=== PATIENT | male | born 1945 | race Caucasian/White ===

== ENCOUNTER 2018-01-09 12:17 | Inpatient (IN) | payer MEDICARE, SELFPAY ==
[2018-01-09] VITALS (16 sets, daily range): BP systolic 97–132; BP diastolic 62–94; PULSE 77–121; RESP 8–27; TEMP 36.7–36.9; O2SAT 95–99; BMI 28.8; BMI 26.9
--- NOTE | 2018-01-09 12:19 | EKG12_ITS ---
Test Reason : SOB Blood Pressure : / mmHG Vent. Rate : 093 BPM Atrial Rate : 075 BPM P-R Int : 000 ms QRS Dur : 164 ms QT Int : 420 ms P-R-T Axes : 000 008 166 degrees QTc Int : 522 ms Atrial fibrillation with premature ventricular or aberrantly conducted complexes Non-specific intra-ventricular conduction block Inferior infarct , age undetermined T wave abnormality, consider anterolateral ischemia Abnormal ECG Confirmed by JADE ALICEA, FARIBA ([id number]), editor managing newspaper LIZY FLORES ([id number]) on 01/13/2018 2:32:11 PM Referred By: RAYMUNDO Confirmed By:FARIBA HANSEN MD
--- NOTE | 2018-01-09 12:43 | EKG12_ITS ---
Test Reason : SOB Blood Pressure : / mmHG Vent. Rate : 090 BPM Atrial Rate : 090 BPM P-R Int : 000 ms QRS Dur : 148 ms QT Int : 432 ms P-R-T Axes : 000 058 030 degrees QTc Int : 528 ms Suspect unspecified pacemaker failure Wide QRS rhythm with frequent ventricular-paced complexes and with frequent Premature ventricular com plexes Left bundle branch block Abnormal ECG Confirmed by JADE ALICEA, FARIBA ([id number]), primer expeditor and drier LIZY FLORES ([id number]) on 01/13/2018 1:51:11 PM Referred By: RAYMUNDO Confirmed By:FARIBA HASNEN MD
--- NOTE | 2018-01-09 12:44 | ECHOCS_ITS ---
Reason For Study: CHF Procedure This was a 2D Doppler, Color Flow transthoracic echocardiogram. Exam performed portable in ED. Left Ventricle Moderately dilated left ventricle. The estimated ejection fraction is 20 %. Unable to assess diastolic dysfunction. There are regional wall motion abnormalities as specified. Right Ventricle Normal size and thickness. ICD or pacer leads identified within the right ventricle. Normal systolic function. Atria The left atrium is severely enlarged. Normal right atrium. Mitral Valve Mild diffuse mitral valve thickening. Moderate (2+) eccentric mitral valve insufficiency. Tricuspid Valve Normal tricuspid valve. Mild (1+) tricuspid valve insufficiency. Right ventricular systolic pressure estimated to be 60 mmHg. Severe pulmonary hypertension. Aortic Valve Trisinus/trileaflet aortic valve. Mild diffuse aortic valve thickening. Pulmonic Valve The pulmonic valve is not well visualized. Great Vessels Normal aortic root. Normal arch. The inferior vena cava is dilated. No collapse of the inferior vena cava. Pericardium/Pleural No pericardial effusion. MMode/2D Measurements & Calculations LVIDd: 5.5 cm IVSd: 0.88 cm Ao root diam: 2.7 cm LVIDs: 5.0 cm LVPWd: 0.75 cm LA dimension: 4.9 cm FS: 10.1 % LAV(MOD-bp): 87.9 ml LA A4 area: 26.2 cm2 RA A4 area: 17.3 cm2 LAV(MOD-bp) Indexed: 46.2 ml/m2 LAV(MOD-sp2): 88.4 ml LAV(MOD-sp4): 85.1 ml Doppler Measurements & Calculations MV E max selena: 84.1 cm/sec Ao V2 max: 102.7 cm/sec LV V1 max: 88.7 cm/sec Ao max P.2 mmHg LV V1 max P.2 mmHg PA V2 max: 112.3 cm/sec TR max selena: 322.8 cm/sec TR max P.1 mmHg Interpretation Summary Moderately dilated left ventricle. The estimated ejection fraction is 20 %. There are regional wall motion abnormalities as specified. Unable to assess diastolic dysfunction. The left atrium is severely enlarged. Moderate (2+) eccentric mitral valve insufficiency. Mild (1+) tricuspid valve insufficiency. Right ventricular systolic pressure estimated to be 60 mmHg. Severe pulmonary hypertension. Pt appears to be in atrial fibrillation. There is no comparison study available. Ordering Physician: Doyle Evans Referring Physician: Lorenzo Thibodeaux Performed By: Glo Dawn RDCS
[2018-01-09 12:54] LABS: Absolute Lymphocyte Count 1.49 X10^3/ul (0.83-4.51); Absolute Neutrophil Count 8.6 X10^3/uL (2.0-7.7); Basophil# 0.03 X10^3/uL; Basophil% 0.3 % (0-1); Eosinophil# 0.07 X10^3/uL; Eosinophils% 0.6 % (0-5); Hematocrit 34.2 % (40-54); Hemoglobin 11.1 g/dl (13.0-16.5); Lymphocyte # 1.49 X10^3/ul (4.0); Lymphocyte % 12.8 % (19-41); Mean Corp Hgb Conc 32.5 g/gl (32-36); Mean Corpuscular Hgb 26.6 pg (27.0-32.0); Mean Corpuscular Volume 81.8 fL (80-94); Mean Platelet Vol. 10.7 fl (6.2-12.0); Monocyte# 1.52 X10^3/uL; Neutrophil # 8.55 X10^3/uL (2.7-7.7); Neutrophil % 73.1 % (47-70); Platelet Count 263 K/mm3 (150-450); RBC Distribution Width CV 14.3 % (11.6-14.6); RBC Distribution Width SD 42.6 fl (35.1-43.9); Red Blood Count 4.18 M/mm3 (4.6-6.2); White Blood Count 11.7 K/mm3 (4.4-11.0)
--- NOTE | 2018-01-09 12:55 | RAD_ITS ---
STUDY: X-RAY CHEST REASON FOR EXAM: Male, 72 years old. Chest pain. Shortness of breath and palpitations. TECHNIQUE: Single AP portable view of the chest. COMPARISON: None. FINDINGS: EKG electrodes are seen. There is a 6.7 cm x 5.6 cm consolidation and/or mass in the right upper lobe. Radiographic follow-up is recommended. Increased markings are seen at the lung bases suggestive of either atelectasis and/or scarring. Hyperinflation. There is no demonstrated pleural abnormality. Sternal cerclage wires and vascular clips are present from a prior sternotomy and coronary artery bypass graft procedure (CABG). A left-sided ICD is seen. Normal mediastinum and mundo. Normal visualized pulmonary arteries. Normal visualized aortic arch and descending thoracic aorta. Normal visualized thoracic spine. Normal visualized ribs, clavicles, and shoulders. There is no demonstrated abnormality of the visualized soft tissue structures of the upper abdomen. RAD/Chest 1 View (Portable) IMPRESSION: Infiltration and/or mass lesion in the right upper lobe as described. Radiographic follow-up is recommended. Increased markings at the lung bases suggestive of atelectasis and/or scarring. Electronically Signed: Juanito Arevalo MD at 13:19 EDT Tel [phone], Service support ,
[2018-01-09 12:56] LABS: Differential Indicated SCAN CRITERIA MET; POSITIVE COUNT NO; POSITIVE DIFFERENTIAL YES; POSITIVE MORPHOLOGY NO
--- NOTE | 2018-01-09 12:56 | PCA ---
NO OLD EKG
[2018-01-09 12:58] LABS: International Normalized Ratio 1.9; Prothrombin Time (Protime)PT. 22.1 SECONDS (11.7-14.9)
[2018-01-09 12:59] LABS: Partial Thromboplast Time 44.6 Seconds (24.1-36.2)
[2018-01-09] MEDS: Enoxaparin 100 MG/ML Syringe 80 MG SC (13:01)
[2018-01-09 13:06] LABS: AST(SGOT) 18 U/L (15-37); Alanine Aminotransfer ALT/SGPT 19 U/L (16-61); Albumin, Serum 3.4 g/dL (3.2-5.0); Alkaline Phosphatase 93 U/L (45-117); Anion Gap 9 (5-15); BUN 17 mg/dL (7-18); BUN/Creat Ratio 12.4 RATIO (10-20); Bilirubin, Direct 0.33 mg/dL (0.00-0.30); Calcium,Total 8.5 mg/dL (8.5-10.1); Chloride 97 mmol/L (98-107); Creatinine, Serum 1.37 mg/dL (0.70-1.30); EST Glomerular Filtration Rate 54 mL/min (>60); Est Glom Filt Rate - Afr Amer 65 mL/min (>60); Estimated Creatinine Clearance 42.69 ml/min; Glucose 97 mg/dL (74-106); Potassium 4.5 mmol/L (3.5-5.1); Protein, Total 7.4 g/dL (6.4-8.2); Sodium Level 130 mmol/L (136-145)
--- NOTE | 2018-01-09 13:18 | CT_ITS ---
STUDY: CT CHEST WITHOUT CONTRAST REASON FOR EXAM: Male, 72 years old. Cough. COPD. Shortness of breath. RADIATION DOSAGE (If Supplied By Facility): CTDIvol = ( 13.25 ) mGy, DLP = ( 539.7 ) mGycm TECHNIQUE: Transaxial imaging was performed without the administration of intravenous contrast material. Multiplanar coronal and sagittal images were reformatted. Individualized dose optimization techniques were used for this CT. COMPARISON: Comparison is made with prior chest radiograph done earlier today. FINDINGS: There is evidence of a 6.6 cm x 4.8 cm mass in the lateral peripheral aspect of the right upper lobe. Increased markings are seen in the surrounding pulmonary parenchyma. This is superimposed on emphysematous changes. A neoplastic process should be ruled out. There is also evidence of bronchiectasis and atelectasis along the posterior aspect of the right upper lobe. Small right pleural effusion. Mild increased markings at the left lung base suggestive of a left basilar atelectasis. A dual-chamber pacemaker is seen. There are calcifications of the coronary arteries. Normal mediastinum. Normal hilar regions. Normal unenhanced pulmonary arteries. Normal aorta arch and descending thoracic aorta. There are multi-level degenerative changes of the thoracic spine. Small hiatal hernia. CT/Chest without Contrast IMPRESSION: Large mass in the peripheral anterior lateral aspect of the right upper lobe with surrounding bronchiectasis and mild increased markings in the right upper lobe suggestive of a neoplastic process. Histologic diagnosis is recommended. Electronically Signed: Juanito Arevalo MD at 14:55 EDT Tel [phone], Service support ,
[2018-01-09 13:21] LABS: BNP,B-Type NATRIURETIC PEPTIDE 617.4 pg/mL (0-100)
--- NOTE | 2018-01-09 13:37 | CPS ---
Patient not in room, bipap on standby.
[2018-01-09] MEDS: Furosemide 100 MG/10 ML Vial 80 MG IV (14:52)
--- NOTE | 2018-01-09 15:44 | ED.VISSUMM ---
- ER Visit Summary Date of Service: 01/09/18 Chief Complaint: Shortness of breath History of Present Illness: The patient is a 72 M who presents via his primary care physician. Patient went to his primary care physician following 2 weeks of progressive dyspnea. There the office he was found to be extremely short of breath, and atrial fibrillation. She notes a cough that is nonproductive. He states that he can walk about 6-8 steps before he needs to rest. He denies a prior history of atrial fibrillation. He states that he used to go to [facility] for most of his medical care including cardiology. He has a history of coronary artery bypass grafting. Last year he received 4 stents. He states he sees pulmonology Dr. Keane here in [place]. I was able to obtain meds from primary care and Dr. Keane's office. It appear the patient has in fact had atrial fibrillation before as he is on sotalol Xarelto and Plavix. Patient states his legs are a little bit more swollen than normal. Physical Examination: 109/81 temperature 98.2 heart rate of 95 respirations are 32 socks is 95% on room air Gen: Well-nourished well-developed Head: Normocephalic atraumatic Eyes: Perrl EOMI ENT: TMs clear no rhinorrhea moist mucous membranes Neck: Supple no lymphadenopathy no JVD nontender CVS: Irregularly irregular regular rate rhythm no murmurs normal S1-S2 Respiratory: Shunt is tachypneic. He has audible rales. Chest nontender Abdomen: Soft nontender nondistended normal bowel sounds no masses Back: Nontender Extremity: Nontender 3+ lower extremity pitting edema Skin: Normal color no rash Neuro: alert orientated ?3 CN II-XII intact normal strength sensation reflexes gait cerebellar Psych: Normal affect normal mood Test Results: Chest x-ray shows a large mass in the right upper lobe. EKG shows appears to be atrial fibrillation. There are PVCs. White count is 11.7 with a hemoglobin 11.1. Natruretic peptide is 617. Creatinine 1.37. INR at 1.9 PTT 44.6. Troponin less than 0.02. CT of the chest was obtained without contrast. Emergency Department Course and Treatment: Patient initially received a dose of Lovenox as he told me that he did not have any history of atrial fibrillation and this was the report that I had received from primary care. He also was placed on BiPAP which is greatly improved his breathing. Patient appears and states he is more comfortable. He also received a dose of Lasix 80 mg. I spoke with Dr. Baer and we performed an echocardiogram. Our plan is admission into the hospital. I did speak with Dr. Mckeon regarding the lung mass. Notes from Dr. Keane's office does not demonstrate prior knowledge of right lung mass. Impression: 1. Congestive heart failure exacerbation 2. New diagnosis lung cancer This note was generated with [employer] dictation software. It may contain incorrect words, spelling, and punctuation that were not noted in review of the chart prior to signing ED Disposition - Plan for ED Patient: Chief Complaint: Palpitations Referrals: Lorenzo Thibodeaux [Primary Care Provider] -
--- NOTE | 2018-01-09 16:18 | PCM.HP.STD ---
Problem List (1) CHF exacerbation Status: Acute Qualifiers: Heart failure type: combined systolic and diastolic Qualified Code(s): I50.43 - Acute on chronic combined systolic (congestive) and diastolic (congestive) heart failure (2) Lung mass Status: Acute Comment: new RUL mass suspicious for malignancy (3) COPD exacerbation Status: Acute (4) Acute hypoxemic respiratory failure Status: Acute (5) Atrial fibrillation Status: Chronic Qualifiers: Atrial fibrillation type: persistent Qualified Code(s): I48.1 - Persistent atrial fibrillation (6) Chronic anticoagulation Status: Chronic Comment: Xarelto (7) CAD (coronary artery disease), jena coronary artery Status: Chronic Qualifiers: [facility] [place] vs. transplanted heart: jena heart Associated angina: angina presence unspecified Qualified Code(s): I25.10 - Atherosclerotic heart disease of jena coronary artery without angina pectoris (8) Moderate COPD (chronic obstructive pulmonary disease) Status: Chronic (9) GERD (gastroesophageal reflux disease) Status: Chronic Qualifiers: Esophagitis presence: without esophagitis Qualified Code(s): K21.9 - Gastro-esophageal reflux disease without esophagitis (10) Hx of CABG Status: Chronic (11) ICD (implantable cardioverter-defibrillator) in place Status: Chronic (12) EAN (obstructive sleep apnea) Status: Chronic Comment: mild EAN (13) Nicotine dependence Status: Chronic Qualifiers: Substance use status: uncomplicated History of Present Illness Date of Admission: 01/09/18 Chief Complaint: dyspnea The patient is a 72 year old M with past history of complex coronary artery disease, CABG, stents, CHF last EF 45 - 50, chronic atrial fibrillation on chronic anticoagulation, moderate COPD, tobacco dependency, hypothyroidism, ICD, sent to the ED with shortness of breath wheezing, and edema. He reports his weight has been stable. In the emergency department, he was tachypneic at 23, heart rate 95, and required BiPAP for symptoms, with improvement. Blood pressure was stable. LAB indicated mild leukocytosis 11.7, hemoglobin 11.1, MCV 82, normal platelet count, INR 1.9, sodium 130, chloride 97, creatinine 1.37, LFTs acceptable, troponin negative, BNP 17.4, albumin 3.4. Portable chest x-ray revealed a large mass in the right upper lobe, hyperinflation, COPD changes, ICD and status post CABG CT chest without contrast confirmed its 0.6 x 4.8 cm mass right upper lobe laterally, underlying emphysema, bronchiectasis, small right pleural effusion, dual-chamber pacer ICD He received Lasix 80 mg IV ?1 and was referred for admission. He underwent echocardiogram stat in emergency department. [] Past Medical History Past Medical History (Chronic Problems): Chronic Problems Moderate COPD (chronic obstructive pulmonary disease) (Chronic) GERD (gastroesophageal reflux disease) (Chronic) CAD (coronary artery disease), jena coronary artery (Chronic) Hx of CABG (Chronic) ICD (implantable cardioverter-defibrillator) in place (Chronic) EAN (obstructive sleep apnea) (Chronic) mild EAN Nicotine dependence (Chronic) Atrial fibrillation (Chronic) Chronic anticoagulation (Chronic) Xarelto Allergies cefdinir [From Omnicef] Allergy (Verified 01/09/18 16:18) Rash niacin Allergy (Verified 01/09/18 16:18) FLUSHING/REDNESS IN FACE ANTIHYPERLIPEMIC Allergy (Uncoded 01/09/18 12:22) Unknown Home Medications: Ambulatory Orders Medication Instructions Recorded Albuterol IH (ProAir) [Proair Hfa] 2 puff INHALATION Q4H PRN 01/09/18 Clopidogrel Bisulfate [Plavix] 75 mg PO DAILY 01/09/18 Co Q10 200 [Co Q-10] 100 mg PO DAILY 01/09/18 Fluticasone 44 Mcg [Flovent 44 Mcg] 1 - 2 puff IH BID 01/09/18 Furosemide [Lasix] 40 mg PO DAILY 01/09/18 Levothyroxine [Synthroid] 50 mcg PO DAILY 01/09/18 Lisinopril 20 mg PO DAILY 01/09/18 Loratadine [Claritin] 10 mg PO DAILY 01/09/18 Metoprolol Tartrate [Lopressor 100 mg PO BID 01/09/18 (Beta Honey)] Pantoprazole Sodium [Protonix] 40 mg PO DAILY 01/09/18 Potassium Chloride [K-Dur] 10 meq PO DAILY 01/09/18 Pravastatin Sodium 40 mg PO DAILY 01/09/18 Rivaroxaban [Xarelto] 20 mg PO QHS 01/09/18 Sotalol HCl [Betapace (Beta 160 mg PO BID 01/09/18 Honey)] Umeclidinium Brm/Vilanterol Tr 1 puff IH DAILY 04/05/18 [Anoro Ellipta 62.5-25 Mcg INH] Surgical History: coronary bypass surgery, - - stents Psychiatric History: No pertinent psych hx Smoking Status: Current every day smoker Drugs: None - *Family History Maternal History Items: No pertinent history Paternal History Items: No pertinent history Review of Systems Respiratory: Reports: Shortness of Breath, Wheezing VTE Information - Inpt Only VTE Present on Admission: No VTE Mechan Device Prophylaxis: SCD's VTE Pharm Prophylaxis ordered?: No Reason prophylaxis not ordered:: Medical Contraindication - Xarelto Subjective: Reports feeling improved after BiPAP Objective: pleasant, in NAD - Physical Exam General: Alert, Oriented x3, Cooperative, No apparent distress HEENT: Atraumatic, PERRLA, EOMI Oral: Moist Mucosa Neck: Supple, Negative Carotid Bruits, Thyroid Normal Size and Texture, JVD, Bilateral Lungs: Wheezes - COPD changes throughout Cardiovascular: Irregular Rate - irreg irreg s1s2 soft m base; device present L chest wall Abdomen: Bowel Sounds Present, Soft, Non Tender, Non-Distended, No Hepato-splenomegaly Extremities: Edema Skin: No rashes, No breakdown Neurological: - - non focal Psych/Mental Status: Normal Affect, Appropriate Vital Signs Temp Pulse Resp BP Pulse Ox 98.5 F 95 21 H 132/94 H 96 01/09/18 15:45 01/09/18 16:00 01/09/18 16:00 01/09/18 16:00 01/09/18 16:00 Oxygen Flow Rate (L/min) 2 Oxygen Delivery Method Room Air Weight: 178 lb 5.663 oz Body Mass Index (BMI) 28.8 Laboratory Tests Past 24 Hrs 01/09/18 01/09/18 01/09/18 12:25 12:25 12:25 WBC 11.7 H RBC 4.18 L Hgb 11.1 L Hct 34.2 L MCV 81.8 MCH 26.6 L MCHC 32.5 RDW 14.3 RDW Differential 42.6 Plt Count 263 MPV 10.7 Immature Gran % (Auto) 0.200 Neut % (Auto) 73.1 H Lymph % (Auto) 12.8 L Winn % (Auto) 13.0 H Eos % (Auto) 0.6 Baso % (Auto) 0.3 Absolute Neuts (auto) 8.6 H Absolute Lymphs (auto) 1.49 Total Counted Not Reportable Differential Comment COMMENT PT 22.1 H INR 1.9 APTT 44.6 H Sodium 130 L Potassium 4.5 Chloride 97 L Carbon Dioxide 24.0 Anion Gap 9 BUN 17 Creatinine 1.37 H Estim Creat Clear Calc 42.69 Est GFR (MDRD) Af Amer 65 Est GFR (MDRD) Non-Af 54 L BUN/Creatinine Ratio 12.4 Glucose 97 Calcium 8.5 Total Bilirubin 1.20 H Direct Bilirubin 0.33 H AST 18 ALT 19 Alkaline Phosphatase 93 Troponin I < 0.02 B-Natriuretic Peptide Total Protein 7.4 Albumin 3.4 Globulin 4.0 01/09/18 12:25 WBC RBC Hgb Hct MCV MCH MCHC RDW RDW Differential Plt Count MPV Immature Gran % (Auto) Neut % (Auto) Lymph % (Auto) Winn % (Auto) Eos % (Auto) Baso % (Auto) Absolute Neuts (auto) Absolute Lymphs (auto) Total Counted Differential Comment PT INR APTT Sodium Potassium Chloride Carbon Dioxide Anion Gap BUN Creatinine Estim Creat Clear Calc Est GFR (MDRD) Af Amer Est GFR (MDRD) Non-Af BUN/Creatinine Ratio Glucose Calcium Total Bilirubin Direct Bilirubin AST ALT Alkaline Phosphatase Troponin I B-Natriuretic Peptide 617.4 H Total Protein Albumin Globulin Assessment/Plan 73-year-old male with past medical history of complex coronary artery disease, status post CABG/stents, ICD, hypertension, hyperlipidemia, chronic atrial fibrillation on sotalol and anticoagulation, hypothyroidism, moderate COPD, moderate EAN, hypothyroidism, who is admitted with dyspnea/hypoxemia secondary to CHF exacerbation, COPD exacerbation , and is found to have new right upper lobe lung mass. He required BiPAP in emergency department with good relief. He received 80 mg of Lasix in ED. His last echocardiogram per records was performed 2016 with EF 45-50%, PA pressure 34. He underwent repeat echocardiogram in ED. His Xarelto will be held in anticipation of possible biopsy of lung mass. Current INR 1.9; would follow daily --> may require institution of Lovenox bridge pending time/date of lung bx 1. CHF exacerbation, presumed mixed diastolic systolic Plan: Admit PCU Telemetry monitoring, serial cardiac biomarkers Diuresis Lasix 40 mg IV q. 8 hour Potassium 40 mEq daily, hold K greater than 4.2 Daily electrolyte with magnesium and potassium Oxygen support as needed BiPAP support as needed Continue lisinopril, metoprolol Repeat ECHO pending Cardiology opinion 2. 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 Acute hypoxemic respiratory failure, secondary to #1 and chronic moderate COPD O2 titration protocol, BiPAP as needed 4. Right upper lobe lung mass New compared with x-ray 2017 Suspicious for malignancy Patient asymptomatic Consideration to biopsy this admission Hold Xarelto pulmonary opinion 5. Chronic atrial fibrillation, chronic anticoagulation Holding Xarelto, continue metoprolol, sotalol Cardiology opinion Current INR 1.9, will follow daily Consideration to Lovenox bridging if required heavenly-procedure 6. Complex CAD, status post CABG, stents Continue Plavix, lisinopril, metoprolol, statin, sublingual nitro as needed 7. Moderate COPD 8. GERD continue PPI 9. Hypothyroidism Continue levothyroxine, check TSH 10. Presence of ICD 11. Hyperlipidemia - lipid panel, continue statin 12 . Hypertension - controlled ACEI, beta honey 13. EAN mild 14. Nicotine dependence - nicoderm patch prn 15. CKD3, mild anemia CKD DVT prophy -- already on Xarelto (held), SCDs Code Visit Inpatient E&M: 37412 Init Hosp L3
--- NOTE | 2018-01-09 16:25 | HP.PCM_ITS ---
Problem List (1) CHF exacerbation Status: Acute Qualifiers: Heart failure type: combined systolic and diastolic Qualified Code(s): I50.43 - Acute on chronic combined systolic (congestive) and diastolic ( congestive) heart failure (2) Lung mass Status: Acute Comment: new RUL mass suspicious for malignancy (3) COPD exacerbation Status: Acute (4) Acute hypoxemic respiratory failure Status: Acute (5) Atrial fibrillation Status: Chronic Qualifiers: Atrial fibrillation type: persistent Qualified Code(s): I48.1 - Persistent atrial fibrillation (6) Chronic anticoagulation Status: Chronic Comment: Xarelto (7) CAD (coronary artery disease), [place] coronary artery Status: Chronic Qualifiers: [place] vs. transplanted heart: [place] heart Associated angina: angina presence unspecified Qualified Code(s): I25.10 - Atherosclerotic heart disease of [place] coronary artery without angina pectoris (8) Moderate COPD (chronic obstructive pulmonary disease) Status: Chronic (9) GERD (gastroesophageal reflux disease) Status: Chronic Qualifiers: Esophagitis presence: without esophagitis Qualified Code(s): K21.9 - Gastro -esophageal reflux disease without esophagitis (10) Hx of CABG Status: Chronic (11) ICD (implantable cardioverter-defibrillator) in place Status: Chronic (12) EAN (obstructive sleep apnea) Status: Chronic Comment: mild EAN (13) Nicotine dependence Status: Chronic Qualifiers: Substance use status: uncomplicated History of Present Illness Date of Admission: 01/09/18 Chief Complaint: dyspnea The patient is a 72 year old M with past history of complex coronary artery disease, CABG, stents, CHF last EF 45 - 50, chronic atrial fibrillation on chronic anticoagulation, moderate COPD, tobacco dependency, hypothyroidism, ICD , sent to the ED with shortness of breath wheezing, and edema. He reports his weight has been stable. In the emergency department, he was tachypneic at 23, heart rate 95, and required BiPAP for symptoms, with improvement. Blood pressure was stable. LAB indicated mild leukocytosis 11.7, hemoglobin 11.1, MCV 82, normal platelet count, INR 1.9, sodium 130, chloride 97, creatinine 1.37, LFTs acceptable, troponin negative, BNP 17.4, albumin 3.4. Portable chest x-ray revealed a large mass in the right upper lobe, hyperinflation, COPD changes, ICD and status post CABG CT chest without contrast confirmed its 0.6 x 4.8 cm mass right upper lobe laterally, underlying emphysema, bronchiectasis, small right pleural effusion, dual-chamber pacer ICD He received Lasix 80 mg IV ?1 and was referred for admission. He underwent echocardiogram stat in emergency department. [] Past Medical History Past Medical History (Chronic Problems): Chronic Problems Moderate COPD (chronic obstructive pulmonary disease) (Chronic) GERD (gastroesophageal reflux disease) (Chronic) CAD (coronary artery disease), [place] coronary artery (Chronic) Hx of CABG (Chronic) ICD (implantable cardioverter-defibrillator) in place (Chronic) EAN (obstructive sleep apnea) (Chronic) mild EAN Nicotine dependence (Chronic) Atrial fibrillation (Chronic) Chronic anticoagulation (Chronic) Xarelto Allergies cefdinir [From Omnicef] Allergy (Verified 01/09/18 16:18) Rash niacin Allergy (Verified 01/09/18 16:18) FLUSHING/REDNESS IN FACE ANTIHYPERLIPEMIC Allergy (Uncoded 01/09/18 12:22) Unknown Home Medications: Ambulatory Orders Medication Instructions Recorded Albuterol IH (ProAir) [Proair Hfa] 2 puff INHALATION Q4H PRN 01/09/18 Clopidogrel Bisulfate [Plavix] 75 mg PO DAILY 01/09/18 Co Q10 200 [Co Q-10] 100 mg PO DAILY 01/09/18 Fluticasone 44 Mcg [Flovent 44 Mcg] 1 - 2 puff IH BID 01/09/18 Furosemide [Lasix] 40 mg PO DAILY 01/09/18 Levothyroxine [Synthroid] 50 mcg PO DAILY 01/09/18 Lisinopril 20 mg PO DAILY 01/09/18 Loratadine [Claritin] 10 mg PO DAILY 01/09/18 Metoprolol Tartrate [Lopressor 100 mg PO BID 01/09/18 (Beta Honey)] Pantoprazole Sodium [Protonix] 40 mg PO DAILY 01/09/18 Potassium Chloride [K-Dur] 10 meq PO DAILY 01/09/18 Pravastatin Sodium 40 mg PO DAILY 01/09/18 Rivaroxaban [Xarelto] 20 mg PO QHS 01/09/18 Sotalol HCl [Betapace (Beta 160 mg PO BID 01/09/18 Honey)] Umeclidinium Brm/Vilanterol Tr 1 puff IH DAILY 04/05/18 [Anoro Ellipta 62.5-25 Mcg INH] Surgical History: coronary bypass surgery, - - stents Psychiatric History: No pertinent psych hx Smoking Status: Current every day smoker Drugs: None - *Family History Maternal History Items: No pertinent history Paternal History Items: No pertinent history Review of Systems Respiratory: Reports: Shortness of Breath, Wheezing VTE Information - Inpt Only VTE Present on Admission: No VTE Mechan Device Prophylaxis: SCD's VTE Pharm Prophylaxis ordered?: No Reason prophylaxis not ordered:: Medical Contraindication - Xarelto Subjective: Reports feeling improved after BiPAP Objective: pleasant, in NAD - Physical Exam General: Alert, Oriented x3, Cooperative, No apparent distress HEENT: Atraumatic, PERRLA, EOMI Oral: Moist Mucosa Neck: Supple, Negative Carotid Bruits, Thyroid Normal Size and Texture, JVD, Bilateral Lungs: Wheezes - COPD changes throughout Cardiovascular: Irregular Rate - irreg irreg s1s2 soft m base; device present L chest wall Abdomen: Bowel Sounds Present, Soft, Non Tender, Non-Distended, No Hepato- splenomegaly Extremities: Edema Skin: No rashes, No breakdown Neurological: - - non focal Psych/Mental Status: Normal Affect, Appropriate Vital Signs Temp Pulse Resp BP Pulse Ox 98.5 F 95 21 H 132/94 H 96 01/09/18 15:45 01/09/18 16:00 01/09/18 16:00 01/09/18 16:00 01/09/18 16:00 Oxygen Flow Rate (L/min) 2 Oxygen Delivery Method Room Air Weight: 178 lb 5.663 oz Body Mass Index (BMI) 28.8 Laboratory Tests Past 24 Hrs 01/09/18 01/09/18 01/09/18 12:25 12:25 12:25 WBC 11.7 H RBC 4.18 L Hgb 11.1 L Hct 34.2 L MCV 81.8 MCH 26.6 L MCHC 32.5 RDW 14.3 RDW Differential 42.6 Plt Count 263 MPV 10.7 Immature Gran % (Auto) 0.200 Neut % (Auto) 73.1 H Lymph % (Auto) 12.8 L [place] % (Auto) 13.0 H Eos % (Auto) 0.6 Baso % (Auto) 0.3 Absolute Neuts (auto) 8.6 H Absolute Lymphs (auto) 1.49 Total Counted Not Reportable Differential Comment COMMENT PT 22.1 H INR 1.9 APTT 44.6 H Sodium 130 L Potassium 4.5 Chloride 97 L Carbon Dioxide 24.0 Anion Gap 9 BUN 17 Creatinine 1.37 H Estim Creat Clear Calc 42.69 Est GFR (MDRD) Af Amer 65 Est GFR (MDRD) Non-Af 54 L BUN/Creatinine Ratio 12.4 Glucose 97 Calcium 8.5 Total Bilirubin 1.20 H Direct Bilirubin 0.33 H AST 18 ALT 19 Alkaline Phosphatase 93 Troponin I < 0.02 B-Natriuretic Peptide Total Protein 7.4 Albumin 3.4 Globulin 4.0 01/09/18 12:25 WBC RBC Hgb Hct MCV MCH MCHC RDW RDW Differential Plt Count MPV Immature Gran % (Auto) Neut % (Auto) Lymph % (Auto) [place] % (Auto) Eos % (Auto) Baso % (Auto) Absolute Neuts (auto) Absolute Lymphs (auto) Total Counted Differential Comment PT INR APTT Sodium Potassium Chloride Carbon Dioxide Anion Gap BUN Creatinine Estim Creat Clear Calc Est GFR (MDRD) Af Amer Est GFR (MDRD) Non-Af BUN/Creatinine Ratio Glucose Calcium Total Bilirubin Direct Bilirubin AST ALT Alkaline Phosphatase Troponin I B-Natriuretic Peptide 617.4 H Total Protein Albumin Globulin Assessment/Plan 73-year-old male with past medical history of complex coronary artery disease, status post CABG/stents, ICD, hypertension, hyperlipidemia, chronic atrial fibrillation on sotalol and anticoagulation, hypothyroidism, moderate COPD, moderate EAN, hypothyroidism, who is admitted with dyspnea/hypoxemia secondary to CHF exacerbation, COPD exacerbation , and is found to have new right upper lobe lung mass. He required BiPAP in emergency department with good relief. He received 80 mg of Lasix in ED. His last echocardiogram per records was performed 2016 with EF 45-50%, PA pressure 34. He underwent repeat echocardiogram in ED. His Xarelto will be held in anticipation of possible biopsy of lung mass. Current INR 1.9; would follow daily --> may require institution of Lovenox bridge pending time/date of lung bx 1. CHF exacerbation, presumed mixed diastolic systolic Plan: Admit PCU Telemetry monitoring, serial cardiac biomarkers Diuresis Lasix 40 mg IV q. 8 hour Potassium 40 mEq daily, hold K greater than 4.2 Daily electrolyte with magnesium and potassium Oxygen support as needed BiPAP support as needed Continue lisinopril, metoprolol Repeat ECHO pending Cardiology opinion 2. 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 Acute hypoxemic respiratory failure, secondary to #1 and chronic moderate COPD O2 titration protocol, BiPAP as needed 4. Right upper lobe lung mass New compared with x-ray 2017 Suspicious for malignancy Patient asymptomatic Consideration to biopsy this admission Hold Xarelto pulmonary opinion 5. Chronic atrial fibrillation, chronic anticoagulation Holding Xarelto, continue metoprolol, sotalol Cardiology opinion Current INR 1.9, will follow daily Consideration to Lovenox bridging if required heavenly-procedure 6. Complex CAD, status post CABG, stents Continue Plavix, lisinopril, metoprolol, statin, sublingual nitro as needed 7. Moderate COPD 8. GERD continue PPI 9. Hypothyroidism Continue levothyroxine, check TSH 10. Presence of ICD 11. Hyperlipidemia - lipid panel, continue statin 12 . Hypertension - controlled ACEI, beta honey 13. EAN mild 14. Nicotine dependence - nicoderm patch prn 15. CKD3, mild anemia CKD DVT prophy -- already on Xarelto (held), SCDs Code Visit Inpatient E&M: 27261 Init Hosp L3
[2018-01-09 17:35] LABS: Bedside Glucose 88 mg/dL (70-110)
--- NOTE | 2018-01-09 17:51 | CPS ---
Patient taken off bipap at this time. Returned from the restroom and was 97% on room air. Left off bipap at this time.
[2018-01-09] MEDS: predniSONE 20 MG Tablet 40 MG PO (18:31)
[2018-01-09] MEDS: Ipratropium/Albuterol Sulfate 3 ML AMPUL.NEB INHALATION ×2 (20:05→23:05)
[2018-01-09 22:41] LABS: Bedside Glucose 147 mg/dL (70-110)
[2018-01-09] MEDS: Metoprolol Tartrate 100 MG Tablet PO (22:50)
[2018-01-09] MEDS: 0.9% NaCl Peripheral Flush Adult/Peds IV (22:50)
--- NOTE | 2018-01-09 23:40 | CPS ---
pt requested not to wear Bipap tonight. wanted to wear oxygen instead
[2018-01-10] VITALS (17 sets, daily range): BP systolic 102–119; BP diastolic 58–70; PULSE 72–102; RESP 14–20; TEMP 36.8–36.9; O2SAT 95–99
[2018-01-10] MEDS: Ipratropium/Albuterol Sulfate 3 ML AMPUL.NEB INHALATION ×4 (03:15→19:00)
[2018-01-10 03:16] LABS: Absolute Lymphocyte Count 0.89 X10^3/ul (0.83-4.51); Absolute Neutrophil Count 4.4 X10^3/uL (2.0-7.7); Basophil# 0.01 X10^3/uL; Basophil% 0.2 % (0-1); Hematocrit 32.1 % (40-54); Hemoglobin 10.6 g/dl (13.0-16.5); Lymphocyte # 0.89 X10^3/ul (4.0); Lymphocyte % 15.9 % (19-41); Mean Corpuscular Hgb 26.8 pg (27.0-32.0); Mean Corpuscular Volume 81.3 fL (80-94); Mean Platelet Vol. 10.3 fl (6.2-12.0); Monocyte# 0.28 X10^3/uL; Neutrophil # 4.41 X10^3/uL (2.7-7.7); Neutrophil % 78.9 % (47-70); POSITIVE COUNT NO; POSITIVE DIFFERENTIAL NO; POSITIVE MORPHOLOGY NO; Platelet Count 238 K/mm3 (150-450); RBC Distribution Width CV 14.2 % (11.6-14.6); RBC Distribution Width SD 41.9 fl (35.1-43.9); Red Blood Count 3.95 M/mm3 (4.6-6.2); White Blood Count 5.6 K/mm3 (4.4-11.0)
[2018-01-10 03:20] LABS: International Normalized Ratio 1.5; Prothrombin Time (Protime)PT. 17.9 SECONDS (11.7-14.9)
[2018-01-10 03:39] LABS: ALB/GLOB Ratio 0.8 RATIO (0.9-2.4); AST(SGOT) 17 U/L (15-37); Alanine Aminotransfer ALT/SGPT 19 U/L (16-61); Albumin, Serum 2.8 g/dL (3.2-5.0); Alkaline Phosphatase 80 U/L (45-117); Anion Gap 11 (5-15); BUN 22 mg/dL (7-18); BUN/Creat Ratio 18.2 RATIO (10-20); Calcium,Total 8.3 mg/dL (8.5-10.1); Chloride 97 mmol/L (98-107); Cholesterol 102 mg/dL (200); Creatinine, Serum 1.21 mg/dL (0.70-1.30); EST Glomerular Filtration Rate 62 mL/min (>60); Est Glom Filt Rate - Afr Amer 75 mL/min (>60); Estimated Creatinine Clearance 48.33 ml/min; Globulin 3.5 g/dL (2.2-4.2); Glucose 116 mg/dL (74-106); High Density Lipoprotein 28 mg/dL; Potassium 4.2 mmol/L (3.5-5.1); Protein, Total 6.3 g/dL (6.4-8.2); Sodium Level 131 mmol/L (136-145); Thyroid Stim Hormone (TSH) 1.32 uIU/mL (0.358-3.74); Triglycerides 55 mg/dL; Very Low Density Lipoprotein 11 mg/dL (5-40)
[2018-01-10 03:43] LABS: BNP,B-Type NATRIURETIC PEPTIDE 590.2 pg/mL (0-100)
[2018-01-10] MEDS: Furosemide 40 MG/4 ML Vial IV ×3 (05:29→22:20)
[2018-01-10] MEDS: Levothyroxine 50 MCG Tablet PO (05:29)
[2018-01-10 07:01] LABS: Bedside Glucose 124 mg/dL (70-110)
--- NOTE | 2018-01-10 09:29 | PCM.CONS.GEN ---
Problem List (1) CHF exacerbation Status: Acute Qualifiers: Heart failure type: combined systolic and diastolic Qualified Code(s): I50.43 - Acute on chronic combined systolic (congestive) and diastolic (congestive) heart failure (2) GERD (gastroesophageal reflux disease) Status: Chronic Qualifiers: Esophagitis presence: without esophagitis Qualified Code(s): K21.9 - Gastro-esophageal reflux disease without esophagitis (3) CAD (coronary artery disease), [place] coronary artery Status: Chronic Qualifiers: [place] vs. transplanted heart: [place] heart Associated angina: angina presence unspecified Qualified Code(s): I25.10 - Atherosclerotic heart disease of [place] coronary artery without angina pectoris (4) Hx of CABG Status: Chronic (5) ICD (implantable cardioverter-defibrillator) in place Status: Chronic (6) EAN (obstructive sleep apnea) Status: Chronic Comment: mild EAN (7) Lung mass Status: Acute Comment: new RUL mass suspicious for malignancy (8) Nicotine dependence Status: Chronic Qualifiers: Substance use status: uncomplicated (9) Atrial fibrillation Status: Chronic Qualifiers: Atrial fibrillation type: persistent Qualified Code(s): I48.1 - Persistent atrial fibrillation (10) Chronic anticoagulation Status: Chronic Comment: Xarelto (11) Acute hypoxemic respiratory failure Status: Acute (12) COPD exacerbation Status: Acute Reason for Consult Date of Consultation: 01/10/18 Reason for Consultation: RUL mass, severe COPD History of Present Illness: The patient is a 72 year old M with a past medical history as below, presented to the ED from his PCP office with progressive shortness of breath, respiratory distress, and atrial fibrillation. Patient states of the last 2 weeks, he has been more short of breath with wheezing and lower extremity edema. He is unable to complete his daily activities with significant dyspnea. He is only able to walk a couple steps without having to take a break. He complains of orthopnea. Patient has a mild cough at baseline with white sputum production, mainly in the mornings. He has had somewhat of an increase in sputum production over the last 2 weeks. He denies any hemoptysis. He is current on his flu shot and denies any recent sick contacts. Patient admits he [place] to [place] twice a day to eat breakfast and dinner. He lives alone. He does not always watch what he eats, but tries to be cognizant of his salt intake. Evaluation in the ED included a chest x-ray which showed infiltration and/or mass lesion in the right upper lobe, increased markings at the lung bases suggestive of atelectasis or scarring. A chest CT was then obtained and showed evidence of a 6.6 x 4.8 cm mass in the lateral peripheral aspect of the right upper lobe, evidence of emphysematous changes as well as bronchiectasis/atelectasis. There was a small right pleural effusion. Dual-chamber pacemaker in the left upper chest, and small hiatal hernia. EKG showed atrial fibrillation with a rate of 90 bpm. Echocardiogram showed evidence of significant drop in ejection fraction from 45-50% to 20%, likely diastolic dysfunction with a dilated left ventricle, severely enlarged left atrium, severe pulmonary hypertension with RVSP estimated at 60 mmHg, moderate eccentric MVI and mild TVI. Blood work showed a mild leukocytosis of 11,700, hemoglobin 11.1. Coags showed a PTT of 44.6 and INR 1.9. Chemistry remarkable for sodium of 130, creatinine of 1.37. No prior labs to compare to. Total bili was elevated at 1.2. Troponins have been negative ?4. BNP elevated at 617. Initial vitals BP 109/81, pulse 121, RR 23, 98.2?F, 95% on room air. He was significantly dyspneic at rest. The patient was placed on BiPAP in the ED and given 80 mg of IV Lasix and bronchodilators. He noted significant improvement in his breathing. He has now been weaned to 2 L of oxygen supplementation and denies any shortness of breath at rest. He does have shortness of breath with conversation and with minimal exertion. He denies any nasal congestion, however feels congested in his chest and is unable to expectorate much sputum. He denies any recent fever or chills, dizziness, or palpitations. Patient has a history of a heart catheterization with stent placement about a year ago at [facility]. He previously followed with Dr. Sorto in [place]. His group exercise instructor is Dr. Keane, who he has reportedly seen only once with his initial visit this past July. He has an upcoming appointment at the end of this month. He was placed on Anoro and also utilizes Flovent, Claritin, and ranitidine as an outpatient. He reports mild subjective improvement with his overall breathing and shortness of breath. Patient reportedly had pulmonary function tests at that time as well, data sheet is unavailable but office visit from Dr. Keane reports moderate obstructive ventilatory defect with significant reversibility. FEV1 was not listed. Patient does have a reported history of obstructive sleep apnea, at which time he is noncompliant with PAP therapy. 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 Patient also has significant smoking history, he smoked cigarettes for 30 years at about 1 P[employer], then he transitioned to a pipe for the next 30 years, approximately 1 pound of tobacco per month. He has not smoked his pipe in about a week secondary to his dyspnea. He had a colonoscopy several years ago, unable to recall where or when it was done but did have a fecal test last year with his PCP office. Denies history of cancer or previous lung nodules. Past Medical History Past Medical History (Chronic Problems): Chronic Problems Moderate COPD (chronic obstructive pulmonary disease) (Chronic) GERD (gastroesophageal reflux disease) (Chronic) CAD (coronary artery disease), [place] coronary artery (Chronic) Hx of CABG (Chronic) ICD (implantable cardioverter-defibrillator) in place (Chronic) EAN (obstructive sleep apnea) (Chronic) mild EAN Nicotine dependence (Chronic) Atrial fibrillation (Chronic) Chronic anticoagulation (Chronic) Xarelto Allergies cefdinir [From Omnicef] Allergy (Verified 01/09/18 16:18) Rash niacin Allergy (Verified 01/09/18 16:18) FLUSHING/REDNESS IN FACE ANTIHYPERLIPEMIC Allergy (Uncoded 01/09/18 12:22) Unknown Home Medications: Ambulatory Orders Medication Instructions Recorded Albuterol IH (ProAir) [Proair Hfa] 2 puff INHALATION Q4H PRN 01/09/18 Clopidogrel Bisulfate [Plavix] 75 mg PO DAILY 01/09/18 Co Q10 200 [Co Q-10] 100 mg PO DAILY 01/09/18 Fluticasone 44 Mcg [Flovent 44 Mcg] 1 - 2 puff IH BID 01/09/18 Furosemide [Lasix] 40 mg PO DAILY 01/09/18 Levothyroxine [Synthroid] 50 mcg PO DAILY 01/09/18 Lisinopril 20 mg PO DAILY 01/09/18 Loratadine [Claritin] 10 mg PO DAILY 01/09/18 Metoprolol Tartrate [Lopressor 100 mg PO BID 01/09/18 (Beta Jerri)] Pantoprazole Sodium [Protonix] 40 mg PO DAILY 01/09/18 Potassium Chloride [K-Dur] 10 meq PO DAILY 01/09/18 Pravastatin Sodium 40 mg PO DAILY 01/09/18 Rivaroxaban [Xarelto] 20 mg PO QHS 01/09/18 Sotalol HCl [Betapace (Beta 160 mg PO BID 01/09/18 Jerri)] Umeclidinium Brm/Vilanterol Tr 1 puff IH DAILY 01/09/18 [Anoro Ellipta 62.5-25 Mcg INH] Surgical History: coronary bypass surgery, - - stents 2017 Psychiatric History: No pertinent psych hx Lives: Alone Smoking Status: Current every day smoker Tobacco Use: Cigarettes - 30 pack years, Pipe - For the last 30 years, approximately 1# of tobacco per month Alcohol: Rare Drugs: None - *Family History Maternal History Items: No pertinent history Paternal History Items: No pertinent history Review of Systems Constitutional: Reports: Fatigue. Denies: Anorexia, Chills, Fever, Night Sweats, Malaise, Weakness, Weight Change Eyes: Denies: Vision Change HEENT: Reports: Post Nasal Drip. Denies: Difficulty Swallowing, Dysphasia, Nasal bleeding, Nasal Congestion, Sinus Congestion, Sinus Drainage, Sore Throat Cardiovascular: Reports: Edema, Orthopnea, Paroxysmal Noc. Dyspnea. Denies: Chest Pain, Claudication, Chest Tightness, Heaviness, Light Headedness, Palpitations, Syncope Respiratory: Reports: Cough, Shortness of breath at rest, Shortness of breath upon exertion, Sputum production, Wheezing. Denies: Hemoptysis Gastrointestinal: Denies: Abdominal Pain, Constipation, Diarrhea, Dyspepsia, Hematemesis, Hematochezia, Nausea, Melena, Vomiting Genitourinary: Reports: Nocturia. Denies: Dysuria, Frequency, Hematuria, Retention Musculoskeletal: Reports: Back Pain - chronic. Denies: Neck Pain, Shoulder Pain Skin: Denies: Rash, Wounds Neurological: Denies: Balance problems, Change in Speech, Confusion, Difficulty swallowing, Focal weakness, Numbness, Tingling, Tremor, Seizures Psychiatric: Denies: Anxiety, Depression Endocrine: Denies: Change in Body Habitus, Polydipsia, Polyuria Hematologic/ Lymphatic: Reports: Easy Bruising, Easy Bleeding, - - on Plavix and Xarelto. Denies: Adenopathy, Anemia, Hx of blood clot Subjective: The patient was seen and examined. He is sitting up in bed in no acute distress. Reports he gets significantly dyspneic with minimal exertion. Denies current cough, however taking deep breaths does exacerbate his cough. He has occasional white to yellow sputum production. Denies any chest pain. Complains of some wheezing but this has improved since he was admitted. He is no longer requiring BiPAP and maintaining appropriate saturations on 2 L of oxygen. Objective: Clinical Impression(s) from Imaging Studies Chest X-Ray 01/09/18 12:55 IMPRESSION: Infiltration and/or mass lesion in the right upper lobe as described. Radiographic follow-up is recommended. Increased markings at the lung bases suggestive of atelectasis and/or scarring. Electronically Signed: Juanito Arevalo MD at 13:19 EDT Tel [phone], Service support , Chest CT 01/09/18 13:18 IMPRESSION: Large mass in the peripheral anterior lateral aspect of the right upper lobe with surrounding bronchiectasis and mild increased markings in the right upper lobe suggestive of a neoplastic process. Histologic diagnosis is recommended. Electronically Signed: Juanito Arevalo MD at 14:55 EDT Tel [phone], Service support , - Physical Exam General: Alert, Oriented x3, Cooperative, No apparent distress, Well developed, Well nourished, - - Mild conversational dyspnea HEENT: Atraumatic, Normocephalic Oral: Moist Mucosa, No Gingival or Mucosal Lesions/ Ulcerations, - - Dentures Neck: Supple, No Nodes, Trachea Midline Lungs: No rales, Diminished, Rhonchi, Wheezes, - - Symmetrical expansion, no dullness to percussion. No accessory muscle use. Cardiovascular: Normal S1, Normal S2, Irregular Rate, Murmur Abdomen: Bowel Sounds Present, Soft, Non Tender, Non-Distended Extremities: No clubbing, No cyanosis, Capillary Refill Less than 3 Seconds, No Calf Tenderness, Edema - Lower extremities, mild, Peripheral Pulses Normal Skin: No rashes, No breakdown Musculoskeletal: No Tenderness to Palpation of Joints or Extremities Lymphatic: No Cervical, Supraclavicular, or Inguinal Adenopathy Neurological: Cranial nerves II-XII grossly intact, Neuro grossly intact, Motor Exam 5/5 strength throughout Psych/Mental Status: Alert and oriented to time, place, person, mood and affect Vital Signs Temp Pulse Resp BP Pulse Ox 98.3 F 86 18 119/65 95 01/10/18 04:21 01/10/18 07:09 01/10/18 06:30 01/10/18 04:21 01/10/18 06:40 Oxygen Flow Rate (L/min) 2 Oxygen Delivery Method Nasal Cannula Weight: 166 lb 7.184 oz Body Mass Index (BMI) 26.9 Intake and Output for Last 24 Hours 01/08/18 01/09/18 01/10/18 23:59 23:59 23:59 Intake Total 180 / 180 120 / 120 Output Total 400 / 400 625 / 625 Balance -220 / -220 -505 / -505 Laboratory Tests Past 24 Hrs 01/09/18 01/09/18 01/10/18 17:10 20:58 03:05 WBC 5.6 RBC 3.95 L Hgb 10.6 L Hct 32.1 L MCV 81.3 MCH 26.8 L MCHC 33.0 RDW 14.2 RDW Differential 41.9 Plt Count 238 MPV 10.3 Immature Gran % (Auto) 0.000 Neut % (Auto) 78.9 H Lymph % (Auto) 15.9 L Logan % (Auto) 5.0 Eos % (Auto) 0.0 Baso % (Auto) 0.2 Absolute Neuts (auto) 4.4 Absolute Lymphs (auto) 0.89 Total Counted Not Reportable PT INR Sodium Potassium Chloride Carbon Dioxide Anion Gap BUN Creatinine Estim Creat Clear Calc Est GFR (MDRD) Af Amer Est GFR (MDRD) Non-Af BUN/Creatinine Ratio Glucose Calcium Magnesium Total Bilirubin AST ALT Alkaline Phosphatase Troponin I < 0.02 < 0.02 B-Natriuretic Peptide Total Protein Albumin Globulin Albumin/Globulin Ratio Triglycerides Cholesterol LDL Cholesterol VLDL Cholesterol HDL Cholesterol TSH 01/10/18 01/10/18 01/10/18 03:05 03:05 03:05 WBC RBC Hgb Hct MCV MCH MCHC RDW RDW Differential Plt Count MPV Immature Gran % (Auto) Neut % (Auto) Lymph % (Auto) Logan % (Auto) Eos % (Auto) Baso % (Auto) Absolute Neuts (auto) Absolute Lymphs (auto) Total Counted PT 17.9 H INR 1.5 Sodium 131 L Potassium 4.2 Chloride 97 L Carbon Dioxide 23.0 Anion Gap 11 BUN 22 H Creatinine 1.21 Estim Creat Clear Calc 48.33 Est GFR (MDRD) Af Amer 75 Est GFR (MDRD) Non-Af 62 BUN/Creatinine Ratio 18.2 Glucose 116 H Calcium 8.3 L Magnesium 2.0 Total Bilirubin 0.60 AST 17 ALT 19 Alkaline Phosphatase 80 Troponin I B-Natriuretic Peptide 590.2 H Total Protein 6.3 L Albumin 2.8 L Globulin 3.5 Albumin/Globulin Ratio 0.8 L Triglycerides 55 Cholesterol 102 LDL Cholesterol 63 VLDL Cholesterol 11 HDL Cholesterol 28 L TSH 1.32 01/10/18 03:05 WBC RBC Hgb Hct MCV MCH MCHC RDW RDW Differential Plt Count MPV Immature Gran % (Auto) Neut % (Auto) Lymph % (Auto) Logan % (Auto) Eos % (Auto) Baso % (Auto) Absolute Neuts (auto) Absolute Lymphs (auto) Total Counted PT INR Sodium Potassium Chloride Carbon Dioxide Anion Gap BUN Creatinine Estim Creat Clear Calc Est GFR (MDRD) Af Amer Est GFR (MDRD) Non-Af BUN/Creatinine Ratio Glucose Calcium Magnesium Total Bilirubin AST ALT Alkaline Phosphatase Troponin I < 0.02 B-Natriuretic Peptide Total Protein Albumin Globulin Albumin/Globulin Ratio Triglycerides Cholesterol LDL Cholesterol VLDL Cholesterol HDL Cholesterol TSH POC Glucose 01/10/18 01/09/18 01/09/18 06:55 22:27 17:25 POC Glucose 124 H 147 H 88 Assessment/Plan RECOMMENDATIONS 1. Wean oxygen supplementation to keep saturations greater than 89%, given pulmonary hypertension 2. Encourage incentive spirometer and Acapella 3. BiPAP at night and with naps, use as rescue during day 4. Increase activity as tolerated 5. Continue bronchodilators, steroids 6. Obtain respiratory viral panel 7. Await cardiology recommendations 8. Depending upon #6, would plan for potential bronchoscopy, patient will need to be off anticoagulation x5 days. 9. Ambulatory pulse oximetry prior to discharge IMPRESSIONS 1. Acute hypoxic respiratory failure/congestive heart failure Unclear etiology, however suspect multifactorial including congestive heart failure as patient's EF went from 45-50% to 20%. BNP is elevated. Patient is in atrial fibrillation with rate in the 90s. Also with significant pulmonary hypertension. Cardiology following, plans for nuclear stress test tomorrow. Possible cardioversion if remains in A. fib. Unclear if there is a viral component, will check respiratory panel. Patient does have reported COPD. Continued scheduled bronchodilators, initiate Acapella and incentive spirometer. There was evidence of bronchiectasis and atelectasis on CT. Goal to keep oximetry greater than 89% given his pulmonary hypertension. Suspect patient has chronic hypoxemia with exertion, as his baseline activity tolerance is very low. 2. Large new right upper lobe lung mass Chest CT with 6.67 m x 4.8 cm mass in the right upper lobe. Patient has significant risk factors, smoked for the past 60 years. Reportedly not seen on previous imaging, however no prior testing/imaging done here at [facility]. Patient would benefit from bronchoscopy as mass is suspicious for malignancy. Patient transition from Xarelto to Lovenox for now in anticipation of potential bronchoscopy. Also needs to be off Plavix for several days prior to bronch/EBUS. 3. Reported moderate COPD with exacerbation Pulmonary function tests not available, completed with Dr. Keane. Patient currently on Anoro home. Continue his DuoNeb scheduled aerosols while in the hospital. He is on oral prednisone, which is reasonable at this time given his significant wheezing and sputum production. 4. Reported obstructive sleep apnea, noncompliant Patient has reportedly been resistant to noninvasive positive pressure therapy in the past. He is not interested in revisiting this despite improvement in his breathing after using BiPAP in the ER. Patient states he will wear in the hospital as needed. 5. GERD/tobacco abuse/chronic atrial fibrillation on Xarelto/CAD s/p stents and CABG Complicates care, management, recovery, and prognosis. Thank you for the opportunity to participate in this patient's care, please do not hesitate to contact us with any further questions or concerns. This note was generated with [employer] software. It may contain incorrect words, spelling, and punctuation that were not noted in checking the note before signing.
[2018-01-10] MEDS: predniSONE 20 MG Tablet 40 MG PO (09:35)
[2018-01-10] MEDS: Pravastatin 40 MG Tablet PO (09:35)
[2018-01-10] MEDS: Clopidogrel Bisulfate 75 MG Tablet PO (09:36)
[2018-01-10] MEDS: Sotalol Hydrochloride 80 MG Tablet 160 MG PO (09:36)
[2018-01-10] MEDS: Metoprolol Tartrate 100 MG Tablet PO (09:36)
[2018-01-10] MEDS: Lisinopril 20 MG Tablet PO (09:36)
[2018-01-10] MEDS: Loratadine 10 MG Tablet PO (09:36)
[2018-01-10] MEDS: Pantoprazole Sodium 40 MG Tablet PO (09:37)
--- NOTE | 2018-01-10 09:43 | CON.PCM_ITS ---
Problem List (1) CHF exacerbation Status: Acute Qualifiers: Heart failure type: combined systolic and diastolic Qualified Code(s): I50.43 - Acute on chronic combined systolic (congestive) and diastolic ( congestive) heart failure (2) GERD (gastroesophageal reflux disease) Status: Chronic Qualifiers: Esophagitis presence: without esophagitis Qualified Code(s): K21.9 - Gastro -esophageal reflux disease without esophagitis (3) CAD (coronary artery disease), ruby coronary artery Status: Chronic Qualifiers: [place] vs. transplanted heart: ruby heart Associated angina: angina presence unspecified Qualified Code(s): I25.10 - Atherosclerotic heart disease of ruby coronary artery without angina pectoris (4) Hx of CABG Status: Chronic (5) ICD (implantable cardioverter-defibrillator) in place Status: Chronic (6) EAN (obstructive sleep apnea) Status: Chronic Comment: mild EAN (7) Lung mass Status: Acute Comment: new RUL mass suspicious for malignancy (8) Nicotine dependence Status: Chronic Qualifiers: Substance use status: uncomplicated (9) Atrial fibrillation Status: Chronic Qualifiers: Atrial fibrillation type: persistent Qualified Code(s): I48.1 - Persistent atrial fibrillation (10) Chronic anticoagulation Status: Chronic Comment: Xarelto (11) Acute hypoxemic respiratory failure Status: Acute (12) COPD exacerbation Status: Acute Reason for Consult Date of Consultation: 01/10/18 Reason for Consultation: RUL mass, severe COPD History of Present Illness: The patient is a 72 year old M with a past medical history as below, presented to the ED from his PCP office with progressive shortness of breath, respiratory distress, and atrial fibrillation. Patient states of the last 2 weeks, he has been more short of breath with wheezing and lower extremity edema. He is unable to complete his daily activities with significant dyspnea. He is only able to walk a couple steps without having to take a break. He complains of orthopnea. Patient has a mild cough at baseline with white sputum production, mainly in the mornings. He has had somewhat of an increase in sputum production over the last 2 weeks. He denies any hemoptysis. He is current on his flu shot and denies any recent sick contacts. Patient admits he drives to [employer] twice a day to eat breakfast and dinner. He lives alone. He does not always watch what he eats, but tries to be cognizant of his salt intake. Evaluation in the ED included a chest x-ray which showed infiltration and/or mass lesion in the right upper lobe, increased markings at the lung bases suggestive of atelectasis or scarring. A chest CT was then obtained and showed evidence of a 6.6 x 4.8 cm mass in the lateral peripheral aspect of the right upper lobe, evidence of emphysematous changes as well as bronchiectasis/ atelectasis. There was a small right pleural effusion. Dual-chamber pacemaker in the left upper chest, and small hiatal hernia. EKG showed atrial fibrillation with a rate of 90 bpm. Echocardiogram showed evidence of significant drop in ejection fraction from 45-50% to 20%, likely diastolic dysfunction with a dilated left ventricle, severely enlarged left atrium, severe pulmonary hypertension with RVSP estimated at 60 mmHg, moderate eccentric MVI and mild TVI. Blood work showed a mild leukocytosis of 11,700, hemoglobin 11.1. Coags showed a PTT of 44.6 and INR 1.9. Chemistry remarkable for sodium of 130, creatinine of 1.37. No prior labs to compare to. Total bili was elevated at 1.2. Troponins have been negative ?4. BNP elevated at 617. Initial vitals BP 109/81, pulse 121, RR 23, 98.2?F, 95% on room air. He was significantly dyspneic at rest. The patient was placed on BiPAP in the ED and given 80 mg of IV Lasix and bronchodilators. He noted significant improvement in his breathing. He has now been weaned to 2 L of oxygen supplementation and denies any shortness of breath at rest. He does have shortness of breath with conversation and with minimal exertion. He denies any nasal congestion, however feels congested in his chest and is unable to expectorate much sputum. He denies any recent fever or chills, dizziness, or palpitations. Patient has a history of a heart catheterization with stent placement about a year ago at [facility]. He previously followed with Dr. Sorto in [place]. His [employer] is Dr. Keane, who he has reportedly seen only once with his initial visit this past July. He has an upcoming appointment at the end of this month. He was placed on Anoro and also utilizes Flovent, Claritin, and ranitidine as an outpatient. He reports mild subjective improvement with his overall breathing and shortness of breath. Patient reportedly had pulmonary function tests at that time as well, data sheet is unavailable but office visit from Dr. Keane reports moderate obstructive ventilatory defect with significant reversibility. FEV1 was not listed. Patient does have a reported history of obstructive sleep apnea, at which time he is noncompliant with PAP therapy. 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 Patient also has significant smoking history, he smoked cigarettes for 30 years at about 1 [employer], then he transitioned to a pipe for the next 30 years, approximately 1 pound of tobacco per month. He has not smoked his pipe in about a week secondary to his dyspnea. He had a colonoscopy several years ago, unable to recall where or when it was done but did have a fecal test last year with his PCP office. Denies history of cancer or previous lung nodules. Past Medical History Past Medical History (Chronic Problems): Chronic Problems Moderate COPD (chronic obstructive pulmonary disease) (Chronic) GERD (gastroesophageal reflux disease) (Chronic) CAD (coronary artery disease), ruby coronary artery (Chronic) Hx of CABG (Chronic) ICD (implantable cardioverter-defibrillator) in place (Chronic) EAN (obstructive sleep apnea) (Chronic) mild EAN Nicotine dependence (Chronic) Atrial fibrillation (Chronic) Chronic anticoagulation (Chronic) Xarelto Allergies cefdinir [From Omnicef] Allergy (Verified 01/09/18 16:18) Rash niacin Allergy (Verified 01/09/18 16:18) FLUSHING/REDNESS IN FACE ANTIHYPERLIPEMIC Allergy (Uncoded 01/09/18 12:22) Unknown Home Medications: Ambulatory Orders Medication Instructions Recorded Albuterol IH (ProAir) [Proair Hfa] 2 puff INHALATION Q4H PRN 01/09/18 Clopidogrel Bisulfate [Plavix] 75 mg PO DAILY 01/09/18 Co Q10 200 [Co Q-10] 100 mg PO DAILY 01/09/18 Fluticasone 44 Mcg [Flovent 44 Mcg] 1 - 2 puff IH BID 01/09/18 Furosemide [Lasix] 40 mg PO DAILY 01/09/18 Levothyroxine [Synthroid] 50 mcg PO DAILY 01/09/18 Lisinopril 20 mg PO DAILY 01/09/18 Loratadine [Claritin] 10 mg PO DAILY 01/09/18 Metoprolol Tartrate [Lopressor 100 mg PO BID 01/09/18 (Beta Jerri)] Pantoprazole Sodium [Protonix] 40 mg PO DAILY 01/09/18 Potassium Chloride [K-Dur] 10 meq PO DAILY 01/09/18 Pravastatin Sodium 40 mg PO DAILY 01/09/18 Rivaroxaban [Xarelto] 20 mg PO QHS 01/09/18 Sotalol HCl [Betapace (Beta 160 mg PO BID 01/09/18 Jerri)] Umeclidinium Brm/Vilanterol Tr 1 puff IH DAILY 01/09/18 [Anoro Ellipta 62.5-25 Mcg INH] Surgical History: coronary bypass surgery, - - stents 2017 Psychiatric History: No pertinent psych hx Lives: Alone Smoking Status: Current every day smoker Tobacco Use: Cigarettes - 30 pack years, Pipe - For the last 30 years, approximately 1# of tobacco per month Alcohol: Rare Drugs: None - *Family History Maternal History Items: No pertinent history Paternal History Items: No pertinent history Review of Systems Constitutional: Reports: Fatigue. Denies: Anorexia, Chills, Fever, Night Sweats , Malaise, Weakness, Weight Change Eyes: Denies: Vision Change HEENT: Reports: Post Nasal Drip. Denies: Difficulty Swallowing, Dysphasia, Nasal bleeding, Nasal Congestion, Sinus Congestion, Sinus Drainage, Sore Throat Cardiovascular: Reports: Edema, Orthopnea, Paroxysmal Noc. Dyspnea. Denies: Chest Pain, Claudication, Chest Tightness, Heaviness, Light Headedness, Palpitations, Syncope Respiratory: Reports: Cough, Shortness of breath at rest, Shortness of breath upon exertion, Sputum production, Wheezing. Denies: Hemoptysis Gastrointestinal: Denies: Abdominal Pain, Constipation, Diarrhea, Dyspepsia, Hematemesis, Hematochezia, Nausea, Melena, Vomiting Genitourinary: Reports: Nocturia. Denies: Dysuria, Frequency, Hematuria, Retention Musculoskeletal: Reports: Back Pain - chronic. Denies: Neck Pain, Shoulder Pain Skin: Denies: Rash, Wounds Neurological: Denies: Balance problems, Change in Speech, Confusion, Difficulty swallowing, Focal weakness, Numbness, Tingling, Tremor, Seizures Psychiatric: Denies: Anxiety, Depression Endocrine: Denies: Change in Body Habitus, Polydipsia, Polyuria Hematologic/ Lymphatic: Reports: Easy Bruising, Easy Bleeding, - - on Plavix and Xarelto. Denies: Adenopathy, Anemia, Hx of blood clot Subjective: The patient was seen and examined. He is sitting up in bed in no acute distress. Reports he gets significantly dyspneic with minimal exertion. Denies current cough, however taking deep breaths does exacerbate his cough. He has occasional white to yellow sputum production. Denies any chest pain. Complains of some wheezing but this has improved since he was admitted. He is no longer requiring BiPAP and maintaining appropriate saturations on 2 L of oxygen. Objective: Clinical Impression(s) from Imaging Studies Chest X-Ray 01/09/18 12:55 IMPRESSION: Infiltration and/or mass lesion in the right upper lobe as described. Radiographic follow-up is recommended. Increased markings at the lung bases suggestive of atelectasis and/or scarring. Electronically Signed: Juanito Arevalo MD at 13:19 EDT Tel [phone], Service support , Chest CT 01/09/18 13:18 IMPRESSION: Large mass in the peripheral anterior lateral aspect of the right upper lobe with surrounding bronchiectasis and mild increased markings in the right upper lobe suggestive of a neoplastic process. Histologic diagnosis is recommended. Electronically Signed: Juanito Arevalo MD at 14:55 EDT Tel [phone], Service support , - Physical Exam General: Alert, Oriented x3, Cooperative, No apparent distress, Well developed, Well nourished, - - Mild conversational dyspnea HEENT: Atraumatic, Normocephalic Oral: Moist Mucosa, No Gingival or Mucosal Lesions/ Ulcerations, - - Dentures Neck: Supple, No Nodes, Trachea Midline Lungs: No rales, Diminished, Rhonchi, Wheezes, - - Symmetrical expansion, no dullness to percussion. No accessory muscle use. Cardiovascular: Normal S1, Normal S2, Irregular Rate, Murmur Abdomen: Bowel Sounds Present, Soft, Non Tender, Non-Distended Extremities: No clubbing, No cyanosis, Capillary Refill Less than 3 Seconds, No Calf Tenderness, Edema - Lower extremities, mild, Peripheral Pulses Normal Skin: No rashes, No breakdown Musculoskeletal: No Tenderness to Palpation of Joints or Extremities Lymphatic: No Cervical, Supraclavicular, or Inguinal Adenopathy Neurological: Cranial nerves II-XII grossly intact, Neuro grossly intact, Motor Exam 5/5 strength throughout Psych/Mental Status: Alert and oriented to time, place, person, mood and affect Vital Signs Temp Pulse Resp BP Pulse Ox 98.3 F 86 18 119/65 95 01/10/18 04:21 01/10/18 07:09 01/10/18 06:30 01/10/18 04:21 01/10/18 06:40 Oxygen Flow Rate (L/min) 2 Oxygen Delivery Method Nasal Cannula Weight: 166 lb 7.184 oz Body Mass Index (BMI) 26.9 Intake and Output for Last 24 Hours 01/08/18 01/09/18 01/10/18 23:59 23:59 23:59 Intake Total 180 / 180 120 / 120 Output Total 400 / 400 625 / 625 Balance -220 / -220 -505 / -505 Laboratory Tests Past 24 Hrs 01/09/18 01/09/18 01/10/18 17:10 20:58 03:05 WBC 5.6 RBC 3.95 L Hgb 10.6 L Hct 32.1 L MCV 81.3 MCH 26.8 L MCHC 33.0 RDW 14.2 RDW Differential 41.9 Plt Count 238 MPV 10.3 Immature Gran % (Auto) 0.000 Neut % (Auto) 78.9 H Lymph % (Auto) 15.9 L [place] % (Auto) 5.0 Eos % (Auto) 0.0 Baso % (Auto) 0.2 Absolute Neuts (auto) 4.4 Absolute Lymphs (auto) 0.89 Total Counted Not Reportable PT INR Sodium Potassium Chloride Carbon Dioxide Anion Gap BUN Creatinine Estim Creat Clear Calc Est GFR (MDRD) Af Amer Est GFR (MDRD) Non-Af BUN/Creatinine Ratio Glucose Calcium Magnesium Total Bilirubin AST ALT Alkaline Phosphatase Troponin I < 0.02 < 0.02 B-Natriuretic Peptide Total Protein Albumin Globulin Albumin/Globulin Ratio Triglycerides Cholesterol LDL Cholesterol VLDL Cholesterol HDL Cholesterol TSH 01/10/18 01/10/18 01/10/18 03:05 03:05 03:05 WBC RBC Hgb Hct MCV MCH MCHC RDW RDW Differential Plt Count MPV Immature Gran % (Auto) Neut % (Auto) Lymph % (Auto) [place] % (Auto) Eos % (Auto) Baso % (Auto) Absolute Neuts (auto) Absolute Lymphs (auto) Total Counted PT 17.9 H INR 1.5 Sodium 131 L Potassium 4.2 Chloride 97 L Carbon Dioxide 23.0 Anion Gap 11 BUN 22 H Creatinine 1.21 Estim Creat Clear Calc 48.33 Est GFR (MDRD) Af Amer 75 Est GFR (MDRD) Non-Af 62 BUN/Creatinine Ratio 18.2 Glucose 116 H Calcium 8.3 L Magnesium 2.0 Total Bilirubin 0.60 AST 17 ALT 19 Alkaline Phosphatase 80 Troponin I B-Natriuretic Peptide 590.2 H Total Protein 6.3 L Albumin 2.8 L Globulin 3.5 Albumin/Globulin Ratio 0.8 L Triglycerides 55 Cholesterol 102 LDL Cholesterol 63 VLDL Cholesterol 11 HDL Cholesterol 28 L TSH 1.32 01/10/18 03:05 WBC RBC Hgb Hct MCV MCH MCHC RDW RDW Differential Plt Count MPV Immature Gran % (Auto) Neut % (Auto) Lymph % (Auto) [place] % (Auto) Eos % (Auto) Baso % (Auto) Absolute Neuts (auto) Absolute Lymphs (auto) Total Counted PT INR Sodium Potassium Chloride Carbon Dioxide Anion Gap BUN Creatinine Estim Creat Clear Calc Est GFR (MDRD) Af Amer Est GFR (MDRD) Non-Af BUN/Creatinine Ratio Glucose Calcium Magnesium Total Bilirubin AST ALT Alkaline Phosphatase Troponin I < 0.02 B-Natriuretic Peptide Total Protein Albumin Globulin Albumin/Globulin Ratio Triglycerides Cholesterol LDL Cholesterol VLDL Cholesterol HDL Cholesterol TSH POC Glucose 01/10/18 01/09/18 01/09/18 06:55 22:27 17:25 POC Glucose 124 H 147 H 88 Assessment/Plan RECOMMENDATIONS 1. Wean oxygen supplementation to keep saturations greater than 89%, given pulmonary hypertension 2. Encourage incentive spirometer and Acapella 3. BiPAP at night and with naps, use as rescue during day 4. Increase activity as tolerated 5. Continue bronchodilators, steroids 6. Obtain respiratory viral panel 7. Await cardiology recommendations 8. Depending upon #6, would plan for potential bronchoscopy, patient will need to be off anticoagulation x5 days. 9. Ambulatory pulse oximetry prior to discharge IMPRESSIONS 1. Acute hypoxic respiratory failure/congestive heart failure Unclear etiology, however suspect multifactorial including congestive heart failure as patient's EF went from 45-50% to 20%. BNP is elevated. Patient is in atrial fibrillation with rate in the 90s. Also with significant pulmonary hypertension. Cardiology following, plans for nuclear stress test tomorrow. Possible cardioversion if remains in A. fib. Unclear if there is a viral component, will check respiratory panel. Patient does have reported COPD. Continued scheduled bronchodilators, initiate Acapella and incentive spirometer. There was evidence of bronchiectasis and atelectasis on CT. Goal to keep oximetry greater than 89% given his pulmonary hypertension. Suspect patient has chronic hypoxemia with exertion, as his baseline activity tolerance is very low. 2. Large new right upper lobe lung mass Chest CT with 6.67 m x 4.8 cm mass in the right upper lobe. Patient has significant risk factors, smoked for the past 60 years. Reportedly not seen on previous imaging, however no prior testing/imaging done here at [facility]. Patient would benefit from bronchoscopy as mass is suspicious for malignancy. Patient transition from Xarelto to Lovenox for now in anticipation of potential bronchoscopy. Also needs to be off Plavix for several days prior to bronch/ EBUS. 3. Reported moderate COPD with exacerbation Pulmonary function tests not available, completed with Dr. Keane. Patient currently on Anoro home. Continue his DuoNeb scheduled aerosols while in the hospital. He is on oral prednisone, which is reasonable at this time given his significant wheezing and sputum production. 4. Reported obstructive sleep apnea, noncompliant Patient has reportedly been resistant to noninvasive positive pressure therapy in the past. He is not interested in revisiting this despite improvement in his breathing after using BiPAP in the ER. Patient states he will wear in the hospital as needed. 5. GERD/tobacco abuse/chronic atrial fibrillation on Xarelto/CAD s/p stents and CABG Complicates care, management, recovery, and prognosis. Thank you for the opportunity to participate in this patient's care, please do not hesitate to contact us with any further questions or concerns. This note was generated with [employer] software. It may contain incorrect words, spelling, and punctuation that were not noted in checking the note before signing.
--- NOTE | 2018-01-10 09:46 | PCM.CONS.C ---
Problem List (1) CHF exacerbation Status: Acute Qualifiers: Heart failure type: combined systolic and diastolic Qualified Code(s): I50.43 - Acute on chronic combined systolic (congestive) and diastolic (congestive) heart failure (2) Atrial fibrillation Status: Chronic Qualifiers: Atrial fibrillation type: persistent Qualified Code(s): I48.1 - Persistent atrial fibrillation (3) CAD (coronary artery disease), [place] coronary artery Status: Chronic Qualifiers: [place] vs. transplanted heart: [place] heart Associated angina: angina presence unspecified Qualified Code(s): I25.10 - Atherosclerotic heart disease of [place] coronary artery without angina pectoris (4) Chronic anticoagulation Status: Chronic Comment: Xarelto (5) Hx of CABG Status: Chronic (6) ICD (implantable cardioverter-defibrillator) in place Status: Chronic (7) Nicotine dependence Status: Chronic Qualifiers: Substance use status: uncomplicated Reason for Consult Date of Consultation: 01/10/18 Reason for Consultation: Ischemic heart myopathy, coronary artery disease, status post CABG, status post stents, chronic atrial fibrillation, status post AICD placement History of Present Illness: The patient is a 72 year old M, nondiabetic, previous cigarette tobacco user 1 pack per day for about 30 years, quit around 30 years ago and transition to a pipe, coronary artery disease status post acute inferior wall myocardial infarction in 1987 treated with TPA with subsequent three-vessel bypass surgery at [facility]. At that time received a GARCIA to the LAD, saphenous vein graft to the circumflex, and a saphenous vein graft to the PDA. According to the patient approximately 1 year ago he had repeat catheterization at [facility] by Dr. cheema in 2017. At that time he reports that he received 4 stents into his vein graft area although he does not remember the specifics. He also is status post pacemaker/AICD, and chronic atrial fibrillation. His last DC cardioversion was 3-4 years ago. Despite his chronic A. fib he remains on sotalol. Patient eats all of his meals out, and has noted over the last 1-2 weeks progressively worsening shortness of breath, dyspnea on exertion, lower extremity edema, orthopnea and PND. Patient shortness of breath got so bad he reported to [facility] ER yesterday was found to be tachypneic requiring high-dose oxygen and ultimately BiPAP. Chest x-ray demonstrated a new large spiculated mass in the right upper lobe not previously appreciated, and the patient received IV diuretic therapy. In urgent echocardiogram done in the emergency room demonstrated severe inferior posterior akinesis, with an LVEF around 20%, RVSP of 60 mmHg, 2+ mitral regurgitation. His initial EKG showed atrial fibrillation with old inferior/posterior wall myocardial infarction, PVCs, no acute changes. Overnight the patient has done fairly well, and is breathing much better. He is BiPAP, and is on O2 nasal cannula. His troponins were negative. Patient denied any chest pain or anginal symptoms. Patient did admit to dietary indiscretion as he eats all of his meals out at restaurants, but tries to watch his salt and fluid as best he can. His initial presentation prior to his stents was dyspnea on exertion similar to this today. [] Past Medical History Allergies/Adverse Reactions: Allergies cefdinir [From Omnicef] Allergy (Verified 01/09/18 16:18) Rash niacin Allergy (Verified 01/09/18 16:18) FLUSHING/REDNESS IN FACE ANTIHYPERLIPEMIC Allergy (Uncoded 01/09/18 12:22) Unknown Home Medications: Ambulatory Orders Medication Instructions Recorded Albuterol IH (ProAir) [Proair Hfa] 2 puff INHALATION Q4H PRN 01/09/18 Clopidogrel Bisulfate [Plavix] 75 mg PO DAILY 01/09/18 Co Q10 200 [Co Q-10] 100 mg PO DAILY 01/09/18 Fluticasone 44 Mcg [Flovent 44 Mcg] 1 - 2 puff IH BID 01/09/18 Furosemide [Lasix] 40 mg PO DAILY 01/09/18 Levothyroxine [Synthroid] 50 mcg PO DAILY 01/09/18 Lisinopril 20 mg PO DAILY 01/09/18 Loratadine [Claritin] 10 mg PO DAILY 01/09/18 Metoprolol Tartrate [Lopressor 100 mg PO BID 01/09/18 (Beta Jerri)] Pantoprazole Sodium [Protonix] 40 mg PO DAILY 01/09/18 Potassium Chloride [K-Dur] 10 meq PO DAILY 01/09/18 Pravastatin Sodium 40 mg PO DAILY 01/09/18 Rivaroxaban [Xarelto] 20 mg PO QHS 01/09/18 Sotalol HCl [Betapace (Beta 160 mg PO BID 01/09/18 Jerri)] Umeclidinium Brm/Vilanterol Tr 1 puff IH DAILY 01/09/18 [Anoro Ellipta 62.5-25 Mcg INH] Past Medical History (Chronic Problems): Chronic Problems Moderate COPD (chronic obstructive pulmonary disease) (Chronic) GERD (gastroesophageal reflux disease) (Chronic) CAD (coronary artery disease), [place] coronary artery (Chronic) Hx of CABG (Chronic) ICD (implantable cardioverter-defibrillator) in place (Chronic) EAN (obstructive sleep apnea) (Chronic) mild EAN Nicotine dependence (Chronic) Atrial fibrillation (Chronic) Chronic anticoagulation (Chronic) Xarelto Surgical History: coronary bypass surgery, - - stents Psychiatric History: No pertinent psych hx - *Family History Maternal History Items: No pertinent history Paternal History Items: No pertinent history Smoking Status: Former smoker Drugs: None Review of Systems - Review of Systems General: Denies: Fever, Night Sweats, Fatigue Cardiovascular: Reports: Shortness of Breath at Rest, Shortness of Breath with Exertion, Orthopnea, PND, Peripheral Edema. Denies: Chest Discomfort, Palpitations, Lightheadedness, Dizziness, Near Syncope, Syncope Respiratory: Denies: Cough, Sputum Production, Hemoptysis Gastrointestinal: Denies: Hematemesis, Hematochezia, Melena Genitourinary: Denies: Dysuria, Hematuria Skin: Denies: Rash Subjectve: Patient sitting up in bed, no acute distress. Objective: Vital Signs Temp Pulse Resp BP Pulse Ox 98.2 F 94 18 108/58 L 96 01/10/18 09:28 01/10/18 09:36 01/10/18 09:28 01/10/18 09:28 01/10/18 09:28 Oxygen Flow Rate (L/min) 2 Oxygen Delivery Method Nasal Cannula Weight: 166 lb 7.184 oz Body Mass Index (BMI) 26.9 Intake and Output for Last 24 Hours 01/08/18 01/09/18 01/10/18 23:59 23:59 23:59 Intake Total 180 / 180 120 / 120 Output Total 400 / 400 625 / 625 Balance -220 / -220 -505 / -505 01/09/18 17:10: Troponin I < 0.02 01/09/18 20:58: Troponin I < 0.02 01/10/18 03:05: WBC 5.6, RBC 3.95 L, Hgb 10.6 L, Hct 32.1 L, MCV 81.3, MCH 26.8 L, MCHC 33.0, RDW 14.2, RDW Differential 41.9, Plt Count 238, MPV 10.3, Immature Gran % (Auto) 0.000, Neut % (Auto) 78.9 H, Lymph % (Auto) 15.9 L, [place] % (Auto) 5.0, Eos % (Auto) 0.0, Baso % (Auto) 0.2, Absolute Neuts (auto) 4.4, Total Counted Not Reportable 01/10/18 03:05: Sodium 131 L, Potassium 4.2, Chloride 97 L, Carbon Dioxide 23.0, Anion Gap 11, BUN 22 H, Creatinine 1.21, Est GFR (MDRD) Af Amer 75, Est GFR (MDRD) Non-Af 62, BUN/Creatinine Ratio 18.2, Glucose 116 H, Calcium 8.3 L, Magnesium 2.0, Total Bilirubin 0.60, Triglycerides 55, Cholesterol 102, LDL Cholesterol 63, VLDL Cholesterol 11, HDL Cholesterol 28 L 01/10/18 03:05: B-Natriuretic Peptide 590.2 H 01/10/18 03:05: PT 17.9 H, INR 1.5 01/10/18 03:05: Troponin I < 0.02 Rhythm: EKG: ECHO: As above Stress Test: Cardiac Cath: PCI: CT Surgery: Holter monitor: EPS: PPM: CXR: Chest CT Scan: Assessment/Plan 1. Ischemic cardiomyopathy: The patient presents with progressively worsening shortness of breath and dyspnea on exertion as well as orthopnea and PND with associated dietary indiscretion responding well to IV diuretic therapy. His echocardiogram showed an EF of 20% with old inferior posterior wall myocardial infarction. He is undergone recent angioplasty and 4 stents at [facility] approximately 1 year ago. Patient states that he had a repeat catheterization and to the best of his knowledge which demonstrated all of his stents being open. His troponins were negative on this admission despite his stress. In addition he was found to have a new large spiculated mass suspicious for malignancy in his right upper lobe confirmed by CT scan. I recommended that he undergo a non-walking nuclear stress test tomorrow morning to determine if the patient has any significant overt ischemia in the territory of his previous angioplasty to explain his symptoms. If this is abnormal for ischemia, he may require a repeat catheterization and graft angiography. This would be to risk stratify the patient for possible lung surgery or chemotherapy should this be invoked for his newly found lung mass. Despite the patient's severe cardiomyopathy it does not appear he was on diuretic therapy at home. I recommended we start the patient on Lasix 40 mg p.o. twice daily, with associated potassium replacement if indicated. Would recommend continuing Lasix 40 mill grams IV every 8 hours until the patient has achieved his dry weight. I had a long and thorough discussion regarding dietary indiscretion, salt intake, restaurant foods, and fluid restriction. Recommend 1500 cc fluid restriction if not already invoked. Despite a possible negative stress test, the patient is most likely high risk for any kind of surgery given his ischemic cardiomyopathy, severe pulmonary disease, and pulmonary hypertension. Would recommend switching the patient from metoprolol to carvedilol 3.125 mg p.o. twice daily for additional afterload reduction. We can titrate this up from there with respect to his heart rate and blood pressure. 2. Atrial fibrillation: The patient is on sotalol therapy and his last cardioversion was approximately 3 years ago. It is uncertain how long the patient has been in atrial fibrillation although he has been anticoagulated. Should the patient deteriorate he may require urgent DC synchronized cardioversion. Would recommend DC cardioversion once the patient has completed his pulmonary evaluation and treatment. I believe it is reasonable to continue sotalol for now. Recommend holding his anticoagulation and substituting it with subcu Lovenox should he require lung biopsy going forward. We are recommending waiting at least 3 days time after his oral anticoagulation is stopped before any biopsies or surgical procedures. 3. Hyperlipidemia: Patient's LDL is 63 and HDL 28. Continue Pravachol. 4. Thank you very much for the opportunity to put dissipate in the cardiac care of your patient. Consultation time took place between 930 and 10:15 AM. Code Visit Inpatient E&M: 52669 Init Hosp L2
--- NOTE | 2018-01-10 10:05 | CON.PCM_ITS ---
Problem List (1) CHF exacerbation Status: Acute Qualifiers: Heart failure type: combined systolic and diastolic Qualified Code(s): I50.43 - Acute on chronic combined systolic (congestive) and diastolic ( congestive) heart failure (2) Atrial fibrillation Status: Chronic Qualifiers: Atrial fibrillation type: persistent Qualified Code(s): I48.1 - Persistent atrial fibrillation (3) CAD (coronary artery disease), [place] coronary artery Status: Chronic Qualifiers: [place] vs. transplanted heart: [place] heart Associated angina: angina presence unspecified Qualified Code(s): I25.10 - Atherosclerotic heart disease of [place] coronary artery without angina pectoris (4) Chronic anticoagulation Status: Chronic Comment: Xarelto (5) Hx of CABG Status: Chronic (6) ICD (implantable cardioverter-defibrillator) in place Status: Chronic (7) Nicotine dependence Status: Chronic Qualifiers: Substance use status: uncomplicated Reason for Consult Date of Consultation: 01/10/18 Reason for Consultation: Ischemic heart myopathy, coronary artery disease, status post CABG, status post stents, chronic atrial fibrillation, status post AICD placement History of Present Illness: The patient is a 72 year old M, nondiabetic, previous cigarette tobacco user 1 pack per day for about 30 years, quit around 30 years ago and transition to a pipe, coronary artery disease status post acute inferior wall myocardial infarction in 1987 treated with TPA with subsequent three-vessel bypass surgery at [facility]. At that time received a GARCIA to the LAD, saphenous vein graft to the circumflex, and a saphenous vein graft to the PDA. According to the patient approximately 1 year ago he had repeat catheterization at [facility] by Dr. cheema in 2017. At that time he reports that he received 4 stents into his vein graft area although he does not remember the specifics. He also is status post pacemaker/AICD, and chronic atrial fibrillation. His last DC cardioversion was 3-4 years ago. Despite his chronic A. fib he remains on sotalol. Patient eats all of his meals out, and has noted over the last 1-2 weeks progressively worsening shortness of breath, dyspnea on exertion, lower extremity edema, orthopnea and PND. Patient shortness of breath got so bad he reported to [facility] ER yesterday was found to be tachypneic requiring high-dose oxygen and ultimately BiPAP. Chest x-ray demonstrated a new large spiculated mass in the right upper lobe not previously appreciated, and the patient received IV diuretic therapy. In urgent echocardiogram done in the emergency room demonstrated severe inferior posterior akinesis, with an LVEF around 20%, RVSP of 60 mmHg, 2+ mitral regurgitation. His initial EKG showed atrial fibrillation with old inferior/posterior wall myocardial infarction, PVCs, no acute changes. Overnight the patient has done fairly well, and is breathing much better. He is BiPAP, and is on O2 nasal cannula. His troponins were negative. Patient denied any chest pain or anginal symptoms. Patient did admit to dietary indiscretion as he eats all of his meals out at restaurants, but tries to watch his salt and fluid as best he can. His initial presentation prior to his stents was dyspnea on exertion similar to this today. [] Past Medical History Allergies/Adverse Reactions: Allergies cefdinir [From Omnicef] Allergy (Verified 01/09/18 16:18) Rash niacin Allergy (Verified 01/09/18 16:18) FLUSHING/REDNESS IN FACE ANTIHYPERLIPEMIC Allergy (Uncoded 01/09/18 12:22) Unknown Home Medications: Ambulatory Orders Medication Instructions Recorded Albuterol IH (ProAir) [Proair Hfa] 2 puff INHALATION Q4H PRN 01/09/18 Clopidogrel Bisulfate [Plavix] 75 mg PO DAILY 01/09/18 Co Q10 200 [Co Q-10] 100 mg PO DAILY 01/09/18 Fluticasone 44 Mcg [Flovent 44 Mcg] 1 - 2 puff IH BID 01/09/18 Furosemide [Lasix] 40 mg PO DAILY 01/09/18 Levothyroxine [Synthroid] 50 mcg PO DAILY 01/09/18 Lisinopril 20 mg PO DAILY 01/09/18 Loratadine [Claritin] 10 mg PO DAILY 01/09/18 Metoprolol Tartrate [Lopressor 100 mg PO BID 01/09/18 (Beta Jerri)] Pantoprazole Sodium [Protonix] 40 mg PO DAILY 01/09/18 Potassium Chloride [K-Dur] 10 meq PO DAILY 01/09/18 Pravastatin Sodium 40 mg PO DAILY 01/09/18 Rivaroxaban [Xarelto] 20 mg PO QHS 01/09/18 Sotalol HCl [Betapace (Beta 160 mg PO BID 01/09/18 Jerri)] Umeclidinium Brm/Vilanterol Tr 1 puff IH DAILY 01/09/18 [Anoro Ellipta 62.5-25 Mcg INH] Past Medical History (Chronic Problems): Chronic Problems Moderate COPD (chronic obstructive pulmonary disease) (Chronic) GERD (gastroesophageal reflux disease) (Chronic) CAD (coronary artery disease), [place] coronary artery (Chronic) Hx of CABG (Chronic) ICD (implantable cardioverter-defibrillator) in place (Chronic) EAN (obstructive sleep apnea) (Chronic) mild EAN Nicotine dependence (Chronic) Atrial fibrillation (Chronic) Chronic anticoagulation (Chronic) Xarelto Surgical History: coronary bypass surgery, - - stents Psychiatric History: No pertinent psych hx - *Family History Maternal History Items: No pertinent history Paternal History Items: No pertinent history Smoking Status: Former smoker Drugs: None Review of Systems - Review of Systems General: Denies: Fever, Night Sweats, Fatigue Cardiovascular: Reports: Shortness of Breath at Rest, Shortness of Breath with Exertion, Orthopnea, PND, Peripheral Edema. Denies: Chest Discomfort, Palpitations, Lightheadedness, Dizziness, Near Syncope, Syncope Respiratory: Denies: Cough, Sputum Production, Hemoptysis Gastrointestinal: Denies: Hematemesis, Hematochezia, Melena Genitourinary: Denies: Dysuria, Hematuria Skin: Denies: Rash Subjectve: Patient sitting up in bed, no acute distress. Objective: Vital Signs Temp Pulse Resp BP Pulse Ox 98.2 F 94 18 108/58 L 96 01/10/18 09:28 01/10/18 09:36 01/10/18 09:28 01/10/18 09:28 01/10/18 09:28 Oxygen Flow Rate (L/min) 2 Oxygen Delivery Method Nasal Cannula Weight: 166 lb 7.184 oz Body Mass Index (BMI) 26.9 Intake and Output for Last 24 Hours 01/08/18 01/09/18 01/10/18 23:59 23:59 23:59 Intake Total 180 / 180 120 / 120 Output Total 400 / 400 625 / 625 Balance -220 / -220 -505 / -505 01/09/18 17:10: Troponin I < 0.02 01/09/18 20:58: Troponin I < 0.02 01/10/18 03:05: WBC 5.6, RBC 3.95 L, Hgb 10.6 L, Hct 32.1 L, MCV 81.3, MCH 26.8 L, MCHC 33.0, RDW 14.2, RDW Differential 41.9, Plt Count 238, MPV 10.3, Immature Gran % (Auto) 0.000, Neut % (Auto) 78.9 H, Lymph % (Auto) 15.9 L, [place] % (Auto) 5.0, Eos % (Auto) 0.0, Baso % (Auto) 0.2, Absolute Neuts (auto) 4.4, Total Counted Not Reportable 01/10/18 03:05: Sodium 131 L, Potassium 4.2, Chloride 97 L, Carbon Dioxide 23.0 , Anion Gap 11, BUN 22 H, Creatinine 1.21, Est GFR (MDRD) Af Amer 75, Est GFR ( MDRD) Non-Af 62, BUN/Creatinine Ratio 18.2, Glucose 116 H, Calcium 8.3 L, Magnesium 2.0, Total Bilirubin 0.60, Triglycerides 55, Cholesterol 102, LDL Cholesterol 63, VLDL Cholesterol 11, HDL Cholesterol 28 L 01/10/18 03:05: B-Natriuretic Peptide 590.2 H 01/10/18 03:05: PT 17.9 H, INR 1.5 01/10/18 03:05: Troponin I < 0.02 Rhythm: EKG: ECHO: As above Stress Test: Cardiac Cath: PCI: CT Surgery: Holter monitor: EPS: PPM: CXR: Chest CT Scan: Assessment/Plan 1. Ischemic cardiomyopathy: The patient presents with progressively worsening shortness of breath and dyspnea on exertion as well as orthopnea and PND with associated dietary indiscretion responding well to IV diuretic therapy. His echocardiogram showed an EF of 20% with old inferior posterior wall myocardial infarction. He is undergone recent angioplasty and 4 stents at [facility] approximately 1 year ago. Patient states that he had a repeat catheterization and to the best of his knowledge which demonstrated all of his stents being open. His troponins were negative on this admission despite his stress. In addition he was found to have a new large spiculated mass suspicious for malignancy in his right upper lobe confirmed by CT scan. I recommended that he undergo a non-walking nuclear stress test tomorrow morning to determine if the patient has any significant overt ischemia in the territory of his previous angioplasty to explain his symptoms. If this is abnormal for ischemia, he may require a repeat catheterization and graft angiography. This would be to risk stratify the patient for possible lung surgery or chemotherapy should this be invoked for his newly found lung mass. Despite the patient's severe cardiomyopathy it does not appear he was on diuretic therapy at home. I recommended we start the patient on Lasix 40 mg p.o. twice daily, with associated potassium replacement if indicated. Would recommend continuing Lasix 40 mill grams IV every 8 hours until the patient has achieved his dry weight. I had a long and thorough discussion regarding dietary indiscretion, salt intake, restaurant foods, and fluid restriction. Recommend 1500 cc fluid restriction if not already invoked. Despite a possible negative stress test, the patient is most likely high risk for any kind of surgery given his ischemic cardiomyopathy, severe pulmonary disease, and pulmonary hypertension. Would recommend switching the patient from metoprolol to carvedilol 3.125 mg p.o. twice daily for additional afterload reduction. We can titrate this up from there with respect to his heart rate and blood pressure. 2. Atrial fibrillation: The patient is on sotalol therapy and his last cardioversion was approximately 3 years ago. It is uncertain how long the patient has been in atrial fibrillation although he has been anticoagulated. Should the patient deteriorate he may require urgent DC synchronized cardioversion. Would recommend DC cardioversion once the patient has completed his pulmonary evaluation and treatment. I believe it is reasonable to continue sotalol for now. Recommend holding his anticoagulation and substituting it with subcu Lovenox should he require lung biopsy going forward. We are recommending waiting at least 3 days time after his oral anticoagulation is stopped before any biopsies or surgical procedures. 3. Hyperlipidemia: Patient's LDL is 63 and HDL 28. Continue Pravachol. 4. Thank you very much for the opportunity to put dissipate in the cardiac care of your patient. Consultation time took place between 930 and 10:15 AM. Code Visit Inpatient E&M: 03959 Init Hosp L2
[2018-01-10 12:45] LABS: Bedside Glucose 157 mg/dL (70-110)
--- NOTE | 2018-01-10 12:58 | PCM.PN.HOSP ---
Subjective: Patient was seen and examined. He was sitting up in a chair, on 2 L of oxygen, denies any worsening chest pain or short of breath or dizziness or palpitation. Objective: Physical Exam General: Alert, Oriented x3, Cooperative, No apparent distress HEENT: Atraumatic, PERRLA, EOMI Oral: Moist Mucosa Neck: Supple, Negative Carotid Bruits, Thyroid Normal Size and Texture, JVD, Bilateral Lungs: Wheezes - COPD changes throughout Cardiovascular: Irregular Rate - irreg irreg , ICD present L chest wall Abdomen: Bowel Sounds Present, Soft, Non Tender, Non-Distended, No Hepato-splenomegaly Extremities: Edema Skin: No rashes, No breakdown Neurological: - - non focal Psych/Mental Status: Normal Affect, Appropriate Vitals/I&O's: Vital Signs Temp Pulse Resp BP Pulse Ox 98.2 F 102 H 18 108/58 L 96 01/10/18 09:28 01/10/18 11:00 01/10/18 09:28 01/10/18 09:28 01/10/18 09:28 Oxygen Flow Rate (L/min) 2 Oxygen Delivery Method Nasal Cannula Weight: 75.5 kg Body Mass Index (BMI) 26.9 Intake and Output for Last 24 Hours 01/08/18 01/09/18 01/10/18 23:59 23:59 23:59 Intake Total 180 / 180 720 / 720 Output Total 400 / 400 625 / 625 Balance -220 / -220 95 / 95 Laboratory Results 01/09/18 17:10: Troponin I < 0.02 01/09/18 17:25: POC Glucose 88 01/09/18 20:58: Troponin I < 0.02 01/09/18 22:27: POC Glucose 147 H 01/10/18 03:05: WBC 5.6, RBC 3.95 L, Hgb 10.6 L, Hct 32.1 L, MCV 81.3, MCH 26.8 L, MCHC 33.0, RDW 14.2, RDW Differential 41.9, Plt Count 238, MPV 10.3, Immature Gran % (Auto) 0.000, Neut % (Auto) 78.9 H, Lymph % (Auto) 15.9 L, [place] % (Auto) 5.0, Eos % (Auto) 0.0, Baso % (Auto) 0.2, Absolute Neuts (auto) 4.4, Absolute Lymphs (auto) 0.89, Total Counted Not Reportable 01/10/18 03:05: Sodium 131 L, Potassium 4.2, Chloride 97 L, Carbon Dioxide 23.0, Anion Gap 11, BUN 22 H, Creatinine 1.21, Estim Creat Clear Calc 48.33, Est GFR (MDRD) Af Amer 75, Est GFR (MDRD) Non-Af 62, BUN/Creatinine Ratio 18.2, Glucose 116 H, Calcium 8.3 L, Magnesium 2.0, Total Bilirubin 0.60, AST 17, ALT 19, Alkaline Phosphatase 80, Total Protein 6.3 L, Albumin 2.8 L, Globulin 3.5, Albumin/Globulin Ratio 0.8 L, Triglycerides 55, Cholesterol 102, LDL Cholesterol 63, VLDL Cholesterol 11, HDL Cholesterol 28 L, TSH 1.32 01/10/18 03:05: B-Natriuretic Peptide 590.2 H 01/10/18 03:05: PT 17.9 H, INR 1.5 01/10/18 03:05: Troponin I < 0.02 01/10/18 06:55: POC Glucose 124 H 01/10/18 12:12: POC Glucose 157 H Current Medications Acetaminophen (Tylenol) 650 mg PO Q6H PRN PRN PRN Reason: Mild Pain (scale 0-3)/T>100.7 Albuterol/Ipratropium (Duoneb) 3 ml INHALATION Q6HWA.RT [facility] Last Admin: 01/10/18 06:30 Dose: 3 ml Bisacodyl (Dulcolax) 10 mg PO DAILY PRN PRN PRN Reason: Constipation Carvedilol (Coreg) 3.125 mg PO BID [facility] Clopidogrel Bisulfate (Plavix) 75 mg PO DAILY [facility] Last Admin: 01/10/18 09:36 Dose: 75 mg Dextrose (D50w Syringe) 0 gm IV X1 PRN; Protocol PRN Reason: Hypoglycemia Docusate Sodium (Colace) 200 mg PO BID PRN PRN PRN Reason: Constipation Enoxaparin Sodium (Lovenox) 80 mg 1 mg/kg (80 mg) SC 0600,1800 [facility] Furosemide (Lasix) 80 mg IV X1 [facility] Last Admin: 01/09/18 14:52 Dose: 80 mg Furosemide (Lasix) 40 mg IV Q8 [facility] Last Admin: 01/10/18 05:29 Dose: 40 mg Glucagon () 1 mg IM .X1 PRN PRN Reason: Hypoglycemia Insulin Aspart (Novolog Flexpen (Bkc)) 0 units SC ACHS [facility] PRN Reason: Protocol Last Admin: 01/10/18 12:16 Dose: 1 units Levothyroxine Sodium (Synthroid) 50 mcg PO DAILY@0600 [facility] Last Admin: 01/10/18 05:29 Dose: 50 mcg Lisinopril (Zestril) 20 mg PO DAILY [facility] Last Admin: 01/10/18 09:36 Dose: 20 mg Loratadine (Claritin) 10 mg PO DAILY [facility] Last Admin: 01/10/18 09:36 Dose: 10 mg Magnesium Hydroxide (Milk Of Magnesia) 30 ml PO DAILY PRN PRN Reason: Constipation Melatonin (Melatonin) 3 mg PO QHS PRN PRN Reason: SLEEP Nicotine (Nicoderm Cq (Pbkc)) 21 mg TRANSDERM. DAILY PRN PRN Reason: nicotine cravings Nitroglycerin (Nitrostat) 0.4 mg SUBLINGUAL PRN PRN PRN Reason: chest pain Ondansetron HCl (Zofran) 4 mg IV Q8H PRN PRN PRN Reason: Nausea Oxycodone HCl (Oxyir) 5 mg PO Q4H PRN PRN PRN Reason: Moderate Pain (pain scale 4-5) Pantoprazole Sodium (Protonix) 40 mg PO DAILY [facility] Last Admin: 01/10/18 09:37 Dose: 40 mg Potassium Chloride (K-Dur) 40 meq PO DAILY [facility] Last Admin: 01/10/18 09:35 Dose: 40 meq Pravastatin Sodium (Pravachol) 40 mg PO DAILY [facility] Last Admin: 01/10/18 09:35 Dose: 40 [facility] Admin: 01/10/18 09:35 Dose: 40 mg Senna/Docusate Sodium (Senokot-S, Joyce-Colace) 2 tablet PO BID PRN PRN Reason: Constipation Sodium Chloride () 5 - 30 ml IV UD PRN PRN Reason: SALINE FLUSH Last Admin: 01/09/18 22:50 Dose: 10 ml Sotalol HCl (Betapace (G)) 160 mg PO BID [facility] Last Admin: 01/10/18 09:36 Dose: 160 mg Medical Necessity - Tobacco Use Smoking Status: Current every day smoker Tobacco Use: Cigarettes - 30 pack years, Pipe - For the last 30 years, approximately 1# of tobacco per month Assessment/Plan 72-year-old male with past medical history of complex coronary artery disease, status post CABG/stents, ICD, hypertension, hyperlipidemia, chronic atrial fibrillation, hypothyroidism, moderate COPD, moderate EAN, hypothyroidism, admitted with dyspnea/hypoxemia secondary to CHF exacerbation, COPD exacerbation and is found to have new right upper lobe lung mass. 1. Acute hypoxemic respiratory failure, secondary to #1 and #2, continue to wean off oxygen, encourage use of incentive spirometer 2. Acute on chronic systolic CHF exacerbation, EF 20%, RVSP 60, +2 mitral regurgitation, daily Lasix 40 IV q. 8, carvedilol, Plavix, lisinopril, stress test planned for tomorrow. 3. Acute COPD exacerbation, History of moderate COPD, still smokes, not on oxygen at home, will continue on steroids, breathing treatments, prednisone, Spiriva, pro-air, Breo, Flovent 4. Right upper lobe lung mass, suspcious for malignancy, xarelto on hold for now for possiblity of lung biopsy in this admission, on Lovenox SC BID 5. Chronic atrial fibrillation, rate controlled, on Lovenox SC BID, carvedilol, sotalol, xarelto on hold 6. Ischemic cardiomyopathy, complex CAD, status post CABG, stents, on Plavix, lisinopril, metoprolol, statin, sublingual nitro as needed 7. GERD, on PPI 8. Hypothyroidism, on levothyroxine 11. Hyperlipidemia - lipid panel, continue statin 12. Hypertension - controlled, on lisinopril, beta-honey 13. EAN mild 14. Nicotine use disorder, on nicoderm patch prn 15. CKD stage 3 16. DVT prophylaxis - on Lovenox SC Code Visit Inpatient E&M: 47738 Subs Hosp L2
--- NOTE | 2018-01-10 13:43 | CASEMGMT ---
See RN CM Assessment Link. DC Plan: Home. If home oxygen is needed, pt agreeable to use [facility]. Green sheet is on chart. Will need Home oxygen qualification testing prior to dc. Claribel MARTINN RN ACM
[2018-01-10] MEDS: 0.9% NaCl Peripheral Flush Adult/Peds IV ×2 (15:46→22:24)
[2018-01-10] MEDS: Enoxaparin 80 MG/0.8 ML Syringe SC (17:19)
[2018-01-10 17:36] LABS: Bedside Glucose 133 mg/dL (70-110)
[2018-01-10 22:46] LABS: Bedside Glucose 153 mg/dL (70-110)
--- NOTE | 2018-01-10 23:49 | CPS ---
PT DOES NOT WANT TO WEAR BIPAP
[2018-01-11] VITALS (8 sets, daily range): BP systolic 92–127; BP diastolic 57–69; PULSE 71–97; RESP 16–18; TEMP 36.2–36.7; O2SAT 95–100
[2018-01-11 04:26] LABS: Absolute Lymphocyte Count 1.69 X10^3/ul (0.83-4.51); Absolute Neutrophil Count 9.5 X10^3/uL (2.0-7.7); Basophil# 0.01 X10^3/uL; Basophil% 0.1 % (0-1); Eosinophil# 0.01 X10^3/uL; Eosinophils% 0.1 % (0-5); Hematocrit 33.9 % (40-54); Hemoglobin 11.2 g/dl (13.0-16.5); Lymphocyte # 1.69 X10^3/ul (4.0); Lymphocyte % 13.8 % (19-41); Mean Corpuscular Hgb 26.8 pg (27.0-32.0); Mean Corpuscular Volume 81.1 fL (80-94); Mean Platelet Vol. 10.5 fl (6.2-12.0); Monocyte# 1.01 X10^3/uL; Monocyte% 8.2 % (0-10); Neutrophil # 9.54 X10^3/uL (2.7-7.7); Neutrophil % 77.7 % (47-70); POSITIVE COUNT NO; POSITIVE DIFFERENTIAL NO; POSITIVE MORPHOLOGY NO; Platelet Count 250 K/mm3 (150-450); RBC Distribution Width CV 14.3 % (11.6-14.6); RBC Distribution Width SD 42.1 fl (35.1-43.9); Red Blood Count 4.18 M/mm3 (4.6-6.2); White Blood Count 12.3 K/mm3 (4.4-11.0)
[2018-01-11 04:34] LABS: International Normalized Ratio 1.3; Prothrombin Time (Protime)PT. 15.7 SECONDS (11.7-14.9)
[2018-01-11 04:35] LABS: Partial Thromboplast Time 37.1 Seconds (24.1-36.2)
[2018-01-11 05:12] LABS: Anion Gap 11 (5-15); BUN 28 mg/dL (7-18); BUN/Creat Ratio 20.6 RATIO (10-20); Calcium,Total 8.7 mg/dL (8.5-10.1); Chloride 98 mmol/L (98-107); Creatinine, Serum 1.36 mg/dL (0.70-1.30); EST Glomerular Filtration Rate 54 mL/min (>60); Est Glom Filt Rate - Afr Amer 66 mL/min (>60); Glucose 109 mg/dL (74-106); Potassium 4.2 mmol/L (3.5-5.1); Sodium Level 134 mmol/L (136-145)
[2018-01-11] MEDS: Clopidogrel Bisulfate 75 MG Tablet PO (05:31)
[2018-01-11] MEDS: Levothyroxine 50 MCG Tablet PO (05:31)
[2018-01-11] MEDS: 0.9% NaCl Peripheral Flush Adult/Peds IV ×2 (05:31→10:18)
--- NOTE | 2018-01-11 05:55 | EKG12_ITS ---
Test Reason : AM EKG Blood Pressure : / mmHG Vent. Rate : 075 BPM Atrial Rate : 037 BPM P-R Int : 000 ms QRS Dur : 188 ms QT Int : 492 ms P-R-T Axes : 000 091 -66 degrees QTc Int : 549 ms Ventricular-paced rhythm Abnormal ECG When compared with ECG of 09-JAN-2018 12:21, MANUAL COMPARISON REQUIRED, DATA IS UNCONFIRMED Confirmed by JADE ALICEA, FARIBA ([id number]), editorial manager LIZY FLORES ([id number]) on 01/16/2018 2:19:25 PM Referred By: DR CEJA Confirmed By:FARIBA HANSEN MD
[2018-01-11] MEDS: Ipratropium/Albuterol Sulfate 3 ML AMPUL.NEB INHALATION (06:46)
[2018-01-11] MEDS: Lisinopril 20 MG Tablet PO (06:48)
[2018-01-11 07:01] LABS: Bedside Glucose 100 mg/dL (70-110)
--- NOTE | 2018-01-11 09:46 | PN_ITS ---
Subjective: Patient was seen and examined, no acute events, off oxygen, at 97% on room air, stress test done this a.m. was negative. Feels well. Denies chest pain, palpitations, SOB. Objective: Physical Exam: General: Alert, Oriented x3, Cooperative, No apparent distress HEENT: Atraumatic, PERRLA, EOMI Oral: Moist Mucosa Neck: Supple, Negative Carotid Bruits, Thyroid Normal Size and Texture, JVD, Bilateral Lungs: Wheezes - COPD changes throughout Cardiovascular: Irregular Rate - irregular, irregular, ICD present left chest wall Abdomen: Bowel Sounds Present, Soft, Non Tender, Non-Distended, No Hepato- splenomegaly Extremities: Edema Skin: No rashes, No breakdown Neurological: - - non focal Psych/Mental Status: Normal Affect, Appropriate Vitals/I&O's: Vital Signs Temp Pulse Resp BP Pulse Ox 97.2 F L 80 16 127/69 H 100 01/11/18 06:43 01/11/18 07:17 01/11/18 06:46 01/11/18 06:43 01/11/18 06:46 Oxygen Flow Rate (L/min) 2 Oxygen Delivery Method Nasal Cannula Weight: 74.4 kg Body Mass Index (BMI) 26.9 Intake and Output for Last 24 Hours 01/09/18 01/10/18 01/11/18 23:59 23:59 23:59 Intake Total 180 / 180 980 / 980 840 / 840 Output Total 400 / 400 625 / 625 1500 / 1500 Balance -220 / -220 355 / 355 -660 / -660 Laboratory Results 01/10/18 12:12: POC Glucose 157 H 01/10/18 17:14: POC Glucose 133 H 01/10/18 22:16: POC Glucose 153 H 01/11/18 04:15: WBC 12.3 H, RBC 4.18 L, Hgb 11.2 L, Hct 33.9 L, MCV 81.1, MCH 26.8 L, MCHC 33.0, RDW 14.3, RDW Differential 42.1, Plt Count 250, MPV 10.5, Immature Gran % (Auto) 0.100, Neut % (Auto) 77.7 H, Lymph % (Auto) 13.8 L, [place] % (Auto) 8.2, Eos % (Auto) 0.1, Baso % (Auto) 0.1, Absolute Neuts (auto) 9.5 H, Absolute Lymphs (auto) 1.69, Total Counted Not Reportable 01/11/18 04:15: PT 15.7 H, INR 1.3, APTT 37.1 H 01/11/18 04:15: Sodium 134 L, Potassium 4.2, Chloride 98, Carbon Dioxide 25.0, Anion Gap 11, BUN 28 H, Creatinine 1.36 H, Estim Creat Clear Calc 43.00, Est GFR (MDRD) Af Amer 66, Est GFR (MDRD) Non-Af 54 L, BUN/Creatinine Ratio 20.6 H, Glucose 109 H, Calcium 8.7 01/11/18 06:44: POC Glucose 100 Current Medications Acetaminophen (Tylenol) 650 mg PO Q6H PRN PRN PRN Reason: Mild Pain (scale 0-3)/T>100.7 Albuterol/Ipratropium (Duoneb) 3 ml INHALATION Q6HWA.RT [facility] Last Admin: 01/11/18 06:46 Dose: 3 ml Bisacodyl (Dulcolax) 10 mg PO DAILY PRN PRN PRN Reason: Constipation Carvedilol (Coreg) 3.125 mg PO BID [facility] Last Admin: 01/10/18 22:33 Dose: Not Given Clopidogrel Bisulfate (Plavix) 75 mg PO DAILY [facility] Last Admin: 01/11/18 05:31 Dose: 75 mg Dextrose (D50w Syringe) 0 gm IV X1 PRN; Protocol PRN Reason: Hypoglycemia Docusate Sodium (Colace) 200 mg PO BID PRN PRN PRN Reason: Constipation Enoxaparin Sodium (Lovenox) 80 mg 1 mg/kg (80 mg) SC 0600,1800 [facility] Last Admin: 01/11/18 05:43 Dose: Not Given Furosemide (Lasix) 80 mg IV X1 [facility] Last Admin: 01/10/18 15:36 Dose: Not Given Furosemide (Lasix) 40 mg IV BID [facility] Glucagon () 1 mg IM .X1 PRN PRN Reason: Hypoglycemia Insulin Aspart (Novolog Flexpen (Bkc)) 0 units SC ACHS [facility] PRN Reason: Protocol Last Admin: 01/11/18 08:20 Dose: Not Given Levothyroxine Sodium (Synthroid) 50 mcg PO DAILY@0600 [facility] Last Admin: 01/11/18 05:31 Dose: 50 mcg Lisinopril (Zestril) 20 mg PO DAILY [facility] Last Admin: 01/11/18 06:48 Dose: 20 mg Loratadine (Claritin) 10 mg PO DAILY [facility] Last Admin: 01/10/18 09:36 Dose: 10 mg Magnesium Hydroxide (Milk Of Magnesia) 30 ml PO DAILY PRN PRN Reason: Constipation Melatonin (Melatonin) 3 mg PO QHS PRN PRN Reason: SLEEP Nicotine (Nicoderm Cq (Pbkc)) 21 mg TRANSDERM. DAILY PRN PRN Reason: nicotine cravings Nitroglycerin (Nitrostat) 0.4 mg SUBLINGUAL PRN PRN PRN Reason: chest pain Ondansetron HCl (Zofran) 4 mg IV Q8H PRN PRN PRN Reason: Nausea Oxycodone HCl (Oxyir) 5 mg PO Q4H PRN PRN PRN Reason: Moderate Pain (pain scale 4-5) Pantoprazole Sodium (Protonix) 40 mg PO DAILY [facility] Last Admin: 01/10/18 09:37 Dose: 40 mg Potassium Chloride (K-Dur) 40 meq PO DAILY [facility] Last Admin: 01/11/18 05:31 Dose: 40 meq Pravastatin Sodium (Pravachol) 40 mg PO DAILY [facility] Last Admin: 01/10/18 09:35 Dose: [facility] () [facility] Last Admin: 01/10/18 09:35 Dose: 40 mg Senna/Docusate Sodium (Senokot-S, Joyce-Colace) 2 tablet PO BID PRN PRN Reason: Constipation Sodium Chloride () 5 - 30 ml IV UD PRN PRN Reason: SALINE FLUSH Last Admin: 01/11/18 05:31 Dose: 10 ml Sotalol HCl (Betapace (G)) 160 mg PO BID [facility] Last Admin: 01/10/18 22:33 Dose: Not Given Medical Necessity - Tobacco Use Smoking Status: Current every day smoker Tobacco Use: Cigarettes - 30 pack years, Pipe - For the last 30 years, approximately 1# of tobacco per month Assessment/Plan 72-year-old male with past medical history of complex coronary artery disease, status post CABG/stents, ICD, hypertension, hyperlipidemia, chronic atrial fibrillation, hypothyroidism, moderate COPD, moderate EAN, hypothyroidism, admitted with dyspnea/hypoxemia secondary to CHF exacerbation, COPD exacerbation and is found to have new right upper lobe lung mass. 1. Acute hypoxemic respiratory failure, secondary to #1 and #2, resolved. 2. Acute on chronic systolic CHF exacerbation, EF 20%, RVSP 60, +2 mitral regurgitation, improved with IV lasix, off oxygen, on carvedilol, Plavix, lisinopril, stress test negative. Will be discharged on Lasix 40mg PO BID. 3. Acute COPD exacerbation, History of moderate COPD, not on oxygen at home, improved, does not qualify for oxygen, on breathing treatments, prednisone taper Spiriva, pro-air, Breo, Flovent 4. Right upper lobe lung mass, suspicious for malignancy, lung biopsy planned for outpatient, will resume Xarelto 5. Chronic atrial fibrillation, rate controlled, on Lovenox SC BID, carvedilol, sotalol, xarelto 6. Ischemic cardiomyopathy, complex CAD, status post CABG, stents, on Plavix, lisinopril, metoprolol, statin, sublingual nitro as needed 7. GERD, on PPI 8. Hypothyroidism, on levothyroxine 11. Hyperlipidemia, on statin 12. Hypertension, on lisinopril, beta-honey 13. EAN, mild 14. Nicotine use disorder, on NicoDerm patch prn 15. CKD stage 3, slight elevation in CR Code Visit Inpatient E&M: 45693 Subs Hosp L2
[2018-01-11] MEDS: predniSONE 20 MG Tablet 40 MG PO (10:11)
[2018-01-11] MEDS: Sotalol Hydrochloride 80 MG Tablet 160 MG PO (10:12)
[2018-01-11] MEDS: Pantoprazole Sodium 40 MG Tablet PO (10:18)
[2018-01-11] MEDS: Pravastatin 40 MG Tablet PO (10:18)
[2018-01-11] MEDS: Carvedilol 3.125 MG TABLET PO (10:18)
[2018-01-11] MEDS: Loratadine 10 MG Tablet PO (10:18)
[2018-01-11] MEDS: Furosemide 40 MG/4 ML Vial IV (10:26)
--- NOTE | 2018-01-11 10:29 | PCM.PROGNOTE ---
Subjective: Patient did well overnight. No acute issues were noted. Patient did have a stress test this morning and tolerated this well. Patient's oxygenation has greatly improved and he has been weaned to room air. Patient continues to report some dyspnea on exertion, but endorses no cough, hemoptysis or chest pain. - Physical Exam General: Alert, Oriented x3, Cooperative, No apparent distress, - - Speaks in full sentences. HEENT: Atraumatic, PERRLA, EOMI, Normocephalic, - - No scleral icterus or injection noted. Oral: Moist Mucosa, No Gingival or Mucosal Lesions/ Ulcerations Neck: Supple, No JVD, No Nodes, Trachea Midline Lungs: No rhonchi, No wheeze, No rales, Diminished, - - Symmetric expansion. No dullness to percussion. Cardiovascular: Normal S1, Normal S2, Irregular Rate, Murmur, No rub noted, No Gallop Abdomen: Bowel Sounds Present, Soft, Non Tender, Non-Distended Extremities: No clubbing, No cyanosis, Capillary Refill Less than 3 Seconds, Edema - Trace lower extremity Skin: - - Significant change compared to previous Musculoskeletal: No Tenderness to Palpation of Joints or Extremities Lymphatic: No Cervical, Supraclavicular, or Inguinal Adenopathy Neurological: Cranial nerves II-XII grossly intact, Neuro grossly intact, Motor Exam 5/5 strength throughout Psych/Mental Status: Alert and oriented to time, place, person, mood and affect Vital Signs Temp Pulse Resp BP Pulse Ox 36.2 C L 80 16 127/69 H 100 01/11/18 06:43 01/11/18 07:17 01/11/18 06:46 01/11/18 06:43 01/11/18 06:46 Oxygen Flow Rate (L/min) 2 Oxygen Delivery Method Nasal Cannula Weight: 74.4 kg Body Mass Index (BMI) 26.9 Intake and Output for Last 24 Hours 01/09/18 01/10/18 01/11/18 23:59 23:59 23:59 Intake Total 180 / 180 980 / 980 840 / 840 Output Total 400 / 400 625 / 625 1500 / 1500 Balance -220 / -220 355 / 355 -660 / -660 Laboratory Tests Past 24 Hrs 01/11/18 01/11/18 01/11/18 04:15 04:15 04:15 WBC 12.3 H RBC 4.18 L Hgb 11.2 L Hct 33.9 L MCV 81.1 MCH 26.8 L MCHC 33.0 RDW 14.3 RDW Differential 42.1 Plt Count 250 MPV 10.5 Immature Gran % (Auto) 0.100 Neut % (Auto) 77.7 H Lymph % (Auto) 13.8 L [place] % (Auto) 8.2 Eos % (Auto) 0.1 Baso % (Auto) 0.1 Absolute Neuts (auto) 9.5 H Absolute Lymphs (auto) 1.69 Total Counted Not Reportable PT 15.7 H INR 1.3 APTT 37.1 H Sodium 134 L Potassium 4.2 Chloride 98 Carbon Dioxide 25.0 Anion Gap 11 BUN 28 H Creatinine 1.36 H Estim Creat Clear Calc 43.00 Est GFR (MDRD) Af Amer 66 Est GFR (MDRD) Non-Af 54 L BUN/Creatinine Ratio 20.6 H Glucose 109 H Calcium 8.7 POC Glucose 01/11/18 01/10/18 01/10/18 06:44 22:16 17:14 POC Glucose 100 153 H 133 H 01/10/18 12:12 POC Glucose 157 H Medical Necessity - Tobacco Use Smoking Status: Current every day smoker Tobacco Use: Cigarettes - 30 pack years, Pipe - For the last 30 years, approximately 1# of tobacco per month Assessment/Plan RECOMMENDATIONS 1. Wean oxygen supplementation to keep saturations greater than 89%, given pulmonary hypertension 2. Encourage incentive spirometer and Acapella 3. BiPAP at night and with naps 4. Okay to reinitiate baseline anticoagulation 5. Bronchoscopy would be completed as an outpatient 6. Walking oximetry prior to discharge. 7. 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 Acute hypoxic respiratory failure/congestive heart failure Patient was significant improvement in oxygen tensions today compared to yesterday. This would suggest congestive heart failure as the etiology of his hypoxic respiratory failure. Patient does have a reported history of COPD, but steroids would not be this affected this quickly. Would continue with bronchodilator therapy. Consider discontinuation of prednisone and initiation of Pulmicort twice daily while in the hospital. 2. Large new right upper lobe lung mass Chest CT with 6.67 m x 4.8 cm mass in the right upper lobe. Patient has significant risk factors, smoked for the past 60 years. Reportedly not seen on previous imaging, however no prior testing/imaging done here at [facility]. Patient does have some mediastinal lymphadenopathy and would likely benefit from endobronchial ultrasound. However, this would be completed as an outpatient. Patient can be placed back on his baseline anticoagulant therapy until a date is set. 3. Reported moderate COPD with exacerbation Pulmonary function tests not available, completed with Dr. Keane. Patient currently on Anoro home. Continue his DuoNeb scheduled aerosols while in the hospital. Given rapidity of convalescence, COPD exacerbation is unlikely at this time. Viral panel is still pending, but would expect steroids to take more than 24 hours have such a profound effect on saturations. 4. Reported obstructive sleep apnea, noncompliant Patient has reportedly been resistant to noninvasive positive pressure therapy in the past. He is not interested in revisiting this despite improvement in his breathing after using BiPAP in the ER. Patient states he will wear in the hospital as needed. 5. GERD/tobacco abuse/chronic atrial fibrillation on Xarelto/CAD s/p stents and CABG Complicates care, management, recovery, and prognosis. Thank you for the opportunity to participate in this patient's care, please do not hesitate to contact us with any further questions or concerns. This note was generated with [employer] dictation software. It may contain incorrect words, spelling, and punctuation that were not noted in checking the note before signing. Code Visit Inpatient E&M: 58024 Subs Hosp L2
--- NOTE | 2018-01-11 10:30 | STRESSREP ---
Stress Test Report Pharmacologic myocardial perfusion stress test. 72-year-old man with a history of coronary artery disease ischemic cardiomyopathy. Medications metoprolol sotalol Xarelto Plavix. Stress protocol: Resting EKG demonstrates atrial for ablation with rate of 84 bpm resting blood pressure 732/70 mmHg. 0.4 mg regadenoson was infused per usual protocol followed by rapid intravenous saline flush injection continuous EKG monitoring was performed. The patient maintained atrial fibrillation throughout the recording. The maximum heart rate attained was 101 bpm which was 69% of maximum predicted heart rate the maximum workload attained was 1 metabolic equivalent. At rest there were no ST or T-wave changes noted suggest abnormal flow reserve repolarization changes of incomplete left bundle branch block and LVH were present. The peak blood pressure was 132/72. Myocardial perfusion protocol. 12.0 mCi of technetium 99m sestamibi was injected at rest. 0.4 mg of regadenoson was infused per usual protocol peak infusion 35.8 mCi of technetium 99m sestamibi was injected stress images were obtained stress and rest images were reconstructed and compared in the short axis vertical long and horizontal long axis. Gated images were also obtained. Perfusion SPECT analysis: Review of the stress images demonstrate a dilated cardiac silhouette size. The septum appears to be well perfused in the anterior wall and lateral wall. There is a large defect involving the entire inferior wall and the inferior apical wall. The inferior lateral wall is also affected with reduced perfusion. The resting images demonstrate a similar patent with no significant improvement to suggest ischemia. A small amount of heavenly-infarct ischemia however cannot be completely excluded. Gated SPECT analysis: The gated ejection fraction is noted to be 23% with akinesis of the mid inferior wall. Inferoapical dyskinesis is noted. Conclusion: Ischemic cardiomyopathy. Extensive previous inferior infarct extending to the inferolateral and inferior apical jaimes with no significant ischemia present.
[2018-01-11 11:31] LABS: Bedside Glucose 98 mg/dL (70-110)
--- NOTE | 2018-01-11 12:53 | PCM.DC ---
- Discharge Diagnoses Reason(s) for Visit for Discharge Instructions: Shortness of breath You will use the following diet at home:: Cardiac, Fluid restricted (specify 2000 mls, 1500 mls) - 1500 Your food should be the consistency of: Regular Your liquids should be the consistency of: Regular/Thin Discharge Activity: Return to Normal Activity Additional Instructions: Note changes to your medications. Continue on fluid restrictions. You are advised to be on a low-salt diet. Follow-up with pulmonology for work-up of your lung mass. Continue to use the incentive spirometer. Allergies/Adverse Reactions: Allergies cefdinir [From Omnicef] Allergy (Verified 01/09/18 16:18) Rash niacin Allergy (Verified 01/09/18 16:18) FLUSHING/REDNESS IN FACE ANTIHYPERLIPEMIC Allergy (Uncoded 01/09/18 12:22) Unknown Medications to take at Discharge Albuterol IH (ProAir) [Proair Hfa] 2 puff INHALATION Q4H PRN 01/09/18 Clopidogrel Bisulfate [Plavix] 75 mg PO DAILY 01/09/18 Co Q10 200 [Co Q-10] 100 mg PO DAILY 01/09/18 Fluticasone 44 Mcg [Flovent 44 Mcg] 1 - 2 puff IH BID 01/09/18 Levothyroxine [Synthroid] 50 mcg PO DAILY 01/09/18 Lisinopril 20 mg PO DAILY 01/09/18 Loratadine [Claritin] 10 mg PO DAILY 01/09/18 Pantoprazole Sodium [Protonix] 40 mg PO DAILY 01/09/18 Pravastatin Sodium 40 mg PO DAILY 01/09/18 Rivaroxaban [Xarelto] 20 mg PO QHS 01/09/18 Sotalol HCl [Betapace (Beta Jerri)] 160 mg PO BID 01/09/18 Umeclidinium Brm/Vilanterol Tr [Anoro Ellipta 62.5-25 Mcg INH] 1 puff IH DAILY 01/09/18 Carvedilol [Coreg (Beta Jerri)] 3.125 mg PO BID #60 tab 01/11/18 Furosemide [Lasix] 40 mg PO BID@1000,1800 #60 tab 01/11/18 Prednisone See Taper PO DAILY #16 tab 01/11/18 The following prescriptions were given: Furosemide [Lasix] 40 mg PO BID@1000,1800 #60 tab Prednisone See Taper PO DAILY #16 tab Carvedilol [Coreg (Beta Jerri)] 3.125 mg PO BID #60 tab Primary Care Physician: Lorenzo Thibodeaux [Primary Care Provider] - Please follow up with your Primary Care Physician in: within 2 weeks Please Follow Up With: Romulo Mckeon MD When: within 2 weeks Please Follow Up With: Doyle Baer MD When: within 2 weeks Proposed Discharge Date: 01/11/18
--- NOTE | 2018-01-11 12:59 | DS.PCM_ITS ---
Discharge Date and Diagnosis Date of Admission: 01/09/18 Date of Discharge: 01/11/18 - Primary Discharge Diagnosis Acute hypoxic respiratory failure Acute CHF exacerbation Acute COPD exacerbation RUL lung mass, suspicious for malignancy - Secondary Discharge Diagnosis Chronic Problems Moderate COPD (chronic obstructive pulmonary disease) (Chronic) GERD (gastroesophageal reflux disease) (Chronic) CAD (coronary artery disease), [employer] coronary artery (Chronic) Hx of CABG (Chronic) ICD (implantable cardioverter-defibrillator) in place (Chronic) EAN (obstructive sleep apnea) (Chronic) mild EAN Nicotine dependence (Chronic) Atrial fibrillation (Chronic) Chronic anticoagulation (Chronic) Xarelto Hospital Course and Treatment Imaging Results: 01/11/18 07:00 Nuclear Stress Test - Chemical [NM] Routine Cardiology Pulmonology Operations: None Procedures: 2-D Echocardiogram Summary of Care Provided: 72-year-old male with past medical history of complex coronary artery disease, status post CABG/stents, ICD, hypertension, hyperlipidemia, chronic atrial fibrillation, hypothyroidism, moderate COPD, moderate EAN, hypothyroidism, admitted with dyspnea/hypoxemia secondary to CHF exacerbation, COPD exacerbation and is found to have new right upper lobe lung mass. 1. Acute hypoxemic respiratory failure, secondary to #1 and #2, resolved. 2. Acute on chronic systolic CHF exacerbation, EF 20%, RVSP 60, +2 mitral regurgitation, improved with IV lasix, off oxygen, on carvedilol, Plavix, lisinopril, stress test negative. Will be discharged on Lasix 40mg PO BID. 3. Acute COPD exacerbation, history of moderate COPD, not on oxygen at home, improved, does not qualify for oxygen, on breathing treatments, prednisone taper Spiriva, pro-air, Breo, Flovent 4. Right upper lobe lung mass, suspicious for malignancy, lung biopsy planned for outpatient, will resume Xarelto 5. Chronic atrial fibrillation, rate controlled, on Lovenox SC BID, carvedilol, sotalol, xarelto 6. Ischemic cardiomyopathy, complex CAD, status post CABG, stents, on Plavix, lisinopril, metoprolol, statin, sublingual nitro as needed 7. GERD, on PPI 8. Hypothyroidism, on levothyroxine 11. Hyperlipidemia, on statin 12. Hypertension, on lisinopril, beta-jerri 13. EAN, mild 14. Nicotine use disorder, on NicoDerm patch prn 15. CKD stage 3, slight elevation in CR, will get repeat BMP in 1 week. Discharge Diet: Low fat/ Low Cholesterol, 6 Cup Fluid Restriction, 2000 mg Sodium Diet Discharge Activity: Return to Normal Activity Home Medications: Medications to take at Discharge Albuterol IH (ProAir) [Proair Hfa] 2 puff INHALATION Q4H PRN 01/09/18 Clopidogrel Bisulfate [Plavix] 75 mg PO DAILY 01/09/18 Co Q10 200 [Co Q-10] 100 mg PO DAILY 01/09/18 Fluticasone 44 Mcg [Flovent 44 Mcg] 1 - 2 puff IH BID 01/09/18 Levothyroxine [Synthroid] 50 mcg PO DAILY 01/09/18 Lisinopril 20 mg PO DAILY 01/09/18 Loratadine [Claritin] 10 mg PO DAILY 01/09/18 Pantoprazole Sodium [Protonix] 40 mg PO DAILY 01/09/18 Pravastatin Sodium 40 mg PO DAILY 01/09/18 Rivaroxaban [Xarelto] 20 mg PO QHS 01/09/18 Sotalol HCl [Betapace (Beta Jerri)] 160 mg PO BID 01/09/18 Umeclidinium Brm/Vilanterol Tr [Anoro Ellipta 62.5-25 Mcg INH] 1 puff IH DAILY 01/09/18 Carvedilol [Coreg (Beta Jerri)] 3.125 mg PO BID #60 tab 01/11/18 Furosemide [Lasix] 40 mg PO BID@1000,1800 #60 tab 01/11/18 Prednisone See Taper PO DAILY #16 tab 01/11/18 Following Prescrptions Were Given to Patient: Furosemide [Lasix] 40 mg PO BID@1000,1800 #60 tab Prednisone See Taper PO DAILY #16 tab Carvedilol [Coreg (Beta Jerri)] 3.125 mg PO BID #60 tab Primary Care Physician: Lorenzo Thibodeaux [Primary Care Provider] - Please follow up with your Primary Care Physician in: within 2 weeks Please Follow Up With: Romulo Mckeon MD When: within 2 weeks Please Follow Up With: Doyle Baer MD When: within 2 weeks Disposition: Home Minutes spent on discharge:: 25 Patient Condition:: Stable Medical Necessity - Tobacco Use Smoking Status: Current every day smoker Tobacco Use: Cigarettes - 30 pack years, Pipe - For the last 30 years, approximately 1# of tobacco per month Meaningful Use Info Meaningful Use Diagnoses (Choose all that apply): CHF - CHF CANDACE/ARB ordered at discharge?: Yes Documented LVEF (%): 20 Code Visit Inpatient E&M: 91635 Disch Hosp
== END 2018-01-11 14:55 | disposition home or self-care (01) | DRG 291 ==
LOC: ED 14:18 → PCU 16:51
PROVIDERS: Internal Medicine Cardiovascular Disease; Admitting Provider Internal Medicine; Emergency Provider Emergency Medicine; Family Provider Nurse Practitioner Family; PCP Nurse Practitioner Family; Visit Provider Internal Medicine
DX: I13.0 Hypertensive heart and chronic kidney disease with heart failure and stage 1 through stage 4 chronic kidney disease, or unspecified chronic kidney disease (principal); I50.43 Acute on chronic combined systolic (congestive) and diastolic (congestive) heart failure; J96.01 Acute respiratory failure with hypoxia; J44.1 Chronic obstructive pulmonary disease with (acute) exacerbation; J98.11 Atelectasis; R91.8 Other nonspecific abnormal finding of lung field; I27.20 Pulmonary hypertension, unspecified; I25.5 Ischemic cardiomyopathy; N18.3 Chronic kidney disease, stage 3 (moderate); I25.10 Atherosclerotic heart disease of native coronary artery without angina pectoris; I34.0 Nonrheumatic mitral (valve) insufficiency; K21.9 Gastro-esophageal reflux disease without esophagitis; G47.33 Obstructive sleep apnea (adult) (pediatric); I48.2 Chronic atrial fibrillation; E03.9 Hypothyroidism, unspecified; F17.200 Nicotine dependence, unspecified, uncomplicated; E78.5 Hyperlipidemia, unspecified; Z79.01 Long term (current) use of anticoagulants; Z95.1 Presence of aortocoronary bypass graft; Z95.810 Presence of automatic (implantable) cardiac defibrillator; I25.2 Old myocardial infarction
CPT/HCPCS: 36415; 71045; 71250; 78452; 80048; 80053; 80061; 80076; 82962; 83735; 83880; 84443; 84484; 85025; 85610; 85730; 87633; 93005; 93017; 93306; 94002; 94640; 94667; 94668; 97110; 97116; 97162; 97166; 97802; 99251; 99283; 99406; A9500; A4216; C8929; G0463; J1940; J2785

== ENCOUNTER 2018-01-22 08:39 | Day surgery (SDC) | payer MEDICARE, SELFPAY ==
[2018-01-22] VITALS (10 sets, daily range): BP systolic 82–113; BP diastolic 52–71; PULSE 79–87; RESP 16–20; TEMP 36–36.6; O2SAT 97–100; BMI 26.6
--- NOTE | 2018-01-22 | FLU_PTH ---
PATIENT: YANELY GORDON LOC: EN U#:[id number] AGE/SX: 72/M ROOM: RE01/22/[address]: Dr. Kamar Keane MD : 1945 BED: DIS: 01/22/2018 SPEC #: [id number] RECD: 01/22/18 14:20 STATUS: MIKKIElizabeth ORANTES #: [id number] JOSÉ: 01/22/18 00:[address]: Kamar Keane V DEPT: CYTOLOGY RECD BY: Saúl Finnegan ENTERED: 01/22/18 14:21 SP TYPE: Fluid OTHR DR: Lorenzo Thibodeaux Tissues: A - Bronchus of right upper lobe B - Bronchus of right upper lobe C - Bronchus of right upper lobe Procedures: Pap Stain (control) Special Stain Group II Surgery Specimen Level IV Cell Block Cytospin Fluid HEADER OPERATION: Bronchoscopy, endobronchial biopsy PRE-OP DIAGNOSIS: RUL mass TISSUE SUBMITTED: A ? BAL, B ? [place], C ? Slides (3) DIAGNOSIS CYTOLOGY A. BAL (cytospin and cell block): Negative for malignant cells. B. [place] and fluid (cytospin and cell block): Negative for malignant cells. C. Lung mass brushings (smears): Negative for malignant cells. SJ:rg 01/23/18 COMMENT Please make reference to corresponding surgical specimen ([id number]), RUL, lung mass, endobronchial biopsy with diagnosis of fragments of bronchial mucosa with mild chronic inflammation and negative for malignancy. CYTOLOGY STUDY Slides are reviewed. A. The specimen consists of respiratory epithelial cells and macrophages. B. The specimen consists of red blood cells and a few respiratory epithelial cells. C. The specimen consists of respiratory epithelial cells. CYTOLOGY GROSS A - Received is 50 ml of red, turbid fluid labeled with the patient's name and and designated per the requisition as BAL. Submitted for B - Received is metallic endoscopic cytobrush with adherent minute fragments of tamayo-red tissue brush in 2 ml of clear red fluid and labeled with the patient's name and and designated per the requisition as brush. The material is dislodged from the brush and submitted for cytology preparation including cell block. C - Received are three smears labeled with the patient's name and designated per the requisition as lung mass. Submitted for staining. 01/22/18 TC:5 CPT: 24089 x2, 80798 x2, 05139
--- NOTE | 2018-01-22 | LUNG_PTH ---
PATIENT: YANELY GORDON LOC: EN U#:[id number] AGE/SX: 72/M ROOM: RE01/22/[address]: Dr. Kamar Keane MD : 1945 BED: DIS: 01/22/2018 SPEC #: [id number] RECD: 01/22/18 14:23 STATUS: ALAN ROLANDA #: [id number] JOSÉ: 01/22/18 00:[address]: Kamar Keane V DEPT: SURGICAL PATHOLOGY RECD BY: Saúl Finnegan ENTERED: 01/22/18 14:24 SP TYPE: LUNG BX OTHR DR: Lorenzo Thibodeaux Tissues: Bronchus of right upper lobe Procedures: Surgery Specimen Level IV HEADER OPERATION: Bronchoscopy, endobronchial biopsy PRE-OP DIAGNOSIS: RUL lung mass TISSUE SUBMITTED: RUL lung mass MICROSCOPIC DIAGNOSIS RUL, lung mass, endobronchial biopsy: Fragments of bronchial mucosa with mild chronic inflammation. Negative for malignancy. SJ:perri 01/23/18 COMMENT If there is a high suspicion of malignancy, re-biopsy is suggested if clinically indicated. MICROSCOPIC DESCRIPTION Slides are reviewed. GROSS DESCRIPTION Received in fixative is one container labeled with the patient's name and designated RUL biopsy. The specimen consists of multiple irregular fragments of light tamayo soft tissue that in aggregate measure 0.5 x 0.2 x 0.1 cm. The specimen is totally submitted in one cassette. / SJ:rg 01/22/18 TC:3 CPT: 90277
--- NOTE | 2018-01-22 09:24 | RAD_ITS ---
STUDY: X-RAY CHEST REASON FOR EXAM: Male, 72 years old. Shortness of breath and dyspnea. TECHNIQUE: PA and lateral views of the chest. COMPARISON: Comparison is made with prior study dated January 09, 2018. FINDINGS: Hyperinflation. There is a 5.6 cm x 6.3 cm rounded mass in the right upper lobe. There is no demonstrated pleural abnormality. Sternal cerclage wires and vascular clips are present from a prior sternotomy and coronary artery bypass graft procedure (CABG). A left-sided dual-chamber pacemaker is seen. Normal mediastinum and mundo. Normal visualized pulmonary arteries. Normal visualized aortic arch and descending thoracic aorta. There are diffuse degenerative changes of the visualized thoracic spine. Normal visualized ribs, clavicles, and shoulders. There is no demonstrated abnormality of the visualized soft tissue structures of the upper abdomen. RAD/Chest PA and Lateral IMPRESSION: Right upper lobe mass. Hyperinflation. Electronically Signed: Juanito Arevalo MD at 9:48 EDT Tel [phone], Service support ,
[2018-01-22 11:28] LABS: Cytology, Body Fluid / CSF SEE PATHOLOGY REPORT
[2018-01-22 11:30] LABS: Cytology, Body Fluid / CSF SEE PATHOLOGY REPORT
[2018-01-22 12:34] LABS: Appearance/Body Fluid CLOUDY; Color/Body Fluid RED; Source- Body Fluid BRONCHIAL LAVAGE
[2018-01-22 12:48] LABS: Red Cell Count/Body Fluid 2865 /mm3; White Blood Count/Body Fluid 1803 /mm3
[2018-01-22 13:08] LABS: Body Fluid QC Type(s) BF2Q; Lymphocytes 26 %; Mesothelial Cells 4 %; Neutrophil (Segs) 30 %; Other Cell Type/BF 40 %
[2018-01-23 11:58] LABS: Pathologist Comment/Body Fluid Reviewed
== END 2018-01-22 13:30 | disposition home or self-care (01) ==
LOC: EN 08:40 → AC 08:41
PROVIDERS: Family Provider Nurse Practitioner Family; PCP Nurse Practitioner Family; Visit Provider Internal Medicine Pulmonary Disease
PROC: 0BJ08ZZ Inspection of Tracheobronchial Tree, Via Natural or Artificial Opening Endoscopic (ICD-10-PCS; CPT 31622; principal; 2018-01-22 09:45)
DX: R91.8 Other nonspecific abnormal finding of lung field (principal); R06.02 Shortness of breath; G47.33 Obstructive sleep apnea (adult) (pediatric); E11.9 Type 2 diabetes mellitus without complications; I10 Essential (primary) hypertension; I25.5 Ischemic cardiomyopathy; E78.5 Hyperlipidemia, unspecified; I25.10 Atherosclerotic heart disease of native coronary artery without angina pectoris; F17.200 Nicotine dependence, unspecified, uncomplicated; Z95.1 Presence of aortocoronary bypass graft; Z85.038 Personal history of other malignant neoplasm of large intestine; Z95.810 Presence of automatic (implantable) cardiac defibrillator
CPT/HCPCS: 31624; 71046; 76000; 88108; 88305; 88313; 89050; J7120

== ENCOUNTER → 2018-02-17 07:50 | Outpatient (CLI) | payer MEDICARE, SELFPAY ==
[2018-02-17 08:47] LABS: Platelet Count 251 K/mm3 (150-450)
[2018-02-17 09:11] LABS: International Normalized Ratio 1.2; Prothrombin Time (Protime)PT. 14.7 SECONDS (11.7-14.9)
[2018-02-17 09:12] LABS: Partial Thromboplast Time 32.9 Seconds (24.1-36.2)
== END ==
PROVIDERS: Family Provider Nurse Practitioner Family; PCP Nurse Practitioner Family; Visit Provider Internal Medicine Pulmonary Disease
DX: Z79.01 Long term (current) use of anticoagulants (principal)
CPT/HCPCS: 36415; 85049; 85610; 85730

== ENCOUNTER → 2018-02-19 09:03 | Outpatient (CLI) | payer MEDICARE, SELFPAY ==
--- NOTE | 2018-02-19 | IMM_PTH ---
PATIENT: YANELY GORDON LOC: CT U#:[id number] AGE/SX: 80/M ROOM: RE02/19/[address]: Dr. Kamar Keane MD : 1945 BED: DIS: SPEC #: [id number] RECD: 02/20/18 09:49 STATUS: ALAN RECheryl #: [id number] JOSÉ: 02/19/18 00:[address]: Kamar Keane V DEPT: IMMUNOHISTOCHEMISTRY RECD BY: Jannie Noland ENTERED: 02/20/18 09:51 SP TYPE: IMMUNO OTHR DR: Lorenzo Thibodeaux, SALESPERSON [employer] Tissues: Lung, NOS Procedures: RCC (add) NAPSIN A (add) CK20 (add) CK5-6 (add) CK8 (add) HEP PAR (add) PSA (add) TTF1 (add) P40 (add) CK7 (initial) PHYSICIAN & INSTITUTION [place] [id number] SPECIMEN INFORMATION: Tissue Source: Right upper lung mass Clinical Info: Right upper lung mass Specimen Number: [id number] CPT code: 08311, 15645 x9 METHODOLOGY: Deparaffinized sections of prefer/formalin-fixed tissue or PAP/DQ stained slides are incubated with monoclonal/polyclonal antibodies/oligonucleotide probes. Localization is made via biotin free immunoperoxidase method. Appropriate controls are performed and reacted as expected. Results on target cell population are indicated in the following table: RESULTS: ANTIBODY / CLONE RESULT CK7 (OV-TL12/30) negative CK8 (56sapsR74) positive, focal and weak CK20 (KS20.8) negative TTF-1 (8G7G3/1) negative Napsin A (Rabbit Polyclonal) negative HepPar (OCh1E5) negative RCC (PN-15) negative PSA (ER-PR8) negative CK5-6 (D5 & 1684) positive P40 (BC28) positive These tests were developed and their performance characteristics determined by [facility]. They may not have been cleared or approved by the U.S. Food and Drug Administration. The FDA has determined that such clearance or approval is not necessary. INTERPRETATION: Right upper lung mass, CT-guided biopsy: Non-small cell carcinoma, favor squamous cell carcinoma. SJ:perri 02/20/18
--- NOTE | 2018-02-19 | LUNB_PTH ---
PATIENT: YANELY GORDON LOC: CT U#:[id number] AGE/SX: 80/M ROOM: RE02/19/[address]: Dr. Kamar Keane MD : 1945 BED: DIS: SPEC #: [id number] RECD: 02/19/18 11:30 STATUS: ALAN ROLANDA #: [id number] JOSÉ: 02/19/18 00:[address]: Kamar Keane V DEPT: SURGICAL PATHOLOGY RECD BY: Ting Sanchez ENTERED: 02/19/18 11:51 SP TYPE: LUNG BX OTHR DR: Lorenzo Thibodeaux, APARTMENT MAINTENANCE SUPERVISOR-C Tissues: Right upper lobe of lung, NOS Procedures: FNA Specimen Adequacy Special Stain Group II Surgery Specimen Level IV Diff Quik Stain (control) H & E (control) HEADER OPERATION: CT guided right lung biopsy PRE-OP DIAGNOSIS: Right lung mass TISSUE SUBMITTED: Right upper lobe mass, 18 gauge core x3 MICROSCOPIC DIAGNOSIS Right upper lobe mass, CT-guided core biopsy: Non-small cell carcinoma, favor squamous cell carcinoma. See comment. RACHEL:perri 02/20/18 COMMENT The specimen is evaluated at the time of lung biopsy by Dr. Briones. Immediate Evaluation = Atypical cells noted suspicious for malignancy in the background of inflammation and necrosis. The tumor shows extensive necrosis and inflammation. Immunohistochemistry ([id number]) supports the above diagnosis. MICROSCOPIC DESCRIPTION Slides are reviewed. GROSS DESCRIPTION Received is one container labeled with the patient's name and designated CT-guided right lung core biopsy. The specimen consists of multiple irregular fragments of tamayo soft tissue that in aggregate measure 1 x 0.1 x <0.1 cm. Four touch imprints are prepared at the time of core biopsy. The specimen is totally submitted in one cassette. / RACHEL:perri 02/19/18 TC:0 CPT: 43741, 59729
--- NOTE | 2018-02-19 09:06 | CT_ITS ---
PROCEDURE: CT GUIDED CORE NEEDLE BIOPSY OF A right upper lobe LUNG LESION INDICATION: Male, 72 years old. Right upper lobe mass. PHYSICIAN: Dr.Pedicelli LAICEA CONSENT: Written informed consent was obtained having explained the risks, benefits and alternatives in detail with the patient who accepted the risks and agreed to proceed. Laboratory review and clinical assessment was performed. CONSCIOUS SEDATION PROTOCOL: The Drugs used were: 1 mg Versed, IV., and 25 mcg Fentanyl, IV. The sedation time was: 22minutes. Conscious sedation was started at 10:17 AM and terminated at 10:39 AM. The conscious sedation protocol was independently monitored. RADIATION DOSAGE (If Supplied By Facility): CTDIvol = ( 20.7 ) mGy, DLP = ( 278.09 ) mGycm Individualized dose optimization techniques were used for this CT. TECHNIQUE: The patient was placed in the left down decubitus position. A noncontrast CT was performed to localize the lesion in the right upper lobe . The skin surface was prepped and draped in a sterile fashion. 1% lidocaine was used for local anesthesia. Using CT guidance, a 18-gauge coaxial biopsy device was advanced to the periphery of the lesion. A total of 3 core specimens were obtained. The specimens were placed in a formalin solution. A post procedure CT demonstrated no adverse sequelae or pneumothorax. The patient tolerated the procedure well without adverse event. A negative biopsy does not exclude malignancy. Further imaging or clinical followup based on patient condition and degree of clinical suspicion for malignancy. Suggest rebiopsy, if biopsy results do not match with clinical scenario. CT/Biopsy/Inj or Needle Placement IMPRESSION: 1. CT directed core needle biopsy of the right upper lobe mass using CT image guidance with image documentation as described. Pathology results are pending. 2. Conscious Sedation protocol utilized with independent monitoring. Electronically Signed: Juanito Arevalo MD at 12:53 EDT Tel [phone], Service support ,
[2018-02-19 09:22] VITALS: BP 118/62; PULSE 96; RESP 18; TEMP 36.9; O2SAT 97; BMI 27.4
--- NOTE | 2018-02-19 10:48 | RAD_ITS ---
STUDY: X-RAY CHEST REASON FOR EXAM: Male, 72 years old. Immediate postright lung biopsy radiograph. TECHNIQUE: Inspiration expiration views. COMPARISON: Comparison is made with prior examination dated January 22, 2018. FINDINGS: The right upper lobe mass has increased in size. It presently measures 6.4 cm x 6.8 cm. There is no evidence of pneumothorax. RAD/Chest Insp/Exp 2 View IMPRESSION: No pneumothorax seen on the immediate post right lung biopsy radiograph. Electronically Signed: Juanito Arevalo MD at 11:28 EDT Tel [phone], Service support ,
--- NOTE | 2018-02-19 12:35 | RAD_ITS ---
STUDY: X-RAY CHEST REASON FOR EXAM: Male, 72 years old. 2 hour post right lung biopsy radiograph. TECHNIQUE: AP inspiration and expiration views. COMPARISON: Comparison is made with prior examination earlier in the day. FINDINGS: Two-hour post right lung biopsy examination. No evidence of pneumothorax. Right upper lobe mass. RAD/Chest Insp/Exp 2 View IMPRESSION: There is no evidence of pneumothorax on the delayed two-hour postright lung biopsy radiograph. Electronically Signed: Juanito Arevalo MD at 16:03 EDT Tel [phone], Service support ,
[2018-02-19 13:00] VITALS: BP 107/66; PULSE 62; RESP 18; O2SAT 95
== END ==
PROVIDERS: Family Provider Nurse Practitioner Family; PCP Nurse Practitioner Family; Visit Provider Internal Medicine Pulmonary Disease
DX: C34.11 Malignant neoplasm of upper lobe, right bronchus or lung (principal); R91.1 Solitary pulmonary nodule
CPT/HCPCS: 32405; 71046; 77012; 88172; 88305; 88313; 88341; 88342; 99156; 99157; J7040; A4216

== ENCOUNTER → 2018-04-18 08:51 | Outpatient (CLI) | payer MEDICARE, SELFPAY ==
[2018-04-17 13:12] VITALS: BMI 27.9
--- NOTE | 2018-04-18 | FLU_PTH ---
PATIENT: YANELY GORDON LOC: [facility]#:[id number] AGE/SX: 80/M ROOM: RE04/18/[address]: Dr. Abraham Zazueta DO : 1945 BED: DIS: SPEC #: [id number] RECD: 04/18/18 13:45 STATUS: ALAN ROLANDA #: [id number] JOSÉ: 04/18/18 00:[address]: Abraham Zazueta DEPT: CYTOLOGY RECD BY: Saúl Finnegan ENTERED: 04/18/18 13:45 SP TYPE: Fluid OTHR DR: Lorenzo Thibodeaux, COOK FISHING VESSEL-C Tissues: Pleural fluid, NOS Procedures: Special Stain Group II Surgery Specimen Level IV Cytospin Fluid HEADER OPERATION: Ultrasound-guided thoracentesis PRE-OP DIAGNOSIS: Large right pleural effusion, stage 3B NSCLC right pleural effusion TISSUE SUBMITTED: Thoracentesis fluid for cytology DIAGNOSIS CYTOLOGY Thoracentesis fluid for cytology (cytospin and cell block): Negative for malignant cells. See comment. SJ:rg 04/21/18 COMMENT Immunohistochemistry ([id number]) supports the above diagnosis. Please make reference to previous specimen ([id number]), RUL, lung mass, endobronchial biopsy with diagnosis of fragments of bronchial mucosa with mild chronic inflammation, ([id number]) BAL, brush and fluid and lung mass brushings with diagnosis of negative for malignant cells and ([id number]) right upper lobe mass, CT-guided core biopsy with diagnosis of non-small cell carcinoma, favor squamous cell carcinoma. This case is discussed with Dr. Zazueta on 04/21/18. CYTOLOGY STUDY Slides are reviewed. The specimen consists of macrophages, mesothelial cells and inflammatory cells. CYTOLOGY GROSS Received is 110 ml of red cloudy fluid labeled with the patient's name and and designated per the requisition as thoracentesis. Submitted for cytology preparation including cell block. / 04/18/18 TC: CPT: 86348, 82312
--- NOTE | 2018-04-18 | IMM_PTH ---
PATIENT: YANELY GORDON LOC: U#:[id number] AGE/SX: 80/M ROOM: RE04/18/[address]: Dr. Abraham Zazueta DO : 1945 BED: DIS: SPEC #: [id number] RECD: 04/21/18 11:47 STATUS: ALAN RECheryl #: [id number] JOSÉ: 04/18/18 00:[address]: Abraham Zazueta DEPT: IMMUNOHISTOCHEMISTRY RECD BY: Ting Sanchez ENTERED: 04/21/18 11:50 SP TYPE: IMMUNO OTHR DR: Lorenzo Thibodeaux, QUENCHING MACHINE OPERATOR-C Tissues: THORACIC FLUID Procedures: NAPSIN A (add) [place]ville Ret (add) CK20 (add) CK5-6 (add) CK7 (add) CK8 (add) MACRO (add) TTF1 (add) AE1 (add) P40 (add) Vimentin (initial) PHYSICIAN & INSTITUTION [place] [id number] SPECIMEN INFORMATION: Tissue Source: Thoracentesis fluid Clinical Info: Large right pleural effusion, stage 3B NSCLC Specimen Number: [id number] CPT code: 05697, 01079 x10 METHODOLOGY: Deparaffinized sections of prefer/formalin-fixed tissue or PAP/DQ stained slides are incubated with monoclonal/polyclonal antibodies/oligonucleotide probes. Localization is made via biotin free immunoperoxidase method. Appropriate controls are performed and reacted as expected. Results on target cell population are indicated in the following table: RESULTS: ANTIBODY / CLONE RESULT Vimentin (V9) negative * AE1-3 (AE1/AE3/PCK26) negative * CK7 (OV-TL12/30) negative * CK8 (79nazkT74) negative * CK20 (KS20.8) negative TTF-1 (8G7G3/1) negative Napsin A (Rabbit Polyclonal) negative Macro (HAM-56) negative CK5-6 (D5 & 1684) negative * P40 (BC28) negative CALRET (polyclonal) negative * *?Positive in mesothelial cells. ?Positive in macrophages. These tests were developed and their performance characteristics determined by [facility]. They may not have been cleared or approved by the U.S. Food and Drug Administration. The FDA has determined that such clearance or approval is not necessary. INTERPRETATION: Thoracentesis fluid: Negative for malignant cells. RACHEL:perri 04/22/18
--- NOTE | 2018-04-18 09:11 | US_ITS ---
PROCEDURE: ULTRASOUND GUIDED THORACENTESIS. DATE: April 18, 2018. INDICATION: Male, 73 years old. Right pleural effusion. PHYSICIAN: Juanito Arevalo M.D. PROCEDURE: The risks, benefits, and alternatives to the procedure were explained to the patient. The specific risks of bleeding, infection, and pneumothorax requiring chest tube insertion were discussed and accepted. Written informed consent was obtained. Ultrasonographic evaluation of the right lower pleural space was carried out. An adequate pocket was identified. The patient was placed in the sitting, upright position. The overlying skin was prepped and draped in sterile fashion. 1% lidocaine was administered subcutaneously for local anesthesia. Under ultrasound guidance, a 5 Georgian thoracentesis needle/catheter system was advanced into the right posterior lower pleural fluid collection. Approximately 1020 mL of chris-colored fluid was drained. The catheter was removed, and a sterile dressing was applied. A specimen was collected and sent to the laboratory for analysis, as requested by the referring clinician. The patient tolerated the procedure well. A chest x-ray was ordered. US/Thoracentesis W US IMPRESSION: Ultrasound-guided right thoracentesis.. Electronically Signed: Juanito Arevalo MD at 11:40 EDT Tel [phone], Service support ,
[2018-04-18 10:02] LABS: Absolute Lymphocyte Count 0.72 X10^3/ul (0.83-4.51); Absolute Neutrophil Count 7.8 X10^3/uL (2.0-7.7); Basophil# 0.04 X10^3/uL; Basophil% 0.4 % (0-1); Eosinophil# 0.21 X10^3/uL; Eosinophils% 2.1 % (0-5); Hematocrit 32.4 % (40-54); Hemoglobin 10.2 g/dl (13.0-16.5); Lymphocyte # 0.72 X10^3/ul (4.0); Lymphocyte % 7.1 % (19-41); Mean Corp Hgb Conc 31.5 g/gl (32-36); Mean Corpuscular Hgb 25.4 pg (27.0-32.0); Mean Corpuscular Volume 80.8 fL (80-94); Mean Platelet Vol. 10.2 fl (6.2-12.0); Monocyte# 1.33 X10^3/uL; Monocyte% 13.2 % (0-10); Neutrophil # 7.79 X10^3/uL (2.7-7.7); POSITIVE COUNT NO; POSITIVE DIFFERENTIAL NO; POSITIVE MORPHOLOGY NO; Platelet Count 270 K/mm3 (150-450); RBC Distribution Width CV 16.8 % (11.6-14.6); RBC Distribution Width SD 49.1 fl (35.1-43.9); Red Blood Count 4.01 M/mm3 (4.6-6.2); White Blood Count 10.1 K/mm3 (4.4-11.0)
[2018-04-18 10:15] LABS: Prothrombin Time Fingerstick 14.4 SEC (11.9-14.4)
[2018-04-18 10:50] LABS: ALB/GLOB Ratio 0.6 RATIO (0.9-2.4); AST(SGOT) 12 U/L (15-37); Alanine Aminotransfer ALT/SGPT 16 U/L (16-61); Albumin, Serum 2.5 g/dL (3.2-5.0); Alkaline Phosphatase 87 U/L (45-117); Anion Gap 10 (5-15); BUN 17 mg/dL (7-18); BUN/Creat Ratio 14.9 RATIO (10-20); Calcium,Total 8.6 mg/dL (8.5-10.1); Chloride 98 mmol/L (98-107); Creatinine, Serum 1.14 mg/dL (0.70-1.30); EST Glomerular Filtration Rate 67 mL/min (>60); Est Glom Filt Rate - Afr Amer 81 mL/min (>60); Globulin 3.9 g/dL (2.2-4.2); Glucose 99 mg/dL (74-106); Protein, Total 6.4 g/dL (6.4-8.2); Sodium Level 132 mmol/L (136-145)
--- NOTE | 2018-04-18 10:52 | RAD_ITS ---
STUDY: X-RAY CHEST REASON FOR EXAM: Male, 73 years old. Evaluation after biopsy. TECHNIQUE: Two AP portable views of the chest. COMPARISON: February 19, 2018. FINDINGS: The patient has a left-sided intracardiac pacemaker. Patient has had a sternotomy. Radiographs are obtained with the patient in inspiration and expiration. Inspiratory radiographs suggest the lungs are hyperexpanded. There is a large mass in the right lung measuring approximately 9.5 cm in size. Bronchovascular markings are mildly prominent in both lungs. There is no demonstrated pleural abnormality. There is mild cardiac enlargement. Normal mediastinum and mundo. Normal visualized pulmonary arteries. There is atherosclerotic calcification of the aortic arch with tortuosity. There is demineralization of the osseous structures. Normal visualized ribs, clavicles, and shoulders. There is no demonstrated abnormality of the visualized soft tissue structures of the upper abdomen. RAD/Chest Insp/Exp 2 View IMPRESSION: 1. Large right sided pulmonary mass. 2. No radiographic evidence for pneumothorax after recent biopsy. Electronically Signed: Karrie Nguyen MD at 9:56 EDT , Service support ,
== END ==
PROVIDERS: Internal Medicine Hematology & Oncology; Family Provider Nurse Practitioner Family; PCP Nurse Practitioner Family; Visit Provider Student in an Organized Health Care Education/Training Program
DX: J90 Pleural effusion, not elsewhere classified (principal); C34.11 Malignant neoplasm of upper lobe, right bronchus or lung
CPT/HCPCS: 32555; 36415; 36416; 71046; 77014; 77290; 77293; 77295; 80053; 85025; 85610; 88108; 88305; 88313; 88341; 88342

== ENCOUNTER → 2018-04-21 14:25 | Outpatient (CLI) | payer MEDICARE, SELFPAY ==
[2018-04-16 14:12] VITALS: BMI 27.9
[2018-04-17 13:12] VITALS: BMI 27.9
[2018-04-18 10:30] VITALS: BP 104/42; PULSE 68; RESP 18; O2SAT 94
[2018-04-18 10:40] VITALS: BP 104/47; PULSE 62; RESP 18; O2SAT 98
[2018-04-18 10:45] VITALS: BP 100/49; PULSE 69; RESP 18; O2SAT 98
[2018-04-18 11:00] VITALS: BP 106/48; PULSE 61; RESP 18; O2SAT 98
--- NOTE | 2018-04-21 14:28 | CT_ITS ---
STUDY: CT BRAIN WITH AND WITHOUT CONTRAST REASON FOR EXAM: Male, 73 years old. Headache RADIATION DOSAGE (If Supplied By Facility): CTDIvol = ( 44.99 ) mGy, DLP = ( 1547.23 ) mGycm TECHNIQUE: Transaxial CT imaging of the brain was performed pre and post contrast administration. The examination was performed with intravenous administration of 50 ml of Isovue 370 contrast material. Individualized dose optimization techniques were used for this CT. COMPARISON: None. FINDINGS: Normal soft tissue structures. Normal calvarium. There is mild cerebral atrophy with widening of the extra-axial spaces and ventricular dilatation. There are areas of decreased attenuation within the white matter tracts of the supratentorial brain, consistent with microvascular disease changes. Normal basal ganglia and thalami. Normal brainstem. Normal cerebellum. Dense vascular calcifications There is no intracranial hemorrhage. There are no findings of an acute ischemic infarction. Normal visualized paranasal sinuses. CT/Brain/Head W/WO Contrast IMPRESSION: Chronic involutional changes of the brain. No acute hemorrhage, midline shift or mass effect. No suspicious enhancing lesion. Electronically Signed: Jason Yabrrough MD at 15:42 EDT , Service support ,
== END ==
PROVIDERS: Family Provider Nurse Practitioner Family; PCP Nurse Practitioner Family; Visit Provider Student in an Organized Health Care Education/Training Program
DX: C34.90 Malignant neoplasm of unspecified part of unspecified bronchus or lung (principal)
CPT/HCPCS: 70470; Q9967

== ENCOUNTER 2018-04-28 06:12 | Day surgery (SDC) | payer MEDICARE, SELFPAY ==
[2018-04-17 13:12] VITALS: BMI 27.9
[2018-04-28] VITALS (7 sets, daily range): BP systolic 89–101; BP diastolic 47–58; PULSE 60–69; RESP 16–18; TEMP 36.2–37.2; O2SAT 95–98; BMI 25.5
[2018-04-28] MEDS: Bupiv/Epi 0.5% Mpf 30 ML Vial (08:19)
--- NOTE | 2018-04-28 08:51 | PCM.HP.STD ---
Problem List (1) Encounter for adjustment or management of vascular access device Status: Acute (2) Primary cancer of right upper lobe of lung Status: Acute History of Present Illness Date of Admission: 04/28/18 The patient is a 73 year old M with right upper lobe lung cancer. The patient was sent to me for chest port placement but the patient is having concurrent radiation and the radiation oncologist would like an arm port placed instead. The patient was getting thoracentesis regularly but he reports it is been several days since his last and he is not short of breath. Past Medical History Past Medical History (Chronic Problems): Chronic Problems (Last Reviewed 04/23/18 @ 08:04 by Vivian Mcdowell) History of coronary artery bypass graft x 3 (Chronic ~1987) @ [place]: GARCIA to LAD, reverse SVG to the CX marginal and SVG to the PDA branch of RCA per Dr. Lujan (info obtained from OV notes from Dr. Sorto and previous C done [address] Jhonny Stephens). Atherosclerosis of coronary artery bypass graft of [place] heart without angina pectoris (Chronic) Atherosclerotic heart disease of [place] coronary artery without angina pectoris (Chronic) History of left heart catheterization (Chronic) 2006 @ [facility] per Dr. Chet Diaz History of inferior wall myocardial infarction (Chronic ~1987) Stented coronary artery (Chronic 03/01/17) PTCA and Stents @ [facility] per Dr. Jhonny Stephens: PTCA and stent to [place] PDA; stenting to vein graft to PDA X2; Angioplasty to vein graft to the OM1 and also to vein graft to the PDA 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) EF 20%, RVSP 60, +2 mitral regurgiation per echo January 2018 Atrial fibrillation (Chronic) COPD (chronic obstructive pulmonary disease) (Chronic) Hypertension (Chronic) Hypothyroid (Chronic) TIA (transient ischemic attack) (Chronic) GERD (gastroesophageal reflux disease) (Chronic) Hx of CABG (Chronic) GARCIA to LAD, reverse SVG to the right PDA, reverse SVG to the Lateral CX (doxumented on LHC done 04/10/07 done @ [place] but actual bypass surgery done circa 1987, also @ [facility] in [place]) ICD (implantable cardioverter-defibrillator) in place (Chronic 05/22/12) Implanted @ [facility] for wide complex tachycardia and EF 30-35% per Dr. Chuck Frausto; also hx of sinus bradycardia treated with pacing portion of device EAN (obstructive sleep apnea) (Chronic) mild EAN Nicotine dependence (Chronic) Chronic anticoagulation (Chronic) Xarelto Medical History: Medical History (Last Reviewed 04/23/18 @ 08:04 by Vivian Mcdowell) Atherosclerosis of coronary artery bypass graft of [place] heart without angina pectoris (Chronic) I25.810 Atherosclerotic heart disease of [place] coronary artery without angina pectoris (Chronic) I25.10 History of inferior wall myocardial infarction (Chronic) Onset Date: ~1987 I25.2 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) I50.42 EF 20%, RVSP 60, +2 mitral regurgiation per echo January 2018 Atrial fibrillation (Chronic) I48.91 COPD (chronic obstructive pulmonary disease) (Chronic) J44.9 Hypertension (Chronic) I10 Hypothyroid (Chronic) E03.9 TIA (transient ischemic attack) (Chronic) G45.9 Primary cancer of right upper lobe of lung (Acute) C34.11 Regional lymph node metastasis present (Acute) C77.9 GERD (gastroesophageal reflux disease) (Chronic) K21.9 EAN (obstructive sleep apnea) (Chronic) G47.33 mild EAN COPD (chronic obstructive pulmonary disease) J44.9 Presence of combination internal cardiac defibrillator (ICD) and pacemaker Z95.810 GERD (gastroesophageal reflux disease) K21.9 Allergies cefdinir [From Omnicef] Allergy (Intermediate, Verified 04/24/18 14:36) Rash niacin Adverse Reaction (Intermediate, Verified 04/24/18 14:36) FLUSHING/REDNESS IN FACE ANTIHYPERLIPEMIC Allergy (Intermediate, Uncoded 04/24/18 14:36) Rash ITCHY Home Medications: Ambulatory Orders Medication Instructions Recorded Albuterol IH (ProAir) [Proair Hfa] 2 puff INHALATION Q4H PRN 01/09/18 Clopidogrel Bisulfate [Plavix] 75 mg PO DAILY 01/09/18 Co Q10 200 [Co Q-10] 100 mg PO DAILY 01/09/18 Fluticasone 44 Mcg [Flovent 44 Mcg] 1 - 2 puff IH BID 01/09/18 Levothyroxine [Synthroid] 50 mcg PO DAILY 01/09/18 Lisinopril 20 mg PO BID 01/09/18 Loratadine [Claritin] 10 mg PO DAILY 01/09/18 Pravastatin Sodium 40 mg PO DAILY 01/09/18 Sotalol HCl [Betapace (Beta 160 mg PO BID 01/09/18 Jerri)] Nitroglycerin [Nitrostat] 0.4 mg SL PRN PRN 02/19/18 Potassium Chloride 10 meq PO DAILY 02/19/18 Anoro Ellipta 62.5-25 Mcg INH 1 puff DAILY 04/16/18 Carvedilol [Coreg] 3.125 mg PO BID 04/16/18 Digoxin [Lanoxin] 125 mcg PO DAILY 04/16/18 Pantoprazole Sodium [Protonix] 40 mg PO DAILY 04/16/18 metolazone 2.5 mg tablet 2.5 mg PO .COMPLEX #14 tab 04/22/18 Furosemide [Lasix] 20 mg PO BID@1000,1800 04/24/18 Surgical History: Surgical History (Last Reviewed 04/23/18 @ 08:04 by Vivian Mcdowell) History of coronary artery bypass graft x 3 (Chronic) Onset Date: ~1987 Z95.1 @ [place]: GARCIA to LAD, reverse SVG to the CX marginal and SVG to the PDA branch of RCA per Dr. Lujan (info obtained from OV notes from Dr. Sorto and previous LHC done [address] Jhonny Stephens). History of left heart catheterization (Chronic) Z98.890 2006 @ [facility] per Dr. Chet Diaz Stented coronary artery (Chronic) Onset Date: 03/01/17 Z95.5 PTCA and Stents @ [facility] per Dr. Jhonny Stephens: PTCA and stent to [place] PDA; stenting to vein graft to PDA X2; Angioplasty to vein graft to the OM1 and also to vein graft to the PDA ICD (implantable cardioverter-defibrillator) in place (Chronic) Onset Date: 05/22/12 Z95.810 Implanted @ [facility] for wide complex tachycardia and EF 30-35% per Dr. Chuck Frausto; also hx of sinus bradycardia treated with pacing portion of device H/O cataract extraction Z98.49 Surgical History: coronary bypass surgery, - Psychiatric History: No pertinent psych hx Smoking Status: Former smoker Tobacco Use: Cigarettes, Pipe - *Family History Maternal Family History: Family History (Last Reviewed 04/23/18 @ 08:04 by Vivian Mcdowell) Mother Myocardial infarction Asthma Father Cerebral hemorrhage CVA (cerebral vascular accident) Brother CAD (coronary artery disease) History Items: No pertinent history Paternal Family History: Family History (Last Reviewed 04/23/18 @ 08:04 by Vivian Mcdowell) Mother Myocardial infarction Asthma Father Cerebral hemorrhage CVA (cerebral vascular accident) Brother CAD (coronary artery disease) History Items: No pertinent history Review of Systems Constitutional: Denies: Anorexia, Chills HEENT: Denies: Difficulty Swallowing Cardiovascular: Denies: Chest Pain Respiratory: Reports: Cough Gastrointestinal: Denies: Abdominal Pain, Nausea Skin: Denies: Jaundice Neurological: Denies: Balance problems Psychiatric: Denies: Anxiety, Depression VTE Information - Inpt Only VTE Present on Admission: No VTE Mechan Device Prophylaxis: SCD's Patient Problems: Active and Suspected Problems (Last Reviewed 04/23/18 @ 08:04 by Vivian Mcdowell) Encounter for adjustment or management of vascular access device (Acute) - Physical Exam General: Alert, Oriented x3, Cooperative HEENT: Atraumatic, PERRLA Neck: Supple Lungs: Normal air movement Cardiovascular: Regular rate, Regular Rhythm Abdomen: Soft, Non Tender, Non-Distended Extremities: No clubbing Musculoskeletal: No Tenderness to Palpation of Joints or Extremities Neurological: Cranial nerves II-XII grossly intact Vital Signs Temp Pulse Resp BP Pulse Ox 97.2 F L 69 16 101/49 L 98 04/28/18 06:39 04/28/18 06:39 04/28/18 06:39 04/28/18 06:39 04/28/18 06:39 Oxygen Delivery Method Room Air Weight: 158 lb 4.67 oz Body Mass Index (BMI) 25.5 Assessment/Plan All Active Problems (Last Reviewed 04/23/18 @ 08:04 by Vivian Mcdowell) Encounter for adjustment or management of vascular access device (Acute) Pleural effusion on right (Acute) Educational circumstance (Acute) Primary cancer of right upper lobe of lung (Acute) Regional lymph node metastasis present (Acute) CHF exacerbation (Acute) Acute hypoxemic respiratory failure (Acute) COPD exacerbation (Acute) 73-year-old male with need for right vascular access port 1. The patient has a left AICD/pacer so a left-sided port was ruled out. The patient is having right chest radiation and is going for treatment today so I decided to place a right arm port after discussion with Dr. Zazueta. 2. I advised the patient of the risks of the procedure including but not limited to bleeding, infection, DVT, line infection. The patient understands risks and is want to proceed with the procedure. Derick Castellon MD Pager: [facility] [address] [place] [address] [address] [place] [address] Office:
--- NOTE | 2018-04-28 08:54 | HP.PCM_ITS ---
Problem List (1) Encounter for adjustment or management of vascular access device Status: Acute (2) Primary cancer of right upper lobe of lung Status: Acute History of Present Illness Date of Admission: 04/28/18 The patient is a 73 year old M with right upper lobe lung cancer. The patient was sent to me for chest port placement but the patient is having concurrent radiation and the radiation oncologist would like an arm port placed instead. The patient was getting thoracentesis regularly but he reports it is been several days since his last and he is not short of breath. Past Medical History Past Medical History (Chronic Problems): Chronic Problems (Last Reviewed 04/23/18 @ 08:04 by Vivian Mcdowell) History of coronary artery bypass graft x 3 (Chronic ~1987) @ [place]: GARCIA to LAD, reverse SVG to the CX marginal and SVG to the PDA branch of RCA per Dr. Lujan (info obtained from OV notes from Dr. Sorto and previous C done [address] Jhonny Stephens). Atherosclerosis of coronary artery bypass graft of [place] heart without angina pectoris (Chronic) Atherosclerotic heart disease of [place] coronary artery without angina pectoris (Chronic) History of left heart catheterization (Chronic) 2006 @ [facility] per Dr. Chet Diaz History of inferior wall myocardial infarction (Chronic ~1987) Stented coronary artery (Chronic 03/01/17) PTCA and Stents @ [facility] per Dr. Jhonny Stephens: PTCA and stent to [place] PDA; stenting to vein graft to PDA X2; Angioplasty to vein graft to the OM1 and also to vein graft to the PDA 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) EF 20%, RVSP 60, +2 mitral regurgiation per echo January 2018 Atrial fibrillation (Chronic) COPD (chronic obstructive pulmonary disease) (Chronic) Hypertension (Chronic) Hypothyroid (Chronic) TIA (transient ischemic attack) (Chronic) GERD (gastroesophageal reflux disease) (Chronic) Hx of CABG (Chronic) GARCIA to LAD, reverse SVG to the right PDA, reverse SVG to the Lateral CX ( doxumented on LHC done 04/10/07 done @ [place] but actual bypass surgery done circa 1987, also @ [facility] in [place]) ICD (implantable cardioverter-defibrillator) in place (Chronic 05/22/12) Implanted @ [facility] for wide complex tachycardia and EF 30-35% per Dr. Chuck Frausto; also hx of sinus bradycardia treated with pacing portion of device EAN (obstructive sleep apnea) (Chronic) mild EAN Nicotine dependence (Chronic) Chronic anticoagulation (Chronic) Xarelto Medical History: Medical History (Last Reviewed 04/23/18 @ 08:04 by Vivian Mcdowell) Atherosclerosis of coronary artery bypass graft of [place] heart without angina pectoris (Chronic) I25.810 Atherosclerotic heart disease of [place] coronary artery without angina pectoris (Chronic) I25.10 History of inferior wall myocardial infarction (Chronic) Onset Date: ~1987 I25.2 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) I50.42 EF 20%, RVSP 60, +2 mitral regurgiation per echo January 2018 Atrial fibrillation (Chronic) I48.91 COPD (chronic obstructive pulmonary disease) (Chronic) J44.9 Hypertension (Chronic) I10 Hypothyroid (Chronic) E03.9 TIA (transient ischemic attack) (Chronic) G45.9 Primary cancer of right upper lobe of lung (Acute) C34.11 Regional lymph node metastasis present (Acute) C77.9 GERD (gastroesophageal reflux disease) (Chronic) K21.9 EAN (obstructive sleep apnea) (Chronic) G47.33 mild EAN COPD (chronic obstructive pulmonary disease) J44.9 Presence of combination internal cardiac defibrillator (ICD) and pacemaker Z95.810 GERD (gastroesophageal reflux disease) K21.9 Allergies cefdinir [From Omnicef] Allergy (Intermediate, Verified 04/24/18 14:36) Rash niacin Adverse Reaction (Intermediate, Verified 04/24/18 14:36) FLUSHING/REDNESS IN FACE ANTIHYPERLIPEMIC Allergy (Intermediate, Uncoded 04/24/18 14:36) Rash ITCHY Home Medications: Ambulatory Orders Medication Instructions Recorded Albuterol IH (ProAir) [Proair Hfa] 2 puff INHALATION Q4H PRN 01/09/18 Clopidogrel Bisulfate [Plavix] 75 mg PO DAILY 01/09/18 Co Q10 200 [Co Q-10] 100 mg PO DAILY 01/09/18 Fluticasone 44 Mcg [Flovent 44 Mcg] 1 - 2 puff IH BID 01/09/18 Levothyroxine [Synthroid] 50 mcg PO DAILY 01/09/18 Lisinopril 20 mg PO BID 01/09/18 Loratadine [Claritin] 10 mg PO DAILY 01/09/18 Pravastatin Sodium 40 mg PO DAILY 01/09/18 Sotalol HCl [Betapace (Beta 160 mg PO BID 01/09/18 Jerri)] Nitroglycerin [Nitrostat] 0.4 mg SL PRN PRN 02/19/18 Potassium Chloride 10 meq PO DAILY 02/19/18 Anoro Ellipta 62.5-25 Mcg INH 1 puff DAILY 04/16/18 Carvedilol [Coreg] 3.125 mg PO BID 04/16/18 Digoxin [Lanoxin] 125 mcg PO DAILY 04/16/18 Pantoprazole Sodium [Protonix] 40 mg PO DAILY 04/16/18 metolazone 2.5 mg tablet 2.5 mg PO .COMPLEX #14 tab 04/22/18 Furosemide [Lasix] 20 mg PO BID@1000,1800 04/24/18 Surgical History: Surgical History (Last Reviewed 04/23/18 @ 08:04 by Vivian Mcdowell) History of coronary artery bypass graft x 3 (Chronic) Onset Date: ~1987 Z95.1 @ [place]: GARCIA to LAD, reverse SVG to the CX marginal and SVG to the PDA branch of RCA per Dr. Lujan (info obtained from OV notes from Dr. Sorto and previous LHC done [address] Jhonny Stephens). History of left heart catheterization (Chronic) Z98.890 2006 @ [facility] per Dr. Chet Diaz Stented coronary artery (Chronic) Onset Date: 03/01/17 Z95.5 PTCA and Stents @ [facility] per Dr. Jhonny Stephens: PTCA and stent to [place] PDA; stenting to vein graft to PDA X2; Angioplasty to vein graft to the OM1 and also to vein graft to the PDA ICD (implantable cardioverter-defibrillator) in place (Chronic) Onset Date: Z95.810 Implanted @ [facility] for wide complex tachycardia and EF 30-35% per Dr. Chuck Frausto; also hx of sinus bradycardia treated with pacing portion of device H/O cataract extraction Z98.49 Surgical History: coronary bypass surgery, - Psychiatric History: No pertinent psych hx Smoking Status: Former smoker Tobacco Use: Cigarettes, Pipe - *Family History Maternal Family History: Family History (Last Reviewed 04/23/18 @ 08:04 by Vivian Mcdowell) Mother Myocardial infarction Asthma Father Cerebral hemorrhage CVA (cerebral vascular accident) Brother CAD (coronary artery disease) History Items: No pertinent history Paternal Family History: Family History (Last Reviewed 04/23/18 @ 08:04 by Vivian Mcdowell) Mother Myocardial infarction Asthma Father Cerebral hemorrhage CVA (cerebral vascular accident) Brother CAD (coronary artery disease) History Items: No pertinent history Review of Systems Constitutional: Denies: Anorexia, Chills HEENT: Denies: Difficulty Swallowing Cardiovascular: Denies: Chest Pain Respiratory: Reports: Cough Gastrointestinal: Denies: Abdominal Pain, Nausea Skin: Denies: Jaundice Neurological: Denies: Balance problems Psychiatric: Denies: Anxiety, Depression VTE Information - Inpt Only VTE Present on Admission: No VTE Mechan Device Prophylaxis: SCD's Patient Problems: Active and Suspected Problems (Last Reviewed 04/23/18 @ 08:04 by Vivian Mcdowell) Encounter for adjustment or management of vascular access device (Acute) - Physical Exam General: Alert, Oriented x3, Cooperative HEENT: Atraumatic, PERRLA Neck: Supple Lungs: Normal air movement Cardiovascular: Regular rate, Regular Rhythm Abdomen: Soft, Non Tender, Non-Distended Extremities: No clubbing Musculoskeletal: No Tenderness to Palpation of Joints or Extremities Neurological: Cranial nerves II-XII grossly intact Vital Signs Temp Pulse Resp BP Pulse Ox 97.2 F L 69 16 101/49 L 98 04/28/18 06:39 04/28/18 06:39 04/28/18 06:39 04/28/18 06:39 04/28/18 06:39 Oxygen Delivery Method Room Air Weight: 158 lb 4.67 oz Body Mass Index (BMI) 25.5 Assessment/Plan All Active Problems (Last Reviewed 04/23/18 @ 08:04 by Vivian Mcdowell) Encounter for adjustment or management of vascular access device (Acute) Pleural effusion on right (Acute) Educational circumstance (Acute) Primary cancer of right upper lobe of lung (Acute) Regional lymph node metastasis present (Acute) CHF exacerbation (Acute) Acute hypoxemic respiratory failure (Acute) COPD exacerbation (Acute) 73-year-old male with need for right vascular access port 1. The patient has a left AICD/pacer so a left-sided port was ruled out. The patient is having right chest radiation and is going for treatment today so I decided to place a right arm port after discussion with Dr. Zazueta. 2. I advised the patient of the risks of the procedure including but not limited to bleeding, infection, DVT, line infection. The patient understands risks and is want to proceed with the procedure. Derick Castellon MD Pager: [facility] [address] [place] [address] [address] [place] [address] Office:
--- NOTE | 2018-04-28 08:54 | PCM.OPRPT ---
Problem List (1) Encounter for adjustment or management of vascular access device Status: Acute (2) Primary cancer of right upper lobe of lung Status: Acute Report of Operation Date of Procedure: 04/28/18 Pre-Operative Diagnosis: Right lung cancer. Encounter for vascular access port insertion Post-Operative Diagnosis: Same Surgery/Procedure Performed:: Ultrasound and fluoroscopy-guided right arm port placement utilizing right brachial vein Description of Procedure: After discussing the procedure in detail with the patient including the risks, benefits and alternatives, the patient was brought back to the operating room. The patient's right arm was selected as the site of port insertion. Ultrasound was used to evaluate several veins in the arm for port placement and the brachial vein was selected. Next, 1% lidocaine with epinephrine was injected into the skin, and a small joaquin was made with 11 blade scalpel. The micropuncture needle was used to cannulate the brachial vein. The 0.018 guidewire was advanced into the vein and observed under fluoroscopy. Next, the needle was removed and the micropuncture sheath was advanced over the guidewire. The inner sheath and guidewire were removed and a Bentson wire was introduced into the micro-sheath. This was guided to the right subclavian vein under fluoroscopy. Next, local anesthesia was injected in the area distal to the puncture site where the pocket was to be formed. An 11 blade scalpel was used to make a transverse incision at the puncture site. Metzenbaum scissors were used to form a pocket large enough to fit the pad of the index finger. Next, the hub of the port was placed into the pocket to ensure that it fit and then it was removed. Next, the micro-sheath was removed and the introducer is placed over the Bentson wire. The catheter was flushed and then placed over the Bentson wire and positioned in the right subclavian vein under fluoroscopy. The introducer was removed, and the port hub was attached to the catheter and locked in place with the locking piece. The catheter was then flushed with saline. Using 2-0 Vicryl suture, port was secured in place and placed into the pocket. Next, the skin was closed with interrupted subdermal 3-0 Vicryl sutures, and 3-0 nylon sutures externally. The port was then flushed with heparin and dressing was applied. The patient was taken to PACU in stable condition. X-rays were taken of the final placement of the chest and of the port in the arm. I decided to place the tip of the catheter in the right subclavian vein as to not interfere with his AICD leads. This will still act as a central venous access and will be able to be removed without fluoroscopy or harm to the AICD pacer wires. Derick Castellon MD Pager: [facility] [address] [place] [address] Office: Grafts/Implants Used: 6.6 [employer]
--- NOTE | 2018-04-28 08:57 | OP.PCM_ITS ---
Problem List (1) Encounter for adjustment or management of vascular access device Status: Acute (2) Primary cancer of right upper lobe of lung Status: Acute Report of Operation Date of Procedure: 04/28/18 Pre-Operative Diagnosis: Right lung cancer. Encounter for vascular access port insertion Post-Operative Diagnosis: Same Surgery/Procedure Performed:: Ultrasound and fluoroscopy-guided right arm port placement utilizing right brachial vein Description of Procedure: After discussing the procedure in detail with the patient including the risks, benefits and alternatives, the patient was brought back to the operating room. The patient's right arm was selected as the site of port insertion. Ultrasound was used to evaluate several veins in the arm for port placement and the brachial vein was selected. Next, 1% lidocaine with epinephrine was injected into the skin, and a small joaquin was made with 11 blade scalpel. The micropuncture needle was used to cannulate the brachial vein. The 0.018 guidewire was advanced into the vein and observed under fluoroscopy. Next, the needle was removed and the micropuncture sheath was advanced over the guidewire. The inner sheath and guidewire were removed and a Bentson wire was introduced into the micro-sheath. This was guided to the right subclavian vein under fluoroscopy. Next, local anesthesia was injected in the area distal to the puncture site where the pocket was to be formed. An 11 blade scalpel was used to make a transverse incision at the puncture site. Metzenbaum scissors were used to form a pocket large enough to fit the pad of the index finger. Next, the hub of the port was placed into the pocket to ensure that it fit and then it was removed. Next, the micro-sheath was removed and the introducer is placed over the Bentson wire. The catheter was flushed and then placed over the Bentson wire and positioned in the right subclavian vein under fluoroscopy. The introducer was removed, and the port hub was attached to the catheter and locked in place with the locking piece. The catheter was then flushed with saline. Using 2-0 Vicryl suture, port was secured in place and placed into the pocket. Next, the skin was closed with interrupted subdermal 3-0 Vicryl sutures , and 3-0 nylon sutures externally. The port was then flushed with heparin and dressing was applied. The patient was taken to PACU in stable condition. X- rays were taken of the final placement of the chest and of the port in the arm. I decided to place the tip of the catheter in the right subclavian vein as to not interfere with his AICD leads. This will still act as a central venous access and will be able to be removed without fluoroscopy or harm to the AICD pacer wires. Derick Castellon MD Pager: [facility] [address] [place] [address] Office: Grafts/Implants Used: 6.6 [employer]
--- NOTE | 2018-04-28 08:57 | PCM.DC.POR ---
Discharge Diet: No Restrictions - Pain medication may cause nausea. You should typically eat light foods as you take your pain medication. Discharge Activity: Return to Normal Activity, May Shower - with your bandage in place in 1-2 days after surgery. DO NOT SHOWER WHEN YOUR PORT IS ACCESSED. Call your doctor if your incision/area has: Continuous Slow Oozing, Sudden Increased Bleeding, Increased Pain/ Swelling, Increased Redness Call your doctor if you observe: Fever of 101 or Higher Remove Dressing in (days):: 2 Cleanse incision/area with: Soap & Water Allergies/Adverse Reactions: Allergies cefdinir [From Omnicef] Allergy (Intermediate, Verified 04/24/18 14:36) Rash niacin Adverse Reaction (Intermediate, Verified 04/24/18 14:36) FLUSHING/REDNESS IN FACE ANTIHYPERLIPEMIC Allergy (Intermediate, Uncoded 04/24/18 14:36) Rash ITCHY Medications to take at Discharge Albuterol IH (ProAir) [Proair Hfa] 2 puff INHALATION Q4H PRN 01/09/18 Clopidogrel Bisulfate [Plavix] 75 mg PO DAILY 01/09/18 Co Q10 200 [Co Q-10] 100 mg PO DAILY 01/09/18 Fluticasone 44 Mcg [Flovent 44 Mcg] 1 - 2 puff IH BID 01/09/18 Levothyroxine [Synthroid] 50 mcg PO DAILY 01/09/18 Lisinopril 20 mg PO BID 01/09/18 Loratadine [Claritin] 10 mg PO DAILY 01/09/18 Pravastatin Sodium 40 mg PO DAILY 01/09/18 Sotalol HCl [Betapace (Beta Jerri)] 160 mg PO BID 01/09/18 Nitroglycerin [Nitrostat] 0.4 mg SL PRN PRN 02/19/18 Potassium Chloride 10 meq PO DAILY 02/19/18 Anoro Ellipta 62.5-25 Mcg INH 1 puff DAILY 04/16/18 Carvedilol [Coreg] 3.125 mg PO BID 04/16/18 Digoxin [Lanoxin] 125 mcg PO DAILY 04/16/18 Pantoprazole Sodium [Protonix] 40 mg PO DAILY 04/16/18 metolazone 2.5 mg tablet 2.5 mg PO .COMPLEX #14 tab 04/22/18 Furosemide [Lasix] 20 mg PO BID@1000,1800 04/24/18 Primary Care Physician: Lorenzo Thibodeaux, UNDERWRITING ASSISTANT-C [Primary Care Provider] - Test Results: Test results from this visit will be discussed in further detail at your follow-up appointment, if applicable. Please Follow Up With: Derick Castellon MD When: Call to schedule appt for 7-10 days for suture removal [phone]
--- NOTE | 2018-04-28 09:12 | RAD_ITS ---
STUDY: X-RAY CHEST REASON FOR EXAM: Male, 73 years old. PORT INSERTION IN OR, PLACED IN ARM TECHNIQUE: 2 views of the arm and upper chest. COMPARISON: None. FINDINGS: A venous port is seen in the upper arm, the tip of the catheter is at the medial aspect of the right subclavian vein. The lungs are clear and expanded. There is no demonstrated pleural abnormality. Normal size heart. Normal mediastinum and mundo. Normal visualized pulmonary arteries. Normal visualized aortic arch and descending thoracic aorta. Normal visualized thoracic spine. There is no demonstrated abnormality of the visualized soft tissue structures of the upper abdomen. RAD/Chest 1 View IMPRESSION: A venous port is seen in the upper arm, the tip of the catheter is at the medial aspect of the right subclavian vein. Electronically Signed: Oral Bonilla MD at 12:53 EDT Tel , Service support ,
== END 2018-04-28 10:11 | disposition home or self-care (01) ==
LOC: SDC 06:12 → AC 06:24
PROVIDERS: Family Provider Nurse Practitioner Family; PCP Nurse Practitioner Family; Visit Provider Surgery
PROC: (CPT 36561; principal; 2018-04-28 07:45)
DX: Z45.2 Encounter for adjustment and management of vascular access device (principal); C34.11 Malignant neoplasm of upper lobe, right bronchus or lung; J90 Pleural effusion, not elsewhere classified; I25.10 Atherosclerotic heart disease of native coronary artery without angina pectoris; I50.42 Chronic combined systolic (congestive) and diastolic (congestive) heart failure; I48.91 Unspecified atrial fibrillation; J44.9 Chronic obstructive pulmonary disease, unspecified; I10 Essential (primary) hypertension; E03.9 Hypothyroidism, unspecified; K21.9 Gastro-esophageal reflux disease without esophagitis; I25.2 Old myocardial infarction; Z86.73 Personal history of transient ischemic attack (TIA), and cerebral infarction without residual deficits; Z95.1 Presence of aortocoronary bypass graft; Z95.5 Presence of coronary angioplasty implant and graft; G47.33 Obstructive sleep apnea (adult) (pediatric); Z79.01 Long term (current) use of anticoagulants; Z95.810 Presence of automatic (implantable) cardiac defibrillator; Z87.891 Personal history of nicotine dependence
CPT/HCPCS: 00532; 36561; 71045; 77001; 77387; 77412; J7120

== ENCOUNTER → 2018-05-02 08:53 | Outpatient (CLI) | payer MEDICARE, SELFPAY ==
[2018-04-17 13:12] VITALS: BMI 27.9
--- NOTE | 2018-05-02 08:56 | ECHOD_ITS ---
Reason For Study: DYSPNEA Procedure This was a 2D Doppler, Color Flow transthoracic echocardiogram. Exam performed in department. Left Ventricle Severely dilated left ventricle. The estimated ejection fraction is 25-30 %. There is severe global hypokinesis of the left ventricle. Right Ventricle Severely dilated right ventricle. ICD or pacer leads identified within the right ventricle. Moderate global right ventricular systolic dysfunction. Atria The left atrium is severely enlarged. The right atrium is mildly enlarged. Normal atrial septum. Mitral Valve Mild focal mitral valve thickening. Severe (4+) mitral valve insufficiency. Tricuspid Valve Normal tricuspid valve. Moderate (2+) tricuspid valve insufficiency. Right ventricular systolic pressure estimated to be 76 mmHg. Severe pulmonary hypertension. Aortic Valve Trisinus/trileaflet aortic valve. Mild diffuse aortic valve thickening. Pulmonic Valve Normal pulmonic valve. Trivial pulmonic valve insufficiency. Great Vessels Normal aortic root. Normal arch. The inferior vena cava is dilated. No collapse of the inferior vena cava. Pericardium/Pleural No pericardial effusion. MMode/2D Measurements & Calculations LVIDd: 6.3 cm IVSd: 0.95 cm Ao root diam: 3.0 cm LVIDs: 5.5 cm LVPWd: 0.73 cm FS: 13.6 % LAV(MOD-bp): 102.2 ml LA A4 area: 28.7 cm2 RA A4 area: 20.5 cm2 LAV(MOD-bp) Indexed: 57.4 ml/m2 LAV(MOD-sp2): 102.8 ml LAV(MOD-sp4): 99.0 ml Doppler Measurements & Calculations Ao V2 max: 100.5 cm/sec LV V1 max: 90.7 cm/sec PA V2 max: 97.9 cm/sec Ao max P.0 mmHg LV V1 max P.3 mmHg PI end-d selena: 117.9 cm/sec TR max selena: 397.2 cm/sec TR max P.4 mmHg Interpretation Summary Severely dilated left ventricle. The estimated ejection fraction is 25-30 %. There is severe global hypokinesis of the left ventricle. Severely dilated right ventricle. Moderate global right ventricular systolic dysfunction. The left atrium is severely enlarged. Severe (4+) mitral valve insufficiency. Moderate (2+) tricuspid valve insufficiency. Right ventricular systolic pressure estimated to be 76 mmHg. Severe pulmonary hypertension. There is no comparison study available. Ordering Physician: Doyle Baer Referring Physician: ROCCO EVANS Performed By: Cony Valdez, HUMBERTO, RVT
--- NOTE | 2018-05-02 13:00 | STRESSREP ---
Stress Test Report Date: 05/01/2018 Procedure: Pharmacologic stress nuclear imaging study Indications: CAD; PCI; CABG; ICD Consent: Per the patient Procedure: The patient underwent pharmacologic (Regadenoson) evaluation with a peak heart rate of 97 beats per minute (66 predicted maximal heart rate) and a peak blood pressure of 98/52 mmHg. The baseline ECG demonstrated atrial fibrillation; IVCD. The peak pharmacologic ECG demonstrated no obvious ECG changes. There were no cardiac dysrhythmias pretest, during pharmacologic infusion, or recovery. There was no complaint of chest discomfort during pharmacologic infusion or recovery. The examination was discontinued secondary to completion of protocol. Impression: 1. Pharmacologic (Regadenoson) evaluation 2. Peak pharmacologic ECG with continued atrial fibrillation with IVCD with no obvious ECG changes. 3. There were no cardiac dysrhythmias pretest, during pharmacologic infusion, or recovery 4. Nuclear images pending Myocardial perfusion imaging study: Technique: The patient was injected with 11.9 millicuries of technetium 99m Cardiolite and subsequently rest SPECT Cardiolite nuclear imaging was obtained in the horizontal long, vertical long, and short axis views. The patient underwent pharmacologic (Regadenoson) evaluation with a peak heart rate of 97 beats per minute (66 % percent predicted maximal heart rate) and a peak blood pressure of 98/52 mmHg. The patient was injected with 34.2 millicuries of technetium 99m Cardiolite and subsequently stress SPECT Cardiolite nuclear imaging was obtained in the horizontal long, vertical long, and short axis views. A gated Cardiolite study at peak stress was obtained. Interpretation: Rest and stress SPECT Cardiolite nuclear imaging status post realignment, normalization, and attenuation correction demonstrate diminished absence of myocardial perfusion/tracer uptake in portions of the basal inferior septum, basal inferior, basal inferolateral segments extending through the mid to distal inferior and inferior apical segments without significant change between rest and stress. There is diminished end systolic thickening and brightening in the aforementioned areas. The gated Cardiolite study demonstrates diminished myocardial thickening and inward wall motion in the aforementioned areas. The reported LVEF is 30 %. Impression: 1. Rest and stress SPECT Cardiolite nuclear imaging demonstrate myocardial perfusion changes appearing compatible with an area of previous myocardial injury/infarction with no myocardial perfusion changes consider diagnostic for associated stress-induced myocardial ischemia. 2. The gated Cardiolite study reports an LVEF of 30 %. This note was generated with Dragon dictation software. It may contain incorrect words, spelling, and punctuation that were not noted in checking the note before signing.
== END ==
PROVIDERS: Family Provider Nurse Practitioner Family; PCP Nurse Practitioner Family; Visit Provider Internal Medicine Cardiovascular Disease
DX: I25.810 Atherosclerosis of coronary artery bypass graft(s) without angina pectoris (principal); R06.02 Shortness of breath; R06.00 Dyspnea, unspecified
CPT/HCPCS: 78452; 93017; 93306; A9500; A4216; J2785

== ENCOUNTER → 2018-05-15 09:09 | Outpatient (CLI) | payer MEDICARE, SELFPAY ==
[2018-04-17 13:12] VITALS: BMI 27.9
--- NOTE | 2018-05-15 09:12 | VDUE_ITS ---
Reason For Study: swelling Right Proximal Right jugular vein is spontaneous, widely patent, phasic, with no intraluminal echogenicity noted. Subclavian V, Axillary V, and Brachial V are dilated and noncompressible. Basilic V is dilated and noncompressible. Right Lower Arm Right radial vein is compressible. Right ulnar vein is compressible. Right Arm Right cephalic vein is compressible. Prelim called to Dr. Zazueta's office. Interpretation Summary Right subclavian line with acute deep venous thrombosis right subclavian, axillary, and brachial veins. Superficial thrombophlebitis right basilic vein Patent and compressible right cephalic vein. Ordering Physician: Abraham Zazueta Performed By: David Allen RVT ???
== END ==
PROVIDERS: Family Provider Nurse Practitioner Family; PCP Nurse Practitioner Family; Visit Provider Student in an Organized Health Care Education/Training Program
DX: R60.0 Localized edema (principal); I50.9 Heart failure, unspecified; C34.11 Malignant neoplasm of upper lobe, right bronchus or lung
CPT/HCPCS: 77412; 80053; 83880; 85025; 93971; 96367; 96368; 96375; 96413; 96417; J7040; J7050; J9045; J9267; A4216; J2405; J3490

== ENCOUNTER 2018-05-20 15:37 | Observation (INO) | payer MEDICARE, SELFPAY ==
[2018-04-17 13:12] VITALS: BMI 27.9
[2018-05-20] VITALS (8 sets, daily range): BP systolic 107–120; BP diastolic 52–78; PULSE 55–74; RESP 16–20; TEMP 36.6–37; O2SAT 95–99; BMI 24.7; BMI 24.5
--- NOTE | 2018-05-20 16:10 | ED.VISSUMM ---
- ER Visit Summary Date of Service: 05/20/18 Chief Complaint: Weakness History of Present Illness: The patient is a 73 M currently undergoing chemotherapy and radiation for lung cancer. He has a one-week history of increasing weakness and fatigue. Patient states he has a very poor appetite and does not want to eat. When he does eat food does not taste normal. Family states he has had increasing difficulty with ambulation due to his weakness. He has not had any falls. He denies fever. Physical Examination: Blood pressure is 107/78, temperature 98.6, heart rate 78, respiratory rate 18, pulse ox 98% on room air. Patient sitting upright in bed. He does appear pale. Heart is regular rate and rhythm. Lung sounds are clear. Abdomen is soft nontender. Lower external examination was 1+ lower extremity edema that is symmetric. Neuro exam reveals no focal neurologic deficits. Test Results: EKG is underlying A. fib with paced beats. No sign of acute ischemia. Portable chest x-ray shows decreasing volume of the right hemithorax, stable 9.4 cm right lung mass. CBC reveals pancytopenia with a white count 1.6, hemoglobin 9.3, platelet count 124,000. ANC is 1.1. Chemistry studies significant for BUN of 31. Coags reveal an INR 2.2 and a PTT of 43.9. Patient is on Xarelto. His digoxin level is slightly elevated at 2.13. Emergency Department Course and Treatment: Patient is given gentle IV fluids. Nursing staff does note that he was quite unsteady on his feet when ambulated to the restroom. Patient does live alone and there is concern from family about him falling. At this time we will request overnight observation for gentle IV hydration, repeat digoxin level, and evaluation by physical therapy. I spoke with Dr. Monae and he states patient can be brought down for radiation in the morning if he is able. Treatment Plan: [] Disposition: Admit Impression: 1. Generalized weakness 2. Pancytopenia secondary to chemotherapy 3. Elevated digoxin level This note was generated with [employer] dictation software. It may contain incorrect words, spelling, and punctuation that were not noted in review of the chart prior to signing ED Disposition - Plan for ED Patient: Chief Complaint: Weakness Referrals: Lorenzo Thibodeaux, OMERO-C [Primary Care Provider] -
[2018-05-20] MEDS: 0.9% Normal Saline 1,000 ML 150 ML IV (16:42)
[2018-05-20 17:03] LABS: Anion Gap 9 (5-15); BUN 31 mg/dL (7-18); BUN/Creat Ratio 28.2 RATIO (10-20); Calcium,Total 8.5 mg/dL (8.5-10.1); Chloride 103 mmol/L (98-107); EST Glomerular Filtration Rate 69 mL/min (>60); Est Glom Filt Rate - Afr Amer 84 mL/min (>60); Estimated Creatinine Clearance 52.36 ml/min; Glucose 110 mg/dL (74-106); Potassium 4.8 mmol/L (3.5-5.1); Sodium Level 137 mmol/L (136-145)
--- NOTE | 2018-05-20 17:19 | CM.ED ---
Social Work Note Into complete initial assessment as pt is targeted for admission. Introduced self and role at [facility] to pt and female friend that accompanied him. The pt reports that he lives alone in a one-story home with 2 NAI. Pt reports increased weakness following radiation and chemo. Denies falls, and states that he does not feel that he would benefit from [facility] or outpatient therapy. Pt does have a walker at home, but has not been using. Inquire about safety concern and pt denies concerns. States that he does move slowly, but is still able to ambulate. Reports that he has a pinched nerve which is painful and contributes to slow movement. Educate to pain management services and palliative care and pt declines. Pt is independent with care. Does not have advanced directives and declines to complete at this time. Education and packet was provided to pt by this insurance underwriter last week. Denies anticipated needs at discharge and is made aware that an RN CM is available to assist if needs arise. Plan: Home with no anticipated needs. Tammie Murrya, CLINICAL DOCUMENTATION CLERK, HOUSING MANAGEMENT OFFICER
[2018-05-20 17:33] LABS: Absolute Lymphocyte Count 0.39 X10^3/ul (0.83-4.51); Absolute Neutrophil Count 1.1 X10^3/uL (2.0-7.7); Basophil# 0.03 X10^3/uL; Basophil% 1.8 % (0-1); Eosinophil# 0.01 X10^3/uL; Eosinophils% 0.6 % (0-5); Hematocrit 29.7 % (40-54); Hemoglobin 9.3 g/dl (13.0-16.5); Lymphocyte # 0.39 X10^3/ul (4.0); Lymphocyte % 23.9 % (19-41); Mean Corp Hgb Conc 31.3 g/gl (32-36); Mean Corpuscular Hgb 25.1 pg (27.0-32.0); Mean Corpuscular Volume 80.3 fL (80-94); Mean Platelet Vol. 12.3 fl (6.2-12.0); Monocyte# 0.09 X10^3/uL; Monocyte% 5.5 % (0-10); Neutrophil % 67.6 % (47-70); Platelet Count 124 K/mm3 (150-450); RBC Distribution Width SD 50.4 fl (35.1-43.9); White Blood Count 1.6 K/mm3 (4.4-11.0)
[2018-05-20 17:37] LABS: Differential Indicated SCAN CRITERIA MET; POSITIVE COUNT NO; POSITIVE DIFFERENTIAL YES; POSITIVE MORPHOLOGY NO
[2018-05-20 17:43] LABS: International Normalized Ratio 2.2; Partial Thromboplast Time 43.9 Seconds (24.1-36.2); Prothrombin Time (Protime)PT. 24.7 SECONDS (11.7-14.9)
[2018-05-20 18:09] LABS: Digoxin Level 2.13 ng/mL (0.80-2.00)
[2018-05-20 18:21] LABS: Differential Comment SCANNED
[2018-05-20 18:44] LABS: Bacteria 0 SEEN /hpf (None Seen); Mucous, Urine 0 SEEN /hpf (<or=2+)
--- NOTE | 2018-05-20 18:52 | ED.RN ---
WALKED PT TO RESTROOM TO GIVE URINE SAMPLE, PT WAS UNSTEADY AND NEEDED RN ASSISTANCE WITH AMBULATING. HE STATED HE FELT A LITTLE DIZZY.
[2018-05-20 19:02] LABS: Color, Urine Yellow (Yellow); Glucose, Dipstick Normal (Normal); Ketone-Dipstick Negative (Negative); Leukocyte Esterase-Dipstick Negative /ul (Negative); Nitrite-Dipstick Negative (Negative); Occult Blood-Urine Negative /ul (Negative); Protein-Dipstick 15 mg/dl (Negative); Urine Bilirubin Dipstick Negative (Negative); Urine Clarity Clear (Clear); Urine Urobilinogen 1 mg/dl (Normal)
--- NOTE | 2018-05-20 19:06 | PCM.HP.STD ---
Problem List (1) Generalized weakness Status: Acute (2) Pancytopenia Status: Acute (3) Elevated digoxin level Status: Acute (4) Dehydration Status: Acute History of Present Illness Date of Admission: 05/20/18 Chief Complaint: Generalized weakness ?3 weeks. The patient is a 73 year old M with a significant hx of TIA; CAD status post CABG ?3 times, and 4 stent; congestive heart failure; permanent pacemaker/defibrillator; COPD; GERD; Hypertension; A. fib on chronic anticoagulation; hypothyroidism; heart failure; and non-small cell lung cancer on chemo every (05/15/2018) and radiation every weekday (Saturday through Saturday) who is here with progressive weakness and anorexia. His last chemotherapy was last ; and his last radiation was on the same day of admission. He reports that his next radiation is due tomorrow (05/21/2018) morning 8:30 AM. Patient follows up with Dr. Monsalve, oncologist. Notably, he had elevated digoxin level on presentation. ED physician called oncology and recommendations was gentle fluids which was started at the ED. Per conversation between ED doctor and oncology, patient may still receive radiation tomorrow and oncology will see patient in am In regard to have heart failure; on 05/06/18 , Dr. Baer stated in his notes that his EF is 20%. Reviewing oncologist notes; right upper lobe mass and pathology was consistent with non-small cell lung cancer favoring squamous cell carcinoma. Past Medical History Past Medical History (Chronic Problems): Chronic Problems (Last Reviewed 05/21/18 @ 03:48 by Chet Norman MD) Hx of CABG (Chronic) GARCIA to LAD, reverse SVG to the right PDA, reverse SVG to the Lateral CX (doxumented on [facility] done 04/10/07 done @ [place] but actual bypass surgery done circa 1987, also @ [facility] in [place]) Nicotine dependence (Chronic) Chronic anticoagulation (Chronic) Xarelto History of coronary artery bypass graft x 3 (Chronic ~1987) @ [place]: GARCIA to LAD, reverse SVG to the CX marginal and SVG to the PDA branch of RCA per Dr. Lujan (info obtained from OV notes from Dr. Sorto and previous LHC done [address] Jhonny Stephens). Atherosclerosis of coronary artery bypass graft of pauma heart without angina pectoris (Chronic) Atherosclerotic heart disease of pauma coronary artery without angina pectoris (Chronic) S/P CABG @ [place]: GARCIA to LAD, reverse SVG to the CX marginal and SVG to the PDA branch of RCA per Dr. Lujan; PTCA and Stents @ [facility] per Dr. Jhonny Stephens: PTCA and SHAMIKA to pauma PDA; BMS to vein graft to PDA X2; Angioplasty to vein graft to the OM1 and also to vein graft to the PDA. History of left heart catheterization (Chronic) 2006 @ [facility] per Dr. Chet Diaz History of inferior wall myocardial infarction (Chronic ~1987) Stented coronary artery (Chronic 03/01/17) PTCA and Stents @ [facility] per Dr. Jhonny Stephens: PTCA and stent to pauma PDA; stenting to vein graft to PDA X2; Angioplasty to vein graft to the OM1 and also to vein graft to the PDA 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) EF 20%, RVSP 60, +2 mitral regurgiation per echo January 2018 Atrial fibrillation (Chronic) COPD (chronic obstructive pulmonary disease) (Chronic) Hypertension (Chronic) Hypothyroid (Chronic) TIA (transient ischemic attack) (Chronic) GERD (gastroesophageal reflux disease) (Chronic) ICD (implantable cardioverter-defibrillator) in place (Chronic 05/22/12) Implanted @ [facility] for wide complex tachycardia and EF 30-35% per Dr. Chuck Frausto; also hx of sinus bradycardia treated with pacing portion of device EAN (obstructive sleep apnea) (Chronic) mild EAN Medical History: Medical History (Last Reviewed 05/21/18 @ 03:48 by Chte Norman MD) CHF exacerbation (Acute) I50.9 Nicotine dependence (Chronic) F17.200 Chronic anticoagulation (Chronic) Z79.01 Xarelto Acute hypoxemic respiratory failure (Acute) J96.01 COPD exacerbation (Acute) J44.1 Educational circumstance (Acute) Z55.9 Pleural effusion on right (Acute) J90 Encounter for adjustment or management of vascular access device (Acute) Z45.2 Atherosclerosis of coronary artery bypass graft of pauma heart without angina pectoris (Chronic) I25.810 Atherosclerotic heart disease of pauma coronary artery without angina pectoris (Chronic) I25.10 S/P CABG @ [place]: GARCIA to LAD, reverse SVG to the CX marginal and SVG to the PDA branch of RCA per Dr. Lujan; PTCA and Stents @ [facility] per Dr. Jhonny Stephens: PTCA and SHAMIKA to pauma PDA; BMS to vein graft to PDA X2; Angioplasty to vein graft to the OM1 and also to vein graft to the PDA. History of inferior wall myocardial infarction (Chronic) Onset Date: ~1987 I25.2 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) I50.42 EF 20%, RVSP 60, +2 mitral regurgiation per echo January 2018 Atrial fibrillation (Chronic) I48.91 COPD (chronic obstructive pulmonary disease) (Chronic) J44.9 Hypertension (Chronic) I10 Hypothyroid (Chronic) E03.9 TIA (transient ischemic attack) (Chronic) G45.9 Primary cancer of right upper lobe of lung (Acute) C34.11 Regional lymph node metastasis present (Acute) C77.9 GERD (gastroesophageal reflux disease) (Chronic) K21.9 EAN (obstructive sleep apnea) (Chronic) G47.33 mild EAN port placement April COPD (chronic obstructive pulmonary disease) J44.9 Presence of combination internal cardiac defibrillator (ICD) and pacemaker Z95.810 GERD (gastroesophageal reflux disease) K21.9 Allergies cefdinir [From Omnicef] Allergy (Intermediate, Verified 05/15/18 10:06) Rash niacin Adverse Reaction (Intermediate, Verified 05/15/18 10:06) FLUSHING/REDNESS IN FACE ANTIHYPERLIPEMIC Allergy (Intermediate, Uncoded 05/07/18 08:53) Rash ITCHY Home Medications: Ambulatory Orders Medication Instructions Recorded Albuterol IH (ProAir) [Proair Hfa] 2 puff INHALATION Q4H PRN 01/09/18 Fluticasone 44 Mcg [Flovent 44 Mcg] 1 - 2 puff INHALATION BID 01/09/18 Levothyroxine [Synthroid] 50 mcg PO DAILY 01/09/18 Loratadine [Claritin] 10 mg PO DAILY 01/09/18 Pravastatin Sodium 40 mg PO DAILY 01/09/18 Sotalol HCl [Betapace (Beta 160 mg PO BID 01/09/18 Jerri)] Nitroglycerin [Nitrostat] 0.4 mg SL PRN PRN 02/19/18 Potassium Chloride 10 meq PO DAILY 02/19/18 Carvedilol [Coreg] 3.125 mg PO DAILY 04/16/18 Digoxin [Lanoxin] 125 mcg PO DAILY 04/16/18 Pantoprazole Sodium [Protonix] 40 mg PO DAILY 04/16/18 furosemide 40 mg tablet 40 mg PO QDAY tab 05/07/18 Rivaroxaban [Xarelto] 20 mg PO DAILY 05/15/18 Metolazone [Zaroxolyn] 2.5 mg PO QWEEK 05/20/18 Ubidecarenone [Coenzyme Q10] 100 mg PO DAILY 05/20/18 Umeclidinium Brm/Vilanterol Tr 1 puff INHALATION DAILY 05/20/18 [Anoro Ellipta 62.5-25 Mcg INH] Surgical History: Surgical History (Last Reviewed 05/21/18 @ 03:48 by Chet Norman MD) Hx of CABG (Chronic) Z95.1 GARCIA to LAD, reverse SVG to the right PDA, reverse SVG to the Lateral CX (doxumented on LHC done 04/10/07 done @ [place] but actual bypass surgery done circa 1987, also @ [facility] in [place]) History of coronary artery bypass graft x 3 (Chronic) Onset Date: ~1987 Z95.1 @ [place]: GARCIA to LAD, reverse SVG to the CX marginal and SVG to the PDA branch of RCA per Dr. Lujan (info obtained from OV notes from Dr. Sorto and previous [facility] done [address] Jhonny Stephens). History of left heart catheterization (Chronic) Z98.890 2006 @ [facility] per Dr. Chet Diaz Stented coronary artery (Chronic) Onset Date: 03/01/17 Z95.5 PTCA and Stents @ [facility] per Dr. Jhonny Stephens: PTCA and stent to pauma PDA; stenting to vein graft to PDA X2; Angioplasty to vein graft to the OM1 and also to vein graft to the PDA ICD (implantable cardioverter-defibrillator) in place (Chronic) Onset Date: 05/22/12 Z95.810 Implanted @ [facility] for wide complex tachycardia and EF 30-35% per Dr. Chuck Frausto; also hx of sinus bradycardia treated with pacing portion of device H/O cataract extraction Z98.49 Surgical History: coronary bypass surgery, - Psychiatric History: No pertinent psych hx Lives: Alone Smoking Status: Former smoker Tobacco Use: Non-smoker Alcohol: None - *Family History Maternal Family History: Family History (Last Reviewed 05/15/18 @ 10:06 by Vivian Mcdowell) Mother Myocardial infarction Asthma Father Cerebral hemorrhage CVA (cerebral vascular accident) Brother CAD (coronary artery disease) History Items: No pertinent history Paternal Family History: Family History (Last Reviewed 05/15/18 @ 10:06 by Vivian Mcdowell) Mother Myocardial infarction Asthma Father Cerebral hemorrhage CVA (cerebral vascular accident) Brother CAD (coronary artery disease) History Items: No pertinent history Review of Systems Constitutional: Reports: Malaise, Weakness. Denies: Chills, Fever Eyes: Denies: Blurred vision, Pain HEENT: Denies: Head Aches, Sinus Congestion, Sinus Drainage Cardiovascular: Denies: Chest Pain, Palpitations Respiratory: Reports: Shortness of Breath - Chronic Gastrointestinal: Reports: Constipation - His last bowel movement was about 3 days ago but he thinks it is appropriate since he hardly eats. Genitourinary: Denies: Dysuria Musculoskeletal: Denies: Joint Pain, Joint Tenderness Skin: Denies: Rash, Wounds Neurological: Denies: Numbness, Tingling, Focal weakness Psychiatric: Denies: Anxiety, Depression, Homicidal Ideations, Suicidal Ideations Hematologic/ Lymphatic: Reports: Anemia VTE Information - Inpt Only VTE Present on Admission: No VTE Mechan Device Prophylaxis: None VTE Pharm Prophylaxis ordered?: No Reason prophylaxis not ordered:: Medical Contraindication - Patient on Xarelto for A. fib. Patient Problems: Active and Suspected Problems (Last Reviewed 05/21/18 @ 03:48 by Chet Norman MD) Generalized weakness (Acute) Pancytopenia (Acute) Elevated digoxin level (Acute) Dehydration (Acute) - Physical Exam General: Alert, Oriented x3, Lethargic HEENT: Atraumatic, PERRLA, EOMI, Normocephalic Neck: Supple, No JVD, Negative Carotid Bruits Lungs: - - Pacemaker-like object in left upper extremity. Cardiovascular: - - Pacemaker-like substance in the left upper chest. Abdomen: Bowel Sounds Present, Soft, Non Tender Extremities: No edema, Capillary Refill Less than 3 Seconds Skin: No rashes, No breakdown Musculoskeletal: No Tenderness to Palpation of Joints or Extremities Neurological: Cranial nerves II-XII grossly intact, - - Strength in right upper extremity 4/5 (he attributes to previous stroke). Strength 5/5 throughout Psych/Mental Status: Normal Affect, Appropriate Vital Signs Temp Pulse Resp BP Pulse Ox 98.6 F 61 18 120/63 99 05/20/18 15:38 05/20/18 18:43 05/20/18 18:43 05/20/18 18:43 05/20/18 18:43 Oxygen Delivery Method Room Air Weight: 69.4 kg Body Mass Index (BMI) 24.7 Laboratory Tests Past 24 Hrs 05/20/18 05/20/18 05/20/18 16:30 16:30 16:30 WBC 1.6 L RBC 3.70 L Hgb 9.3 L Hct 29.7 L MCV 80.3 MCH 25.1 L MCHC 31.3 L RDW 18.0 H RDW Differential 50.4 H Plt Count 124 L MPV 12.3 H Immature Gran % (Auto) 0.600 Neut % (Auto) 67.6 Lymph % (Auto) 23.9 Monroe % (Auto) 5.5 Eos % (Auto) 0.6 Baso % (Auto) 1.8 H Absolute Neuts (auto) 1.1 L Absolute Lymphs (auto) 0.39 L Total Counted Not Reportable Differential Comment SCANNED PT 24.7 H INR 2.2 APTT 43.9 H Sodium Potassium Chloride Carbon Dioxide Anion Gap BUN Creatinine Estim Creat Clear Calc Est GFR (MDRD) Af Amer Est GFR (MDRD) Non-Af BUN/Creatinine Ratio Glucose Calcium Urine Color Urine Clarity Urine pH Ur Specific Independence Urine Protein Urine Glucose (UA) Urine Ketones Urine Occult Blood Urine Nitrite Urine Bilirubin Urine Urobilinogen Ur Leukocyte Esterase Urine RBC Urine WBC Ur Squamous Epith Cells Urine Bacteria Urine Mucus Digoxin 2.13 H* 05/20/18 05/20/18 16:30 18:38 WBC RBC Hgb Hct MCV MCH MCHC RDW RDW Differential Plt Count MPV Immature Gran % (Auto) Neut % (Auto) Lymph % (Auto) Monroe % (Auto) Eos % (Auto) Baso % (Auto) Absolute Neuts (auto) Absolute Lymphs (auto) Total Counted Differential Comment PT INR APTT Sodium 137 Potassium 4.8 Chloride 103 Carbon Dioxide 25.0 Anion Gap 9 BUN 31 H Creatinine 1.10 Estim Creat Clear Calc 52.36 Est GFR (MDRD) Af Amer 84 Est GFR (MDRD) Non-Af 69 BUN/Creatinine Ratio 28.2 H Glucose 110 H Calcium 8.5 Urine Color Pending Urine Clarity Pending Urine pH Pending Ur Specific Independence Pending Urine Protein Pending Urine Glucose (UA) Pending Urine Ketones Pending Urine Occult Blood Pending Urine Nitrite Pending Urine Bilirubin Pending Urine Urobilinogen Pending Ur Leukocyte Esterase Pending Urine RBC Pending Urine WBC Pending Ur Squamous Epith Cells Pending Urine Bacteria Pending Urine Mucus Pending Digoxin Assessment/Plan All Active Problems (Last Reviewed 05/21/18 @ 03:48 by Chet Norman MD) Generalized weakness (Acute) Pancytopenia (Acute) Elevated digoxin level (Acute) Dehydration (Acute) Deep venous thrombosis of right upper extremity (Acute) CHF exacerbation (Acute) Acute hypoxemic respiratory failure (Acute) COPD exacerbation (Acute) Educational circumstance (Acute) Pleural effusion on right (Acute) Encounter for adjustment or management of vascular access device (Acute) Primary cancer of right upper lobe of lung (Acute) Regional lymph node metastasis present (Acute) Patient is a 73 year old M with a significant hx of TIA; CAD status post CABG ?3 times, and 4 stent; congestive heart failure; permanent pacemaker/defibrillator; COPD; GERD; Hypertension; A. fib on chronic anticoagulation; hypothyroidism; and non-small cell lung cancer on chemo every (05/15/2018) and radiation every week (Saturday through Saturday) who is here with progressive generalized weakness and anorexia. Generalized weakness and anorexia Most likely this is because of the debilitating effects of cancer, chemotherapy or radiation. PT and OT to work with patient. Supportive treatment with normal saline IV infusion. Nutrition supplements with Ensure. Dietitian consult for further recommendations. Oncology consulted to make further recommendations. Since he has history of hypothyroidism and he is on Synthroid will check TSH Elevated digoxin Digoxin level 2.13 This does not appear to be causing his symptoms of generalized weakness and anorexia since he has no vision changes, diarrhea or confusion. Likely the digoxin level is increased because of dehydration. His BUN on admission is 31 which is increased from his baseline. We will hold digoxin and consult cardiology. Dehydration Elevated BUN above baseline Likely multifactorial from poor intake and chemoradiation Pancytopenia Notably his white count is 1.6; hemoglobin 9.3; and platelets of 124. This is likely due to chemotherapy and radiation. Oncology consult. History of heart failure On home digoxin held here. He takes Lasix 40 mg daily; metolazone 2.5 mg every week on Wednesdays. Will hold diuretics at this time in the setting of dehydration Gentle hydration with normal saline 75 ML's per hour. Constipation Senokot twice daily scheduled and Dulcolax as needed. COPD Home inhalers continued Hypothyroidism Synthroid continued TSH ordered Chronic A. fib Sotalol continued Xarelto continued Digoxin on hold as above Allergic consult DVT prophylaxis Not indicated since patient is on therapeutic anticoagulation with Xarelto for A. fib Xarelto continued. Code Visit OBSV E&M: [id number] Initial observation care L3
[2018-05-20 19:29] LABS: Squamous Epithelial Cells - UA 0-5 SEEN /hpf (0-5)
[2018-05-20 19:30] LABS: Red Blood Cells-Urine 0-5 SEEN /hpf (0-5); White Blood Cells 0-5 SEEN /hpf (0-5)
--- NOTE | 2018-05-20 19:30 | NURSING ---
Called ED receiving manager, Erica at this time to confirm Pt okay to come to PCU.
[2018-05-20] MEDS: Ipratropium/Albuterol Sulfate 3 ML AMPUL.NEB INHALATION (20:40)
[2018-05-20] MEDS: Budesonide Respules 0.5 MG/2 ML AMPUL.NEB. INHALATION (20:40)
[2018-05-20] MEDS: 0.9% Normal Saline 1,000 ML 75 ML IV (20:58)
[2018-05-20] MEDS: 0.9% NaCl Peripheral Flush Adult/Peds IV (21:00)
[2018-05-20] MEDS: Senna/Docusate Sodium 1 Tablet 2 TABLET PO (22:03)
[2018-05-20] MEDS: Sotalol Hydrochloride 80 MG Tablet 160 MG PO (22:30)
[2018-05-21] VITALS (14 sets, daily range): BP systolic 101–121; BP diastolic 52–64; PULSE 59–75; RESP 16–24; TEMP 36.4–36.9; O2SAT 95–100
[2018-05-21] MEDS: Levothyroxine 50 MCG Tablet PO (06:19)
[2018-05-21 06:33] LABS: Absolute Lymphocyte Count 0.34 X10^3/ul (0.83-4.51); Absolute Neutrophil Count 1.1 X10^3/uL (2.0-7.7); Basophil# 0.02 X10^3/uL; Basophil% 1.3 % (0-1); Eosinophil# 0.01 X10^3/uL; Eosinophils% 0.6 % (0-5); Hematocrit 28.4 % (40-54); Lymphocyte # 0.34 X10^3/ul (4.0); Lymphocyte % 21.4 % (19-41); Mean Corp Hgb Conc 31.7 g/gl (32-36); Mean Corpuscular Hgb 25.4 pg (27.0-32.0); Mean Platelet Vol. 12.9 fl (6.2-12.0); Monocyte# 0.09 X10^3/uL; Monocyte% 5.7 % (0-10); Neutrophil % 69.1 % (47-70); Platelet Count 106 K/mm3 (150-450); RBC Distribution Width CV 18.4 % (11.6-14.6); RBC Distribution Width SD 48.2 fl (35.1-43.9); Red Blood Count 3.55 M/mm3 (4.6-6.2); White Blood Count 1.6 K/mm3 (4.4-11.0)
[2018-05-21 06:35] LABS: Differential Indicated SCAN CRITERIA MET; POSITIVE COUNT NO; POSITIVE DIFFERENTIAL YES; POSITIVE MORPHOLOGY NO
[2018-05-21 06:49] LABS: Anion Gap 9 (5-15); BUN 29 mg/dL (7-18); BUN/Creat Ratio 30.1 RATIO (10-20); Calcium,Total 8.5 mg/dL (8.5-10.1); Chloride 103 mmol/L (98-107); Creatinine, Serum 0.96 mg/dL (0.70-1.30); EST Glomerular Filtration Rate 81 mL/min (>60); Est Glom Filt Rate - Afr Amer 98 mL/min (>60); Glucose 97 mg/dL (74-106); Potassium 4.7 mmol/L (3.5-5.1); Sodium Level 138 mmol/L (136-145); Thyroid Stim Hormone (TSH) 3.63 uIU/mL (0.358-3.74)
[2018-05-21] MEDS: Budesonide Respules 0.5 MG/2 ML AMPUL.NEB. INHALATION ×2 (07:02→19:26)
[2018-05-21] MEDS: Ipratropium/Albuterol Sulfate 3 ML AMPUL.NEB INHALATION ×3 (07:02→19:26)
[2018-05-21] MEDS: Loratadine 10 MG Tablet PO (09:56)
[2018-05-21] MEDS: Carvedilol 3.125 MG TABLET PO (09:56)
[2018-05-21] MEDS: Sotalol Hydrochloride 80 MG Tablet 160 MG PO ×2 (09:56→21:00)
[2018-05-21] MEDS: Pantoprazole Sodium 40 MG Tablet PO (09:56)
[2018-05-21] MEDS: Pravastatin 40 MG Tablet PO (09:56)
--- NOTE | 2018-05-21 10:05 | CASEMGMT ---
AUDREY spoke with physician and therapy and they indicated patient will need placement. Patient was in agreement with [facility]. AUDREY spoke with Kiarra and as long as patient is not getting chemo and insurance approves he can go TCU. AUDREY let patient know this information and he was pleased. Plan: [facility] pending insurance approval. Dena VARELA
--- NOTE | 2018-05-21 10:05 | PCM.CONS.C ---
Problem List (1) Digoxin toxicity Status: Acute (2) CAD (coronary artery disease) Status: Chronic (3) S/P PTCA (percutaneous transluminal coronary angioplasty) Status: Chronic (4) Hx of CABG Status: Chronic Comment: GARCIA to LAD, reverse SVG to the right PDA, reverse SVG to the Lateral CX (doxumented on [facility] done 04/10/07 done @ [place] but actual bypass surgery done circa 1987, also @ [facility] in [place]) (5) Cardiomyopathy, ischemic Status: Chronic (6) Atrial fibrillation Status: Chronic Qualifiers: Atrial fibrillation type: paroxysmal Qualified Code(s): I48.0 - Paroxysmal atrial fibrillation (7) ICD (implantable cardioverter-defibrillator) in place Status: Chronic Comment: Implanted @ [facility] for wide complex tachycardia and EF 30-35% per Dr. Chuck Frausto; also hx of sinus bradycardia treated with pacing portion of device (8) HLD (hyperlipidemia) Status: Chronic (9) Hypertension Status: Chronic Qualifiers: Hypertension type: essential hypertension Qualified Code(s): I10 - Essential (primary) hypertension (10) COPD (chronic obstructive pulmonary disease) Status: Chronic (11) Primary cancer of right upper lobe of lung Status: Chronic Reason for Consult Date of Consultation: 05/21/18 History of Present Illness: The patient is a 73 year old white male with a past cardiovascular history which is included underlying CAD, PCI, CABG, ischemic mediated cardiomyopathy, paroxysmal atrial fibrillation, ICD, hyperlipidemia, hypertension, superimposed upon COPD, and underlying carcinoma requiring chemotherapy and radiation therapy, who is referred for evaluation of an elevated digoxin level. The patient has been followed by Doyle Baer MD of the [facility]. He has presented to the hospital based upon concerns of progressive weakness. He is being evaluated by internal medicine and hematology/oncology and radiation oncology for concerns of ongoing conservative medical management versus ongoing chemotherapy and radiation therapy. In the interim he was found to have elevation of his digoxin level. The patient denies any ongoing new forms of chest discomfort or new forms of shortness of breath/dyspnea. He has denied any orthopnea or PND. There is been no associated new episodes of nausea or emesis or diaphoresis. He has denied any obvious palpitations, near syncope or syncope. His cardiac rhythm has demonstrated underlying atrial fibrillation with an underlying IVCD pattern and intermittent ventricular paced rhythms. [] Past Medical History Allergies/Adverse Reactions: Allergies cefdinir [From Omnicef] Allergy (Intermediate, Verified 05/15/18 10:06) Rash niacin Adverse Reaction (Intermediate, Verified 05/15/18 10:06) FLUSHING/REDNESS IN FACE ANTIHYPERLIPEMIC Allergy (Intermediate, Uncoded 05/07/18 08:53) Rash ITCHY Home Medications: Ambulatory Orders Medication Instructions Recorded Albuterol IH (ProAir) [Proair Hfa] 2 puff INHALATION Q4H PRN 01/09/18 Fluticasone 44 Mcg [Flovent 44 Mcg] 1 - 2 puff INHALATION BID 01/09/18 Levothyroxine [Synthroid] 50 mcg PO DAILY 01/09/18 Loratadine [Claritin] 10 mg PO DAILY 01/09/18 Pravastatin Sodium 40 mg PO DAILY 01/09/18 Sotalol HCl [Betapace (Beta 160 mg PO BID 01/09/18 Jerri)] Nitroglycerin [Nitrostat] 0.4 mg SL PRN PRN 02/19/18 Potassium Chloride 10 meq PO DAILY 02/19/18 Carvedilol [Coreg] 3.125 mg PO DAILY 04/16/18 Digoxin [Lanoxin] 125 mcg PO DAILY 04/16/18 Pantoprazole Sodium [Protonix] 40 mg PO DAILY 04/16/18 furosemide 40 mg tablet 40 mg PO QDAY tab 05/07/18 Rivaroxaban [Xarelto] 20 mg PO DAILY 05/15/18 Metolazone [Zaroxolyn] 2.5 mg PO QWEEK 05/20/18 Ubidecarenone [Coenzyme Q10] 100 mg PO DAILY 05/20/18 Umeclidinium Brm/Vilanterol Tr 1 puff INHALATION DAILY 05/20/18 [Anoro Ellipta 62.5-25 Mcg INH] Past Medical History (Chronic Problems): Chronic Problems (Last Reviewed 05/21/18 @ 03:48 by Chet Norman MD) CAD (coronary artery disease) (Chronic) S/P PTCA (percutaneous transluminal coronary angioplasty) (Chronic) Cardiomyopathy, ischemic (Chronic) HLD (hyperlipidemia) (Chronic) Hx of CABG (Chronic) GARCIA to LAD, reverse SVG to the right PDA, reverse SVG to the Lateral CX (doxumented on [facility] done 04/10/07 done @ [place] but actual bypass surgery done circa 1987, also @ [facility] in [place]) Nicotine dependence (Chronic) Chronic anticoagulation (Chronic) Xarelto History of coronary artery bypass graft x 3 (Chronic ~1987) @ [place]: GARCIA to LAD, reverse SVG to the CX marginal and SVG to the PDA branch of RCA per Dr. Lujan (info obtained from OV notes from Dr. Sorto and previous LHC done [address] Jhonny Stephens). Atherosclerosis of coronary artery bypass graft of [place] heart without angina pectoris (Chronic) Atherosclerotic heart disease of [place] coronary artery without angina pectoris (Chronic) S/P CABG @ [place]: GARCIA to LAD, reverse SVG to the CX marginal and SVG to the PDA branch of RCA per Dr. Lujna; PTCA and Stents @ [facility] per Dr. Jhonny Stephens: PTCA and SHAMIKA to [place] PDA; BMS to vein graft to PDA X2; Angioplasty to vein graft to the OM1 and also to vein graft to the PDA. History of left heart catheterization (Chronic) 2006 @ [facility] [address] Chet Diaz History of inferior wall myocardial infarction (Chronic ~1987) Stented coronary artery (Chronic 03/01/17) PTCA and Stents @ [facility] per Dr. Jhonny Stephens: PTCA and stent to [place] PDA; stenting to vein graft to PDA X2; Angioplasty to vein graft to the OM1 and also to vein graft to the PDA 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) EF 20%, RVSP 60, +2 mitral regurgiation per echo January 2018 Atrial fibrillation (Chronic) COPD (chronic obstructive pulmonary disease) (Chronic) Hypertension (Chronic) Hypothyroid (Chronic) TIA (transient ischemic attack) (Chronic) Primary cancer of right upper lobe of lung (Chronic) GERD (gastroesophageal reflux disease) (Chronic) ICD (implantable cardioverter-defibrillator) in place (Chronic 05/22/12) Implanted @ [facility] for wide complex tachycardia and EF 30-35% per Dr. Chuck Frausto; also hx of sinus bradycardia treated with pacing portion of device EAN (obstructive sleep apnea) (Chronic) mild EAN Surgical History: coronary bypass surgery, - Psychiatric History: No pertinent psych hx - *Family History Maternal Family History: Family History (Last Reviewed 05/15/18 @ 10:06 by Vivian Mcdowell) Mother Myocardial infarction Asthma Father Cerebral hemorrhage CVA (cerebral vascular accident) Brother CAD (coronary artery disease) History Items: No pertinent history Paternal Family History: Family History (Last Reviewed 05/15/18 @ 10:06 by Vivian Mcdowell) Mother Myocardial infarction Asthma Father Cerebral hemorrhage CVA (cerebral vascular accident) Brother CAD (coronary artery disease) History Items: No pertinent history Lives: Alone Smoking Status: Former smoker Tobacco Use: Non-smoker Alcohol: None Review of Systems - Review of Systems General: Reports: Weakness. Denies: Fever, Fatigue, Night Sweats Cardiovascular: Reports: Shortness of Breath, Peripheral Edema. Denies: Chest Discomfort, Orthopnea, PND, Palpitations, Lightheadedness, Dizziness, Near Syncope, Syncope Respiratory: Reports: Shortness of Breath. Denies: Sputum Production, Hemoptysis Gastrointestinal: Denies: Hematemesis, Hematochezia, Melena Genitourinary: Denies: Dysuria, Hematuria Skin: Denies: Rash Subjectve: This is a 73-year-old somewhat cachectic appearing white male who appears to be resting comfortably at the moment in no acute distress. Objective: Vital Signs Temp Pulse Resp BP Pulse Ox 97.9 F 73 18 101/56 L 95 05/21/18 06:15 05/21/18 07:00 05/21/18 07:00 05/21/18 06:15 05/21/18 07:00 Oxygen Delivery Method Room Air Weight: 153 lb 0.013 oz Body Mass Index (BMI) 24.5 Intake and Output for Last 24 Hours 05/19/18 05/20/18 05/21/18 23:59 23:59 23:59 Intake Total 519 / 519 593 / 593 Balance 519 / 519 593 / 593 General: Awake, Alert, Oriented x 3, Cooperative, No Acute Distress HEENT: Atraumatic, Normocephalic, PERRL, EOMI, Sclera Non Icteric Oral: Moist Mucosa Neck: Supple, Good ROM, No JVD Chest Wall: Midline Sternotomy Incision, Left Pectoral Incision Lungs: Diminished Gavin Bases Cardiovascular: Irregular Rhythm, Normal S1, Normal S2 Murmur Murmur: Grade 3/6, Harsh, Mid Systolic, LLSB, [place], LVOT Abdomen: Bowel Sounds Present, Soft, Non Tender Extremities: Moderate RLE Edema, Moderate LLE Edema Neurological: No Focal Motor or Sensory Deficit Psych/Mental Status: Appropriate, Normal Affect 05/21/18 05:55: WBC 1.6 L, RBC 3.55 L, Hgb 9.0 L, Hct 28.4 L, MCV 80.0, MCH 25.4 L, MCHC 31.7 L, RDW 18.4 H, RDW Differential 48.2 H, Plt Count 106 L, MPV 12.9 H, Immature Gran % (Auto) 1.900 H, Neut % (Auto) 69.1, Lymph % (Auto) 21.4, [place] % (Auto) 5.7, Eos % (Auto) 0.6, Baso % (Auto) 1.3 H, Absolute Neuts (auto) 1.1 L, Total Counted Not Reportable 05/21/18 05:55: Sodium 138, Potassium 4.7, Chloride 103, Carbon Dioxide 26.0, Anion Gap 9, BUN 29 H, Creatinine 0.96, Est GFR (MDRD) Af Amer 98, Est GFR (MDRD) Non-Af 81, BUN/Creatinine Ratio 30.1 H, Glucose 97, Calcium 8.5 Rhythm: As noted above EKG: Atrial fibrillation with a left bundle branch block pattern with intermittent ventricular paced beats ECHO: 05/02/2018: Left ventricle severely dilated with severe global hypokinesis with an LVEF of 25-30%; right ventricle severely dilated with moderate global right ventricular systolic dysfunction; severe left atrial enlargement; mild right atrial enlargement; severe MR; moderate TR; mild diffuse aortic valve thickening; trivial MD; estimated RV systolic pressure 76 mmHg compatible with pulmonary hypertension Stress Test: 05/01/2018: Pharmacologic stress nuclear imaging study: Findings compatible with previous myocardial injury/infarction in portions of the basal inferior septum, basal inferior, basal inferolateral segments extending through the mid to distal inferior and inferior apical segments; no myocardial perfusion changes consider diagnostic for associated stress-induced myocardial ischemia; gated LVEF of 30% PCI: Per previous medical records: Previous PTCA/SHAMIKA to the right PDA; previous PTCA/BMS to the SVG to the right PDA CT Surgery: Per previous medical records: 1988: [place], [place]: GARCIA to the LAD, SVG to the lateral circumflex, SVG to the right PDA CXR: Preliminary evaluation: Post open heart surgery changes: Right lung mass: Please see official report Assessment/Plan 1. Digitalis toxicity The patient does have a mildly elevated digoxin level. He appears to be without acute adverse event. His complex cardiovascular case was reviewed. At the present time it would be recommended that his low dose digoxin be altered from 0.125 mg p.o. daily to 0.125 mg p.o. q. other day. His levels can be followed. If his levels remain elevated then he may have to further adjust and/or discontinue his medication. 2. CAD status post PCI status post CABG At the present time the patient appears to be without acute symptoms regarding his underlying vascular disease process. He will continue his other medications with adjustment as needed. It does not appear he requires further cardiac diagnostic studies or therapeutic intervention with respect to this concern. 3. Cardiomyopathy: Ischemic The patient does have an underlying cardiomyopathy. He appears to be without any acute on chronic systolic CHF related symptoms at this time. He will continue medical management. 4. Atrial fibrillation The patient has a history of underlying atrial fibrillation. He will need to continue rate control therapy, antiarrhythmic therapy, and as best as tolerated based on his multiple medical issues and concerns, antiplatelet and/or anticoagulant therapy. With respect to anticoagulant therapy it appears that he has not been on anticoagulant therapy based on concerns of previous need for invasive procedures, etc. So there may be a concern with respect to his underlying lung disease and concerns of associated hemorrhagic process. 5. ICD The patient does have an underlying ICD. It apparently has been functioning appropriately. He has noted no discharges. He will be reassessed as needed. 6. Hyperlipidemia The patient will continue medical management as deemed appropriate. 7. Hypertension The patient's blood pressure can be monitored. His medications can be adjusted as needed. 8. COPD The patient states he has a history of underlying COPD. He will continue evaluation care per internal medicine as deemed appropriate. 9. Lung carcinoma The patient will continue evaluation care per hematology/oncology and radiation oncology with respect to options going forward. Comment: The above was discussed and reviewed with the patient as well as the [facility] hospitalist staff.
--- NOTE | 2018-05-21 12:26 | NURSING ---
Pt transported off unit for radiation & brought back to floor. Per pt report, unable to do radiation d/t SOB and weakness. Pt opted to just come back to his room.
--- NOTE | 2018-05-21 15:19 | PCM.PN.HOSP ---
Patient Problems: Active and Suspected Problems (Last Reviewed 05/21/18 @ 03:48 by Chet Norman MD) Generalized weakness (Acute) Pancytopenia (Acute) Elevated digoxin level (Acute) Dehydration (Acute) Digoxin toxicity (Acute) Subjective: He is feeling ok today. He denies any lightheadedness or dizziness currently. He does become SOB with ambulation given his COPD and CHF. Vitals/I&O's: Vital Signs Temp Pulse Resp BP Pulse Ox 97.9 F 61 18 121/58 H 95 05/21/18 12:15 05/21/18 14:55 05/21/18 13:38 05/21/18 12:15 05/21/18 13:38 Oxygen Delivery Method Room Air Weight: 151 lb 10.848 oz Body Mass Index (BMI) 24.5 Intake and Output for Last 24 Hours 05/19/18 05/20/18 05/21/18 23:59 23:59 23:59 Intake Total 519 / 519 833 / 833 Balance 519 / 519 833 / 833 General: Alert, Oriented x3, Cooperative, No apparent distress HEENT: Atraumatic, PERRLA, EOMI, Normocephalic Oral: Moist Mucosa Neck: Supple, No JVD Lungs: Clear to auscultation, Normal air movement, No rhonchi, No wheeze, No rales Cardiovascular: Regular rate, Murmur - 2/6 LISA, - - irregular rhythm Abdomen: Soft, Non Tender, Non-Distended, No Hepato-splenomegaly Psych/Mental Status: Normal Affect, Appropriate Laboratory Results 05/21/18 05:55: WBC 1.6 L, RBC 3.55 L, Hgb 9.0 L, Hct 28.4 L, MCV 80.0, MCH 25.4 L, MCHC 31.7 L, RDW 18.4 H, RDW Differential 48.2 H, Plt Count 106 L, MPV 12.9 H, Immature Gran % (Auto) 1.900 H, Neut % (Auto) 69.1, Lymph % (Auto) 21.4, [place] % (Auto) 5.7, Eos % (Auto) 0.6, Baso % (Auto) 1.3 H, Absolute Neuts (auto) 1.1 L, Absolute Lymphs (auto) 0.34 L, Total Counted Not Reportable 05/21/18 05:55: Sodium 138, Potassium 4.7, Chloride 103, Carbon Dioxide 26.0, Anion Gap 9, BUN 29 H, Creatinine 0.96, Estim Creat Clear Calc 60.00, Est GFR (MDRD) Af Amer 98, Est GFR (MDRD) Non-Af 81, BUN/Creatinine Ratio 30.1 H, Glucose 97, Calcium 8.5, TSH 3.63 Current Medications Albuterol Sulfate (Ventolin Aerosols) 2.5 mg INHALATION Q4H PRN PRN Reason: SOB &/OR WHEEZING Albuterol/Ipratropium (Duoneb) 3 ml INHALATION Q6HWA.RT [facility] Last Admin: 05/21/18 13:32 Dose: 3 ml Bisacodyl (Dulcolax) 5 mg PO DAILY PRN PRN PRN Reason: Constipation Budesonide (Pulmicort Aerosol) 0.5 mg INHALATION Q12H.RT [facility] Last Admin: 05/21/18 07:02 Dose: 0.5 mg Carvedilol (Coreg) 3.125 mg PO DAILY [facility] Last Admin: 05/21/18 09:56 Dose: 3.125 mg Levothyroxine Sodium (Synthroid) 50 mcg PO DAILY@0600 [facility] Last Admin: 05/21/18 06:19 Dose: 50 mcg Loratadine (Claritin) 10 mg PO DAILY [facility] Last Admin: 05/21/18 09:56 Dose: 10 mg Magnesium Hydroxide (Milk Of Magnesia) 30 ml PO DAILY PRN PRN PRN Reason: Constipation Nutritional Formula (Lactose Free) (Ensure Enlive) 120 ml PO 4X/DAY [facility] Last Admin: 05/21/18 15:06 Dose: Not Given Pantoprazole Sodium (Protonix) 40 mg PO DAILY [facility] Last Admin: 05/21/18 09:56 Dose: 40 mg Pravastatin Sodium (Pravachol) 40 mg PO DAILY [facility] Last Admin: 05/21/18 09:56 Dose: 40 mg Rivaroxaban (Xarelto) 20 mg PO DAILY@1700 [facility] Senna/Docusate Sodium (Senokot-S, Joyce-Colace) 2 tablet PO BID [facility] Last Admin: 05/21/18 09:57 Dose: Not Given Sodium Chloride () 5 - 30 ml IV UD PRN PRN Reason: SALINE FLUSH Last Admin: 05/20/18 21:00 Dose: 10 ml Sotalol HCl (Betapace (G)) 160 mg PO BID [facility] Last Admin: 05/21/18 09:56 Dose: 160 mg Medical Necessity - Tobacco Use Smoking Status: Former smoker Tobacco Use: Non-smoker Assessment/Plan All Active Problems (Last Reviewed 05/21/18 @ 03:48 by Chet Norman MD) Generalized weakness (Acute) Pancytopenia (Acute) Elevated digoxin level (Acute) Dehydration (Acute) Digoxin toxicity (Acute) Deep venous thrombosis of right upper extremity (Acute) CHF exacerbation (Acute) Acute hypoxemic respiratory failure (Acute) COPD exacerbation (Acute) Educational circumstance (Acute) Pleural effusion on right (Acute) Encounter for adjustment or management of vascular access device (Acute) Regional lymph node metastasis present (Acute) 1. Weakness/Stage 3b non-small cell lung cancer/Pancytopenia/h/o hemoptysis/RUE DVT - He presented from after radiation and was found to have significant pancytopenia - He was also SOB which he states is normal for him - He is to have radiation as he is due for 5 more treatments however given his low counts he will not receive any more chemo - I had a long discussion of option for care here, and after discharge. He is ok with a palliative care consult to establish home nursing care after discharge - C/s to PT/OT for eval, likely candidate for TCU which he is agreeable - Since the chemo and radiation he has not had any more hemoptysis despite being on xarelto for his a-fib/RUE DVT 2. A-fib/HTN/systolic CHF d/t ischemia/CAD/s/p CABG - His digoxin level was elevated so will treat with EOD digoxin and will follow levels per cardiology - c/w sotalol and coreg for rate management and rhythm management - c/w statin - Lasix and metolazone for CHF, EF is 20% and unlikely to improve 3. COPD - stable though chronically debilitating - c/w home therapy 4. GERD - Stable - c/w PPI 5. Hypothyroid - stable - c/w synthroid DVT: Xarelto Code: FULL Diet: Regular Dispo: Plan for TCU after discharge Code Visit Inpatient E&M: 59595 Init Hosp L3
--- NOTE | 2018-05-21 16:36 | ONC.CON.INP2 ---
- Problem List (1) Primary cancer of right upper lobe of lung Status: Chronic (2) Regional lymph node metastasis present Status: Acute (3) Deep venous thrombosis of right upper extremity Status: Acute (4) Pancytopenia Status: Acute (5) Generalized weakness Status: Acute (6) Pleural effusion on right Status: Acute Consult Referring Physician: Hospitalist service Consult Results: Lung cancer Subjective Date of Service:: 05/21/18 Chief Complaint: Generalized Weakness History of Present Illness: 73-year-old gentleman admitted with increasing weakness. His past medical history is notable for CAD, CHF, has an implanted cardioverter pacemaker, COPD, status post 2 small cerebrovascular strokes, atrial fibrillation on chronic anticoagulation and an active smoker till the recent diagnosis of cancer when he presented to his PCP in January 2018 with several weeks of progressive dyspnea and a nonproductive cough. 01/09/2018: CT chest without contrast was performed which showed evidence for a 6.6 x 4.8 cm mass in the lateral peripheral aspect of the right upper lobe. This is superimposed on emphysematous changes. There is also evidence of bronchiectasis and atelectasis along the posterior aspect of the right upper lobe. 01/22/2018: Patient underwent bronchoscopy which demonstrated that the anterior segment of the right upper lobe was extrinsically collapsed and inaccessible to the scope and had some friable bleeding necrotic tissue. All the airways were clear without abnormality. BAL, brush and fluid, and lung mass brushings were all negative for malignant cells. 02/19/2018: CT-guided biopsy was performed with a right upper lobe mass and pathology was consistent with non-small cell lung cancer favoring squamous cell carcinoma. 03/26/18: PET Scan was performed which demonstrated a large 8 x 7 cm centrally necrotic mass in the right upper lobe with an SUV of 15, this abuts the right hilum and anterolateral pleura as well as the major and minor fissures. There is a 1.3 cm right paratracheal lymph node extending to the precarinal area with mild activity of SUV of 2 which is suspicious for lymph node involvement. No other evidence of metastatic disease is identified on the PET. 04/08/18-04/11/18: Patient received radiation therapy alone including 300 cGy ?3 fractions followed by 180 cGy of one fraction bringing the total dose to 1080 cGy in 4 fractions for new onset hemoptysis. All his anticoagulants were held . 04/18/2018 large right-sided pleural effusion noted during CT simulation for radiation, diagnostic and therapeutic tap negative cytology Patient transferred his care to [facility] April 2018 for proximity to residence. Treatment: Concomitant chemotherapy (weekly carbotaxol) with radiation started April 23, 2018 Xarelto resume 05/15/2018 (A Fib and RUE DVT) Past Medical History: Chronic Problems (Last Reviewed 05/21/18 @ 03:48 by Chet Norman MD) CAD (coronary artery disease) (Chronic) S/P PTCA (percutaneous transluminal coronary angioplasty) (Chronic) Cardiomyopathy, ischemic (Chronic) HLD (hyperlipidemia) (Chronic) Hx of CABG (Chronic) GARCIA to LAD, reverse SVG to the right PDA, reverse SVG to the Lateral CX (doxumented on C done 04/10/07 done @ [place] but actual bypass surgery done circa 1987, also @ [facility] in [place]) Nicotine dependence (Chronic) Chronic anticoagulation (Chronic) Xarelto History of coronary artery bypass graft x 3 (Chronic ~1987) @ [place]: GARCIA to LAD, reverse SVG to the CX marginal and SVG to the PDA branch of RCA per Dr. Lujan (info obtained from OV notes from Dr. Lafleur and previous [facility] done [address] Jhonny Stephens). Atherosclerosis of coronary artery bypass graft of [place] heart without angina pectoris (Chronic) Atherosclerotic heart disease of [place] coronary artery without angina pectoris (Chronic) S/P CABG @ [place]: GARCIA to LAD, reverse SVG to the CX marginal and SVG to the PDA branch of RCA per Dr. Lujan; PTCA and Stents @ [facility] per Dr. Jhonny Stephens: PTCA and SHAMIKA to [place] PDA; BMS to vein graft to PDA X2; Angioplasty to vein graft to the OM1 and also to vein graft to the PDA. History of left heart catheterization (Chronic) 2006 @ [facility] per Dr. Chet Diaz History of inferior wall myocardial infarction (Chronic ~1987) Stented coronary artery (Chronic 03/01/17) PTCA and Stents @ [facility] per Dr. Jhonny Stephens: PTCA and stent to [place] PDA; stenting to vein graft to PDA X2; Angioplasty to vein graft to the OM1 and also to vein graft to the PDA 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) EF 20%, RVSP 60, +2 mitral regurgiation per echo January 2018 Atrial fibrillation (Chronic) COPD (chronic obstructive pulmonary disease) (Chronic) Hypertension (Chronic) Hypothyroid (Chronic) TIA (transient ischemic attack) (Chronic) Primary cancer of right upper lobe of lung (Chronic) GERD (gastroesophageal reflux disease) (Chronic) ICD (implantable cardioverter-defibrillator) in place (Chronic 05/22/12) Implanted @ [facility] for wide complex tachycardia and EF 30-35% per Dr. Chuck Frausto; also hx of sinus bradycardia treated with pacing portion of device EAN (obstructive sleep apnea) (Chronic) mild EAN Past Medical/Surgical History: Past Medical History - Most Recent Inpatient Visit Past Medical History Start: 05/20/18 19:38 Text: Status: Complete Freq: ONCE Protocol: [place] 05/20[place]18 20:02 [facility] [place] 05/20/18 20:08 [facility] [id number] BMI Required to complete PMH What is Patient's BMI 24.5 Past Medical History Unable History Recalled No Query Text:Pt Unable/Family Not Present Neurologic Medical History Hx Stroke/TIA Yes: TIA Hx Dementia/Alzheimer's No Hx Parkinson's Disease No Hx Seizures No Hx Multiple Sclerosis No Hx Migraines No Cardiac Medical History VTE Present on Admission No Hx of Deep Vein Thrombosis/VTE/PE Yes Hx Hypertension Yes: controlled with meds Hx Chest Pain/Angina No Hx Heart Attack Yes: 20 yrs ago Hx Cardiac Surgery/Stents/Etc. Yes: STENT X4, TRIPLE BYPASS Hx Heart Failure Yes Hx Pacemaker/AICD Yes Hx Irregular Heartbeat and/or Afib Yes: A.FIB/follows with dr lafleur and now javon bermudez/2016 Hx Anticoagulant Therapy Yes: PLAVIX AND XARELTO Query Text:(Coumadin, Aspirin, Plavix, Xarelto, etc.) Hx Pain in Legs when Walking/Leg Cramps Yes: cramps prn Respiratory Medical History Hx COPD Yes: inhalers Hx Emphysema Yes Hx Smoking Yes: 50+ yrs Smoking Status Former smoker Tobacco Use Cigarettes Pipe Hx Smoking Cessation Date 01/2018 Hx Tobacco Use in last 12 months Yes Sent to [facility] Yes Hx of Pipe Smoking Yes Hx of Cigar Smoking No Hx Sleep Apnea Yes: Pt states mild NO MACHINE CPAP No BIPAP No STOP Results Positive GI Medical History Hx Ulcer No Hx Hepatitis No Hx Cirrhosis No Hx GI Bleed No Hx Unplanned Weight Loss Yes Genitourinary Medical History Indwelling Catheter in Place on Arrival/ No Admission Hx Renal Disease No Hx Dialysis No Musculoskeletal History Hx Arthritis Yes: gout Hx Rheumatoid Arthritis No Endocrine Medical History Hx Diabetes No Hx Thyroid Disease Yes: ON MED Hematologic Medical History Hx of Blood Transfusion Yes Hx of Transfusion in last 3 Months No Ever experience any problems with No transfusion(s)? Hx of Preganancy in last 3 Months N/A Nurse Filling Out Transfusion & SGESSEL Questions: Date: 05/20/18 Time: 20:07 Psycho/Social Medical History Hx Depression No Hx Anxiety No Hx Behavior Disorder No Hx Alcohol Use No: rare Hx Substance Use No Other Medical History Hx Blood Disorders No Hx Anemia No Hx Cancer Yes: SKIN, LUNG-on chemo and radiation (M-F) Hx Drug Resistant Organism No Wound/Pressure Injury Present on Arrival No: to be assessed per primary /Admission rn Query Text:If yes, chart assessment in Shift/Clinical Findings Central Line/PICC/VAD Present on Arrival Yes /Admission Antibiotics within last 7 days? No Comments Port right upper arm-last chemo 05/15/2018 Risk for Readmission Number of Risk Factors 8 At Risk for Readmission Patient is At Risk For Readmission Patient is eligible for Call Back Y Past Medical History (Last Reviewed 05/21/18 @ 03:48 by Chet Norman MD) CHF exacerbation (Acute) Nicotine dependence (Chronic) Chronic anticoagulation (Chronic) Acute hypoxemic respiratory failure (Acute) COPD exacerbation (Acute) Educational circumstance (Acute) Pleural effusion on right (Acute) Encounter for adjustment or management of vascular access device (Acute) Atherosclerosis of coronary artery bypass graft of [place] heart without angina pectoris (Chronic) Atherosclerotic heart disease of [place] coronary artery without angina pectoris (Chronic) History of inferior wall myocardial infarction (Chronic ~1987) 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) Atrial fibrillation (Chronic) COPD (chronic obstructive pulmonary disease) (Chronic) Hypertension (Chronic) Hypothyroid (Chronic) TIA (transient ischemic attack) (Chronic) Primary cancer of right upper lobe of lung (Chronic) Regional lymph node metastasis present (Acute) GERD (gastroesophageal reflux disease) (Chronic) EAN (obstructive sleep apnea) (Chronic) port placement (Acute) COPD (chronic obstructive pulmonary disease) (Acute) Presence of combination internal cardiac defibrillator (ICD) and pacemaker (Acute) GERD (gastroesophageal reflux disease) (Chronic) Past Surgical History (Last Reviewed 05/21/18 @ 03:48 by Chet Norman MD) Hx of CABG (Chronic) History of coronary artery bypass graft x 3 (Chronic ~1987) History of left heart catheterization (Chronic) Stented coronary artery (Chronic 03/01/17) ICD (implantable cardioverter-defibrillator) in place (Chronic 05/22/12) H/O cataract extraction (Acute) Maternal Family History: Family History (Last Reviewed 05/15/18 @ 10:06 by Vivian Mcdowell) Mother Myocardial infarction Asthma Father Cerebral hemorrhage CVA (cerebral vascular accident) Brother CAD (coronary artery disease) Family History: No pertinent history Paternal Family History: Family History (Last Reviewed 05/15/18 @ 10:06 by Vivian Mcdowell) Mother Myocardial infarction Asthma Father Cerebral hemorrhage CVA (cerebral vascular accident) Brother CAD (coronary artery disease) Family History: No pertinent history - Social History Lives: Alone Smoking Status: Former smoker Tobacco Use: Non-smoker Alcohol: None Allergies/Adverse Reactions: Allergy/AdvReac Type Severity Reaction Status Date / Time cefdinir [From Omnicef] Allergy Intermediate Rash Verified 05/15/18 10:06 niacin AdvReac Intermediate FLUSHING/REDNESS Verified 05/15/18 10:06 IN FACE ANTIHYPERLIPEMIC Allergy Intermediate Rash Uncoded 05/07/18 08:53 Review of Systems Constitutional:: Reports: Weakness, Fatigue, - - His weight fluctuates up and down depending on fluid status. Denies: Fever, Sweats, Appetite change, Chills Cardiovascular:: Reports: Dyspnea on exertion - Any exertion, Peripheral edema. Denies: Chest pain, Palpitations, Orthopnea, PND, Shortness of breath Respiratory: Reports: Shortness of breath upon exertion. Denies: Cough, Hemoptysis, Shortness of Breath, Wheezing Gastrointestinal:: Denies: Abdominal pain, Nausea, Vomiting, Diarrhea, Constipation, Hematochezia Genitourinary: Denies: Dysuria, Hematuria, 15, Flank pain Musculoskeletal:: Denies: Back pain, Myalgia, Arthralgia Skin: Reports: - - Easy bruising. Denies: Rash, Skin Changes, Wounds Neurological:: Denies: Headache, Dizziness, Visual changes, Tinnitus, Hearing loss Psychiatric: Denies: Anxiety, Depression, Homicidal Ideations, Suicidal Ideations Vital Signs Height 5 ft 6 in Weight: 68.8 kg Weight in Pounds 151.7 lbs Pulse Ox 95 Temperature 97.9 F Pulse Rate 61 Respiratory Rate 18 Blood Pressure [BP] 107/55 Blood Pressure 121/58 Blood Pressure Position [BP] Semi-Fowlers Blood Pressure Position Sitting - Physical Exam General: Alert, Oriented x3, No apparent distress, - - Elderly and frail but in no distress HEENT: Atraumatic, PERRLA, EOMI, Normocephalic Oropharynx:: Pale mucosa, Dry mucosa Neck:: Supple, Trachea midline. Negative for: JVD, bilateral Cardiac:: Normal S1, Normal S2, Irregular rate, Murmur, - - ICD Lungs: Diminished - More on the right than the left with a small residual effusion, Excusion symmetrical. Negative for: Rhonchi, Wheezes Abdomen:: Soft, Non-tender, Non-distended. Negative for: Hepatosplenomegaly Extremities:: Edema. Negative for: Cyanosis Neurological: Neuro grossly intact Skin:: Ecchymosis. Negative for: Lesions, Rash, Petechiae Psychiatric:: Appropriate affect Lymphatics:: Negative for: Cervical lymphadenopathy, Supraclavicular lymphadenopathy Laboratory Data: Laboratory Tests 05/21/18 05/21/18 Range/Units 05:55 05:55 WBC 1.6 L (4.4-11.0) K/mm3 RBC 3.55 L (4.6-6.2) M/mm3 Hgb 9.0 L (13.0-16.5) g/dl Hct 28.4 L (40-54) % MCV 80.0 (80-94) fL MCH 25.4 L (27.0-32.0) pg MCHC 31.7 L (32-36) g/gl RDW 18.4 H (11.6-14.6) % RDW Differential 48.2 H (35.1-43.9) fl Plt Count 106 L (150-450) K/mm3 MPV 12.9 H (6.2-12.0) fl Immature Gran % (Auto) 1.900 H (0.0-0.9) % Neut % (Auto) 69.1 (47-70) % Lymph % (Auto) 21.4 (19-41) % Terry % (Auto) 5.7 (0-10) % Eos % (Auto) 0.6 (0-5) % Baso % (Auto) 1.3 H (0-1) % Absolute Neuts (auto) 1.1 L (2.0-7.7) X10^3/uL Absolute Lymphs (auto) 0.34 L (0.83-4.51) X10^3/ul Total Counted Not Reportable Sodium 138 (136-145) mmol/L Potassium 4.7 (3.5-5.1) mmol/L Chloride 103 (98-107) mmol/L Carbon Dioxide 26.0 (21.0-32.0) mmol/L Anion Gap 9 (5-15) BUN 29 H (7-18) mg/dL Creatinine 0.96 (0.70-1.30) mg/dL Estim Creat Clear Calc 60.00 ml/min Est GFR (MDRD) Af Amer 98 (>60) mL/min Est GFR (MDRD) Non-Af 81 (>60) mL/min BUN/Creatinine Ratio 30.1 H (10-20) RATIO Glucose 97 (74-106) mg/dL Calcium 8.5 (8.5-10.1) mg/dL TSH 3.63 (0.358-3.74) uIU/mL Diagnostic Data: Diagnostic Data Chest X-Ray 05/20/18 16:25 IMPRESSION: Decreasing volume of the right hemithorax but stable 9.4 cm right lung mass. Electronically Signed: Luis Garrido MD at 16:57 EDT , Service support , Assessment and Plan #1- 73-year-old gentleman with at least stage IIIb (T4, N2, M0) non-small cell lung cancer (squamous histology favored). A right sided pleural effusion tapped April 2018 with negative cytology. Patient initially received short palliative course of radiation to control hemoptysis with success then started combined modality approach on April 24, 2018 with weekly carbotaxol concomitant with radiation. Due to chemotherapy induced pancytopenia, will hold chemotherapy this week (last week). Dr. Zazueta will advice about completion of the few left doses of radiation. #2- Right upper extremity DVT complicating an arm port reported May 15, 2018. Will attempt to preserve the port through the course of treatment and he l resumed systemic anticoagulation with Xarelto be continued as long as platelet count is above 50 K and there is no active significant bleed. #3-Weakness and decline in performance status as expected during an intensive treatment. Is not severe enough to warrant transfusion was packed red blood cells and his bone marrow is expected to recover in the upcoming few weeks. He has significant comorbid chronic medical conditions including significant cardiovascular disease, CAD, congestive heart failure, chronic atrial fibrillation, has an ICD, COPD and some residual right-sided weakness from 2 previous strokes. Medications: Prescriptions This Visit Medication Instructions Recorded Metolazone [Zaroxolyn] 2.5 mg PO QWEEK 05/20/18 Ubidecarenone [Coenzyme Q10] 100 mg PO DAILY 05/20/18 Umeclidinium Brm/Vilanterol Tr 1 puff INHALATION DAILY 05/20/18 [Anoro Ellipta 62.5-25 Mcg INH] Medications Added to Medication List This Visit Category Date Time Status Carvedilol [Coreg] Med 05/21/18 10:00 Active 3.125 mg PO DAILY Loratadine [Claritin] Med 05/21/18 10:00 Active 10 mg PO DAILY Pantoprazole Sodium [Protonix] Med 05/21/18 10:00 Active 40 mg PO DAILY Pravastatin [Pravachol] Med 05/21/18 10:00 Active 40 mg PO DAILY Rivaroxaban [Xarelto] Med 05/21/18 17:00 Active 20 mg PO DAILY@1700 Primary Care Provider: Lorenzo Thibodeaux NP-C Referring Provider:
--- NOTE | 2018-05-21 16:41 | CON.PCM_ITS ---
- Problem List (1) Primary cancer of right upper lobe of lung Status: Chronic (2) Regional lymph node metastasis present Status: Acute (3) Deep venous thrombosis of right upper extremity Status: Acute (4) Pancytopenia Status: Acute (5) Generalized weakness Status: Acute (6) Pleural effusion on right Status: Acute Consult Referring Physician: Hospitalist service Consult Results: Lung cancer Subjective Date of Service:: 05/21/18 Chief Complaint: Generalized Weakness History of Present Illness: 73-year-old gentleman admitted with increasing weakness. His past medical history is notable for CAD, CHF, has an implanted cardioverter pacemaker, COPD, status post 2 small cerebrovascular strokes, atrial fibrillation on chronic anticoagulation and an active smoker till the recent diagnosis of cancer when he presented to his PCP in January 2018 with several weeks of progressive dyspnea and a nonproductive cough. 01/09/2018: CT chest without contrast was performed which showed evidence for a 6.6 x 4.8 cm mass in the lateral peripheral aspect of the right upper lobe. This is superimposed on emphysematous changes. There is also evidence of bronchiectasis and atelectasis along the posterior aspect of the right upper lobe. 01/22/2018: Patient underwent bronchoscopy which demonstrated that the anterior segment of the right upper lobe was extrinsically collapsed and inaccessible to the scope and had some friable bleeding necrotic tissue. All the airways were clear without abnormality. BAL, brush and fluid, and lung mass brushings were all negative for malignant cells. 02/19/2018: CT-guided biopsy was performed with a right upper lobe mass and pathology was consistent with non-small cell lung cancer favoring squamous cell carcinoma. 03/26/18: PET Scan was performed which demonstrated a large 8 x 7 cm centrally necrotic mass in the right upper lobe with an SUV of 15, this abuts the right hilum and anterolateral pleura as well as the major and minor fissures. There is a 1.3 cm right paratracheal lymph node extending to the precarinal area with mild activity of SUV of 2 which is suspicious for lymph node involvement. No other evidence of metastatic disease is identified on the PET. 04/08/18-04/11/18: Patient received radiation therapy alone including 300 cGy ?3 fractions followed by 180 cGy of one fraction bringing the total dose to 1080 cGy in 4 fractions for new onset hemoptysis. All his anticoagulants were held . 04/18/2018 large right-sided pleural effusion noted during CT simulation for radiation, diagnostic and therapeutic tap negative cytology Patient transferred his care to [facility] April 2018 for proximity to residence. Treatment: Concomitant chemotherapy (weekly carbotaxol) with radiation started April 23, 2018 Xarelto resume 05/15/2018 (A Fib and RUE DVT) Past Medical History: Chronic Problems (Last Reviewed 05/21/18 @ 03:48 by Chet Norman MD) CAD (coronary artery disease) (Chronic) S/P PTCA (percutaneous transluminal coronary angioplasty) (Chronic) Cardiomyopathy, ischemic (Chronic) HLD (hyperlipidemia) (Chronic) Hx of CABG (Chronic) GARCIA to LAD, reverse SVG to the right PDA, reverse SVG to the Lateral CX ( doxumented on C done 04/10/07 done @ [place] but actual bypass surgery done circa 1987, also @ [facility] in [place]) Nicotine dependence (Chronic) Chronic anticoagulation (Chronic) Xarelto History of coronary artery bypass graft x 3 (Chronic ~1987) @ [place]: GARCIA to LAD, reverse SVG to the CX marginal and SVG to the PDA branch of RCA per Dr. Lujan (info obtained from OV notes from Dr. Lafleur and previous [facility] done [address] Jhonny Stephens). Atherosclerosis of coronary artery bypass graft of [place] heart without angina pectoris (Chronic) Atherosclerotic heart disease of [place] coronary artery without angina pectoris (Chronic) S/P CABG @ [place]: GARCIA to LAD, reverse SVG to the CX marginal and SVG to the PDA branch of RCA per Dr. Lujan; PTCA and Stents @ [facility] per Dr. Jhonny Stephens: PTCA and SHAMIKA to [place] PDA; BMS to vein graft to PDA X2; Angioplasty to vein graft to the OM1 and also to vein graft to the PDA. History of left heart catheterization (Chronic) 2006 @ [facility] per Dr. Chet Diaz History of inferior wall myocardial infarction (Chronic ~1987) Stented coronary artery (Chronic 03/01/17) PTCA and Stents @ [facility] per Dr. Jhonny Stephens: PTCA and stent to [place] PDA; stenting to vein graft to PDA X2; Angioplasty to vein graft to the OM1 and also to vein graft to the PDA 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) EF 20%, RVSP 60, +2 mitral regurgiation per echo January 2018 Atrial fibrillation (Chronic) COPD (chronic obstructive pulmonary disease) (Chronic) Hypertension (Chronic) Hypothyroid (Chronic) TIA (transient ischemic attack) (Chronic) Primary cancer of right upper lobe of lung (Chronic) GERD (gastroesophageal reflux disease) (Chronic) ICD (implantable cardioverter-defibrillator) in place (Chronic 05/22/12) Implanted @ [facility] for wide complex tachycardia and EF 30-35% per Dr. Chuck Frausto; also hx of sinus bradycardia treated with pacing portion of device EAN (obstructive sleep apnea) (Chronic) mild EAN Past Medical/Surgical History: Past Medical History - Most Recent Inpatient Visit Past Medical History Start: 05/20/18 19: 38 Text: Status: Complete Freq: ONCE Protocol: Document 05/20/18 20:02 [facility] (Rec: 05/20/18 20:08 [facility] [id number]) BMI Required to complete PMH What is Patient's BMI 24.5 Past Medical History Unable History Recalled No Query Text:Pt Unable/Family Not Present Neurologic Medical History Hx Stroke/TIA Yes: TIA Hx Dementia/Alzheimer's No Hx Parkinson's Disease No Hx Seizures No Hx Multiple Sclerosis No Hx Migraines No Cardiac Medical History VTE Present on Admission No Hx of Deep Vein Thrombosis/VTE/PE Yes Hx Hypertension Yes: controlled with meds Hx Chest Pain/Angina No Hx Heart Attack Yes: 20 yrs ago Hx Cardiac Surgery/Stents/Etc. Yes: STENT X4, TRIPLE BYPASS Hx Heart Failure Yes Hx Pacemaker/AICD Yes Hx Irregular Heartbeat and/or Afib Yes: A.FIB/follows with dr lafleur and now javon bermudez/2016 Hx Anticoagulant Therapy Yes: PLAVIX AND XARELTO Query Text:(Coumadin, Aspirin, Plavix, Xarelto, etc.) Hx Pain in Legs when Walking/Leg Cramps Yes: cramps prn Respiratory Medical History Hx COPD Yes: inhalers Hx Emphysema Yes Hx Smoking Yes: 50+ yrs Smoking Status Former smoker Tobacco Use Cigarettes Pipe Hx Smoking Cessation Date 01/2018 Hx Tobacco Use in last 12 months Yes Sent to [facility] Yes Hx of Pipe Smoking Yes Hx of Cigar Smoking No Hx Sleep Apnea Yes: Pt states mild NO MACHINE CPAP No BIPAP No STOP Results Positive GI Medical History Hx Ulcer No Hx Hepatitis No Hx Cirrhosis No Hx GI Bleed No Hx Unplanned Weight Loss Yes Genitourinary Medical History Indwelling Catheter in Place on Arrival/ No Admission Hx Renal Disease No Hx Dialysis No Musculoskeletal History Hx Arthritis Yes: gout Hx Rheumatoid Arthritis No Endocrine Medical History Hx Diabetes No Hx Thyroid Disease Yes: ON MED Hematologic Medical History Hx of Blood Transfusion Yes Hx of Transfusion in last 3 Months No Ever experience any problems with No transfusion(s)? Hx of Preganancy in last 3 Months N/A Nurse Filling Out Transfusion & SGESSEL Questions: Date: 05/20/18 Time: 20:07 Psycho/Social Medical History Hx Depression No Hx Anxiety No Hx Behavior Disorder No Hx Alcohol Use No: rare Hx Substance Use No Other Medical History Hx Blood Disorders No Hx Anemia No Hx Cancer Yes: SKIN, LUNG-on chemo and radiation (M-F) Hx Drug Resistant Organism No Wound/Pressure Injury Present on Arrival No: to be assessed per primary /Admission rn Query Text:If yes, chart assessment in Shift/Clinical Findings Central Line/PICC/VAD Present on Arrival Yes /Admission Antibiotics within last 7 days? No Comments Port right upper arm-last chemo 05/15/2018 Risk for Readmission Number of Risk Factors 8 At Risk for Readmission Patient is At Risk For Readmission Patient is eligible for Call Back Y Past Medical History (Last Reviewed 05/21/18 @ 03:48 by Chet Norman MD) CHF exacerbation (Acute) Nicotine dependence (Chronic) Chronic anticoagulation (Chronic) Acute hypoxemic respiratory failure (Acute) COPD exacerbation (Acute) Educational circumstance (Acute) Pleural effusion on right (Acute) Encounter for adjustment or management of vascular access device (Acute) Atherosclerosis of coronary artery bypass graft of [place] heart without angina pectoris (Chronic) Atherosclerotic heart disease of [place] coronary artery without angina pectoris (Chronic) History of inferior wall myocardial infarction (Chronic ~1987) 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) Atrial fibrillation (Chronic) COPD (chronic obstructive pulmonary disease) (Chronic) Hypertension (Chronic) Hypothyroid (Chronic) TIA (transient ischemic attack) (Chronic) Primary cancer of right upper lobe of lung (Chronic) Regional lymph node metastasis present (Acute) GERD (gastroesophageal reflux disease) (Chronic) EAN (obstructive sleep apnea) (Chronic) port placement (Acute) COPD (chronic obstructive pulmonary disease) (Acute) Presence of combination internal cardiac defibrillator (ICD) and pacemaker ( Acute) GERD (gastroesophageal reflux disease) (Chronic) Past Surgical History (Last Reviewed 05/21/18 @ 03:48 by Chet Norman MD) Hx of CABG (Chronic) History of coronary artery bypass graft x 3 (Chronic ~1987) History of left heart catheterization (Chronic) Stented coronary artery (Chronic 03/01/17) ICD (implantable cardioverter-defibrillator) in place (Chronic 05/22/12) H/O cataract extraction (Acute) Maternal Family History: Family History (Last Reviewed 05/15/18 @ 10:06 by Vivian Mcdowell) Mother Myocardial infarction Asthma Father Cerebral hemorrhage CVA (cerebral vascular accident) Brother CAD (coronary artery disease) Family History: No pertinent history Paternal Family History: Family History (Last Reviewed 05/15/18 @ 10:06 by Vivian Mcdowell) Mother Myocardial infarction Asthma Father Cerebral hemorrhage CVA (cerebral vascular accident) Brother CAD (coronary artery disease) Family History: No pertinent history - Social History Lives: Alone Smoking Status: Former smoker Tobacco Use: Non-smoker Alcohol: None Allergies/Adverse Reactions: Allergy/AdvReac Type Severity Reaction Status Date / Time cefdinir [From Omnicef] Allergy Intermediate Rash Verified 05/15/18 10:06 niacin AdvReac Intermediate FLUSHING/REDNESS Verified 05/15/18 10:06 IN FACE ANTIHYPERLIPEMIC Allergy Intermediate Rash Uncoded 05/07/18 08:53 Review of Systems Constitutional:: Reports: Weakness, Fatigue, - - His weight fluctuates up and down depending on fluid status. Denies: Fever, Sweats, Appetite change, Chills Cardiovascular:: Reports: Dyspnea on exertion - Any exertion, Peripheral edema. Denies: Chest pain, Palpitations, Orthopnea, PND, Shortness of breath Respiratory: Reports: Shortness of breath upon exertion. Denies: Cough, Hemoptysis, Shortness of Breath, Wheezing Gastrointestinal:: Denies: Abdominal pain, Nausea, Vomiting, Diarrhea, Constipation, Hematochezia Genitourinary: Denies: Dysuria, Hematuria, 15, Flank pain Musculoskeletal:: Denies: Back pain, Myalgia, Arthralgia Skin: Reports: - - Easy bruising. Denies: Rash, Skin Changes, Wounds Neurological:: Denies: Headache, Dizziness, Visual changes, Tinnitus, Hearing loss Psychiatric: Denies: Anxiety, Depression, Homicidal Ideations, Suicidal Ideations Vital Signs Height 5 ft 6 in Weight: 68.8 kg Weight in Pounds 151.7 lbs Pulse Ox 95 Temperature 97.9 F Pulse Rate 61 Respiratory Rate 18 Blood Pressure [BP] 107/55 Blood Pressure 121/58 Blood Pressure Position [BP] Semi-Fowlers Blood Pressure Position Sitting - Physical Exam General: Alert, Oriented x3, No apparent distress, - - Elderly and frail but in no distress HEENT: Atraumatic, PERRLA, EOMI, Normocephalic Oropharynx:: Pale mucosa, Dry mucosa Neck:: Supple, Trachea midline. Negative for: JVD, bilateral Cardiac:: Normal S1, Normal S2, Irregular rate, Murmur, - - ICD Lungs: Diminished - More on the right than the left with a small residual effusion, Excusion symmetrical. Negative for: Rhonchi, Wheezes Abdomen:: Soft, Non-tender, Non-distended. Negative for: Hepatosplenomegaly Extremities:: Edema. Negative for: Cyanosis Neurological: Neuro grossly intact Skin:: Ecchymosis. Negative for: Lesions, Rash, Petechiae Psychiatric:: Appropriate affect Lymphatics:: Negative for: Cervical lymphadenopathy, Supraclavicular lymphadenopathy Laboratory Data: Laboratory Tests 3 05/21/18 05/21/18 Range/Units 05:55 05:55 WBC 1.6 L (4.4-11.0) K/mm3 RBC 3.55 L (4.6-6.2) M/mm3 Hgb 9.0 L (13.0-16.5) g/dl Hct 28.4 L (40-54) % MCV 80.0 (80-94) fL MCH 25.4 L (27.0-32.0) pg MCHC 31.7 L (32-36) g/gl RDW 18.4 H (11.6-14.6) % RDW Differential 48.2 H (35.1-43.9) fl Plt Count 106 L (150-450) K/mm3 MPV 12.9 H (6.2-12.0) fl Immature Gran % (Auto) 1.900 H (0.0-0.9) % Neut % (Auto) 69.1 (47-70) % Lymph % (Auto) 21.4 (19-41) % [place] % (Auto) 5.7 (0-10) % Eos % (Auto) 0.6 (0-5) % Baso % (Auto) 1.3 H (0-1) % Absolute Neuts (auto) 1.1 L (2.0-7.7) X10^3/uL Absolute Lymphs (auto) 0.34 L (0.83-4.51) X10^3/ul Total Counted Not Reportable Sodium 138 (136-145) mmol/L Potassium 4.7 (3.5-5.1) mmol/L Chloride 103 (98-107) mmol/L Carbon Dioxide 26.0 (21.0-32.0) mmol/L Anion Gap 9 (5-15) BUN 29 H (7-18) mg/dL Creatinine 0.96 (0.70-1.30) mg/dL Estim Creat Clear Calc 60.00 ml/min Est GFR (MDRD) Af Amer 98 (>60) mL/min Est GFR (MDRD) Non-Af 81 (>60) mL/min BUN/Creatinine Ratio 30.1 H (10-20) RATIO Glucose 97 (74-106) mg/dL Calcium 8.5 (8.5-10.1) mg/dL TSH 3.63 (0.358-3.74) uIU/mL Diagnostic Data: Diagnostic Data Chest X-Ray 05/20/18 16:25 IMPRESSION: Decreasing volume of the right hemithorax but stable 9.4 cm right lung mass. Electronically Signed: Luis Garrido MD at 16:57 EDT , Service support , Assessment and Plan #1- 73-year-old gentleman with at least stage IIIb (T4, N2, M0) non-small cell lung cancer (squamous histology favored). A right sided pleural effusion tapped April 2018 with negative cytology. Patient initially received short palliative course of radiation to control hemoptysis with success then started combined modality approach on April 24, 2018 with weekly carbotaxol concomitant with radiation. Due to chemotherapy induced pancytopenia, will hold chemotherapy this week (last week). Dr. Marbin will advice about completion of the few left doses of radiation. #2- Right upper extremity DVT complicating an arm port reported May 15, 2018. Will attempt to preserve the port through the course of treatment and he l resumed systemic anticoagulation with Xarelto be continued as long as platelet count is above 50 K and there is no active significant bleed. #3-Weakness and decline in performance status as expected during an intensive treatment. Is not severe enough to warrant transfusion was packed red blood cells and his bone marrow is expected to recover in the upcoming few weeks. He has significant comorbid chronic medical conditions including significant cardiovascular disease, CAD, congestive heart failure, chronic atrial fibrillation, has an ICD, COPD and some residual right-sided weakness from 2 previous strokes. Medications: Prescriptions This Visit Medication Instructions Recorded Metolazone [Zaroxolyn] 2.5 mg PO QWEEK 05/20/18 Ubidecarenone [Coenzyme Q10] 100 mg PO DAILY 05/20/18 Umeclidinium Brm/Vilanterol Tr 1 puff INHALATION DAILY 05/20/18 [Anoro Ellipta 62.5-25 Mcg INH] Medications Added to Medication List This Visit Category Date Time Status Carvedilol [Coreg] Med 05/21/18 10:00 Active 3.125 mg PO DAILY Loratadine [Claritin] Med 05/21/18 10:00 Active 10 mg PO DAILY Pantoprazole Sodium [Protonix] Med 05/21/18 10:00 Active 40 mg PO DAILY Pravastatin [Pravachol] Med 05/21/18 10:00 Active 40 mg PO DAILY Rivaroxaban [Xarelto] Med 05/21/18 17:00 Active 20 mg PO DAILY@1700 Primary Care Provider: Lorenzo Thibodeaux NP-C Referring Provider:
[2018-05-21] MEDS: Rivaroxaban 20 MG Tablet PO (17:36)
[2018-05-21] MEDS: Senna/Docusate Sodium 1 Tablet 2 TABLET PO (20:59)
[2018-05-22] VITALS (12 sets, daily range): BP systolic 99–108; BP diastolic 49–64; PULSE 60–88; RESP 16–18; TEMP 36.4–37.1; O2SAT 98–100
[2018-05-22] MEDS: Levothyroxine 50 MCG Tablet PO (05:39)
[2018-05-22 06:36] LABS: Absolute Lymphocyte Count 0.37 X10^3/ul (0.83-4.51); Absolute Neutrophil Count 1.3 X10^3/uL (2.0-7.7); Basophil# 0.01 X10^3/uL; Basophil% 0.5 % (0-1); Eosinophil# 0.02 X10^3/uL; Eosinophils% 1.1 % (0-5); Hematocrit 29.9 % (40-54); Hemoglobin 9.3 g/dl (13.0-16.5); Lymphocyte # 0.37 X10^3/ul (4.0); Lymphocyte % 19.8 % (19-41); Mean Corp Hgb Conc 31.1 g/gl (32-36); Mean Corpuscular Hgb 24.7 pg (27.0-32.0); Mean Corpuscular Volume 79.5 fL (80-94); Mean Platelet Vol. 11.9 fl (6.2-12.0); Monocyte# 0.16 X10^3/uL; Monocyte% 8.6 % (0-10); Neutrophil % 69.5 % (47-70); Platelet Count 116 K/mm3 (150-450); RBC Distribution Width CV 18.5 % (11.6-14.6); Red Blood Count 3.76 M/mm3 (4.6-6.2); White Blood Count 1.9 K/mm3 (4.4-11.0)
[2018-05-22 06:38] LABS: Differential Indicated SCAN CRITERIA MET; POSITIVE COUNT NO; POSITIVE DIFFERENTIAL YES; POSITIVE MORPHOLOGY NO
[2018-05-22 06:53] LABS: Anion Gap 7 (5-15); BUN 28 mg/dL (7-18); BUN/Creat Ratio 28.3 RATIO (10-20); Calcium,Total 8.6 mg/dL (8.5-10.1); Chloride 103 mmol/L (98-107); Creatinine, Serum 0.99 mg/dL (0.70-1.30); EST Glomerular Filtration Rate 78 mL/min (>60); Est Glom Filt Rate - Afr Amer 95 mL/min (>60); Estimated Creatinine Clearance 58.18 ml/min; Glucose 109 mg/dL (74-106); Potassium 4.7 mmol/L (3.5-5.1); Sodium Level 137 mmol/L (136-145)
[2018-05-22 07:14] LABS: Digoxin Level 1.39 ng/mL (0.80-2.00)
[2018-05-22] MEDS: Sotalol Hydrochloride 80 MG Tablet 160 MG PO ×2 (10:44→20:59)
[2018-05-22] MEDS: Carvedilol 3.125 MG TABLET PO (10:45)
[2018-05-22] MEDS: Loratadine 10 MG Tablet PO (10:45)
[2018-05-22] MEDS: Pravastatin 40 MG Tablet PO (10:45)
[2018-05-22] MEDS: Pantoprazole Sodium 40 MG Tablet PO (10:46)
[2018-05-22] MEDS: Senna/Docusate Sodium 1 Tablet 2 TABLET PO (10:46)
--- NOTE | 2018-05-22 11:00 | PCM.PN.HOSP ---
Patient Problems: Active and Suspected Problems (Last Reviewed 05/21/18 @ 03:48 by Chet Norman MD) Generalized weakness (Acute) Pancytopenia (Acute) Elevated digoxin level (Acute) Dehydration (Acute) Digoxin toxicity (Acute) Subjective: Doing ok today. Feels a little more out of breath today than he did yesterday and still swollen. He is upset that he could not tolerate radiation yesterday and would like to possibly try again today. Vitals/I&O's: Vital Signs Temp Pulse Resp BP Pulse Ox 98.8 F 63 18 107/64 98 05/22/18 08:55 05/22/18 08:55 05/22/18 08:55 05/22/18 08:55 05/22/18 08:55 Oxygen Delivery Method Room Air Weight: 152 lb 1.903 oz Body Mass Index (BMI) 24.5 Intake and Output for Last 24 Hours 05/20/18 05/21/18 05/22/18 23:59 23:59 23:59 Intake Total 519 / 519 1073 / 1073 Output Total 300 / 300 Balance 519 / 519 773 / 773 General: Alert, Oriented x3, Cooperative, No apparent distress HEENT: Atraumatic, EOMI, Normocephalic Oral: Moist Mucosa Neck: Supple, No JVD Lungs: Clear to auscultation, Normal air movement, No rhonchi, No wheeze, No rales Cardiovascular: Regular rate - irregular rhythm, Murmur - 2/6 LISA Abdomen: Soft, Non Tender, Non-Distended, No Hepato-splenomegaly Extremities: Edema - 2+ pitting Psych/Mental Status: Normal Affect, Appropriate Laboratory Results 05/22/18 05:50: WBC 1.9 L, RBC 3.76 L, Hgb 9.3 L, Hct 29.9 L, MCV 79.5 L, MCH 24.7 L, MCHC 31.1 L, RDW 18.5 H, RDW Differential 51.0 H, Plt Count 116 L, MPV 11.9, Immature Gran % (Auto) 0.500, Neut % (Auto) 69.5, Lymph % (Auto) 19.8, [place] % (Auto) 8.6, Eos % (Auto) 1.1, Baso % (Auto) 0.5, Absolute Neuts (auto) 1.3 L, Absolute Lymphs (auto) 0.37 L, Total Counted Not Reportable 05/22/18 05:50: Sodium 137, Potassium 4.7, Chloride 103, Carbon Dioxide 27.0, Anion Gap 7, BUN 28 H, Creatinine 0.99, Estim Creat Clear Calc 58.18, Est GFR (MDRD) Af Amer 95, Est GFR (MDRD) Non-Af 78, BUN/Creatinine Ratio 28.3 H, Glucose 109 H, Calcium 8.6 05/22/18 05:50: Digoxin 1.39 Current Medications Albuterol Sulfate (Ventolin Aerosols) 2.5 mg INHALATION Q4H PRN PRN Reason: SOB &/OR WHEEZING Albuterol/Ipratropium (Duoneb) 3 ml INHALATION Q6HWA.RT [facility] Last Admin: 05/22/18 07:18 Dose: Not Given Bisacodyl (Dulcolax) 5 mg PO DAILY PRN PRN PRN Reason: Constipation Budesonide (Pulmicort Aerosol) 0.5 mg INHALATION Q12H.RT [facility] Last Admin: 05/21/18 19:26 Dose: 0.5 mg Carvedilol (Coreg) 3.125 mg PO DAILY [facility] Last Admin: 05/22/18 10:45 Dose: 3.125 mg Digoxin (Lanoxin) 125 mcg PO QODAY [facility] Levothyroxine Sodium (Synthroid) 50 mcg PO DAILY@0600 [facility] Last Admin: 05/22/18 05:39 Dose: 50 mcg Loratadine (Claritin) 10 mg PO DAILY [facility] Last Admin: 05/22/18 10:45 Dose: 10 mg Magnesium Hydroxide (Milk Of Magnesia) 30 ml PO DAILY PRN PRN PRN Reason: Constipation Nutritional Formula (Lactose Free) (Ensure Enlive) 120 ml PO 4X/DAY [facility] Last Admin: 05/22/18 10:45 Dose: 120 ml Pantoprazole Sodium (Protonix) 40 mg PO DAILY [facility] Last Admin: 05/22/18 10:46 Dose: 40 mg Pravastatin Sodium (Pravachol) 40 mg PO DAILY [facility] Last Admin: 05/22/18 10:45 Dose: 40 mg Rivaroxaban (Xarelto) 20 mg PO DAILY@1700 [facility] Last Admin: 05/21/18 17:36 Dose: 20 mg Senna/Docusate Sodium (Senokot-S, Joyce-Colace) 2 tablet PO BID [facility] Last Admin: 05/22/18 10:46 Dose: 2 tablet Sodium Chloride () 5 - 30 ml IV UD PRN PRN Reason: SALINE FLUSH Last Admin: 05/20/18 21:00 Dose: 10 ml Sotalol HCl (Betapace (G)) 160 mg PO BID [facility] Last Admin: 05/22/18 10:44 Dose: 160 mg Medical Necessity - Tobacco Use Smoking Status: Former smoker Tobacco Use: Non-smoker Assessment/Plan All Active Problems (Last Reviewed 05/21/18 @ 03:48 by Chet Norman MD) Generalized weakness (Acute) Pancytopenia (Acute) Elevated digoxin level (Acute) Dehydration (Acute) Digoxin toxicity (Acute) Deep venous thrombosis of right upper extremity (Acute) CHF exacerbation (Acute) Acute hypoxemic respiratory failure (Acute) COPD exacerbation (Acute) Educational circumstance (Acute) Pleural effusion on right (Acute) Encounter for adjustment or management of vascular access device (Acute) Regional lymph node metastasis present (Acute) 1. Weakness/Stage 3b non-small cell lung cancer/Pancytopenia/h/o hemoptysis/RUE DVT - He presented from after radiation and was found to have significant pancytopenia - He was also SOB which he states is normal for him - He is to have radiation as he is due for 5 more treatments however given his low counts he will not receive any more chemo - Consult to palliative care pending - Possible transfer to TCU today - Since the chemo and radiation he has not had any more hemoptysis despite being on xarelto for his a-fib/RUE DVT 2. A-fib/HTN/systolic CHF d/t ischemia/CAD/s/p CABG - Digoxin level is normal today, will restart digoxin 125 mcg with EOD dosing - c/w sotalol and coreg for rate management and rhythm management - c/w statin - Lasix and metolazone for CHF, EF is 20% and unlikely to improve 3. COPD - stable though chronically debilitating - c/w home therapy 4. GERD - Stable - c/w PPI 5. Hypothyroid - stable - c/w synthroid DVT: Xarelto Code: FULL Diet: Regular Dispo: TCU Code Visit Inpatient E&M: 85746 Subs Hosp L2
--- NOTE | 2018-05-22 12:15 | CASEMGMT ---
SW received a call from [facility] in TCU and patient's case is being sent to medical review. Dena BRENNAN MSW
[2018-05-22] MEDS: Furosemide 40 MG Tablet PO (12:16)
[2018-05-22] MEDS: Metolazone 2.5 MG Tablet PO (12:16)
[2018-05-22] MEDS: Ipratropium/Albuterol Sulfate 3 ML AMPUL.NEB INHALATION ×2 (13:32→19:10)
--- NOTE | 2018-05-22 15:19 | CASEMGMT ---
Patient was denied admission to SNF by insurance. Dr Lacey would like to do a peer to peer review with the physician from the insurance company. AUDREY called the appropriate number and made arrangements for the insurance physician to call Dr Lacey. AUDREY let patient and RN know this information. The number SW called was and his case number is [id number]. AUDREY to follow for d/c. Dena BRENNAN MSW
[2018-05-22] MEDS: Rivaroxaban 20 MG Tablet PO (16:56)
[2018-05-22] MEDS: Budesonide Respules 0.5 MG/2 ML AMPUL.NEB. INHALATION (19:20)
[2018-05-23] VITALS (10 sets, daily range): BP systolic 100–110; BP diastolic 48–67; PULSE 60–76; RESP 16–18; TEMP 36.3–36.5; O2SAT 96–100
[2018-05-23] MEDS: Levothyroxine 50 MCG Tablet PO (05:21)
[2018-05-23] MEDS: Ipratropium/Albuterol Sulfate 3 ML AMPUL.NEB INHALATION ×2 (07:05→12:53)
[2018-05-23] MEDS: Budesonide Respules 0.5 MG/2 ML AMPUL.NEB. INHALATION (07:05)
--- NOTE | 2018-05-23 09:28 | PCM.PN.HOSP ---
Patient Problems: Active and Suspected Problems (Last Reviewed 05/21/18 @ 03:48 by Chet Norman MD) Generalized weakness (Acute) Pancytopenia (Acute) Elevated digoxin level (Acute) Dehydration (Acute) Digoxin toxicity (Acute) Subjective: Says that he feels better but still weak and becomes SOb very easily with walking to the restroom Objective: General: Alert, Oriented x3, Cooperative, No apparent distress HEENT: Atraumatic, EOMI, Normocephalic Oral: Moist Mucosa Neck: Supple, No JVD Lungs: Clear to auscultation, Normal air movement, No rhonchi, No wheeze, No rales Cardiovascular: Regular rate - irregular rhythm, Murmur - 2/6 LISA Abdomen: Soft, Non Tender, Non-Distended, No Hepato-splenomegaly Extremities: Edema - 2+ pitting Psych/Mental Status: Normal Affect, Appropriate Vitals/I&O's: Vital Signs Temp Pulse Resp BP Pulse Ox 97.7 F L 68 16 110/56 L 96 05/23/18 05:22 05/23/18 07:05 05/23/18 07:05 05/23/18 05:22 05/23/18 07:05 Oxygen Delivery Method Room Air Weight: 152 lb 12.485 oz Body Mass Index (BMI) 24.5 Intake and Output for Last 24 Hours 05/21/18 05/22/18 05/23/18 23:59 23:59 23:59 Intake Total 1073 / 1073 720 / 720 Output Total 300 / 300 Balance 773 / 773 720 / 720 Current Medications Albuterol Sulfate (Ventolin Aerosols) 2.5 mg INHALATION Q4H PRN PRN Reason: SOB &/OR WHEEZING Albuterol/Ipratropium (Duoneb) 3 ml INHALATION Q6HWA.RT [facility] Last Admin: 05/23/18 07:05 Dose: 3 ml Bisacodyl (Dulcolax) 5 mg PO DAILY PRN PRN PRN Reason: Constipation Budesonide (Pulmicort Aerosol) 0.5 mg INHALATION Q12H.RT [facility] Last Admin: 05/23/18 07:05 Dose: 0.5 mg Carvedilol (Coreg) 3.125 mg PO DAILY [facility] Last Admin: 05/22/18 10:45 Dose: 3.125 mg Digoxin (Lanoxin) 125 mcg PO QODAY [facility] Furosemide (Lasix) 40 mg PO DAILY [facility] Last Admin: 05/22/18 12:16 Dose: 40 mg Levothyroxine Sodium (Synthroid) 50 mcg PO DAILY@0600 [facility] Last Admin: 05/23/18 05:21 Dose: 50 mcg Loratadine (Claritin) 10 mg PO DAILY [facility] Last Admin: 05/22/18 10:45 Dose: 10 mg Magnesium Hydroxide (Milk Of Magnesia) 30 ml PO DAILY PRN PRN PRN Reason: Constipation Metolazone (Zaroxolyn) 2.5 mg PO QWEEK [facility] Last Admin: 05/22/18 12:16 Dose: 2.5 mg Nutritional Formula (Lactose Free) (Ensure Enlive) 120 ml PO 4X/DAY [facility] Last Admin: 05/22/18 20:59 Dose: 120 ml Pantoprazole Sodium (Protonix) 40 mg PO DAILY [facility] Last Admin: 05/22/18 10:46 Dose: 40 mg Pravastatin Sodium (Pravachol) 40 mg PO DAILY [facility] Last Admin: 05/22/18 10:45 Dose: 40 mg Rivaroxaban (Xarelto) 20 mg PO DAILY@1700 [facility] Last Admin: 05/22/18 16:56 Dose: 20 mg Senna/Docusate Sodium (Senokot-S, Joyce-Colace) 2 tablet PO BID [facility] Last Admin: 05/22/18 20:59 Dose: Not Given Sodium Chloride () 5 - 30 ml IV UD PRN PRN Reason: SALINE FLUSH Last Admin: 05/20/18 21:00 Dose: 10 ml Sotalol HCl (Betapace (G)) 160 mg PO BID [facility] Last Admin: 05/22/18 20:59 Dose: 160 mg Medical Necessity - Tobacco Use Smoking Status: Former smoker Tobacco Use: Non-smoker Assessment/Plan All Active Problems (Last Reviewed 05/21/18 @ 03:48 by Chet Norman MD) Generalized weakness (Acute) Pancytopenia (Acute) Elevated digoxin level (Acute) Dehydration (Acute) Digoxin toxicity (Acute) Deep venous thrombosis of right upper extremity (Acute) CHF exacerbation (Acute) Acute hypoxemic respiratory failure (Acute) COPD exacerbation (Acute) Educational circumstance (Acute) Pleural effusion on right (Acute) Encounter for adjustment or management of vascular access device (Acute) Regional lymph node metastasis present (Acute) 1. Weakness/Stage 3b non-small cell lung cancer/Pancytopenia/h/o hemoptysis/RUE DVT - He presented from after radiation and was found to have significant pancytopenia - He was also SOB which he states is normal for him - No more radiation treatments or chemo - Consult to palliative care pending - Will discuss with insurance company that he has to stop multiple times during ambulation for his SOB and would benefit from TCU - Since the chemo and radiation he has not had any more hemoptysis despite being on xarelto for his a-fib/RUE DVT 2. A-fib/HTN/systolic CHF d/t ischemia/CAD/s/p CABG - Digoxin EOD, follow level as an outpatient - c/w sotalol and coreg for rate management and rhythm management - c/w statin - Lasix and metolazone for CHF, EF is 20% and unlikely to improve 3. COPD - stable though chronically debilitating - c/w home therapy 4. GERD - Stable - c/w PPI 5. Hypothyroid - stable - c/w synthroid DVT: Xarelto Code: FULL Diet: Regular Dispo: TCU pending approval Code Visit OBSV E&M: 13411 Subsequent observation care L2
[2018-05-23] MEDS: Pravastatin 40 MG Tablet PO (11:13)
[2018-05-23] MEDS: Carvedilol 3.125 MG TABLET PO (11:15)
[2018-05-23] MEDS: Furosemide 40 MG Tablet PO (11:15)
[2018-05-23] MEDS: Sotalol Hydrochloride 80 MG Tablet 160 MG PO (11:16)
[2018-05-23] MEDS: Loratadine 10 MG Tablet PO (13:56)
[2018-05-23] MEDS: Pantoprazole Sodium 40 MG Tablet PO (13:56)
--- NOTE | 2018-05-23 15:35 | CASEMGMT ---
Physician has still not heard from insurance to do the peer to peer review. Physician even called the number back and left a message checking on status. SW has attempted to set up home health with 5 different agencies and they are not able to take [employer] Medicare. Physician is going to keep patient as he feels patient needs SNF and he wants to do a peer to peer. SW will follow up on Saturday if insurance does not call physician today. Plan: waiting on insurance to call hospitalist for peer to peer review. Dena BRENNAN MSW
--- NOTE | 2018-05-23 15:53 | CASEMGMT ---
Patient was approved for TCU. SW notified RN and Kiarra in TCU. Physician notified patient. Plan: [facility] TCU under skilled level of care. Dena BRENNAN MSW
--- NOTE | 2018-05-23 16:27 | PCM.TXEXTCAR ---
- Diet 05/20/18 19:39 Diet: Regular Diet Food consistency:: Regular Liquid Consistency:: Regular/Thin - Allergies/Procedures Done in Hospital Allergies/Adverse Reactions: Allergies cefdinir [From Omnicef] Allergy (Intermediate, Verified 05/15/18 10:06) Rash niacin Adverse Reaction (Intermediate, Verified 05/15/18 10:06) FLUSHING/REDNESS IN FACE ANTIHYPERLIPEMIC Allergy (Intermediate, Uncoded 05/07/18 08:53) Rash ITCHY Procedures: None - Type of Care/Length of Stay Estimated LOS: Convalescent Care Less Than 30 days Type of Care Needed: Skilled Rehab Potential: Good Prognosis: Good - Additional Orders/Day of Discharge Day of Discharge: 05/23/18 - Dietary and Speech Recommendations Dietitian Recommendations/Changes: Rec continue liberal Regular diet and ONS medpass d/t pt s/s of malnutrition. Will add magic cup or ensure pudding w/ meals for increased nutrition if consumed. - Follow Up Care Primary Care Physician: Lorenzo Thibodeaux, CAR DRYER-C [Primary Care Provider] -
[2018-05-23] MEDS: Rivaroxaban 20 MG Tablet PO (16:40)
--- NOTE | 2018-05-23 17:13 | PCM.DC.SUM ---
Discharge Date and Diagnosis - Problem List Patient Problems: Active and Suspected Problems (Last Reviewed 05/21/18 @ 03:48 by Chet Norman MD) Generalized weakness (Acute) Pancytopenia (Acute) Elevated digoxin level (Acute) Dehydration (Acute) Digoxin toxicity (Acute) Date of Admission: 05/20/18 Date of Discharge: 05/23/18 - Primary Discharge Diagnosis Active and Suspected Problems (Last Reviewed 05/21/18 @ 03:48 by Chet Norman MD) Generalized weakness (Acute) Pancytopenia (Acute) Elevated digoxin level (Acute) Dehydration (Acute) Digoxin toxicity (Acute) - Secondary Discharge Diagnosis Chronic Problems (Last Reviewed 05/21/18 @ 03:48 by Chet Norman MD) CAD (coronary artery disease) (Chronic) S/P PTCA (percutaneous transluminal coronary angioplasty) (Chronic) Cardiomyopathy, ischemic (Chronic) HLD (hyperlipidemia) (Chronic) Hx of CABG (Chronic) GARCIA to LAD, reverse SVG to the right PDA, reverse SVG to the Lateral CX (doxumented on C done 04/10/07 done @ [place] but actual bypass surgery done circa 1987, also @ [facility] in [place]) Nicotine dependence (Chronic) Chronic anticoagulation (Chronic) Xarelto History of coronary artery bypass graft x 3 (Chronic ~1987) @ [facility]: GARCIA to LAD, reverse SVG to the CX marginal and SVG to the PDA branch of RCA per Dr. Lujan (info obtained from OV notes from Dr. Sorto and previous [facility] done [address] Jhonny Stephens). Atherosclerosis of coronary artery bypass graft of [place] heart without angina pectoris (Chronic) Atherosclerotic heart disease of [place] coronary artery without angina pectoris (Chronic) S/P CABG @ [facility]: GARCIA to LAD, reverse SVG to the CX marginal and SVG to the PDA branch of RCA per Dr. Ljuan; PTCA and Stents @ [facility] per Dr. Jhonny Stephens: PTCA and SHAMIKA to [place] PDA; BMS to vein graft to PDA X2; Angioplasty to vein graft to the OM1 and also to vein graft to the PDA. History of left heart catheterization (Chronic) 2006 @ [facility] per Dr. Chet Diaz History of inferior wall myocardial infarction (Chronic ~1987) Stented coronary artery (Chronic 03/01/17) PTCA and Stents @ [facility] per Dr. 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 for wide complex tachycardia and EF 30-35% per Dr. Chuck Frausto; also hx of sinus bradycardia treated with pacing portion of device EAN (obstructive sleep apnea) (Chronic) mild EAN Hospital Course and Treatment Imaging Results: None Consultants: Oncology Radiation Oncology Palliative care Cardiology Operations: None Procedures: None Summary of Care Provided: HPI: The patient is a 73 year old M with a significant hx of TIA; CAD status post CABG ?3 times, and 4 stent; congestive heart failure; permanent pacemaker/defibrillator; COPD; GERD; Hypertension; A. fib on chronic anticoagulation; hypothyroidism; heart failure; and non-small cell lung cancer on chemo every (05/15/2018) and radiation every weekday (Saturday through Saturday) who is here with progressive weakness and anorexia. His last chemotherapy was last ; and his last radiation was on the same day of admission. He reports that his next radiation is due tomorrow (05/21/2018) morning 8:30 AM. Patient follows up with Dr. Monsalve, oncologist. Notably, he had elevated digoxin level on presentation. ED physician called oncology and recommendations was gentle fluids which was started at the ED. Per conversation between ED doctor and oncology, patient may still receive radiation tomorrow and oncology will see patient in am In regard to have heart failure; on 05/06/18 , Dr. Baer stated in his notes that his EF is 20%. Reviewing oncologist notes; right upper lobe mass and pathology was consistent with non-small cell lung cancer favoring squamous cell carcinoma. Hospital Course: 1. Weakness/Stage 3b non-small cell lung cancer/Pancytopenia/RUE DVT - He presented from home after radiation therapy for progressive weakness. PT was consulted to work with and he was able to walk 125 feet, however he would have to stop every 20 feet to catch his breath. He will also become winded with going to the bathroom. He was continued on his home CHF meds as well as COPD meds and those condition were stable throughout his stay. His digoxin was decreased to EOD dosing because of the elevated level on admission and will need to be followed. His pancytopenia was felt to be d/t his chemotherapy and radiation as well as his debility. In consultation with oncology, we decided to forgo and further chemotherapy and re-evaluate radiation at a later date though its resumption is unlikely to add benefit. Will DC to TCU for further PT/OT and discharge planning 2. His other diagnoses were evaluated and his home meds were continued where appropriate Discharge Activity: Return to Normal Activity Home Medications: Medications to take at Discharge Albuterol IH (ProAir) [Proair Hfa] 2 puff INHALATION Q4H PRN 01/09/18 Fluticasone 44 Mcg [Flovent 44 Mcg] 1 - 2 puff INHALATION BID 01/09/18 Levothyroxine [Synthroid] 50 mcg PO DAILY 01/09/18 Loratadine [Claritin] 10 mg PO DAILY 01/09/18 Pravastatin Sodium 40 mg PO DAILY 01/09/18 Sotalol HCl [Betapace (Beta Jerri)] 160 mg PO BID 01/09/18 Nitroglycerin [Nitrostat] 0.4 mg SL PRN PRN 02/19/18 Potassium Chloride 10 meq PO DAILY 02/19/18 Carvedilol [Coreg] 3.125 mg PO DAILY 04/16/18 Pantoprazole Sodium [Protonix] 40 mg PO DAILY 04/16/18 furosemide 40 mg tablet 40 mg PO QDAY tab 05/07/18 Rivaroxaban [Xarelto] 20 mg PO DAILY 05/15/18 Metolazone [Zaroxolyn] 2.5 mg PO QWEEK 05/20/18 Ubidecarenone [Coenzyme Q10] 100 mg PO DAILY 05/20/18 Umeclidinium Brm/Vilanterol Tr [Anoro Ellipta 62.5-25 Mcg INH] 1 puff INHALATION DAILY 05/20/18 Bisacodyl [Dulcolax] 5 mg PO DAILY PRN PRN tablet 05/23/18 Digoxin [Lanoxin] 125 mcg PO QODAY #0 05/23/18 Ensure Enlive 120 ml PO 4X/DAY liquid 05/23/18 Senna/Docusate Sodium [Senokot-S] 2 tablet PO BID tablet 05/23/18 Primary Care Physician: Lorenzo Thibodeaux, [employer]-C [Primary Care Provider] - Disposition: [facility] facility Minutes spent on discharge:: 37 Patient Condition:: Stable Medical Necessity - Tobacco Use Smoking Status: Former smoker Tobacco Use: Non-smoker Meaningful Use Info Meaningful Use Diagnoses (Choose all that apply): None applicable Code Visit Inpatient E&M: 61407 Disch Hosp
== END 2018-05-23 16:28 | disposition skilled nursing facility (03) ==
LOC: ED 17:39 → PCU 19:29
PROVIDERS: Admitting Provider Hospitalist; Emergency Provider Emergency Medicine; Family Provider Nurse Practitioner Family; PCP Nurse Practitioner Family; Visit Provider Family Medicine
DX: R53.1 Weakness (principal); E86.0 Dehydration; T46.0X5A Adverse effect of cardiac-stimulant glycosides and drugs of similar action, initial encounter; I25.10 Atherosclerotic heart disease of native coronary artery without angina pectoris; Z79.899 Other long term (current) drug therapy; Z79.01 Long term (current) use of anticoagulants; Z95.1 Presence of aortocoronary bypass graft; E78.5 Hyperlipidemia, unspecified; I25.5 Ischemic cardiomyopathy; I11.0 Hypertensive heart disease with heart failure; I50.42 Chronic combined systolic (congestive) and diastolic (congestive) heart failure; E03.9 Hypothyroidism, unspecified; K21.9 Gastro-esophageal reflux disease without esophagitis; G47.33 Obstructive sleep apnea (adult) (pediatric); Z86.73 Personal history of transient ischemic attack (TIA), and cerebral infarction without residual deficits; I48.2 Chronic atrial fibrillation; Z95.810 Presence of automatic (implantable) cardiac defibrillator; C34.11 Malignant neoplasm of upper lobe, right bronchus or lung; D61.810 Antineoplastic chemotherapy induced pancytopenia; T45.1X5A Adverse effect of antineoplastic and immunosuppressive drugs, initial encounter; Z87.891 Personal history of nicotine dependence; I48.0 Paroxysmal atrial fibrillation
CPT/HCPCS: 36415; 71045; 80048; 80162; 81001; 84443; 85025; 85610; 85730; 93005; 94640; 96360; 96361; 97110; 97116; 97162; 97166; 97530; 97802; 99218; 99285; J7030; A4216; G0378

== ENCOUNTER 2018-05-23 17:45 | Inpatient (IN) | payer MEDICARE, SELFPAY ==
[2018-04-17 13:12] VITALS: BMI 27.9
--- NOTE | 2018-05-23 17:45 | NURSING ---
Pt arrived via WC from PCU, oriented to room/call light. pleasant.
[2018-05-23 17:59] VITALS: BP 98/55; PULSE 64; RESP 18; TEMP 36; O2SAT 98
--- NOTE | 2018-05-23 19:31 | PCM.HP.STD ---
Problem List (1) Acute on chronic combined systolic (congestive) and diastolic (congestive) heart failure Status: Acute (2) Sleep apnea Status: Chronic (3) Generalized weakness Status: Acute (4) Pancytopenia Status: Acute (5) CAD (coronary artery disease) Status: Chronic (6) HLD (hyperlipidemia) Status: Chronic (7) Deep venous thrombosis of right upper extremity Status: Chronic (8) Nicotine dependence Status: Chronic (9) Atrial fibrillation Status: Chronic Qualifiers: (10) COPD (chronic obstructive pulmonary disease) Status: Chronic (11) Hypertension Status: Chronic Qualifiers: (12) Hypothyroid Status: Chronic (13) TIA (transient ischemic attack) Status: Chronic (14) Primary cancer of right upper lobe of lung Status: Chronic (15) GERD (gastroesophageal reflux disease) Status: Chronic Qualifiers: History of Present Illness Date of Admission: 05/23/18 Chief Complaint: Here for rehabilitation, strengthening, prior to discharge home alone. The patient is a 73 year old Male with below past medical history presented to [facility] Emergency Department 05/20/2018 with weakness. 05/02/2018 Echo Severely dilated left ventricle EF 25 - 30% Severe global hypokinesis left ventricule Severely dilated right ventricle RVSP 76mm HG Severe pulmonary hypertension Chemotherapy, radiation for lung cancer. Increasing weakness, fatigue. Decreased appetite. Increasing gait difficulty Chest X-ray shows decreased volume right hemithorax, stable right lung mass. WBC 1.6, Hemoglobin 9.3, Platelet 124, ANC 1.1. BUN 31, INR 2.2, PTT 43.9. on Xarelto, Digoxin 2.13. IV Fluids given. 05/20/2018 Admit to Hospital. PT/OT, IV Fluids. Hold Digoxin. Hold Furosemide for dehydration. 05/21/2018 Dr. Jett recommended decreasing digoxin dose. 05/21/2018 Consider palliative care. Digoxin every other day. 05/21/2018 Dr. Monae held chemotherapy for pancytopenia. Try to complete radiation. Treat RUE DVT with Xarelto. 05/22/2018 Consult palliative care. Lasix, Metolazone for systolic heart failure (EF 25%). 05/23/2018 Patient short of breath with ambulation. Patient feels the radiation causes him a lot of fatigue. He feels he tolerates chemotherapy, but unfortunately, the chemotherapy is causing pancytopenia. 05/23/2018 Admit to TCU with debility, here for rehabilitation, strengthening, prior to discharge home alone. His ex sister in law Ct is involved in his care. Past Medical History Past Medical History (Chronic Problems): Chronic Problems (Last Reviewed 05/21/18 @ 03:48 by Chet Norman MD) CAD (coronary artery disease) (Chronic) S/P PTCA (percutaneous transluminal coronary angioplasty) (Chronic) Cardiomyopathy, ischemic (Chronic) HLD (hyperlipidemia) (Chronic) Sleep apnea (Chronic) Deep venous thrombosis of right upper extremity (Chronic) Hx of CABG (Chronic) GARCIA to LAD, reverse SVG to the right PDA, reverse SVG to the Lateral CX (doxumented on LHC done 04/10/07 done @ [facility] but actual bypass surgery done circa 1987, also @ [facility] in [place]) Nicotine dependence (Chronic) Chronic anticoagulation (Chronic) Xarelto History of coronary artery bypass graft x 3 (Chronic ~1987) @ [facility]: GARCIA to LAD, reverse SVG to the CX marginal and SVG to the PDA branch of RCA per Dr. Lujan (info obtained from OV notes from Dr. Sorto and previous C done [address] Jhonny Stephens). Atherosclerosis of coronary artery bypass graft of wiyot heart without angina pectoris (Chronic) Atherosclerotic heart disease of wiyot coronary artery without angina pectoris (Chronic) S/P CABG @ [facility]: GARCIA to LAD, reverse SVG to the CX marginal and SVG to the PDA branch of RCA per Dr. Lujan; PTCA and Stents @ [facility] per Dr. Jhonny Stephens: PTCA and SHAMIKA to wiyot PDA; BMS to vein graft to PDA X2; Angioplasty to vein graft to the OM1 and also to vein graft to the PDA. History of left heart catheterization (Chronic) 2006 @ [facility] per Dr. Chet Diaz History of inferior wall myocardial infarction (Chronic ~1987) Stented coronary artery (Chronic 03/01/17) PTCA and Stents @ [facility] per Dr. Jhonny Stephens: PTCA and stent to wiyot PDA; stenting to vein graft to PDA X2; Angioplasty to vein graft to the OM1 and also to vein graft to the PDA 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) EF 20%, RVSP 60, +2 mitral regurgiation per echo January 2018 Atrial fibrillation (Chronic) COPD (chronic obstructive pulmonary disease) (Chronic) Hypertension (Chronic) Hypothyroid (Chronic) TIA (transient ischemic attack) (Chronic) Primary cancer of right upper lobe of lung (Chronic) GERD (gastroesophageal reflux disease) (Chronic) ICD (implantable cardioverter-defibrillator) in place (Chronic 05/22/12) Implanted @ [facility] for wide complex tachycardia and EF 30-35% per Dr. Chuck Frausto; also hx of sinus bradycardia treated with pacing portion of device EAN (obstructive sleep apnea) (Chronic) mild EAN Medical History: Medical History (Last Reviewed 05/21/18 @ 03:48 by Chet Norman MD) CHF exacerbation (Acute) I50.9 Nicotine dependence (Chronic) F17.200 Chronic anticoagulation (Chronic) Z79.01 Xarelto Acute hypoxemic respiratory failure (Acute) J96.01 COPD exacerbation (Acute) J44.1 Educational circumstance (Acute) Z55.9 Pleural effusion on right (Acute) J90 Encounter for adjustment or management of vascular access device (Acute) Z45.2 Atherosclerosis of coronary artery bypass graft of wiyot heart without angina pectoris (Chronic) I25.810 Atherosclerotic heart disease of wiyot coronary artery without angina pectoris (Chronic) I25.10 S/P CABG @ [facility]: GARCIA to LAD, reverse SVG to the CX marginal and SVG to the PDA branch of RCA per Dr. Lujan; PTCA and Stents @ [facility] per Dr. Jhonny Stephens: PTCA and SHAMIKA to wiyot PDA; BMS to vein graft to PDA X2; Angioplasty to vein graft to the OM1 and also to vein graft to the PDA. History of inferior wall myocardial infarction (Chronic) Onset Date: ~1987 I25.2 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) I50.42 EF 20%, RVSP 60, +2 mitral regurgiation per echo January 2018 Atrial fibrillation (Chronic) I48.91 COPD (chronic obstructive pulmonary disease) (Chronic) J44.9 Hypertension (Chronic) I10 Hypothyroid (Chronic) E03.9 TIA (transient ischemic attack) (Chronic) G45.9 Primary cancer of right upper lobe of lung (Chronic) C34.11 Regional lymph node metastasis present (Acute) C77.9 GERD (gastroesophageal reflux disease) (Chronic) K21.9 EAN (obstructive sleep apnea) (Chronic) G47.33 mild EAN COPD (chronic obstructive pulmonary disease) J44.9 Presence of combination internal cardiac defibrillator (ICD) and pacemaker Z95.810 port placement April GERD (gastroesophageal reflux disease) K21.9 Allergies cefdinir [From Omnicef] Allergy (Intermediate, Verified 05/15/18 10:06) Rash niacin Adverse Reaction (Intermediate, Verified 05/15/18 10:06) FLUSHING/REDNESS IN FACE ANTIHYPERLIPEMIC Allergy (Intermediate, Uncoded 05/07/18 08:53) Rash ITCHY Home Medications: Ambulatory Orders Medication Instructions Recorded Albuterol IH (ProAir) [Proair Hfa] 2 puff INHALATION Q4H PRN 01/09/18 Fluticasone 44 Mcg [Flovent 44 Mcg] 1 - 2 puff INHALATION BID 01/09/18 Levothyroxine [Synthroid] 50 mcg PO DAILY 01/09/18 Loratadine [Claritin] 10 mg PO DAILY 01/09/18 Pravastatin Sodium 40 mg PO DAILY 01/09/18 Sotalol HCl [Betapace (Beta 160 mg PO BID 01/09/18 Jerri)] Nitroglycerin [Nitrostat] 0.4 mg SL PRN PRN 02/19/18 Potassium Chloride 10 meq PO DAILY 02/19/18 Carvedilol [Coreg] 3.125 mg PO DAILY 04/16/18 Pantoprazole Sodium [Protonix] 40 mg PO DAILY 04/16/18 furosemide 40 mg tablet 40 mg PO QDAY tab 05/07/18 Rivaroxaban [Xarelto] 20 mg PO DAILY 05/15/18 Metolazone [Zaroxolyn] 2.5 mg PO QWEEK 05/20/18 Ubidecarenone [Coenzyme Q10] 100 mg PO DAILY 05/20/18 Umeclidinium Brm/Vilanterol Tr 1 puff INHALATION DAILY 05/20/18 [Anoro Ellipta 62.5-25 Mcg INH] Bisacodyl [Dulcolax] 5 mg PO DAILY PRN PRN tablet 05/23/18 Digoxin [Lanoxin] 125 mcg PO QODAY 05/23/18 Ensure Clear 120 ml PO 4X/DAY 05/23/18 Senna/Docusate Sodium [Senokot-S] 2 tablet PO BID 05/23/18 Surgical History: Surgical History (Last Reviewed 05/21/18 @ 03:48 by Chet Norman MD) Hx of CABG (Chronic) Z95.1 GARCIA to LAD, reverse SVG to the right PDA, reverse SVG to the Lateral CX (doxumented on LHC done 04/10/07 done @ [facility] but actual bypass surgery done circa 1987, also @ [facility] in [place]) History of coronary artery bypass graft x 3 (Chronic) Onset Date: ~1987 Z95.1 @ [facility]: GARCIA to LAD, reverse SVG to the CX marginal and SVG to the PDA branch of RCA per Dr. Lujan (info obtained from OV notes from Dr. Sorto and previous [facility] done [address] Jhonny Stephens). History of left heart catheterization (Chronic) Z98.890 2007 @ [facility] per Dr. Chet Diaz Stented coronary artery (Chronic) Onset Date: 03/01/17 Z95.5 PTCA and Stents @ [facility] per Dr. Jhonny Stephens: PTCA and stent to wiyot PDA; stenting to vein graft to PDA X2; Angioplasty to vein graft to the OM1 and also to vein graft to the PDA ICD (implantable cardioverter-defibrillator) in place (Chronic) Onset Date: 05/22/12 Z95.810 Implanted @ [facility] for wide complex tachycardia and EF 30-35% per Dr. Chuck Frausto; also hx of sinus bradycardia treated with pacing portion of device H/O cataract extraction Z98.49 Surgical History: coronary bypass surgery - x 3., pacemaker implantation - Defibrillator., - - Cardiac stents x 4. Psychiatric History: No pertinent psych hx Lives: Alone - Ex Sister in law Ct helps him out. Smoking Status: Former smoker Tobacco Use: Non-smoker Alcohol: None Drugs: None - *Family History Maternal Family History: Family History (Last Reviewed 05/15/18 @ 10:06 by Vivian Mcdowell) Mother Myocardial infarction Asthma Father Cerebral hemorrhage CVA (cerebral vascular accident) Brother CAD (coronary artery disease) History Items: No pertinent history Paternal Family History: Family History (Last Reviewed 05/15/18 @ 10:06 by Vivian Mcdowell) Mother Myocardial infarction Asthma Father Cerebral hemorrhage CVA (cerebral vascular accident) Brother CAD (coronary artery disease) History Items: No pertinent history Review of Systems Constitutional: Denies: Chills, Fever, Weight Change HEENT: Denies: Head Aches, Sinus Congestion, Sinus Drainage Cardiovascular: Reports: Edema. Denies: Chest Pain, Palpitations Respiratory: Reports: Shortness of breath upon exertion. Denies: Cough, Shortness of breath at rest, Sputum production Gastrointestinal: Denies: Abdominal Pain, Nausea, Vomiting Genitourinary: Denies: Dysuria Musculoskeletal: Denies: Joint Pain, Joint Tenderness Skin: Denies: Rash, Wounds Neurological: Denies: Numbness, Tingling, Focal weakness Psychiatric: Denies: Anxiety, Depression, Homicidal Ideations, Suicidal Ideations Hematologic/ Lymphatic: Denies: Easy Bruising, Easy Bleeding VTE Information - Inpt Only VTE Present on Admission: Yes - RUE DVT VTE Mechan Device Prophylaxis: Knee High GAGE Hose VTE Pharm Prophylaxis ordered?: No Reason prophylaxis not ordered:: Treatment Not Indicated Patient Problems: Active and Suspected Problems (Last Reviewed 05/21/18 @ 03:48 by Chet Norman MD) Acute on chronic combined systolic (congestive) and diastolic (congestive) heart failure (Acute) - Physical Exam General: Alert, Oriented x3, Cooperative HEENT: Atraumatic, PERRLA, EOMI, Normocephalic Neck: Supple, No JVD, Negative Carotid Bruits Lungs: Clear to auscultation, Normal air movement Cardiovascular: Regular rate, No murmurs Abdomen: Bowel Sounds Present, Soft, Non Tender Extremities: Capillary Refill Less than 3 Seconds, Edema - 2+ pitting edema bilaterally. Skin: No rashes, No breakdown Musculoskeletal: No Tenderness to Palpation of Joints or Extremities Neurological: Cranial nerves II-XII grossly intact Psych/Mental Status: Normal Affect, Appropriate Vital Signs Temp Pulse Resp BP Pulse Ox 96.8 F L 64 18 98/55 L 98 05/23/18 17:59 05/23/18 17:59 05/23/18 17:59 05/23/18 17:59 05/23/18 17:59 Oxygen Delivery Method Room Air Weight: 67.585 kg Assessment/Plan All Active Problems (Last Reviewed 05/21/18 @ 03:48 by Chet Norman MD) Generalized weakness (Acute) Pancytopenia (Acute) Elevated digoxin level (Acute) Dehydration (Acute) Digoxin toxicity (Acute) Acute on chronic combined systolic (congestive) and diastolic (congestive) heart failure (Acute) CHF exacerbation (Acute) Acute hypoxemic respiratory failure (Acute) COPD exacerbation (Acute) Educational circumstance (Acute) Pleural effusion on right (Acute) Encounter for adjustment or management of vascular access device (Acute) Regional lymph node metastasis present (Acute) 73 year old male with below past medical history significant for squamous cell lung cancer, hospitalized for weakness, complicated by pancytopenia, digoxin toxicity, acute on chronic combined systolic diastolic heart failure, admitted to TCU with debility, here for rehabilitation, strengthening, prior to discharge home alone. Debility - PT/OT. Pain - Tylenol 1000MG Q8H PRN mild pain. Bowel - Miralax 17GM daily, Senna/colace 2 tablets BID, Dulcolax 10MG PO daily PRN. Pneumonia vaccination - Administer Prevnar 13 and/or Pneumovax 23 as necessary. DVT prophylaxis - Not necessary, already on Xarelto. COPD - Anoro 1 puff daily, Flovent 2 puffs BID, Albuterol 2 puffs Q4H PRN. Chronic systolic heart failure (EF 25 - 30%) - Coreg 3.125MG daily, Sotalol 160MG BID, Digoxin 125MG every other day, Rx Entresto 24/26MG BID, stop Lasix, stop Metolazone due to hypotension. Entresto will decrease risk of cardiac , and rehospitalization from heart failure. Not sure why there are 2 beta blockers. Nutrition - Ensure 120ML 4x/day. Hypothyroidism - Levothyroxine 50MCG daily. Allergic Rhinitis - Loratadine 10MG daily. Coronary Artery Disease - Coreg 3.125MG, Sotalol 160MG BID, NTG 0.4MG SL PRN. Not sure why there are 2 beta blockers. GERD - Pantoprazole 40MG daily. Hypokalemia - Stop K-Dur, Lasix stopped, monitor K on labs. Hyperlipidemia - Pravastatin 40MG QHS. Atrial Fibrillation - Coreg 3.125MG daily, Sotalol 160MG BID, Xarelto 20MG daily. Squamous Cell lung cancer - Chemotherapy held due to pancytopenia, Radiation therapy held due to extreme fatigue, patient will discuss with Dr. Monsalve, Dr. Monae, Dr. Zazueta once his debility is improved, to decided on further treatment for lung cancer.
--- NOTE | 2018-05-23 19:37 | HP.PCM_ITS ---
Problem List (1) Acute on chronic combined systolic (congestive) and diastolic (congestive) heart failure Status: Acute (2) Sleep apnea Status: Chronic (3) Generalized weakness Status: Acute (4) Pancytopenia Status: Acute (5) CAD (coronary artery disease) Status: Chronic (6) HLD (hyperlipidemia) Status: Chronic (7) Deep venous thrombosis of right upper extremity Status: Chronic (8) Nicotine dependence Status: Chronic (9) Atrial fibrillation Status: Chronic Qualifiers: (10) COPD (chronic obstructive pulmonary disease) Status: Chronic (11) Hypertension Status: Chronic Qualifiers: (12) Hypothyroid Status: Chronic (13) TIA (transient ischemic attack) Status: Chronic (14) Primary cancer of right upper lobe of lung Status: Chronic (15) GERD (gastroesophageal reflux disease) Status: Chronic Qualifiers: History of Present Illness Date of Admission: 05/23/18 Chief Complaint: Here for rehabilitation, strengthening, prior to discharge home alone. The patient is a 73 year old Male with below past medical history presented to [facility] Emergency Department 05/20/2018 with weakness. 05/02/2018 Echo Severely dilated left ventricle EF 25 - 30% Severe global hypokinesis left ventricule Severely dilated right ventricle RVSP 76mm HG Severe pulmonary hypertension Chemotherapy, radiation for lung cancer. Increasing weakness, fatigue. Decreased appetite. Increasing gait difficulty Chest X-ray shows decreased volume right hemithorax, stable right lung mass. WBC 1.6, Hemoglobin 9.3, Platelet 124, ANC 1.1. BUN 31, INR 2.2, PTT 43.9. on Xarelto, Digoxin 2.13. IV Fluids given. 05/20/2018 Admit to Hospital. PT/OT, IV Fluids. Hold Digoxin. Hold Furosemide for dehydration. 05/21/2018 Dr. Jett recommended decreasing digoxin dose. 05/21/2018 Consider palliative care. Digoxin every other day. 05/21/2018 Dr. Monae held chemotherapy for pancytopenia. Try to complete radiation. Treat RUE DVT with Xarelto. 05/22/2018 Consult palliative care. Lasix, Metolazone for systolic heart failure (EF 25%). 05/23/2018 Patient short of breath with ambulation. Patient feels the radiation causes him a lot of fatigue. He feels he tolerates chemotherapy, but unfortunately, the chemotherapy is causing pancytopenia. 05/23/2018 Admit to TCU with debility, here for rehabilitation, strengthening, prior to discharge home alone. His ex sister in law Ct is involved in his care. Past Medical History Past Medical History (Chronic Problems): Chronic Problems (Last Reviewed 05/21/18 @ 03:48 by Chet Norman MD) CAD (coronary artery disease) (Chronic) S/P PTCA (percutaneous transluminal coronary angioplasty) (Chronic) Cardiomyopathy, ischemic (Chronic) HLD (hyperlipidemia) (Chronic) Sleep apnea (Chronic) Deep venous thrombosis of right upper extremity (Chronic) Hx of CABG (Chronic) GARCIA to LAD, reverse SVG to the right PDA, reverse SVG to the Lateral CX ( doxumented on LHC done 04/10/07 done @ [place] but actual bypass surgery done circa 1987, also @ [facility] in [place]) Nicotine dependence (Chronic) Chronic anticoagulation (Chronic) Xarelto History of coronary artery bypass graft x 3 (Chronic ~1987) @ [place]: GARCIA to LAD, reverse SVG to the CX marginal and SVG to the PDA branch of RCA per Dr. Lujan (info obtained from OV notes from Dr. Sorto and previous C done [address] Jhonny Stephens). Atherosclerosis of coronary artery bypass graft of [place] heart without angina pectoris (Chronic) Atherosclerotic heart disease of [place] coronary artery without angina pectoris (Chronic) S/P CABG @ [place]: GARCIA to LAD, reverse SVG to the CX marginal and SVG to the PDA branch of RCA per Dr. Lujan; PTCA and Stents @ [facility] per Dr. Jhonny Stephens: PTCA and SHAMIKA to [place] PDA; BMS to vein graft to PDA X2; Angioplasty to vein graft to the OM1 and also to vein graft to the PDA. History of left heart catheterization (Chronic) 2006 @ [facility] per Dr. Chet Diaz History of inferior wall myocardial infarction (Chronic ~1987) Stented coronary artery (Chronic 03/01/17) PTCA and Stents @ [facility] per Dr. 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 Chuck Frausto; also hx of sinus bradycardia treated with pacing portion of device EAN (obstructive sleep apnea) (Chronic) mild EAN Medical History: Medical History (Last Reviewed 05/21/18 @ 03:48 by Chet Norman MD) CHF exacerbation (Acute) I50.9 Nicotine dependence (Chronic) F17.200 Chronic anticoagulation (Chronic) Z79.01 Xarelto Acute hypoxemic respiratory failure (Acute) J96.01 COPD exacerbation (Acute) J44.1 Educational circumstance (Acute) Z55.9 Pleural effusion on right (Acute) J90 Encounter for adjustment or management of vascular access device (Acute) Z45.2 Atherosclerosis of coronary artery bypass graft of [place] heart without angina pectoris (Chronic) I25.810 Atherosclerotic heart disease of [place] coronary artery without angina pectoris (Chronic) I25.10 S/P CABG @ [place]: GARCIA to LAD, reverse SVG to the CX marginal and SVG to the PDA branch of RCA per Dr. Lujan; PTCA and Stents @ [facility] per Dr. Jhonny Stephens: PTCA and SHAMIKA to [place] PDA; BMS to vein graft to PDA X2; Angioplasty to vein graft to the OM1 and also to vein graft to the PDA. History of inferior wall myocardial infarction (Chronic) Onset Date: ~1987 I25.2 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) I50.42 EF 20%, RVSP 60, +2 mitral regurgiation per echo January 2018 Atrial fibrillation (Chronic) I48.91 COPD (chronic obstructive pulmonary disease) (Chronic) J44.9 Hypertension (Chronic) I10 Hypothyroid (Chronic) E03.9 TIA (transient ischemic attack) (Chronic) G45.9 Primary cancer of right upper lobe of lung (Chronic) C34.11 Regional lymph node metastasis present (Acute) C77.9 GERD (gastroesophageal reflux disease) (Chronic) K21.9 EAN (obstructive sleep apnea) (Chronic) G47.33 mild EAN COPD (chronic obstructive pulmonary disease) J44.9 Presence of combination internal cardiac defibrillator (ICD) and pacemaker Z95.810 port placement April GERD (gastroesophageal reflux disease) K21.9 Allergies cefdinir [From Omnicef] Allergy (Intermediate, Verified 05/15/18 10:06) Rash niacin Adverse Reaction (Intermediate, Verified 05/15/18 10:06) FLUSHING/REDNESS IN FACE ANTIHYPERLIPEMIC Allergy (Intermediate, Uncoded 05/07/18 08:53) Rash ITCHY Home Medications: Ambulatory Orders Medication Instructions Recorded Albuterol IH (ProAir) [Proair Hfa] 2 puff INHALATION Q4H PRN 01/09/18 Fluticasone 44 Mcg [Flovent 44 Mcg] 1 - 2 puff INHALATION BID 01/09/18 Levothyroxine [Synthroid] 50 mcg PO DAILY 01/09/18 Loratadine [Claritin] 10 mg PO DAILY 01/09/18 Pravastatin Sodium 40 mg PO DAILY 01/09/18 Sotalol HCl [Betapace (Beta 160 mg PO BID 01/09/18 Jerri)] Nitroglycerin [Nitrostat] 0.4 mg SL PRN PRN 02/19/18 Potassium Chloride 10 meq PO DAILY 02/19/18 Carvedilol [Coreg] 3.125 mg PO DAILY 04/16/18 Pantoprazole Sodium [Protonix] 40 mg PO DAILY 04/16/18 furosemide 40 mg tablet 40 mg PO QDAY tab 05/07/18 Rivaroxaban [Xarelto] 20 mg PO DAILY 05/15/18 Metolazone [Zaroxolyn] 2.5 mg PO QWEEK 05/20/18 Ubidecarenone [Coenzyme Q10] 100 mg PO DAILY 05/20/18 Umeclidinium Brm/Vilanterol Tr 1 puff INHALATION DAILY 05/20/18 [Anoro Ellipta 62.5-25 Mcg INH] Bisacodyl [Dulcolax] 5 mg PO DAILY PRN PRN tablet 05/23/18 Digoxin [Lanoxin] 125 mcg PO QODAY 05/23/18 Ensure Clear 120 ml PO 4X/DAY 05/23/18 Senna/Docusate Sodium [Senokot-S] 2 tablet PO BID 05/23/18 Surgical History: Surgical History (Last Reviewed 05/21/18 @ 03:48 by Chet Norman MD) Hx of CABG (Chronic) Z95.1 GARCIA to LAD, reverse SVG to the right PDA, reverse SVG to the Lateral CX ( doxumented on LHC done 04/10/07 done @ [place] but actual bypass surgery done circa 1987, also @ [facility] in [place]) History of coronary artery bypass graft x 3 (Chronic) Onset Date: ~1987 Z95.1 @ [place]: GARCIA to LAD, reverse SVG to the CX marginal and SVG to the PDA branch of RCA per Dr. Lujan (info obtained from OV notes from Dr. Sorto and previous [facility] done [address] Jhonny Stephens). History of left heart catheterization (Chronic) Z98.890 2007 @ [facility] per Dr. Chet Diaz Stented coronary artery (Chronic) Onset Date: 03/01/17 Z95.5 PTCA and Stents @ [facility] per Dr. Jhonny Stephens: PTCA and stent to [place] PDA; stenting to vein graft to PDA X2; Angioplasty to vein graft to the OM1 and also to vein graft to the PDA ICD (implantable cardioverter-defibrillator) in place (Chronic) Onset Date: Z95.810 Implanted @ [facility] for wide complex tachycardia and EF 30-35% per Dr. Chuck Frausto; also hx of sinus bradycardia treated with pacing portion of device H/O cataract extraction Z98.49 Surgical History: coronary bypass surgery - x 3., pacemaker implantation - Defibrillator., - - Cardiac stents x 4. Psychiatric History: No pertinent psych hx Lives: Alone - Ex Sister in law Ct helps him out. Smoking Status: Former smoker Tobacco Use: Non-smoker Alcohol: None Drugs: None - *Family History Maternal Family History: Family History (Last Reviewed 05/15/18 @ 10:06 by Vivian Mcdowell) Mother Myocardial infarction Asthma Father Cerebral hemorrhage CVA (cerebral vascular accident) Brother CAD (coronary artery disease) History Items: No pertinent history Paternal Family History: Family History (Last Reviewed 05/15/18 @ 10:06 by Vivian Mcdowell) Mother Myocardial infarction Asthma Father Cerebral hemorrhage CVA (cerebral vascular accident) Brother CAD (coronary artery disease) History Items: No pertinent history Review of Systems Constitutional: Denies: Chills, Fever, Weight Change HEENT: Denies: Head Aches, Sinus Congestion, Sinus Drainage Cardiovascular: Reports: Edema. Denies: Chest Pain, Palpitations Respiratory: Reports: Shortness of breath upon exertion. Denies: Cough, Shortness of breath at rest, Sputum production Gastrointestinal: Denies: Abdominal Pain, Nausea, Vomiting Genitourinary: Denies: Dysuria Musculoskeletal: Denies: Joint Pain, Joint Tenderness Skin: Denies: Rash, Wounds Neurological: Denies: Numbness, Tingling, Focal weakness Psychiatric: Denies: Anxiety, Depression, Homicidal Ideations, Suicidal Ideations Hematologic/ Lymphatic: Denies: Easy Bruising, Easy Bleeding VTE Information - Inpt Only VTE Present on Admission: Yes - RUE DVT VTE Mechan Device Prophylaxis: Knee High GAGE Hose VTE Pharm Prophylaxis ordered?: No Reason prophylaxis not ordered:: Treatment Not Indicated Patient Problems: Active and Suspected Problems (Last Reviewed 05/21/18 @ 03:48 by Chet Norman MD) Acute on chronic combined systolic (congestive) and diastolic (congestive) heart failure (Acute) - Physical Exam General: Alert, Oriented x3, Cooperative HEENT: Atraumatic, PERRLA, EOMI, Normocephalic Neck: Supple, No JVD, Negative Carotid Bruits Lungs: Clear to auscultation, Normal air movement Cardiovascular: Regular rate, No murmurs Abdomen: Bowel Sounds Present, Soft, Non Tender Extremities: Capillary Refill Less than 3 Seconds, Edema - 2+ pitting edema bilaterally. Skin: No rashes, No breakdown Musculoskeletal: No Tenderness to Palpation of Joints or Extremities Neurological: Cranial nerves II-XII grossly intact Psych/Mental Status: Normal Affect, Appropriate Vital Signs Temp Pulse Resp BP Pulse Ox 96.8 F L 64 18 98/55 L 98 05/23/18 17:59 05/23/18 17:59 05/23/18 17:59 05/23/18 17:59 05/23/18 17:59 Oxygen Delivery Method Room Air Weight: 67.585 kg Assessment/Plan All Active Problems (Last Reviewed 05/21/18 @ 03:48 by Chet Norman MD) Generalized weakness (Acute) Pancytopenia (Acute) Elevated digoxin level (Acute) Dehydration (Acute) Digoxin toxicity (Acute) Acute on chronic combined systolic (congestive) and diastolic (congestive) heart failure (Acute) CHF exacerbation (Acute) Acute hypoxemic respiratory failure (Acute) COPD exacerbation (Acute) Educational circumstance (Acute) Pleural effusion on right (Acute) Encounter for adjustment or management of vascular access device (Acute) Regional lymph node metastasis present (Acute) 73 year old male with below past medical history significant for squamous cell lung cancer, hospitalized for weakness, complicated by pancytopenia, digoxin toxicity, acute on chronic combined systolic diastolic heart failure, admitted to TCU with debility, here for rehabilitation, strengthening, prior to discharge home alone. * Debility - PT/OT. * Pain - Tylenol 1000MG Q8H PRN mild pain. * Bowel - Miralax 17GM daily, Senna/colace 2 tablets BID, Dulcolax 10MG PO daily PRN. * Pneumonia vaccination - Administer Prevnar 13 and/or Pneumovax 23 as necessary. * DVT prophylaxis - Not necessary, already on Xarelto. * COPD - Anoro 1 puff daily, Flovent 2 puffs BID, Albuterol 2 puffs Q4H PRN. * Chronic systolic heart failure (EF 25 - 30%) - Coreg 3.125MG daily, Sotalol 160MG BID, Digoxin 125MG every other day, Rx Entresto 24/26MG BID, stop Lasix, stop Metolazone due to hypotension. Entresto will decrease risk of cardiac , and rehospitalization from heart failure. Not sure why there are 2 beta blockers. * Nutrition - Ensure 120ML 4x/day. * Hypothyroidism - Levothyroxine 50MCG daily. * Allergic Rhinitis - Loratadine 10MG daily. * Coronary Artery Disease - Coreg 3.125MG, Sotalol 160MG BID, NTG 0.4MG SL PRN. Not sure why there are 2 beta blockers. * GERD - Pantoprazole 40MG daily. * Hypokalemia - Stop K-Dur, Lasix stopped, monitor K on labs. * Hyperlipidemia - Pravastatin 40MG QHS. * Atrial Fibrillation - Coreg 3.125MG daily, Sotalol 160MG BID, Xarelto 20MG daily. * Squamous Cell lung cancer - Chemotherapy held due to pancytopenia, Radiation therapy held due to extreme fatigue, patient will discuss with Dr. Monsalve, Dr. Monae, Dr. Zazueta once his debility is improved, to decided on further treatment for lung cancer.
--- NOTE | 2018-05-23 20:22 | NURSING ---
Discussed code status with patient, patient wishes to be a DNR-CC. Purple bracelet applied.
[2018-05-23 20:24] VITALS: BMI 24.0
[2018-05-23 20:26] VITALS: BMI 24.0
[2018-05-23] MEDS: Sotalol Hydrochloride 80 MG Tablet 160 MG PO (20:58)
[2018-05-23] MEDS: Pravastatin 40 MG Tablet PO (20:58)
[2018-05-24] MEDS: Sotalol Hydrochloride 80 MG Tablet 160 MG PO ×2 (05:20→17:05)
[2018-05-24] MEDS: Loratadine 10 MG Tablet PO (05:21)
[2018-05-24] MEDS: Pantoprazole Sodium 40 MG Tablet PO (05:21)
[2018-05-24] MEDS: Senna/Docusate Sodium 1 Tablet 2 TABLET PO (05:21)
[2018-05-24] MEDS: Levothyroxine 50 MCG Tablet PO (05:21)
[2018-05-24 05:31] VITALS: BP 110/67; PULSE 62
[2018-05-24] MEDS: Umeclidinium Bromide Inhaler 1 PUFF IH (05:31)
[2018-05-24] MEDS: Fluticasone/Salmeterol 232-14 Inhaler 1 PUFF IH ×2 (05:32→17:02)
[2018-05-24 07:16] LABS: Absolute Neutrophil Count 1.2 X10^3/uL (2.0-7.7); Basophil# 0.02 X10^3/uL; Basophil% 0.8 % (0-1); Differential Indicated SCAN CRITERIA MET; Eosinophil# 0.02 X10^3/uL; Eosinophils% 0.8 % (0-5); Hematocrit 29.2 % (40-54); Hemoglobin 9.4 g/dl (13.0-16.5); Mean Corp Hgb Conc 32.2 g/gl (32-36); Mean Corpuscular Hgb 25.8 pg (27.0-32.0); Mean Platelet Vol. 12.1 fl (6.2-12.0); Monocyte# 0.61 X10^3/uL; Monocyte% 25.6 % (0-10); Neutrophil # 1.22 X10^3/uL (2.7-7.7); Neutrophil % 51.4 % (47-70); POSITIVE COUNT NO; POSITIVE DIFFERENTIAL YES; POSITIVE MORPHOLOGY NO; Platelet Count 107 K/mm3 (150-450); RBC Distribution Width CV 18.9 % (11.6-14.6); RBC Distribution Width SD 48.1 fl (35.1-43.9); Red Blood Count 3.65 M/mm3 (4.6-6.2); White Blood Count 2.4 K/mm3 (4.4-11.0)
[2018-05-24 07:38] LABS: Anion Gap 13 (5-15); BUN 28 mg/dL (7-18); BUN/Creat Ratio 24.6 RATIO (10-20); Calcium,Total 8.3 mg/dL (8.5-10.1); Chloride 98 mmol/L (98-107); Creatinine, Serum 1.14 mg/dL (0.70-1.30); EST Glomerular Filtration Rate 67 mL/min (>60); Est Glom Filt Rate - Afr Amer 81 mL/min (>60); Estimated Creatinine Clearance 50.52 ml/min; Glucose 110 mg/dL (74-106); Potassium 3.2 mmol/L (3.5-5.1); Sodium Level 137 mmol/L (136-145)
[2018-05-24 07:40] VITALS: O2SAT 99
--- NOTE | 2018-05-24 09:14 | NURSING ---
Dr. Gomez reviewed labs, NO for lasix 20mg daily and Kdur 20mEq x1 now and then 20mEq daily, recheck BMP in AM. Patient made aware.
[2018-05-24 09:18] VITALS: PULSE 80
[2018-05-24] MEDS: Digoxin 125 MCG Tablet PO (09:18)
[2018-05-24] MEDS: Carvedilol 3.125 MG TABLET PO (09:18)
[2018-05-24] MEDS: SACUBITRIL/VALSARTAN 24/26 MG TABLET 1 EACH PO ×2 (09:19→17:05)
[2018-05-24] MEDS: Tuberculin,Purif.prot.deriv. 50 TU/ML Vial 5 ML ID (11:27)
[2018-05-24 15:02] VITALS: BP 98/64; PULSE 64
[2018-05-24 15:08] VITALS: BP 98/64; PULSE 64; RESP 16; TEMP 37.2; O2SAT 97
[2018-05-24] MEDS: Rivaroxaban 20 MG Tablet PO (17:05)
[2018-05-24 17:17] VITALS: BP 108/68; PULSE 62
[2018-05-24] MEDS: Pravastatin 40 MG Tablet PO (20:24)
[2018-05-25] MEDS: Sotalol Hydrochloride 80 MG Tablet 160 MG PO ×2 (05:16→18:17)
[2018-05-25] MEDS: Levothyroxine 50 MCG Tablet PO (05:16)
[2018-05-25] MEDS: Pantoprazole Sodium 40 MG Tablet PO (05:16)
[2018-05-25 06:56] LABS: Anion Gap 11 (5-15); BUN 27 mg/dL (7-18); BUN/Creat Ratio 26.5 RATIO (10-20); Calcium,Total 8.2 mg/dL (8.5-10.1); Chloride 100 mmol/L (98-107); Creatinine, Serum 1.02 mg/dL (0.70-1.30); EST Glomerular Filtration Rate 76 mL/min (>60); Est Glom Filt Rate - Afr Amer 92 mL/min (>60); Estimated Creatinine Clearance 56.47 ml/min; Glucose 101 mg/dL (74-106); Potassium 3.4 mmol/L (3.5-5.1); Sodium Level 138 mmol/L (136-145)
[2018-05-25 07:35] VITALS: O2SAT 98
[2018-05-25] MEDS: SACUBITRIL/VALSARTAN 24/26 MG TABLET 1 EACH PO ×2 (08:29→18:17)
[2018-05-25] MEDS: Furosemide 20 MG Tablet PO (08:29)
[2018-05-25] MEDS: Carvedilol 3.125 MG TABLET PO (08:29)
[2018-05-25] MEDS: Loratadine 10 MG Tablet PO (08:30)
[2018-05-25] MEDS: Umeclidinium Bromide Inhaler 1 PUFF IH (08:34)
[2018-05-25] MEDS: Fluticasone/Salmeterol 232-14 Inhaler 1 PUFF IH ×2 (08:34→18:01)
--- NOTE | 2018-05-25 12:57 | NURSING ---
Potassium level reviewed with SHONA Burch to recheck BMP in AM.
[2018-05-25 15:16] VITALS: BP 85/51; PULSE 61; RESP 16; TEMP 36.2; O2SAT 97
--- NOTE | 2018-05-25 16:56 | NURSING ---
Patient's BP 85/51, patient has no c/o dizzyness, fatigue or weakness. Rechecked manually at 90/50. Dr. Gomez updated, NO to D/C lasix.
[2018-05-25] MEDS: Rivaroxaban 20 MG Tablet PO (18:03)
--- NOTE | 2018-05-25 18:16 | NURSING ---
BP rechecked manually 88/50. Dr. Gomez updated, okay to give patient Entresto and Betapace as long as he is not symptomatic. Patient has no c/o dizzyness or fatigue.
[2018-05-25] MEDS: Pravastatin 40 MG Tablet PO (20:34)
[2018-05-26] MEDS: Sotalol Hydrochloride 80 MG Tablet 160 MG PO (05:42)
[2018-05-26] MEDS: Pantoprazole Sodium 40 MG Tablet PO (05:42)
[2018-05-26] MEDS: Levothyroxine 50 MCG Tablet PO (05:42)
[2018-05-26 06:45] LABS: Anion Gap 4 (5-15); BUN 24 mg/dL (7-18); Calcium,Total 7.8 mg/dL (8.5-10.1); Chloride 103 mmol/L (98-107); Creatinine, Serum 0.86 mg/dL (0.70-1.30); EST Glomerular Filtration Rate 93 mL/min (>60); Est Glom Filt Rate - Afr Amer 112 mL/min (>60); Estimated Creatinine Clearance 66.97 ml/min; Glucose 88 mg/dL (74-106); Sodium Level 137 mmol/L (136-145)
[2018-05-26] MEDS: Umeclidinium Bromide Inhaler 1 PUFF IH (08:19)
[2018-05-26] MEDS: Fluticasone/Salmeterol 232-14 Inhaler 1 PUFF IH ×2 (08:19→17:13)
[2018-05-26] MEDS: Loratadine 10 MG Tablet PO (08:19)
[2018-05-26 08:26] VITALS: BP 81/40; PULSE 64
[2018-05-26 09:30] VITALS: BP 81/34; PULSE 60
[2018-05-26] MEDS: Carvedilol 3.125 MG TABLET PO (09:39)
[2018-05-26] MEDS: SACUBITRIL/VALSARTAN 24/26 MG TABLET 1 EACH PO ×2 (09:39→18:35)
[2018-05-26 09:40] VITALS: PULSE 60
[2018-05-26] MEDS: Digoxin 125 MCG Tablet PO (09:40)
--- NOTE | 2018-05-26 09:40 | NURSING ---
Dr Gomez notified of low BP & HR. pt asymptomatic. would like pt to take BP meds this AM. Pt resting in recliner chair. call light in reach.
--- NOTE | 2018-05-26 10:09 | NURSING ---
Addendum entered by Fawn Brooks 05/26/18 11:35: pt updated on all Original Note: Addendum entered by Fawn Brooks 05/26/18 10:31: Swapna, from [facility] called again and dr Baer wants Digoxin dc'd as well. Original Note: Dr Valerio's office called with new orders to DC betapace and then start Amiodarone on 05/29/18. pt had heart monitor and they noted vtach runs. Orders entered.
--- NOTE | 2018-05-26 10:40 | PCM.PN.RX ---
<YeseniarazakimmieWilfredo D - Last Filed: 06/03/18 11:43> Progress Note - Pharmacy Subjective: TCU Admission Objective: Allergies cefdinir [From Omnicef] Allergy (Intermediate, Verified 05/15/18 10:06) Rash niacin Adverse Reaction (Intermediate, Verified 05/15/18 10:06) FLUSHING/REDNESS IN FACE ANTIHYPERLIPEMIC Allergy (Intermediate, Uncoded 05/07/18 08:53) Rash ITCHY Current Medications Generic Name Dose Route Start Last Admin Trade Name Freq PRN Reason Stop Dose Admin Acetaminophen 1,000 mg 05/23/18 20:17 Tylenol PO Q8H PRN PRN MILD PAIN (1-310) Albuterol Sulfate 2 puff 05/23/18 18:07 Ventolin Hfa (Sp) INHALATION Q4H PRN SOB &/OR WHEEZING Amiodarone HCl 200 mg 05/29/18 06:00 Cordarone PO DAILY HASEEB Bisacodyl 10 mg 05/23/18 20:20 Dulcolax PO DAILY PRN Constipation Calamine/Phenol 1 applic 05/26/18 22:00 Calmoseptine Ointment TOPICAL 0600,2200 [facility] Protocol Carvedilol 3.125 mg 05/24/18 08:00 05/26/18 09:39 Coreg PO 3.125 mg 0800 [facility] Administration Emollient Ointment 1 applic 05/26/18 22:00 Eucerin Intensive Repair TOPICAL 0600,2200 [facility] Protocol Levothyroxine Sodium 50 mcg 05/24/18 06:00 05/26/18 05:42 Synthroid PO 50 mcg DAILY [facility] Administration Loratadine 10 mg 05/24/18 06:00 05/26/18 08:19 Claritin PO 10 mg DAILY [facility] Administration Nitroglycerin 0.4 mg 05/23/18 18:07 Nitrostat SUBLINGUAL PRN PRN chest pain Nutritional Formula (Lactose Free) 120 ml 05/24/18 06:00 05/26/18 05:42 Ensure Enlive PO 120 ml 4X/DAY [facility] Administration Pantoprazole Sodium 40 mg 05/24/18 06:00 05/26/18 05:42 Protonix PO 40 mg DAILY HASEEB Administration Polyethylene Glycol 17 gm 05/24/18 06:00 05/26/18 05:41 Miralax PO Not Given DAILY HASEEB Potassium Chloride 20 meq 05/25/18 08:00 05/26/18 08:19 K-Dur PO 20 meq DAILYCM HASEEB Administration Pravastatin Sodium 40 mg 05/23/18 22:00 05/25/18 20:34 Pravachol PO 40 mg QHS [facility]EE[facility] Administration Rivaroxaban 20 mg 05/24/18 17:00 05/25/18 18:03 Xarelto PO 20 mg DAILY@1700 [facility] Administration Fluticasone/Salmeterol 1 puff 05/24/18 06:00 05/26/18 08:19 Fluticasone-Salmeterol 232-14 IH 1 puff Q12 HASEE[facility] Administration Senna/Docusate Sodium 2 tablet 05/24/18 06:00 05/26/18 05:41 Senokot-S, Joyce-Colace PO Not Given BID HASEEB Tuberculin PPD 5 tu 05/31/18 10:00 Tubersol, Aplisol, Ppd ID 05/31/18 10:01 X1 ONE Problem List (Last Reviewed 05/21/18 @ 03:48 by Chet Norman MD) Acute on chronic combined systolic (congestive) and diastolic (congestive) heart failure (Acute) Sleep apnea (Chronic) Vital Signs Temp Pulse Resp BP Pulse Ox 97.1 F L 60 16 81/34 L 97 05/25/18 15:16 05/26/18 09:40 05/25/18 15:16 05/26/18 09:30 05/25/18 15:16 Oxygen Flow Rate (L/min) 2 Oxygen Delivery Method Room Air Weight: 67.585 kg Body Mass Index (BMI) 24.0 Sodium 137 mmol/L (136-145) 05/26/18 05:30 Potassium 4.0 mmol/L (3.5-5.1) 05/26/18 05:30 Chloride 103 mmol/L (98-107) 05/26/18 05:30 Carbon Dioxide 30.0 mmol/L (21.0-32.0) 05/26/18 05:30 Anion Gap 4 (5-15) L 05/26/18 05:30 BUN 24 mg/dL (7-18) H 05/26/18 05:30 Creatinine 0.86 mg/dL (0.70-1.30) 05/26/18 05:30 Est GFR (MDRD) Af Amer 112 mL/min (>60) 05/26/18 05:30 Est GFR (MDRD) Non-Af 93 mL/min (>60) 05/26/18 05:30 BUN/Creatinine Ratio 28.0 RATIO (10-20) H 05/26/18 05:30 Glucose 88 mg/dL (74-106) 05/26/18 05:30 Assessment/Plan: 1) Pain APAP for mild pain. Continue to monitor daily pain scores, prn medication use. 2) CHF/Afib/CAD Sacubitril/valsartan, amiodarone, carvedilol, sotalol, digoxin, pravastatin. Continue to monitor BP/HR, renal function, lipids. 3) COPD Anoro, Flovent, albuterol prn. Continue to monitor prn medication use, for shortness of breath. 4) Hypothyroidism Levothyroxine daily. Continue to monitor s/s hyper/hypothyroidism. 5) Allergic Rhinitis Loratadine daily. Continue to monitor for symptoms. 6) GI Pantoprazole daily. Continue to monitor s/s GI distress. 7) Derm Calmoseptine, emollient. Continue to monitor clinically. Psychotropic Medications: None Unnecessary Medications: None Bowel Regimen: 8) Senna/s twice daily. Continue to monitor for constipation/diarrhea. Date of Note:: 05/26/18 - Provider Comments Provider responsibility: Provider responsible to enter orders to implement recommendations <Ramírez Gomez Chi - Last Filed: 06/03/18 17:48> Progress Note - Pharmacy Subjective: [] Objective: Allergies cefdinir [From Omnicef] Allergy (Intermediate, Verified 06/01/18 09:09) Rash niacin Adverse Reaction (Intermediate, Verified 06/01/18 09:09) FLUSHING/REDNESS IN FACE ANTIHYPERLIPEMIC Allergy (Intermediate, Uncoded 06/01/18 09:09) Rash ITCHY Vital Signs Temp Pulse Resp BP Pulse Ox 98.5 F 88 24 H 94/50 L 97 05/31/18 10:34 05/31/18 10:34 05/31/18 10:34 05/31/18 10:34 05/31/18 10:59 Oxygen Flow Rate (L/min) 2 Oxygen Delivery Method Room Air Weight: 70.023 kg Body Mass Index (BMI) 24.0 Sodium 140 mmol/L (136-145) 05/31/18 06:51 Potassium 4.4 mmol/L (3.5-5.1) 05/31/18 06:51 Chloride 108 mmol/L (98-107) H 05/31/18 06:51 Carbon Dioxide 24.0 mmol/L (21.0-32.0) 05/31/18 06:51 Anion Gap 8 (5-15) 05/31/18 06:51 BUN 18 mg/dL (7-18) 05/31/18 06:51 Creatinine 0.83 mg/dL (0.70-1.30) 05/31/18 06:51 Est GFR (MDRD) Af Amer 117 mL/min (>60) 05/31/18 06:51 Est GFR (MDRD) Non-Af 97 mL/min (>60) 05/31/18 06:51 BUN/Creatinine Ratio 21.8 RATIO (10-20) H 05/31/18 06:51 Glucose 110 mg/dL (74-106) H 05/31/18 06:51 Assessment/Plan: Psychotropic Medications: Unnecessary Medications: Bowel Regimen: - Provider Comments Provider responsibility: Provider responsible to enter orders to implement recommendations Provider Comments to Recommendations by Pharmacy: Agree
--- NOTE | 2018-05-26 10:58 | PHA.CONS_ITS ---
<YeseniarazakimmieWilfredo D - Last Filed: 06/03/18 11:43> Progress Note - Pharmacy Subjective: TCU Admission Objective: Allergies cefdinir [From Omnicef] Allergy (Intermediate, Verified 05/15/18 10:06) Rash niacin Adverse Reaction (Intermediate, Verified 05/15/18 10:06) FLUSHING/REDNESS IN FACE ANTIHYPERLIPEMIC Allergy (Intermediate, Uncoded 05/07/18 08:53) Rash ITCHY Current Medications Generic Name Dose Route Start Last Admin Trade Name Freq PRN Reason Stop Dose Admin Acetaminophen 1,000 mg 05/23/18 20:17 Tylenol PO Q8H PRN PRN MILD PAIN (1-310) Albuterol Sulfate 2 puff 05/23/18 18:07 Ventolin Hfa (Sp) INHALATION Q4H PRN SOB &/OR WHEEZING Amiodarone HCl 200 mg 05/29/18 06:00 Cordarone PO DAILY [facility] Bisacodyl 10 mg 05/23/18 20:20 Dulcolax PO DAILY PRN Constipation Calamine/Phenol 1 applic 05/26/18 22:00 Calmoseptine Ointment TOPICAL 0600,2200 [facility] Protocol Carvedilol 3.125 mg 05/24/18 08:00 05/26/18 09:39 Coreg PO 3.125 mg 0800 [facility] Administration Emollient Ointment 1 applic 05/26/18 22:00 Eucerin Intensive Repair TOPICAL 0600,2200 [facility] Protocol Levothyroxine Sodium 50 mcg 05/24/18 06:00 05/26/18 05:42 Synthroid PO 50 mcg DAILY [facility] Administration Loratadine 10 mg 05/24/18 06:00 05/26/18 08:19 Claritin PO 10 mg DAILY [facility] Administration Nitroglycerin 0.4 mg 05/23/18 18:07 Nitrostat SUBLINGUAL PRN PRN chest pain Nutritional Formula (Lactose Free) 120 ml 05/24/18 06:00 05/26/18 05:42 Ensure Enlive PO 120 ml 4X/DAY [facility] Administration Pantoprazole Sodium 40 mg 05/24/18 06:00 05/26/18 05:42 Protonix PO 40 mg DAILY [facility] Administration Polyethylene Glycol 17 gm 05/24/18 06:00 05/26/18 05:41 Miralax PO Not Given DAILY [facility] Potassium Chloride 20 meq 05/25/18 08:00 05/26/18 08:19 K-Dur PO 20 meq DAILYCM [facility] Administration Pravastatin Sodium 40 mg 05/23/18 22:00 05/25/18 20:34 Pravachol PO 40 mg QHS [facility] Administration Rivaroxaban 20 mg 05/24/18 17:00 05/25/18 18:03 Xarelto PO 20 mg DAILY@1700 [facility] Administration Fluticasone/Salmeterol 1 puff 05/24/18 06:00 05/26/18 08:19 Fluticasone-Salmeterol 232-14 IH 1 puff Q12 [facility] Administration Senna/Docusate Sodium 2 tablet 05/24/18 06:00 05/26/18 05:41 Senokot-S, Joyce-Colace PO Not Given BID [facility] Tuberculin PPD 5 tu 05/31/18 10:00 Tubersol, Aplisol, Ppd ID 05/31/18 10:01 X1 ONE Problem List (Last Reviewed 05/21/18 @ 03:48 by Chet Norman MD) Acute on chronic combined systolic (congestive) and diastolic (congestive) heart failure (Acute) Sleep apnea (Chronic) Vital Signs Temp Pulse Resp BP Pulse Ox 97.1 F L 60 16 81/34 L 97 05/25/18 15:16 05/26/18 09:40 05/25/18 15:16 05/26/18 09:30 05/25/18 15:16 Oxygen Flow Rate (L/min) 2 Oxygen Delivery Method Room Air Weight: 67.585 kg Body Mass Index (BMI) 24.0 Sodium 137 mmol/L (136-145) 05/26/18 05:30 Potassium 4.0 mmol/L (3.5-5.1) 05/26/18 05:30 Chloride 103 mmol/L (98-107) 05/26/18 05:30 Carbon Dioxide 30.0 mmol/L (21.0-32.0) 05/26/18 05:30 Anion Gap 4 (5-15) L 05/26/18 05:30 BUN 24 mg/dL (7-18) H 05/26/18 05:30 Creatinine 0.86 mg/dL (0.70-1.30) 05/26/18 05:30 Est GFR (MDRD) Af Amer 112 mL/min (>60) 05/26/18 05:30 Est GFR (MDRD) Non-Af 93 mL/min (>60) 05/26/18 05:30 BUN/Creatinine Ratio 28.0 RATIO (10-20) H 05/26/18 05:30 Glucose 88 mg/dL (74-106) 05/26/18 05:30 Assessment/Plan: 1) Pain APAP for mild pain. Continue to monitor daily pain scores, prn medication use. 2) CHF/Afib/CAD Sacubitril/valsartan, amiodarone, carvedilol, sotalol, digoxin, pravastatin. Continue to monitor BP/HR, renal function, lipids. 3) COPD Anoro, Flovent, albuterol prn. Continue to monitor prn medication use, for shortness of breath. 4) Hypothyroidism Levothyroxine daily. Continue to monitor s/s hyper/hypothyroidism. 5) Allergic Rhinitis Loratadine daily. Continue to monitor for symptoms. 6) GI Pantoprazole daily. Continue to monitor s/s GI distress. 7) Derm Calmoseptine, emollient. Continue to monitor clinically. Psychotropic Medications: None Unnecessary Medications: None Bowel Regimen: 8) Senna/s twice daily. Continue to monitor for constipation/diarrhea. Date of Note:: 05/26/18 - Provider Comments Provider responsibility: Provider responsible to enter orders to implement recommendations <Ramírez Gomez Chi - Last Filed: 06/03/18 17:48> Progress Note - Pharmacy Subjective: [] Objective: Allergies cefdinir [From Omnicef] Allergy (Intermediate, Verified 06/01/18 09:09) Rash niacin Adverse Reaction (Intermediate, Verified 06/01/18 09:09) FLUSHING/REDNESS IN FACE ANTIHYPERLIPEMIC Allergy (Intermediate, Uncoded 06/01/18 09:09) Rash ITCHY Vital Signs Temp Pulse Resp BP Pulse Ox 98.5 F 88 24 H 94/50 L 97 05/31/18 10:34 05/31/18 10:34 05/31/18 10:34 05/31/18 10:34 05/31/18 10:59 Oxygen Flow Rate (L/min) 2 Oxygen Delivery Method Room Air Weight: 70.023 kg Body Mass Index (BMI) 24.0 Sodium 140 mmol/L (136-145) 05/31/18 06:51 Potassium 4.4 mmol/L (3.5-5.1) 05/31/18 06:51 Chloride 108 mmol/L (98-107) H 05/31/18 06:51 Carbon Dioxide 24.0 mmol/L (21.0-32.0) 05/31/18 06:51 Anion Gap 8 (5-15) 05/31/18 06:51 BUN 18 mg/dL (7-18) 05/31/18 06:51 Creatinine 0.83 mg/dL (0.70-1.30) 05/31/18 06:51 Est GFR (MDRD) Af Amer 117 mL/min (>60) 05/31/18 06:51 Est GFR (MDRD) Non-Af 97 mL/min (>60) 05/31/18 06:51 BUN/Creatinine Ratio 21.8 RATIO (10-20) H 05/31/18 06:51 Glucose 110 mg/dL (74-106) H 05/31/18 06:51 Assessment/Plan: Psychotropic Medications: Unnecessary Medications: Bowel Regimen: - Provider Comments Provider responsibility: Provider responsible to enter orders to implement recommendations Provider Comments to Recommendations by Pharmacy: Agree
[2018-05-26 11:27] VITALS: O2SAT 98
[2018-05-26 15:14] VITALS: BP 91/40; PULSE 67; RESP 18; TEMP 36.4; O2SAT 100
[2018-05-26] MEDS: Rivaroxaban 20 MG Tablet PO (17:13)
[2018-05-26 18:33] VITALS: BP 90/43; PULSE 66
--- NOTE | 2018-05-26 18:36 | NURSING ---
anohter low BP tonight, pt only c/o weakness. Dr Gomez aware & wants pt to take meds as ordered.
[2018-05-26] MEDS: Pravastatin 40 MG Tablet PO (20:28)
[2018-05-26] MEDS: Menthol/Lanolin/Calamine/Znox 113 GM Tube 1 APPLIC TOPICAL (20:29)
[2018-05-27] MEDS: Levothyroxine 50 MCG Tablet PO (05:03)
[2018-05-27] MEDS: Loratadine 10 MG Tablet PO (05:03)
[2018-05-27] MEDS: Pantoprazole Sodium 40 MG Tablet PO (05:04)
[2018-05-27] MEDS: Fluticasone/Salmeterol 232-14 Inhaler 1 PUFF IH ×2 (05:05→16:48)
[2018-05-27] MEDS: Umeclidinium Bromide Inhaler 1 PUFF IH (05:05)
[2018-05-27] MEDS: Menthol/Lanolin/Calamine/Znox 113 GM Tube 1 APPLIC TOPICAL ×2 (05:06→20:10)
[2018-05-27 05:07] VITALS: BP 97/55; PULSE 66
[2018-05-27 05:08] VITALS: O2SAT 99
[2018-05-27] MEDS: SACUBITRIL/VALSARTAN 24/26 MG TABLET 1 EACH PO ×2 (08:54→16:47)
[2018-05-27] MEDS: Carvedilol 3.125 MG TABLET PO (08:56)
[2018-05-27 08:57] VITALS: BP 95/56; PULSE 67
[2018-05-27 15:05] VITALS: BP 88/47; PULSE 62; RESP 18; TEMP 36.6; O2SAT 94
[2018-05-27 16:46] VITALS: BP 90/45; PULSE 68
[2018-05-27] MEDS: Rivaroxaban 20 MG Tablet PO (16:47)
[2018-05-27] MEDS: Pravastatin 40 MG Tablet PO (20:09)
--- NOTE | 2018-05-27 20:47 | NURSING ---
Patient's bilateral legs are more swollen this evening. Bilateral lower extremities are +4 pitted edema. BP's have been running low. Patient's medications have been previously adjusted due to low BP's. Patient also complaining of having minimal nose bleeds every once in awhile where they bleed then clot up then I have a hard time breathing. Dr. Gomez notified of all the above. Orders given to reduce Xarelto to 15 mg daily, make patient strict I & O, Daily weight, 1500 fluid restriction, and Gregg wraps daily.
[2018-05-28 00:06] VITALS: BP 94/41; PULSE 70; O2SAT 98
[2018-05-28] MEDS: Fluticasone/Salmeterol 232-14 Inhaler 1 PUFF IH ×2 (05:31→17:07)
[2018-05-28] MEDS: Loratadine 10 MG Tablet PO (05:31)
[2018-05-28] MEDS: Levothyroxine 50 MCG Tablet PO (05:31)
[2018-05-28] MEDS: Pantoprazole Sodium 40 MG Tablet PO (05:31)
[2018-05-28] MEDS: Umeclidinium Bromide Inhaler 1 PUFF IH (05:31)
[2018-05-28] MEDS: Senna/Docusate Sodium 1 Tablet 2 TABLET PO ×2 (05:31→17:08)
[2018-05-28] MEDS: Menthol/Lanolin/Calamine/Znox 113 GM Tube 1 APPLIC TOPICAL ×2 (05:32→20:22)
[2018-05-28] MEDS: SACUBITRIL/VALSARTAN 24/26 MG TABLET 1 EACH PO ×2 (08:15→17:08)
[2018-05-28] MEDS: Carvedilol 3.125 MG TABLET PO (08:15)
[2018-05-28 08:16] VITALS: BP 102/52; PULSE 78
[2018-05-28] MEDS: Sodium Chloride 0.65% 1 SPRAY SPRAY.BTL NASAL (10:29)
--- NOTE | 2018-05-28 13:29 | CASEMGMT ---
Insurance Clinical update sent via secure email. Will await continued stay determination. Auth # [id number] PUSHPA Chahal
[2018-05-28 15:42] VITALS: BP 90/49; PULSE 75; RESP 18; TEMP 36.6; O2SAT 100
[2018-05-28] MEDS: Rivaroxaban 15 MG Tablet PO (17:08)
[2018-05-28] MEDS: Pravastatin 40 MG Tablet PO (20:22)
[2018-05-29] MEDS: Levothyroxine 50 MCG Tablet PO (05:40)
[2018-05-29] MEDS: Pantoprazole Sodium 40 MG Tablet PO (05:41)
[2018-05-29] MEDS: Loratadine 10 MG Tablet PO (05:41)
[2018-05-29] MEDS: Fluticasone/Salmeterol 232-14 Inhaler 1 PUFF IH ×2 (05:42→17:02)
[2018-05-29] MEDS: Umeclidinium Bromide Inhaler 1 PUFF IH (05:42)
[2018-05-29] MEDS: Menthol/Lanolin/Calamine/Znox 113 GM Tube 1 APPLIC TOPICAL ×2 (05:43→20:14)
[2018-05-29 08:16] VITALS: BP 93/52; PULSE 78
[2018-05-29] MEDS: SACUBITRIL/VALSARTAN 24/26 MG TABLET 1 EACH PO ×2 (08:32→17:03)
[2018-05-29] MEDS: Carvedilol 3.125 MG TABLET PO (08:32)
[2018-05-29 15:02] VITALS: BP 92/56; PULSE 72; RESP 18; TEMP 36.9; O2SAT 99
--- NOTE | 2018-05-29 15:40 | CASEMGMT ---
Brief interview for mental status (BIMS) and resident mood interview (PHQ-9) completed on this day. BIMS score 15/15. PHQ-9 score
--- NOTE | 2018-05-29 16:28 | CASEMGMT ---
Insurance Continued stay denied with last cover day being 05/31/18 and resident to discharge or financial responsibility to begin on 06/01/18. Auth#[id number] Cailin BARROW, SOCIAL WORK PROGRAM COORDINATOR
--- NOTE | 2018-05-29 16:28 | CASEMGMT ---
Social Work Spoke with resident in room. This marriage and family social worker communicating to resident that continued stay has been denied by insurance with last cover day of 05/31/18 and resident to discharge or financial responsibility to begin on 06/01/18. Resident voicing understanding and planning to discharge on 06/01/18 to home alone. Therapy recommending for resident to continue with further care and treatment through home health services for both physical and occupational therapy. Resident is agreeable to recommendation. Resident declining for this marriage and family social worker to contact resident son in regards to discharge. Resident voicing that resident son is to be in tomorrow and resident will notify resident son then. Support given. Proposed discharge date: 06/01/18 PLAN: Discharge to home alone with home health services. Cailin BARROW, SOCIAL SCIENCE TEACHER
[2018-05-29] MEDS: Rivaroxaban 15 MG Tablet PO (17:02)
[2018-05-29] MEDS: Pravastatin 40 MG Tablet PO (20:10)
--- NOTE | 2018-05-29 21:09 | PCM.DC ---
- Discharge Diagnoses Current Active Problems: Current Active and Chronic Problems (Last Reviewed 05/21/18 @ 03:48 by Chet Norman MD) Acute on chronic combined systolic (congestive) and diastolic (congestive) heart failure (Acute) Sleep apnea (Chronic) You will use the following diet at home:: No restrictions, Regular Your food should be the consistency of: Regular Your liquids should be the consistency of: Regular/Thin Discharge Activity: Return to Normal Activity, May Shower, Use Walker Weight Bearing Status: Weight bearing as tolerated Call your doctor if you observe: Fever of 101 or Higher, Inability to urinate, Inability to have a bowel movement, Shortness of breath, Chest pain, Uncontrolled pain Allergies/Adverse Reactions: Allergies cefdinir [From Omnicef] Allergy (Intermediate, Verified 05/15/18 10:06) Rash niacin Adverse Reaction (Intermediate, Verified 05/15/18 10:06) FLUSHING/REDNESS IN FACE ANTIHYPERLIPEMIC Allergy (Intermediate, Uncoded 05/07/18 08:53) Rash ITCHY Medications to take at Discharge Albuterol IH (ProAir) [Proair Hfa] 2 puff INHALATION Q4H PRN 01/09/18 Fluticasone 44 Mcg [Flovent 44 Mcg] 1 - 2 puff INHALATION BID 01/09/18 Levothyroxine [Synthroid] 50 mcg PO DAILY 01/09/18 Loratadine [Claritin] 10 mg PO DAILY 01/09/18 Pravastatin Sodium 40 mg PO DAILY 01/09/18 Nitroglycerin [Nitrostat] 0.4 mg SL PRN PRN 02/19/18 Carvedilol [Coreg] 3.125 mg PO DAILY 04/16/18 Pantoprazole Sodium [Protonix] 40 mg PO DAILY 04/16/18 Rivaroxaban [Xarelto] 20 mg PO DAILY 05/15/18 Umeclidinium Brm/Vilanterol Tr [Anoro Ellipta 62.5-25 Mcg INH] 1 puff INHALATION DAILY 05/20/18 Acetaminophen [Tylenol] 1,000 mg PO Q8H PRN PRN tablet 05/29/18 Amiodarone HCl [Cordarone] 200 mg PO DAILY@0800 #30 tab 05/29/18 Menthol/Lanolin/Calamine/Znox [Calmoseptine Ointment] 1 applic TOPICAL 0600,2200 tube 05/29/18 Potassium Chloride [K-Dur] 20 meq PO DAILYCM #30 tab 05/29/18 Sacubitril/Valsartan 24/26 mg [Entresto 24 mg-26 mg Tablet] 1 ea PO 0800,1800 #30 tab 05/29/18 Sodium Chloride 0.65% [[place] Nasal [place]] 1 spray NASAL TID PRN PRN spray.btl 05/29/18 The following prescriptions were given: Amiodarone HCl [Cordarone] 200 mg PO DAILY@0800 #30 tab Potassium Chloride [K-Dur] 20 meq PO DAILYCM #30 tab Sacubitril/Valsartan 24/26 mg [Entresto 24 mg-26 mg Tablet] 1 ea PO 0800,1800 #30 tab Primary Care Physician: Lorenzo Thibodeaux, ROAD [employer]RAKE COUPLER-C [Primary Care Provider] - Please follow up with your Primary Care Physician in: 1 week. Test Results: Test results from this visit will be discussed in further detail at your follow-up appointment, if applicable. Please Follow Up With: Dr Monae When: 1 week. Please Follow Up With: Kalyan Jett MD When: 1 week. Proposed Discharge Date: 06/01/18
--- NOTE | 2018-05-29 21:12 | PCM.DC.SUM ---
Discharge Date and Diagnosis - Problem List Patient Problems: Active and Suspected Problems (Last Reviewed 05/21/18 @ 03:48 by Chet Norman MD) Acute on chronic combined systolic (congestive) and diastolic (congestive) heart failure (Acute) Date of Admission: 05/23/18 Date of Discharge: 06/01/18 - Primary Discharge Diagnosis Active and Suspected Problems (Last Reviewed 05/21/18 @ 03:48 by Chet Norman MD) Acute on chronic combined systolic (congestive) and diastolic (congestive) heart failure (Acute) - Secondary Discharge Diagnosis Chronic Problems (Last Reviewed 05/21/18 @ 03:48 by Chet Norman MD) CAD (coronary artery disease) (Chronic) S/P PTCA (percutaneous transluminal coronary angioplasty) (Chronic) Cardiomyopathy, ischemic (Chronic) HLD (hyperlipidemia) (Chronic) Sleep apnea (Chronic) Deep venous thrombosis of right upper extremity (Chronic) Hx of CABG (Chronic) GARCIA to LAD, reverse SVG to the right PDA, reverse SVG to the Lateral CX (doxumented on LHC done 04/10/07 done @ [facility] but actual bypass surgery done circa 1987, also @ [facility] in [place]) Nicotine dependence (Chronic) Chronic anticoagulation (Chronic) Xarelto History of coronary artery bypass graft x 3 (Chronic ~1987) @ [facility]: GARCIA to LAD, reverse SVG to the CX marginal and SVG to the PDA branch of RCA per Dr. Lujan (info obtained from OV notes from Dr. Sorto and previous [facility] done [address] Jhonny Stephens). Atherosclerosis of coronary artery bypass graft of [place] heart without angina pectoris (Chronic) Atherosclerotic heart disease of [place] coronary artery without angina pectoris (Chronic) S/P CABG @ [facility]: GARCIA to LAD, reverse SVG to the CX marginal and SVG to the PDA branch of RCA per Dr. Lujan; PTCA and Stents @ [facility] per Dr. Jhonny Stephens: PTCA and SHAMIKA to nikolai PDA; BMS to vein graft to PDA X2; Angioplasty to vein graft to the OM1 and also to vein graft to the PDA. History of left heart catheterization (Chronic) 2006 @ [facility] per Dr. Chet Diaz History of inferior wall myocardial infarction (Chronic ~1987) Stented coronary artery (Chronic 03/01/17) PTCA and Stents @ [facility] per Dr. 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 Chuck Frausto; also hx of sinus bradycardia treated with pacing portion of device EAN (obstructive sleep apnea) (Chronic) mild EAN Hospital Course and Treatment Imaging Results: 05/23/18 18:22 Diet: Regular Diet Food consistency:: Regular Liquid Consistency:: Regular/Thin Dietary Modifications:: Fluid Restricted Diet Is pt able to select menu?: Yes Diet Comments: 1500 fluid restriction Operations: None Procedures: None Summary of Care Provided: The patient is a 73 year old Male with below past medical history significant for squamous cell lung cancer, hospitalized for weakness, complicated by pancytopenia, digoxin toxicity, acute on chronic combined systolic diastolic heart failure, admitted to TCU with debility, here for rehabilitation, strengthening, prior to discharge home alone. Resident started on Entresto for heart failure, recommend titrating up to 49/51 BID x 2 weeks, then 97/103 BID to decrease risk of cardiac , and hospitalization from heart failure. [] Discharge home alone, with Home Health Services. Resident will discuss witn oncology, radiation oncology how to proceed with treatment of lung cancer. Discharge Diet: No Restrictions Discharge Activity: Return to Normal Activity, May Shower, Use Walker Weight Bearing Status: Weight bearing as tolerated Call your doctor if you observe: Fever of 101 or Higher, Inability to urinate, Inability to have a bowel movement, Shortness of breath, Chest pain, Uncontrolled pain Home Medications: Medications to take at Discharge Albuterol IH (ProAir) [Proair Hfa] 2 puff INHALATION Q4H PRN 01/09/18 Fluticasone 44 Mcg [Flovent 44 Mcg] 1 - 2 puff INHALATION BID 01/09/18 Levothyroxine [Synthroid] 50 mcg PO DAILY 01/09/18 Loratadine [Claritin] 10 mg PO DAILY 01/09/18 Pravastatin Sodium 40 mg PO DAILY 01/09/18 Nitroglycerin [Nitrostat] 0.4 mg SL PRN PRN 02/19/18 Carvedilol [Coreg] 3.125 mg PO DAILY 04/16/18 Pantoprazole Sodium [Protonix] 40 mg PO DAILY 04/16/18 Rivaroxaban [Xarelto] 20 mg PO DAILY 05/15/18 Umeclidinium Brm/Vilanterol Tr [Anoro Ellipta 62.5-25 Mcg INH] 1 puff INHALATION DAILY 05/20/18 Acetaminophen [Tylenol] 1,000 mg PO Q8H PRN PRN tablet 05/29/18 Amiodarone HCl [Cordarone] 200 mg PO DAILY@0800 #30 tab 05/29/18 Menthol/Lanolin/Calamine/Znox [Calmoseptine Ointment] 1 applic TOPICAL 0600,2200 tube 05/29/18 Potassium Chloride [K-Dur] 20 meq PO DAILYCM #30 tab 05/29/18 Sacubitril/Valsartan 24/26 mg [Entresto 24 mg-26 mg Tablet] 1 ea PO 0800,1800 #30 tab 05/29/18 Sodium Chloride 0.65% [[place] Nasal [place]] 1 spray NASAL TID PRN PRN spray.btl 05/29/18 Following Prescrptions Were Given to Patient: Amiodarone HCl [Cordarone] 200 mg PO DAILY@0800 #30 tab Potassium Chloride [K-Dur] 20 meq PO DAILYCM #30 tab Sacubitril/Valsartan 24/26 mg [Entresto 24 mg-26 mg Tablet] 1 ea PO 0800,1800 #30 tab Primary Care Physician: Lorenzo Thibodeaux NP-C [Primary Care Provider] - Please follow up with your Primary Care Physician in: 1 week. Please Follow Up With: Dr Monae When: 1 week. Please Follow Up With: Kalyan Jett MD When: 1 week. Disposition: Home with Home Health Minutes spent on discharge:: 35 Patient Condition:: Guarded Medical Necessity - Tobacco Use Smoking Status: Former smoker Tobacco Use: Non-smoker Meaningful Use Info Meaningful Use Diagnoses (Choose all that apply): None applicable
--- NOTE | 2018-05-29 21:17 | PCM.PN.HH ---
Home Health Note - Plan Overview of reason of hospitalization: The patient is a 73 year old Male with below past medical history significant for squamous cell lung cancer, hospitalized for weakness, complicated by pancytopenia, digoxin toxicity, acute on chronic combined systolic diastolic heart failure, admitted to TCU with debility, here for rehabilitation, strengthening, prior to discharge home alone. Resident started on Entresto for heart failure, recommend titrating up to 49/51 BID x 2 weeks, then 97/103 BID to decrease risk of cardiac , and hospitalization from heart failure. [] Discharge home alone, with Home Health Services. Resident will discuss witn oncology, radiation oncology how to proceed with treatment of lung cancer. Problems: Patient was seen for (Last Reviewed 05/21/18 @ 03:48 by Chet Norman MD) Acute on chronic combined systolic (congestive) and diastolic (congestive) heart failure (Acute) Sleep apnea (Chronic) Complete List of Medical Problems (Last Reviewed 05/21/18 @ 03:48 by Chet Normna MD) Generalized weakness (Acute) Pancytopenia (Acute) Elevated digoxin level (Acute) Dehydration (Acute) Digoxin toxicity (Acute) CAD (coronary artery disease) (Chronic) S/P PTCA (percutaneous transluminal coronary angioplasty) (Chronic) Cardiomyopathy, ischemic (Chronic) HLD (hyperlipidemia) (Chronic) Acute on chronic combined systolic (congestive) and diastolic (congestive) heart failure (Acute) Sleep apnea (Chronic) Deep venous thrombosis of right upper extremity (Chronic) CHF exacerbation (Acute) Hx of CABG (Chronic) Nicotine dependence (Chronic) Chronic anticoagulation (Chronic) Acute hypoxemic respiratory failure (Acute) COPD exacerbation (Acute) Educational circumstance (Acute) Pleural effusion on right (Acute) Encounter for adjustment or management of vascular access device (Acute) History of coronary artery bypass graft x 3 (Chronic ~1987) Atherosclerosis of coronary artery bypass graft of [place] heart without angina pectoris (Chronic) Atherosclerotic heart disease of [place] coronary artery without angina pectoris (Chronic) History of left heart catheterization (Chronic) History of inferior wall myocardial infarction (Chronic ~1987) Stented coronary artery (Chronic 03/01/17) 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) Atrial fibrillation (Chronic) COPD (chronic obstructive pulmonary disease) (Chronic) Hypertension (Chronic) Hypothyroid (Chronic) TIA (transient ischemic attack) (Chronic) Primary cancer of right upper lobe of lung (Chronic) Regional lymph node metastasis present (Acute) GERD (gastroesophageal reflux disease) (Chronic) ICD (implantable cardioverter-defibrillator) in place (Chronic 05/22/12) EAN (obstructive sleep apnea) (Chronic) - Requirements and Reasons Disciplines Needed/Ordered: Physical Therapy Reason for Disciplines: Gait Training, Stair Training, Fall Prevention, Home Safety/Equipment Instruction, Balance and/or Posture Training, Transfer Training Related To: Limited/Poor Endurance, Shortness of Breath with Activity, Physical Impairments, Unsteady Gait/Balance, Fall Risk Patient is unable to leave the home: Without Aid of Supportive Devices (crutches, cane, wheelchair, walker), Without the assistance of another person - Additional Disciplines Additional Disciplines Needed/Ordered: Occupational Therapy
[2018-05-30] MEDS: Menthol/Lanolin/Calamine/Znox 113 GM Tube 1 APPLIC TOPICAL ×2 (06:06→20:12)
[2018-05-30] MEDS: Levothyroxine 50 MCG Tablet PO (06:07)
[2018-05-30] MEDS: Loratadine 10 MG Tablet PO (06:07)
[2018-05-30] MEDS: Senna/Docusate Sodium 1 Tablet 2 TABLET PO (06:07)
[2018-05-30] MEDS: Pantoprazole Sodium 40 MG Tablet PO (06:07)
[2018-05-30] MEDS: Umeclidinium Bromide Inhaler 1 PUFF IH (06:08)
[2018-05-30] MEDS: Fluticasone/Salmeterol 232-14 Inhaler 1 PUFF IH ×2 (06:08→17:28)
[2018-05-30 08:43] VITALS: BP 97/50; PULSE 77
[2018-05-30] MEDS: SACUBITRIL/VALSARTAN 24/26 MG TABLET 1 EACH PO ×2 (08:48→17:30)
[2018-05-30] MEDS: Carvedilol 3.125 MG TABLET PO (08:48)
--- NOTE | 2018-05-30 14:10 | CASEMGMT ---
Addendum entered by Cailin Mortensen 05/30/18 14:40: Topic of medical alert and hospice was discussed during plan of care meeting. Resident declining to have medical alert system and is not ready for hospice services at this time. Original Note: Plan of care meeting held. Resident present as well as resident family. Discharge date set for 06/01/18. Resident plans to discharge to home alone with home health services for physical and occupational therapy. Resident aware that insurance is [employer] and that [employer] is in network with limited home health agencies in the area. Resident requesting for referral to be made to [facility]. Resident reporting to have all needed durable medical equipment already set up within the home and to have no further needs. Resident son to provide transportation home for resident. Resident son from [place] but able to stay with resident until Saturday to assist with transition to home. Support given. Telephone call to [facility], intake. This social media sr strategy manager making referral for physical and occupational therapy. Order faxed along with clinical information. Proposed discharge date: 06/01/18 PLAN: Discharge to home alone with home health services. Cailin BARROW, BUSINESS SUPPORT ASSOCIATE
[2018-05-30 15:59] VITALS: BP 95/49; PULSE 78; RESP 18; TEMP 36.8; O2SAT 99
[2018-05-30] MEDS: Rivaroxaban 15 MG Tablet PO (17:29)
[2018-05-30] MEDS: Pravastatin 40 MG Tablet PO (20:08)
[2018-05-31] MEDS: Levothyroxine 50 MCG Tablet PO (06:02)
[2018-05-31] MEDS: Loratadine 10 MG Tablet PO (06:02)
[2018-05-31] MEDS: Pantoprazole Sodium 40 MG Tablet PO (06:03)
[2018-05-31] MEDS: Senna/Docusate Sodium 1 Tablet 2 TABLET PO (06:03)
[2018-05-31] MEDS: Menthol/Lanolin/Calamine/Znox 113 GM Tube 1 APPLIC TOPICAL (06:04)
[2018-05-31] MEDS: Fluticasone/Salmeterol 232-14 Inhaler 1 PUFF IH (06:05)
[2018-05-31 07:04] LABS: Absolute Lymphocyte Count 0.51 X10^3/ul (0.83-4.51); Absolute Neutrophil Count 2.2 X10^3/uL (2.0-7.7); Basophil# 0.02 X10^3/uL; Basophil% 0.6 % (0-1); Eosinophil# 0.03 X10^3/uL; Eosinophils% 0.9 % (0-5); Hematocrit 26.8 % (40-54); Hemoglobin 8.3 g/dl (13.0-16.5); Lymphocyte # 0.51 X10^3/ul (4.0); Mean Corpuscular Hgb 25.9 pg (27.0-32.0); Mean Corpuscular Volume 83.5 fL (80-94); Mean Platelet Vol. 10.8 fl (6.2-12.0); Monocyte# 0.44 X10^3/uL; Monocyte% 13.8 % (0-10); Neutrophil # 2.17 X10^3/uL (2.7-7.7); Neutrophil % 68.4 % (47-70); Platelet Count 100 K/mm3 (150-450); RBC Distribution Width CV 22.2 % (11.6-14.6); RBC Distribution Width SD 59.1 fl (35.1-43.9); Red Blood Count 3.21 M/mm3 (4.6-6.2); White Blood Count 3.2 K/mm3 (4.4-11.0)
[2018-05-31 07:06] LABS: Differential Indicated SCAN CRITERIA MET; POSITIVE COUNT NO; POSITIVE DIFFERENTIAL YES; POSITIVE MORPHOLOGY YES
[2018-05-31 07:15] LABS: Anion Gap 8 (5-15); BUN 18 mg/dL (7-18); BUN/Creat Ratio 21.8 RATIO (10-20); Calcium,Total 8.2 mg/dL (8.5-10.1); Chloride 108 mmol/L (98-107); Creatinine, Serum 0.83 mg/dL (0.70-1.30); EST Glomerular Filtration Rate 97 mL/min (>60); Est Glom Filt Rate - Afr Amer 117 mL/min (>60); Estimated Creatinine Clearance 69.39 ml/min; Glucose 110 mg/dL (74-106); Potassium 4.4 mmol/L (3.5-5.1); Sodium Level 140 mmol/L (136-145)
[2018-05-31 08:09] LABS: Platelet Estimate ADEQUATE (ADEQ); Red Cell Morphology N CHROM NORMAL (NORM C&C)
[2018-05-31 08:10] LABS: Anisocytosis 2+
[2018-05-31] MEDS: Carvedilol 3.125 MG TABLET PO (08:58)
[2018-05-31] MEDS: Amiodarone 200 MG Tablet PO (08:58)
[2018-05-31] MEDS: SACUBITRIL/VALSARTAN 24/26 MG TABLET 1 EACH PO (08:58)
[2018-05-31] MEDS: Umeclidinium Bromide Inhaler 1 PUFF IH (08:59)
[2018-05-31 09:01] VITALS: BP 100/55; PULSE 87
--- NOTE | 2018-05-31 10:29 | NURSING ---
pt requesting to leave today, Dr Gomez notified, ok to discharge today. family at bedside
[2018-05-31 10:34] VITALS: BP 94/50; PULSE 88; RESP 24; TEMP 36.9; O2SAT 97
[2018-05-31 10:59] VITALS: O2SAT 97
--- NOTE | 2018-06-02 10:10 | CASEMGMT ---
Insurance Notified insurance of resident discharge on 05/31/18 to home alone with home health services. Auth#[id number] Cailin BARROW, PROPOSAL DEVELOPMENT MANAGER
[2018-06-02 10:23] LABS: Pathologist Review Reviewed
--- NOTE | 2018-06-02 15:54 | MDS.RN ---
Information for the mds was obtained from review of the clinical record, interview of resident, staff, and direct observation of resident's care.
== END 2018-05-31 11:05 | disposition home health service (06) | DRG 947 ==
PROVIDERS: Admitting Provider Family Medicine Geriatric Medicine; Family Provider Nurse Practitioner Family; PCP Nurse Practitioner Family; Visit Provider Family Medicine Geriatric Medicine
DX: R53.81 Other malaise (principal); I50.43 Acute on chronic combined systolic (congestive) and diastolic (congestive) heart failure; D61.810 Antineoplastic chemotherapy induced pancytopenia; C34.11 Malignant neoplasm of upper lobe, right bronchus or lung; C77.9 Secondary and unspecified malignant neoplasm of lymph node, unspecified; J44.9 Chronic obstructive pulmonary disease, unspecified; I11.0 Hypertensive heart disease with heart failure; I48.2 Chronic atrial fibrillation; E78.5 Hyperlipidemia, unspecified; K21.9 Gastro-esophageal reflux disease without esophagitis; I25.10 Atherosclerotic heart disease of native coronary artery without angina pectoris; E03.9 Hypothyroidism, unspecified; E87.6 Hypokalemia; Z86.718 Personal history of other venous thrombosis and embolism; I27.20 Pulmonary hypertension, unspecified; Z95.1 Presence of aortocoronary bypass graft; G47.33 Obstructive sleep apnea (adult) (pediatric); Z95.810 Presence of automatic (implantable) cardiac defibrillator; I25.2 Old myocardial infarction; Z79.01 Long term (current) use of anticoagulants; Z87.891 Personal history of nicotine dependence; T45.1X5A Adverse effect of antineoplastic and immunosuppressive drugs, initial encounter; T46.0X5A Adverse effect of cardiac-stimulant glycosides and drugs of similar action, initial encounter
CPT/HCPCS: 36415; 80048; 85025; 92610; 97110; 97116; 97162; 97166; 97530; 97535; 97802; 99406

== ENCOUNTER 2018-05-31 16:37 | Emergency (ER) | payer MEDICARE, SELFPAY ==
[2018-04-17 13:12] VITALS: BMI 27.9
[2018-05-31 16:39] VITALS: BP 93/52; PULSE 110; RESP 18; TEMP 36.7; O2SAT 100; BMI 24.5
[2018-05-31 16:55] VITALS: BP 114/71; PULSE 108; RESP 18; O2SAT 100
[2018-05-31 17:05] LABS: Absolute Neutrophil Count 2.4 X10^3/uL (2.0-7.7); Basophil# 0.03 X10^3/uL; Basophil% 0.8 % (0-1); Eosinophil# 0.03 X10^3/uL; Eosinophils% 0.8 % (0-5); Hematocrit 28.5 % (40-54); Hemoglobin 8.8 g/dl (13.0-16.5); Lymphocyte % 16.6 % (19-41); Mean Corp Hgb Conc 30.9 g/gl (32-36); Mean Corpuscular Hgb 25.7 pg (27.0-32.0); Mean Corpuscular Volume 83.3 fL (80-94); Mean Platelet Vol. 9.9 fl (6.2-12.0); Monocyte# 0.59 X10^3/uL; Monocyte% 16.3 % (0-10); Neutrophil # 2.35 X10^3/uL (2.7-7.7); Neutrophil % 65.2 % (47-70); Platelet Count 112 K/mm3 (150-450); RBC Distribution Width CV 22.2 % (11.6-14.6); RBC Distribution Width SD 61.4 fl (35.1-43.9); Red Blood Count 3.42 M/mm3 (4.6-6.2); White Blood Count 3.6 K/mm3 (4.4-11.0)
[2018-05-31] MEDS: Aspirin 81 MG TAB.CHEW 324 MG PO (17:06)
[2018-05-31 17:15] LABS: Differential Indicated SCAN CRITERIA MET; POSITIVE COUNT NO; POSITIVE DIFFERENTIAL YES; POSITIVE MORPHOLOGY YES
[2018-05-31 17:17] LABS: International Normalized Ratio 1.4; Prothrombin Time (Protime)PT. 17.3 SECONDS (11.7-14.9)
[2018-05-31 17:20] LABS: Differential Comment SCANNED
[2018-05-31 17:27] LABS: Anion Gap 12 (5-15); BUN 21 mg/dL (7-18); BUN/Creat Ratio 25.9 RATIO (10-20); Calcium,Total 8.4 mg/dL (8.5-10.1); Chloride 108 mmol/L (98-107); Creatinine, Serum 0.81 mg/dL (0.70-1.30); EST Glomerular Filtration Rate 98 mL/min (>60); Est Glom Filt Rate - Afr Amer 119 mL/min (>60); Estimated Creatinine Clearance 71.11 ml/min; Glucose 103 mg/dL (74-106); Magnesium 1.6 mg/dL (1.6-2.6); Potassium 4.7 mmol/L (3.5-5.1); Sodium Level 143 mmol/L (136-145)
[2018-05-31 17:49] LABS: Digoxin Level 0.33 ng/mL (0.80-2.00)
[2018-05-31 17:54] VITALS: BP 103/66; PULSE 100; RESP 20; O2SAT 100
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
[2018-05-31 19:05] VITALS: BP 121/78; PULSE 107; RESP 20; O2SAT 99
[2018-05-31 19:18] VITALS: BP 110/74; PULSE 102; RESP 22; O2SAT 95
[2018-05-31 20:35] VITALS: BP 105/61; PULSE 105; RESP 24; O2SAT 96
== END 2018-05-31 20:45 | disposition home or self-care (01) ==
PROVIDERS: Emergency Provider Emergency Medicine; Family Provider Nurse Practitioner Family; PCP Nurse Practitioner Family
DX: I48.91 Unspecified atrial fibrillation (principal); I44.7 Left bundle-branch block, unspecified; R60.0 Localized edema; I10 Essential (primary) hypertension; I25.10 Atherosclerotic heart disease of native coronary artery without angina pectoris; E78.00 Pure hypercholesterolemia, unspecified; E11.9 Type 2 diabetes mellitus without complications; Z95.1 Presence of aortocoronary bypass graft; C34.90 Malignant neoplasm of unspecified part of unspecified bronchus or lung
CPT/HCPCS: 71045; 80048; 80162; 83735; 84484; 85025; 85610; 93005; 99285; J7050; A4216

== ENCOUNTER 2018-06-01 09:08 | Emergency (ER) | payer MEDICARE, SELFPAY ==
[2018-04-17 13:12] VITALS: BMI 27.9
[2018-06-01 09:09] VITALS: BP 103/66; PULSE 106; RESP 14; TEMP 37.4; O2SAT 99; BMI 25.3
[2018-06-01 09:19] VITALS: PULSE 110; RESP 20
--- NOTE | 2018-06-01 09:49 | ED.RN ---
pacer check completed by this nurse. Awaiting results from [facility].
[2018-06-01 09:51] LABS: Absolute Lymphocyte Count 0.44 X10^3/ul (0.83-4.51); Absolute Neutrophil Count 2.9 X10^3/uL (2.0-7.7); Basophil# 0.01 X10^3/uL; Basophil% 0.3 % (0-1); Eosinophil# 0.01 X10^3/uL; Eosinophils% 0.3 % (0-5); Hematocrit 25.7 % (40-54); Lymphocyte # 0.44 X10^3/ul (4.0); Lymphocyte % 11.3 % (19-41); Mean Corp Hgb Conc 31.1 g/gl (32-36); Mean Corpuscular Hgb 26.1 pg (27.0-32.0); Mean Platelet Vol. 11.2 fl (6.2-12.0); Monocyte# 0.49 X10^3/uL; Monocyte% 12.6 % (0-10); Neutrophil # 2.93 X10^3/uL (2.7-7.7); Neutrophil % 75.2 % (47-70); Platelet Count 98 K/mm3 (150-450); RBC Distribution Width CV 22.4 % (11.6-14.6); RBC Distribution Width SD 59.8 fl (35.1-43.9); Red Blood Count 3.06 M/mm3 (4.6-6.2); White Blood Count 3.9 K/mm3 (4.4-11.0)
[2018-06-01 09:52] LABS: Differential Indicated SCAN CRITERIA MET; POSITIVE COUNT NO; POSITIVE DIFFERENTIAL YES; POSITIVE MORPHOLOGY YES
[2018-06-01 09:58] LABS: Anion Gap 8 (5-15); BUN 22 mg/dL (7-18); BUN/Creat Ratio 22.4 RATIO (10-20); Calcium,Total 8.3 mg/dL (8.5-10.1); Chloride 107 mmol/L (98-107); Creatinine, Serum 0.98 mg/dL (0.70-1.30); EST Glomerular Filtration Rate 79 mL/min (>60); Est Glom Filt Rate - Afr Amer 95 mL/min (>60); Estimated Creatinine Clearance 58.77 ml/min; Glucose 145 mg/dL (74-106); Potassium 4.8 mmol/L (3.5-5.1); Sodium Level 139 mmol/L (136-145)
[2018-06-01 10:04] LABS: Anisocytosis 2+; Differential Comment SCANNED; Macrocytosis 1+; Microcytosis 1+
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
[2018-06-01] MEDS: 0.9% Normal Saline 1,000 ML 250 ML IV (10:23)
[2018-06-01 11:35] VITALS: BP 109/64; PULSE 97; RESP 17; O2SAT 99
[2018-06-01 12:57] VITALS: BP 99/64; PULSE 98; RESP 16; O2SAT 100
== END 2018-06-01 12:59 | disposition short-term general hospital (02) ==
LOC: ED 09:45
PROVIDERS: Emergency Provider Emergency Medicine; Family Provider Nurse Practitioner Family; PCP Nurse Practitioner Family
DX: T82.199A Other mechanical complication of unspecified cardiac device, initial encounter (principal); Y84.9 Medical procedure, unspecified as the cause of abnormal reaction of the patient, or of later complication, without mention of misadventure at the time of the procedure; I44.7 Left bundle-branch block, unspecified; R60.0 Localized edema; I25.10 Atherosclerotic heart disease of native coronary artery without angina pectoris; Z95.1 Presence of aortocoronary bypass graft; Z85.118 Personal history of other malignant neoplasm of bronchus and lung
CPT/HCPCS: 80048; 85025; 93005; 96361; 96365; 96375; 99285; J7030; A4216